=== PATIENT | female | born 1935 | race Caucasian/White ===

== ENCOUNTER 2016-12-13 02:50 | Observation (INO) | payer MEDICARE, MEDICAID ==
[~2016-12-13] VITALS: Ht 165.1 cm; Wt 78.5 kg
[~2016-12-13 02:50] MED LIST: ALBU17AE3 IH; ALPR0.5T22 PO; ASP81CT PO; AZIT-21 PO; BENZ100C8 PO; CEFP500T4 PO; CEFU500T5 PO; DIPH25TA82 PO; GLIM4TAB PO; HCT25T PO; LISI5TAB14 PO; MTF500T PO; MTP25TSR PO; NF-ESOM40C PO; NF-TRA/ACE PO; PROP1TAB77 PO
--- OUTSIDE RECORDS SUMMARY | 2016-12-13 02:58 | XMS REPORT ---
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 [employer] Address Unknown Phone Unavailable Care Team Providers Care Console Attendant Name Role Phone AMBER CHILDERS CP Unavailable Allergies No Known Allergies Problems Problem Type Condition Code Onset Dates Condition Status Problem Essential hypertension I10 Active Problem Arthritis M19.90 Active Problem Type 2 diabetes mellitus without complication, without long-term current use of insulin E11.9 Active Problem Lumbago with sciatica, left side M54.42 Active Problem Anxiety F41.9 Active Medications Medication Code System Code Instructions Start Date End Date Status Dosage Alprazolam [facility] [id number] 0.5 MG Orally Three times a day 1 tablet Results No Known Results Summary Purpose [employer] Submission
[2016-12-13] MEDS ORDERED: NS IV 1000 ML 1,000 ML IV STA (03:17)
--- NOTE | 2016-12-13 03:28 | ED General ---
General Stated Complaint: VOMITING,DIARRHEA,FEELS HOT ALL OVER Source of Information: Patient Exam Limitations: No Limitations History of Present Illness Time Seen by Provider: 03:00 Initial Comments Here with report of cough for the last couple of days associated with body aches and runny nose. Onset of diarrhea yesterday morning. Seen by her provider yesterday and prescribed Cefdinir. She has taken a dose of that. Overnight she had increasing cough and diarrhea. Feels like her skin is on fire which is been going on since onset. Denies blood in her stool. She reports being hot but denies fever. Reports weakness. Timing/Duration: 2-3 Days Severity: Moderate Associated Systoms: No Chest Pain, CoughNo Fever/Chills, Nausea/VomitingNo Shortness of Air, Weakness Allergies and Home Medications Allergies Coded Allergies: Diazepam (Unverified Allergy, Intermediate, RASH, 08/13/10) Home Medications Alprazolam 0.5 Mg Tab.sr.24h 1 TAB PO TID (Reported) Aspirin 81 Mg Chew 81 MG PO DAILY (Reported) Benzonatate 100 Mg Capsule #30 1-2 EACH PO Q4-6HR PRN PRN COUGH Prescribed by: CASSANDRA ROBERTSON on 01/04/152029 Cefuroxime Axetil 500 Mg Tablet #20 1 EACH PO BID Prescribed by: CASSANDRA ROBERTSON on 01/03/151854 Glimepiride 4 Mg Tablet 4 MG PO (Reported) Hydrochlorothiazide 25 Mg Tab 25 MG PO DAILY (Reported) Lisinopril 5 Mg Tablet 5 MG PO DAILY (Reported) Metformin Hcl 500 Mg Tablet 1 EACH PO BID WITH MEALS (Reported) Metoprolol Succinate 25 Mg Tab 25 MG PO BID (Reported) Tramadol/Acetaminophen 1 Ea Tab 1 TAB PO QID (Reported) Constitutional: see HPI EENTM: nose congestionNo throat pain Respiratory: coughNo short of breath Cardiovascular: no symptoms reported Gastrointestinal: diarrhea nausea vomiting Genitourinary: no symptoms reported Musculoskeletal: no symptoms reported All Other Systems Reviewed Negative Unless Noted: Yes Past Hrbonzl-Pzgdkg-Rgftnr Hx Patient Social History Alcohol Use: Denies Use Recreational Drug Use: No Smoking Status: Never a Smoker Recent Foreign Travel: No Contact w/Someone Who Travel: No Immunizations Up To Date Date of Pneumonia Vaccine: Jun 25, 2009 Surgeries HX Surgeries: Yes (SKIN CA REMOVAL) Surgeries: Eye Surgery, Hysterectomy Respiratory Hx Respiratory Disorders: No Cardiovascular Hx Cardiac Disorders: Yes Cardiac Disorders: Hypertension Neurological Hx Neurological Disorders: No Genitourinary Hx Genitourinary Disorders: No Gastrointestinal Hx Gastrointestinal Disorders: No Musculoskeletal Hx Musculoskeletal Disorders: No Endocrine Hx Endocrine Disorders: Yes Endocrine Disorders: Diabetes, Non-Insulin dep HEENT HX ENT Disorders: Yes HEENT Disorders: Cataract, Glaucoma Cancer Hx Cancer: Yes Cancer: Skin Psychosocial Hx Psychiatric Problems: No Integumentary HX Skin/Integumentary Disorder: No Blood Transfusions Hx Blood Disorders: No Adverse Reaction to a Blood Tr: No Reviewed Nursing Assessment Reviewed/Agree w Nursing PMH: Yes Family Medical History Significant Family History: No Pertinent Family Hx Physical Exam Vital Signs Vital Sign - Last 12Hours 12/13/16 02:58 Temp 97.6 Pulse 95 Resp 20 B/P 114/36 Pulse Ox 96 O2 Delivery Room Air Capillary Refill : General Appearance: No Apparent Distress WD/WN HEENT: PERRL/EOMI Pharynx Normal Neck: Non Tender Supple Respiratory: No Accessory Muscle Use Other (course cough with sputum) Cardiovascular: Regular Rate, Rhythm No Murmur Gastrointestinal: Soft Tenderness (mild diffuse) Back: Normal Inspection No CVA Tenderness No Vertebral Tenderness Extremity: Normal Range of Motion Non Tender No Calf Tenderness Neurologic/Psychiatric: Alert Oriented x3 No Motor/Sensory Deficits Skin: Normal Color Warm/Dry Focused Exam Lactic Acid Level Laboratory Tests Test 12/13/16 03:44 Alanine Aminotransferase (ALT/SGPT) 14U/L (0-55) Albumin 4.2G/DL (3.2-4.5) Alkaline Phosphatase 48U/L (40-136) Anion Gap 16MMOL/L (5-14) H Aspartate Amino Transf (AST/SGOT) 17U/L (5-34) BUN/Creatinine Ratio 20 Blood Urea Nitrogen 40MG/DL (7-18) H Calcium Level 9.4MG/DL (8.5-10.1) Carbon Dioxide Level 12MMOL/L (21-32) L Chloride Level 109MMOL/L (98-107) H Creatinine 1.98MG/DL (0.60-1.30) H Estimat Glomerular Filtration Rate 24 Glucose Level 162MG/DL (70-105) H Lactic Acid Level 2.48MMOL/L (0.50-2.00) *H Magnesium Level 2.2MG/DL (1.8-2.4) Potassium Level 5.2MMOL/L (3.6-5.0) H Sodium Level 137MMOL/L (135-145) Total Bilirubin 0.1MG/DL (0.1-1.0) Total Protein 8.1G/DL (6.4-8.2) Progress/Results/Core Measures Results/Orders Lab Results Laboratory Tests Test 12/13/16 03:44 12/13/16 04:26 Range/Units Alanine Aminotransferase (ALT/SGPT) 14 0-55 U/L Albumin 4.2 3.2-4.5 G/DL Alkaline Phosphatase 48 40-136 U/L Anion Gap 16 H 5-14 MMOL/L Aspartate Amino Transf (AST/SGOT) 17 5-34 U/L BUN/Creatinine Ratio 20 Basophils # (Auto) 0.0 0.0-0.1 10^3/uL Basophils (%) (Auto) 0 0-10 % Blood Urea Nitrogen 40 H 7-18 MG/DL Calcium Level 9.4 8.5-10.1 MG/DL Carbon Dioxide Level 12 L 21-32 MMOL/L Chloride Level 109 H 98-107 MMOL/L Creatinine 1.98 H 0.60-1.30 MG/DL Eosinophils # (Auto) 0.1 0.0-0.3 10^3/uL Eosinophils (%) (Auto) 1 0-10 % Estimat Glomerular Filtration Rate 24 Glucose Level 162 H 70-105 MG/DL Hematocrit 33 L 35-52 % Hemoglobin 10.3 L 11.5-16.0 G/DL Lactic Acid Level 2.48 *H 0.50-2.00 MMOL/L Lymphocytes # (Auto) 1.0 1.0-4.0 X 10^3 Lymphocytes (%) (Auto) 9 L 12-44 % Magnesium Level 2.2 1.8-2.4 MG/DL Mean Corpuscular Hemoglobin 29 25-34 PG Mean Corpuscular Hemoglobin Concent 31 L 32-36 G/DL Mean Corpuscular Volume 93 80-99 FL Mean Platelet Volume 10.2 7.4-10.4 FL Monocytes # (Auto) 0.9 0.0-1.0 X 10^3 Monocytes (%) (Auto) 8 0-12 % Neutrophils # (Auto) 9.5 H 1.8-7.8 X 10^3 Neutrophils (%) (Auto) 83 H 42-75 % Platelet Count 277 130-400 10^3/uL Potassium Level 5.2 H 3.6-5.0 MMOL/L Red Blood Count 3.58 L 4.35-5.85 10^6/uL Red Cell Distribution Width 15.6 H 10.0-14.5 % Sodium Level 137 135-145 MMOL/L Total Bilirubin 0.1 0.1-1.0 MG/DL Total Protein 8.1 6.4-8.2 G/DL White Blood Count 11.4 H 4.3-11.0 10^3/uL Urine Bacteria TRACE /HPF Urine Bilirubin NEGATIVE NEGATIVE Urine Casts PRESENT /LPF Urine Clarity CLEAR Urine Color YELLOW Urine Crystals NONE /LPF Urine Culture Indicated NO Urine Glucose (UA) NEGATIVE NEGATIVE Urine Hyaline Casts 5-10 H /LPF Urine Ketones NEGATIVE NEGATIVE Urine Leukocyte Esterase 1+ H NEGATIVE Urine Mucus MODERATE H /LPF Urine Nitrite NEGATIVE NEGATIVE Urine Protein 2+ H NEGATIVE Urine RBC 0-2 /HPF Urine RBC (Auto) 1+ H NEGATIVE Urine Specific [place] 1.020 1.016-1.022 Urine Squamous Epithelial Cells 0-2 /HPF Urine Urobilinogen NORMAL NORMAL MG/DL Urine WBC RARE /HPF Urine pH 5 5-9 My Orders Orders-ERROL COKER MD Cbc With Automated Diff (12/13/16 03:17) Comprehensive Metabolic Panel (12/13/16 03:17) Magnesium (12/13/16 03:17) Ua Culture If Indicated (12/13/16 03:17) Ondansetron Injection (Zofran Injectio (12/13/16 03:30) Ns Iv 1000 Ml (Sodium Chloride 0.9%) (12/13/16 03:17) Saline Lock/Iv-Start (12/13/16 03:17) Lactic Acid Analyzer (12/13/16 03:17) Blood Culture (12/13/16 03:17) Chest 1 View, Ap/Pa Only (12/13/16 04:02) Promethazine/ Codeine Syrup (Phenergan W (12/13/16 05:15) Medications Given in ED Current Medications Medications Dose Ordered Sig/Mary Ann Route Start Time Stop Time Status Last Admin Dose Admin Ondansetron HCl 4 mg ONCE ONCE IVP 12/13/16 03:30 12/13/16 03:31 DC 12/13/16 03:34 4 MG Vital Signs/I&O Vital Sign - Last 12Hours 12/13/16 02:58 Temp 97.6 Pulse 95 Resp 20 B/P 114/36 Pulse Ox 96 O2 Delivery Room Air Progress Note : Progress Note Seen and evaluated. IV, labs, UA, chest x-ray, normal saline 1 L bolus and Zofran 4 mg IV ordered. Monitor patient. 0500: Labs, x-ray and UA are reviewed. Patient does have elevated lactic acid but there is no obvious source of infection. Chest x-ray is negative and UA is negative. She does have diarrhea and cough. I do believe the lactic acid is related to volume depletion/dehydration from diarrhea and not sepsis from bacterial infection. Likely viral bronchitis and viral diarrhea. This was discussed with Dr. METCALF who agrees. She has had 1 L of normal saline and we will continue this inpatient with normal saline at 150 mL an hour. Findings concerns discussed with patient and family who agree with plan. Admit, observation status. Phenergan with codeine cough syrup 1 teaspoon by mouth given. Diagnostic Imaging Diagonstic Imaging: Xray Plain Films/CT/US/NM/MRI: chest Comments No acute findings Departure Communication Time/Spoke to Admitting Phy: 05:00 Impression Impression: Primary Impression: Diarrhea Qualified Code: R19.7 - Diarrhea, unspecified Additional Impressions: Bronchitis Volume depletion Disposition: ADMITTED INPATIENT Condition: Stable Decision to Admit Reason: Admit from ER (General) Decision to Admit/Date: Dec 13, 2016 Time/Decision to Admit Time: 05:00 Departure-Patient Inst. Referrals: [facility] (PCP/Family) Primary Care Physician ERROL COKER MD Dec 13, 2016 03:28
[2016-12-13] MEDS ORDERED: ONDANSETRON 4 MG/2 ML (SDV) Z0FRAN IVP ONE (03:30)
[2016-12-13 03:52] LABS: BASOPHILS % (AUTO) 0 % (0-10); EOSINOPHILS # (AUTO) 0.1 10^3/uL (0.0-0.3); EOSINOPHILS % (AUTO) 1 % (0-10); LYMPHOCYTES % (AUTO) 9 % (12-44); MEAN CORPUSCULAR HEMOGLOBIN 29 PG (25-34); MEAN CORPUSCULAR HGB CONC 31 G/DL (32-36); MEAN CORPUSCULAR VOLUME 93 FL (80-99); MEAN PLATELET VOLUME 10.2 FL (7.4-10.4); MONOCYTES # (AUTO) 0.9 X 10^3 (0.0-1.0); MONOCYTES % (AUTO) 8 % (0-12); NEUTROPHILS # (AUTO) 9.5 X 10^3 (1.8-7.8); NEUTROPHILS % (AUTO) 83 % (42-75); PLATELET COUNT 277 10^3/uL (130-400); RED BLOOD COUNT 3.58 10^6/uL (4.35-5.85); RED CELL DISTRIBUTION WIDTH 15.6 % (10.0-14.5); WHITE BLOOD COUNT 11.4 10^3/uL (4.3-11.0)
[2016-12-13 04:16] LABS: ALBUMIN 4.2 G/DL (3.2-4.5); BILIRUBIN,TOTAL 0.1 MG/DL (0.1-1.0); CALCIUM 9.4 MG/DL (8.5-10.1); CREATININE SERUM 1.98 MG/DL (0.60-1.30); MAGNESIUM 2.2 MG/DL (1.8-2.4); TOTAL PROTEIN 8.1 G/DL (6.4-8.2)
[2016-12-13 04:19] LABS: POTASSIUM 5.2 MMOL/L (3.6-5.0)
[2016-12-13 04:33] LABS: BILIRUBIN,URINE NEGATIVE (NEGATIVE); KETONES,URINE NEGATIVE (NEGATIVE); LEUKOCYTE ESTERASE ,URINE 1+ (NEGATIVE); NITRITE,URINE NEGATIVE (NEGATIVE); PH,URINE 5 (5-9); PROTEIN,URINE 2+ (NEGATIVE); UROBILINOGEN,URINE NORMAL (NORMAL)
[2016-12-13 04:43] LABS: SQUAMOUS EPITHELIAL CELL,UR 0-2 /HPF; WBC,URINE RARE /HPF
[2016-12-13] MEDS ORDERED: PROMETHAZINE/ CODEINE SYRUP 5 ML UDC PO ONE (05:15)
--- NOTE | 2016-12-13 06:31 | Diagnostic Imaging Report ---
EXAM: CHEST 1 VIEW, AP/PA ONLY INDICATION: Cough and congestion. COMPARISON: Chest radiograph 01/04/2015. FINDINGS: Normal heart size and pulmonary vascularity. No focal pulmonary opacity, pleural effusion or pneumothorax. Calcified aorta. IMPRESSION: No acute cardiopulmonary findings. Dictated by: Dictated on workstation # [id number]
[2016-12-13] MEDS ORDERED: CHOLESTYRAMINE 4 GM (QUESTRAN LITE, PREVALITE) PKT PO NR (07:27)
[2016-12-13] MEDS ORDERED: ONDANSETRON 4 MG/2 ML (SDV) Z0FRAN IV PRN (07:30)
[2016-12-13] MEDS ORDERED: CATHETER FLUSH 10 ML SYR IV PRN (07:30)
[2016-12-13 08:00] VITALS: BP 115/57
[2016-12-13] MEDS: NS IV 1000 ML 1,000 ML IV SCH ×3 (08:13→20:50)
[2016-12-13] MEDS ORDERED: CEFD300C3 PO (08:35)
[2016-12-13] MEDS ORDERED: NF-ESOM40C PO (08:35)
[2016-12-13] MEDS ORDERED: LISI-556 PO (08:35)
[2016-12-13] MEDS ORDERED: ALPR0.5T7 PO (08:35)
[2016-12-13] MEDS ORDERED: METF500T4 PO (08:35)
[2016-12-13] MEDS ORDERED: METO-333 PO (08:35)
[2016-12-13] MEDS ORDERED: TRAM1TAB7 PO (08:35)
[2016-12-13] MEDS ORDERED: HYDR25TA4 PO (08:35)
[2016-12-13] MEDS ORDERED: ASPI-983 PO (09:54)
[2016-12-13] MEDS ORDERED: GLIM4TAB PO (10:00)
[2016-12-13] MEDS ORDERED: FLU TRIvalent (5 YOA+) 2016-17 (AFLURIA) 0.5 ML IM ONE (10:45)
[2016-12-13 12:00] VITALS: BP 117/65
[2016-12-13] MEDS ORDERED: IBUPROFEN TABLET 200 MG TAB PO PRN (12:30)
[2016-12-13] MEDS: ACETAMINOPHEN 500 MG TAB (TYLENOL) PO PRN (13:48)
[2016-12-13 16:10] VITALS: BP 129/70
[2016-12-13 20:00] VITALS: BP 119/71
--- NOTE | 2016-12-13 20:13 | History & Physical-Hospitalist ---
HPI History of Present Illness: HPI/Chief Complaint Mrs. Gutierres is an 81-year who reported a three-day history of cough and congestion. This then progre to watery diarrhea without reported bright red blood or diarrhea. she saw her doctor who prescribed Cefdinir.following this she felt as though her skin was on fire with increasing weakness and shortness of breath.subsequently presented to the emergency room. She denied shaking chills or fever and denied Sputem production. Date Seen 12/13/16 Attending Physician Lj Wagner MD PCP [facility] Referring Physician Date of Admission Dec 13, 2016 at 05:00 Home Medications & Allergies Home Medications Reviewed patient Home Medication Reconciliation Form Allergies Allergies Coded Allergies diazepam (Unverified Allergy, Intermediate, RASH, 08/13/10) Past Vadjppf-Gidgvp-Jmzlsn Hx Patient Social History Alcohol Use: Denies Use Recreational Drug Use: No Smoking Status: Never a Smoker Physical Abuse Screen: No Sexual Abuse: No Recent Foreign Travel: No Contact w/other who traveled: No Recent Hopitalizations: No Recent Infectious Disease Expo: No Immunizations Up To Date Date of Pneumonia Vaccine: Jul 16, 2017 Seasonal Allergies Seasonal Allergies: No Surgeries HX Surgeries: Yes (SKIN CA REMOVAL) Surgeries: Eye Surgery, Hysterectomy Respiratory Hx Respiratory Disorders: No Cardiovascular Hx Cardiovascular Disorders: Yes Cardiac Disorders: Hypertension Neurological Hx Neurological Disorders: No Genitourinary Hx Genitourinary Disorders: No Gastrointestinal Hx Gastrointestinal Disorders: No Gastrointestinal Disorders: Gastroesophageal Reflux Musculoskeletal Hx Musculoskeletal Disorders: No Endocrine Hx Endocrine Disorders: Yes Endocrine Disorders: Diabetes, Non-Insulin dep HEENT HX ENT Disorders: Yes HEENT Disorders: Cataract, Glaucoma Cancer Hx Cancer: Yes Cancer: Skin Psychosocial Hx Psychiatric Problems: No Integumentary HX Skin/Integumentary Disorder: No Blood Transfusions Hx Blood Disorders: No Adverse Reaction to a Blood Tr: No Reviewed Nursing Assessment Reviewed/Agree w Nursing PMH: Yes Family Medical History Significant Family History: No Pertinent Family Hx Family Hx: Patient reports no known family medical history. Review of Systems Constitutional: No chills, No diaphoresis, No dizziness, No fever, weakness Respiratory: cough dyspnea on exertion short of breath wheezing Gastrointestinal: abdominal pain (And left upper quadrant from coughing) diarrhea loss of appetite Physical Exam Physical Exam Vital Signs Vital Sign - Last 12Hours 12/13/16 02:58 Temp 97.6 Pulse 95 Resp 20 B/P 114/36 Pulse Ox 96 O2 Delivery Room Air Capillary Refill : Less Than 3 Seconds General Appearance: Anxious Chronically ill Mild Distress HEENT: Pale Conjunctivae (L) Pale Conjunctivae (R) Pharyngeal Erythema Respiratory: No Accessory Muscle Use Wheezing (Mild expiratory heard posteriorly anterior chest was clear no rales or rhonchi were noted.) Cardiovascular: Regular Rate, Rhythm No Edema No Gallop No JVD No Murmur Normal Peripheral Pulses Gastrointestinal: Normal Bowel Sounds No Organomegaly No Pulsatile Mass Soft Other (Mild epigastricTenderness no rebound or guarding) Extremity: Non Tender No Calf Tenderness No Pedal Edema Skin: Pallor Results Results/Procedures Lab Laboratory Tests 12/13/16 03:44 Assessment/Plan Admission Diagnosis 1. Likely viral bronchitis with reactive airways in addition to viral gastroenteritis with mild dehydration. Bronchodilator therapy and IV hydration have been initiated. 2. Type II diabetes mellitus we will hold oral therapy for now and monitor. 3. Hypertension hold antihypertensive medication and resume when blood pressure becomes elevated.. Clinical Quality Measures DVT/VTE Risk/Contraindication: Risk Factor Score Per Nursin RFS Level Per Nursing on Admit: 4+=Very High YARIEL TSE MD Dec 13, 2016 20:13
[2016-12-13] MEDS: inSUlin ASPART (NovoLOG) 1 UNIT/0.01 ML (CHARGE PER UNIT) SC SCH (21:00)
[2016-12-13] MEDS: ALPRAZolam 0.5 MG (XANAX) TAB PO SCH (21:00)
[2016-12-13] MEDS ORDERED: RT-ALBUTEROL/IPRATROPIUM 3 ML (DUONEB) VIAL ONE (22:17)
[2016-12-13] MEDS: PROMETHAZINE/ CODEINE SYRUP 5 ML UDC PO PRN (22:34)
[2016-12-13] MEDS ORDERED: RT-ALBUTEROL/IPRATROPIUM 3 ML (DUONEB) VIAL INH PRN (22:45)
[2016-12-13] MEDS ORDERED: RT-ALBUTEROL/IPRATROPIUM 3 ML (DUONEB) VIAL INH SCH (23:00)
[2016-12-14] VITALS (7 sets, daily range): BP systolic 100–146; BP diastolic 59–70
[2016-12-14] MEDS: NS IV 1000 ML 1,000 ML IV SCH ×3 (00:15→14:28)
[2016-12-14] MEDS: inSUlin ASPART (NovoLOG) 1 UNIT/0.01 ML (CHARGE PER UNIT) SC SCH ×4 (05:23→20:32)
[2016-12-14] MEDS: RT-ALBUTEROL/IPRATROPIUM 3 ML (DUONEB) VIAL INH SCH ×4 (06:51→18:55)
[2016-12-14] MEDS: PANTOPRAZOLE 40 MG (PROTONIX) TAB PO SCH (06:52)
[2016-12-14 07:42] LABS: BASOPHILS % (AUTO) 0 % (0-10); EOSINOPHILS # (AUTO) 0.1 10^3/uL (0.0-0.3); EOSINOPHILS % (AUTO) 1 % (0-10); LYMPHOCYTES % (AUTO) 23 % (12-44); MEAN CORPUSCULAR HEMOGLOBIN 29 PG (25-34); MEAN CORPUSCULAR HGB CONC 32 G/DL (32-36); MEAN CORPUSCULAR VOLUME 93 FL (80-99); MEAN PLATELET VOLUME 9.7 FL (7.4-10.4); MONOCYTES # (AUTO) 0.6 X 10^3 (0.0-1.0); MONOCYTES % (AUTO) 7 % (0-12); NEUTROPHILS % (AUTO) 69 % (42-75); PLATELET COUNT 223 10^3/uL (130-400); RED BLOOD COUNT 2.91 10^6/uL (4.35-5.85); RED CELL DISTRIBUTION WIDTH 15.7 % (10.0-14.5); WHITE BLOOD COUNT 8.7 10^3/uL (4.3-11.0)
[2016-12-14 07:57] LABS: CALCIUM 7.7 MG/DL (8.5-10.1); CREATININE SERUM 1.34 MG/DL (0.60-1.30); POTASSIUM 4.2 MMOL/L (3.6-5.0)
[2016-12-14] MEDS: ALPRAZolam 0.5 MG (XANAX) TAB PO SCH ×3 (09:00→20:01)
[2016-12-14] MEDS: PROMETHAZINE/ CODEINE SYRUP 5 ML UDC PO PRN (15:08)
[2016-12-14] MEDS ORDERED: ONDANSETRON 4 MG (ZOFRAN) ORAL DISSOLVE TAB PO PRN (15:45)
--- NOTE | 2016-12-14 20:47 | Progress Note-Hospitalist ---
Subjective HPI/CC On Admission Mrs. Gutierres is an 81-year who reported a three-day history of cough and congestion. This then progre to watery diarrhea without reported bright red blood or diarrhea. she saw her doctor who prescribed Cefdinir.following this she felt as though her skin was on fire with increasing weakness and shortness of breath.subsequently presented to the emergency room. She denied shaking chills or fever and denied Sputem production. Date Seen 12/14/16 Subjective/Events-last exam After breathing rx last night feeling better with decreased sob. No chill fever or diarrhea reported. Objective Exam Vital Signs Vital Sign - Last 12Hours 12/12/16 12/13/16 21:20 02:58 Temp 97.6 Pulse 95 Resp 20 B/P (MAP) 114/36 Pulse Ox 95 O2 Delivery Room Air Capillary Refill : Less Than 3 Seconds General Appearance: No Apparent Distress, Chronically ill Respiratory: Chest Non Tender, No Accessory Muscle Use, No Respiratory Distress , Wheezing (mild expiratory ) Cardiovascular: Regular Rate, Rhythm, No Edema, No Gallop, No JVD, No Murmur, Normal Peripheral Pulses Extremity: No Pedal Edema Results/Procedures Lab Assessment/Plan Assessment and Plan Assess & Plan/Chief Complaint 1. Acute bronchiolitis likely due to viral infection improving patient set up for discharge later today she was codeine-based cough syrup which is working well for the past without side effects. YARIEL TSE MD Dec 14, 2016 20:46
[2016-12-15] MEDS: inSUlin ASPART (NovoLOG) 1 UNIT/0.01 ML (CHARGE PER UNIT) SC SCH ×3 (06:00→16:00)
[2016-12-15] MEDS: PROMETHAZINE/ CODEINE SYRUP 5 ML UDC PO PRN (06:07)
[2016-12-15] MEDS: PANTOPRAZOLE 40 MG (PROTONIX) TAB PO SCH (06:08)
[2016-12-15] MEDS: RT-ALBUTEROL/IPRATROPIUM 3 ML (DUONEB) VIAL INH SCH ×2 (07:38→11:23)
[2016-12-15] MEDS: ACETAMINOPHEN 500 MG TAB (TYLENOL) PO PRN (07:41)
[2016-12-15 08:00] VITALS: BP 144/77
[2016-12-15] MEDS: ALPRAZolam 0.5 MG (XANAX) TAB PO SCH ×2 (09:24→12:23)
[2016-12-15 16:00] VITALS: BP 130/60
[2016-12-15] MEDS ORDERED: CODE118S2 PO (16:41)
[2016-12-15] MEDS ORDERED: ROBITUSSIN AC PO (16:43)
[2016-12-15 17:15] VITALS: BP 122/88
--- NOTE | 2016-12-15 17:19 | Discharge Summary-Hospitalist ---
Diagnosis/Chief Complaint Date of Admission Dec 13, 2016 at 07:00 Date of Discharge Discharge Date: Dec 15, 2016 Admission Diagnosis 1. Likely viral bronchitis with reactive airways in addition to viral gastroenteritis with mild dehydration. Bronchodilator therapy and IV hydration have been initiated. 2. Type II diabetes mellitus we will hold oral therapy for now and monitor. 3. Hypertension hold antihypertensive medication and resume when blood pressure becomes elevated.. Discharge Diagnosis 1. Acute bronchiolitis likely due to viral infection improving patient set up for discharge later today she was codeine-based cough syrup which is working well for the past without side effects. Reason Hospital Visit/Course Mrs. Jaime is an 81-year who reported a three-day history of cough and congestion. This then progre to watery diarrhea without reported bright red blood or diarrhea. she saw her doctor who prescribed Cefdinir.following this she felt as though her skin was on fire with increasing weakness and shortness of breath.subsequently presented to the emergency room. She denied shaking chills or fever and denied Sputum production. IV fluids and anti-medic therapy was initiated. Patient was feeling better by the morning and creatinine level was down from the 1.8 range to 1.3. Her hemoglobin with rehydration and also decreased from little over 10-8.5. Stools remain light in color with resolution of diarrhea. Appetite returned to normal. Her cough persisted and she did request codeine-based cough syrup on discharge which she has tolerated in the past without nausea or constipation problems. Despite return of good by mouth intake on a 1500-calorie ADA diet blood sugars remained predominantly in the 120-150 range off of metformin and glimepiride. On her discharge metformin at 500 mg twice a day was resumed and she was told to hold her glimepiride. Other medications were resumed as per below in addition Robitussin-AC elixir 5- 10 mL every 4 when necessary. She was advised to follow-up with Dr. Whelan in 1 -2 weeks and to repeat a CBC at that time. Discussed the fact that she did have what appeared to be likely anemia of chronic disease. If this is not resolving she will require further workup. Discussed the importance of a balanced diet in layman's terms. Discharge Summary Discharge Physical Examination Allergies: Coded Allergies: diazepam (Unverified Allergy, Intermediate, RASH, 08/13/10) Vitals & I&Os Vital Signs Date Time Temp Pulse Resp B/P (MAP) Pulse Ox O2 Delivery O2 Flow Rate FiO2 12/15/16 16:00 96.9 94 16 130/60 97 Room Air Hospital Course Labs (last 24 hrs) Laboratory Tests 12/14/16 20:21: Glucometer 182H 12/15/16 05:12: Glucometer 141H 12/15/16 10:43: Glucometer 171H 12/15/16 15:58: Glucometer 132H Microbiology 12/13/16 Blood Culture - Preliminary, Resulted No growth Pending Labs Laboratory Tests 12/15/16 10:43: Glucometer 171 12/15/16 15:58: Glucometer 132 Discharge Home Medications: Active Scripts Active [Robitussin Ac] 5-10 Ml PO Reported Aspirin EC (Aspirin) 81 Mg Tablet.dr 81 Mg PO DAILY Tramadol-Acetaminophn 37.5-325 (Tramadol HCl/Acetaminophen) 1 Each Tablet 1 Tab PO QID Nexium (Esomeprazole Magnesium) 40 Mg Cap 40 Mg PO DAILY Alprazolam 0.5 Mg Tablet 0.5 Mg PO TID Metformin HCl 500 Mg Tablet 500 Mg PO BID WITH MEALS Metoprolol Tartrate 25 Mg Tablet 25 Mg PO BID Lisinopril 5 Mg Tablet 5 Mg PO DAILY Instructions to patient/family Please see electonic discharge instructions given to patient. Clinical Quality Measures DVT/VTE Risk/Contraindication: Risk Factor Score Per Nursin RFS Level Per Nursing on Admit: 4+=Very High Copy Copies To 1: AMBER CHILDERS MD, MARK D MD Dec 15, 2016 17:19
== END 2016-12-15 08:02 | disposition home or self-care (01) ==
LOC: DELPENDDIS → EDUNIT# 02:50 → ER 02:53 → 4TH 05:00 → UNDOADMOB 05:00 → 4TH 06:15
PROVIDERS: ADMIT Internal Medicine; ATTEND Internal Medicine
DX: J21.9 Acute bronchiolitis, unspecified (principal); E86.0 Dehydration; I10 Essential (primary) hypertension; E11.9 Type 2 diabetes mellitus without complications; K21.9 Gastro-esophageal reflux disease without esophagitis; J45.909 Unspecified asthma, uncomplicated; R19.7 Diarrhea, unspecified
CPT/HCPCS: 36415; 71010; 80048; 80053; 81000; 82962; 83605; 83735; 85025; 87040; 94640; 94760; 96374; G0378

== ENCOUNTER 2018-10-22 06:34 | Emergency (ER) | payer MEDICARE, MEDICAID ==
[~2018-10-22] VITALS: Ht 165.1 cm; Wt 72.6 kg
[~2018-10-22 06:34] MED LIST changes: +ALPR0.5T7 PO; +ASPI-983 PO; +CEFD300C3 PO; +CODE118S4 PO; +HYDR25TA4 PO; +LISI-556 PO; +METF-397 PO; +METO-333 PO; +ROBITUSSIN AC PO; +TRAM1TAB7 PO
--- NOTE | 2018-10-22 06:54 | ED Fall/Injury ---
General Stated Complaint: FELL OUT OF WHEELCHAIR Source: patient Exam Limitations: no limitations History of Present Illness Date Seen by Provider: Oct 22, 2018 Time Seen by Provider: 06:38 Initial Comments Patient presents to ER by wheelchair from 4th floor where she has been with her overnight. She fell forward out of her wheelchair after falling asleep on to her knees and struck her head against the recliner. Patient says she has falls about every week or so. 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 She's having some modest pain but no more than usual in her knees and denies any swelling or loss of range of motion or ability to stand on them. She says she struck herself in the right forehead. She is having no double vision, headache, nausea, diarrhea, dysuria, fever. She says she just wants to be checked out. He does not take blood thinners or aspirin. She has already taken her medications this morning including a pain pill for her arthritis. Allergies and Home Medications Allergies Coded Allergies: diazepam (Unverified Allergy, Intermediate, RASH, 08/13/10) Home Medications Alprazolam 0.5 Mg Tablet, 0.5 MG PO TID, (Reported) Aspirin 81 Mg Tablet.dr, 81 MG PO DAILY, (Reported) Esomeprazole Magnesium 40 Mg Cap, 40 MG PO DAILY, (Reported) Lisinopril 5 Mg Tablet, 5 MG PO DAILY, (Reported) Metformin HCl 500 Mg Tablet, 500 MG PO BID WITH MEALS, (Reported) Metoprolol Tartrate 25 Mg Tablet, 25 MG PO BID, (Reported) Tramadol HCl/Acetaminophen 1 Each Tablet, 1 TAB PO QID, (Reported) Patient Home Medication List Home Medication List Reviewed: Yes Review of Systems Review of Systems Constitutional: No chills, No fever Eyes: Denies Blindness, Denies Blurred Vision Ears, Nose, Mouth, Throat: denies ear pain, denies ear discharge Respiratory: No cough, No short of breath Cardiovascular: No chest pain, No edema Gastrointestinal: No abdominal pain, No constipation, No diarrhea, No nausea Genitourinary: No discharge, No dysuria Past Bkhbwrv-Aeokwz-Wqhweb Hx Patient Social History Alcohol Use: Denies Use Recreational Drug Use: No Smoking Status: Never a Smoker Recent Foreign Travel: No Contact w/Someone Who Travel: No Recent Hopitalizations: No Immunizations Up To Date Date of Pneumonia Vaccine: Jul 16, 2017 Seasonal Allergies Seasonal Allergies: No Past Medical History Surgeries: Yes (SKIN CA REMOVAL) Eye Surgery, Hysterectomy Respiratory: No Cardiac: Yes Hypertension Neurological: No Genitourinary: No Gastrointestinal: Yes Gastroesophageal Reflux Musculoskeletal: No Endocrine: Yes Diabetes, Non-Insulin dep Cataract, Glaucoma Cancer: Yes Skin Psychosocial: No Integumentary: No Blood Disorders: No Adverse Reaction/Blood Tranf: No Family Medical History Patient reports no known family medical history. No Pertinent Family Hx Physical Exam Vital Signs Vital Signs - First Documented 10/22/18 06:40 Temp 96.1 Pulse 93 Resp 19 B/P (MAP) 111/66 (81) Pulse Ox 98 O2 Delivery Room Air Capillary Refill : Height, Weight, BMI Height: 5'5.00" Weight: 173lbs. 0.0oz. [id number]; 28.8 BMI Method:Stated General Appearance: WD/WN, no apparent distress HEENT: PERRL/EOMI, normal ENT inspection, TMs normal, pharynx normal, other ( atraumatic head with negative for Mac sign, raccoon eyes or hematoma or hemotympanum) Neck: non-tender, full range of motion, supple, normal inspection Cardiovascular: normal peripheral pulses, regular rate, rhythm, no edema Respiratory: chest non-tender, lungs clear, normal breath sounds, no respiratory distress, no accessory muscle use Peripheral Pulses: 2+ Dorsalis Pedis (R), 2+ Left Dors-Pedis (L) Gastrointestinal: normal bowel sounds, non tender, soft Extremities: normal range of motion (bilateral knees), non-tender, normal inspection, no pedal edema, normal capillary refill, other (no abrasion, erythema, ecchymoses, joint effusion, crepitus. She generally lacks about 10 of full extension of both knees but this is felt to be chronic.) Claudette Coma Score Best Eye Response: (4) Open Spontaneously Best Verbal Response: (5) Oriented Best Motor Response: (6) Obeys Commands Claudette Total: 15 Progress/Results/Core Measures Results/Orders My Orders Orders - RODRIGUEZ BRUNO Ct Head Wo (10/22/18 06:48) Knee, 3 Views, Bilateral (10/22/18 07:05) Vital Signs/I&O 10/22/18 10/22/18 06:40 06:40 Temp 96.1 96.1 Pulse 93 93 Resp B/P (MAP) 111/66 (81) 111/66 (81) Pulse Ox 98 O2 Delivery Room Air Progress Progress Note : Time: 06:53 Progress Note Patient's knees and head are atraumatic appearing. 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 She states her pain is at baseline. She declines anything for pain right now. We have offered x-rays of the knee but she has full range of motion and can stand on them. We have also offered a CT of the head versus observation and the patient decided to go ahead and CT. Diagnostic Imaging Diagonstic Imaging: CT Plain Films/CT/US/NM/MRI: head Comments [facility], [place] NAME: PJ MORALES 3Jam [facility] REC#: [id number] PT STATUS: REG ER : 1935 PHYSICIAN: RODRIGUEZ BRUNO MD ADMIT DATE: 10/22/18/ER Draft Date of Exam:10/22/18 CT HEAD WO PROCEDURE: CT head without contrast. TECHNIQUE: Multiple contiguous axial images were obtained through the brain without the use of intravenous contrast. INDICATION: Fall. No priors. There is no hemorrhage, hydrocephalus, edema, mass, mass effect or evidence for an elevation of the intracranial pressures. Orbits and calvarium nonacute. There is chronic-appearing, partially calcified opacification of the incompletely visualized right maxillary sinus and a similarly but less involved left maxillary sinus noted. There appears to be postsurgical changes to the medial maxillary kerns. IMPRESSION: Chronic paranasal sinus disease, unremarkable appearance of the brain. Dictated on workstation # [id number] Dict: 10/22/18 0709 Trans: 10/22/18 0720 [facility] [id number] Interpreted by: MAYI MARTINO Electronically signed by: Reviewed: Reviewed by Me Diagonstic Imaging: Xray Plain Films/CT/US/NM/MRI: knee (monica) Comments NAME: PJ MORALES [facility] REC#: [id number] PT STATUS: REG ER : 1935 PHYSICIAN: RODRIGUEZ BRUON MD ADMIT DATE: 10/22/18/ER Draft Date of Exam:10/22/18 KNEE, 3 VIEWS, BILATERAL Indication: Fall with pain. Bilateral three-view knee showed no fracture, dislocation loose body or convincing evidence for joint effusion. Impression: No acute-appearing abnormality. Dictated on workstation # [id number] Dict: 10/22/18 0736 Trans: 10/22/18 0740 [facility] [phone] Interpreted by: MAYI MARTINO Electronically signed by: Reviewed: Reviewed by Me Departure Impression Primary Impression: Fall Qualified Codes: W19.XXXA - Unspecified fall, initial encounter Disposition: HOME, SELF-CARE Condition: Stable Departure-Patient Inst. Decision time for Depature: 07:40 Referrals: [facility] [place]) Primary Care Physician Patient Instructions: Concussion, Adult (DC) Add. Discharge Instructions: Tylenol and/or ibuprofen as necessary for headache pain. If you Have a headache, nausea or difficulty with balance then you should get some sleep and follow-up with primary care as necessary. RODRIGUEZ BRUNO Oct 22, 2018 06:54
--- NOTE | 2018-10-22 07:21 | Diagnostic Imaging Report ---
PROCEDURE: CT head without contrast. TECHNIQUE: Multiple contiguous axial images were obtained through the brain without the use of intravenous contrast. INDICATION: Fall. No priors. There is no hemorrhage, hydrocephalus, edema, mass, mass effect or evidence for an elevation of the intracranial pressures. Orbits and calvarium nonacute. There is chronic-appearing, partially calcified opacification of the incompletely visualized right maxillary sinus and a similarly but less involved left maxillary sinus noted. There appears to be postsurgical changes to the medial maxillary kerns. IMPRESSION: Chronic paranasal sinus disease, unremarkable appearance of the brain. Dictated by: Dictated on workstation # [id number]
--- NOTE | 2018-10-22 07:40 | Diagnostic Imaging Report ---
Indication: Fall with pain. Bilateral three-view knee showed no fracture, dislocation loose body or convincing evidence for joint effusion. Impression: No acute-appearing abnormality. Dictated by: Dictated on workstation # [id number]
[2018-10-22 07:53] VITALS: BP 110/65
== END 2018-10-22 08:00 | disposition home or self-care (01) ==
LOC: EDUNIT# 06:34 → ER 06:35
DX: M25.561 Pain in right knee (principal); M25.562 Pain in left knee; I10 Essential (primary) hypertension; K21.9 Gastro-esophageal reflux disease without esophagitis; E11.9 Type 2 diabetes mellitus without complications; R40.2142 Coma scale, eyes open, spontaneous, at arrival to emergency department; R40.2252 Coma scale, best verbal response, oriented, at arrival to emergency department; R40.2362 Coma scale, best motor response, obeys commands, at arrival to emergency department; Z88.8 Allergy status to other drugs, medicaments and biological substances; Z79.82 Long term (current) use of aspirin; Z85.828 Personal history of other malignant neoplasm of skin; Z90.710 Acquired absence of both cervix and uterus; Z79.84 Long term (current) use of oral hypoglycemic drugs; W05.0XXA Fall from non-moving wheelchair, initial encounter; W22.09XA Striking against other stationary object, initial encounter
CPT/HCPCS: 70450

== ENCOUNTER 2018-11-02 08:55 | Emergency (ER) | payer MEDICARE, MEDICAID ==
[~2018-11-02] VITALS: Ht 165.1 cm; Wt 72.6 kg
--- NOTE | 2018-11-02 10:17 | ED Lower Extremity ---
General Chief Complaint: Lower Extremity Stated Complaint: LT LEG INJURY Nursing Triage Note: Pt to ED rm 9 in wheelchair. Pt c/o L leg pain, redness, and swelling that began yesterday. Pt denies injury. Pt's inner calf is red, swollen and hot to the touch. Nursing Sepsis Screen: No Definite Risk Source: patient Exam Limitations: no limitations History of Present Illness Date Seen by Provider: Nov 02, 2018 Time Seen by Provider: 10:14 Initial Comments This 83-year-old white female presents with redness swelling and pain of the left leg between the knee and the ankle that began yesterday. Patient denies similar episode in the past, injury to the leg, associated shortness of breath, hemoptysis, fever, or chills. Allergies and Home Medications Allergies Coded Allergies: diazepam (Unverified Allergy, Intermediate, RASH, 08/13/10) Home Medications Alprazolam 0.5 Mg Tablet, 0.5 MG PO TID, (Reported) Aspirin 81 Mg Tablet.dr, 81 MG PO DAILY, (Reported) Esomeprazole Magnesium 40 Mg Cap, 40 MG PO DAILY, (Reported) Lisinopril 5 Mg Tablet, 5 MG PO DAILY, (Reported) Metformin HCl 500 Mg Tablet, 500 MG PO BID WITH MEALS, (Reported) Metoprolol Tartrate 25 Mg Tablet, 25 MG PO BID, (Reported) Tramadol HCl/Acetaminophen 1 Each Tablet, 1 TAB PO QID, (Reported) Patient Home Medication List Home Medication List Reviewed: Yes Review of Systems Constitutional: No chills, No fever EENTM: no symptoms reported Respiratory: No cough, No short of breath Cardiovascular: No chest pain Gastrointestinal: No abdominal pain, No nausea, No vomiting Genitourinary: no symptoms reported : No Musculoskeletal: see HPI Skin: change in color Psychiatric/Neurological: No Symptoms Reported Past Xuygomn-Egwwjv-Hanerb Hx Past Med/Social Hx: Reviewed Nursing Past Med/Soc Hx Patient Social History Alcohol Use: Denies Use Recreational Drug Use: No 2nd Hand Smoke Exposure: No Recent Foreign Travel: No Contact w/Someone Who Travel: No Recent Infectious Disease Expo: No Recent Hopitalizations: No Physical Abuse: No Sexual Abuse: No Immunizations Up To Date Tetanus Booster (TDap): Unknown Date of Pneumonia Vaccine: Jul 16, 2017 Seasonal Allergies Seasonal Allergies: No Past Medical History Surgeries: Yes (SKIN CA REMOVAL) Eye Surgery, Hysterectomy Respiratory: No Cardiac: Yes Hypertension 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 No Pertinent Family Hx Physical Exam Vital Signs Vital Signs - First Documented 11/02/18 09:20 Temp 98.5 Pulse 111 Resp 19 B/P (MAP) 141/63 (89) Pulse Ox 99 O2 Delivery Room Air Capillary Refill : Less Than 3 Seconds Height, Weight, BMI Height: 5'5.00" Weight: 160lbs. 0oz. [id number]; 28.8 BMI Method:Stated General Appearance: WD/WN, no apparent distress HEENT: normal ENT inspection Neck: full range of motion, supple Cardiovascular: regular rate, rhythm Respiratory: lungs clear Gastrointestinal: normal bowel sounds, non tender Legs: left leg other (there is diffuse erythema to the left leg between the knee and the ankle. The inflamed area is slightly warm to the touch. There was no ascending lymphedema.) Neurologic/Tendon: normal sensation, normal motor functions Neurologic/Psychiatric: no motor/sensory deficits, alert, normal mood/affect, oriented x 3 Skin: other (erythema to the left leg between the knee and ankle suggestive of cellulitis.) Progress/Results/Core Measures Results/Orders Lab Results Laboratory Tests Test 11/02/18 10:55 Range/Units White Blood Count 17.6 H 4.3-11.0 10^3/uL Red Blood Count 3.46 L 4.35-5.85 10^6/uL Hemoglobin 10.5 L 11.5-16.0 G/DL Hematocrit 33 L 35-52 % Mean Corpuscular Volume 96 80-99 FL Mean Corpuscular Hemoglobin 30 25-34 PG Mean Corpuscular Hemoglobin Concent 32 32-36 G/DL Red Cell Distribution Width 14.5 10.0-14.5 % Platelet Count 204 130-400 10^3/uL Mean Platelet Volume 11.0 H 7.4-10.4 FL Neutrophils (%) (Auto) 84 H 42-75 % Lymphocytes (%) (Auto) 9 L 12-44 % Monocytes (%) (Auto) 7 0-12 % Eosinophils (%) (Auto) 0 0-10 % Basophils (%) (Auto) 0 0-10 % Neutrophils # (Auto) 14.7 H 1.8-7.8 X 10^3 Lymphocytes # (Auto) 1.6 1.0-4.0 X 10^3 Monocytes # (Auto) 1.3 H 0.0-1.0 X 10^3 Eosinophils # (Auto) 0.0 0.0-0.3 10^3/uL Basophils # (Auto) 0.0 0.0-0.1 10^3/uL Neutrophils % (Manual) 89 % Lymphocytes % (Manual) 7 % Monocytes % (Manual) 4 % Eosinophils % (Manual) 0 % Basophils % (Manual) 0 % Band Neutrophils 0 % Blood Morphology Comment NORMAL Sodium Level 138 135-145 MMOL/L Potassium Level 4.4 3.6-5.0 MMOL/L Chloride Level 110 H 98-107 MMOL/L Carbon Dioxide Level 16 L 21-32 MMOL/L Anion Gap 12 5-14 MMOL/L Blood Urea Nitrogen 31 H 7-18 MG/DL Creatinine 1.56 H 0.60-1.30 MG/DL Estimat Glomerular Filtration Rate 32 BUN/Creatinine Ratio 20 Glucose Level 167 H 70-105 MG/DL Calcium Level 9.5 8.5-10.1 MG/DL Corrected Calcium 9.6 8.5-10.1 MG/DL Total Bilirubin 0.4 0.1-1.0 MG/DL Aspartate Amino Transf (AST/SGOT) 11 5-34 U/L Alanine Aminotransferase (ALT/SGPT) 9 0-55 U/L Alkaline Phosphatase 50 40-136 U/L Total Protein 7.7 6.4-8.2 GM/DL Albumin 3.9 3.2-4.5 GM/DL My Orders Orders - YARIEL CHAVEZ MD Cbc With Automated Diff (11/02/18 10:13) Comprehensive Metabolic Panel (11/02/18 10:13) Us Venous Lower Ext Lt (11/02/18 10:13) Manual Differential (11/02/18 10:55) Vital Signs/I&O 11/02/18 09:20 Temp 98.5 Pulse 111 Resp 19 B/P (MAP) 141/63 (89) Pulse Ox 99 O2 Delivery Room Air Blood Pressure Mean: 89 Progress Progress Note : Time: 11:27 Progress Note The patient's ultrasound of the leg failed to demonstrate evidence of thrombophlebitis. I discussed findings with the patient. She was placed on Bactrim DS moist heating pads to the leg, elevation, rest, and asked to follow up closely with her doctor on Monday. She was invited return to the emergency department should any further problems or questions. Departure Impression Primary Impression: Cellulitis Qualified Codes: L03.116 - Cellulitis of left lower limb Disposition: HOME, SELF-CARE Condition: Improved Departure-Patient Inst. Decision time for Depature: 11:29 Referrals: [facility] (PCP/Family) Primary Care Physician Patient Instructions: Cellulitis (Skin Infection), Adult (DC) Add. Discharge Instructions: Bactrim DS as prescribed. Moist heat and elevation to the left leg. Close follow-up with her doctor on Monday. Return if any problems or questions. All discharge instructions reviewed with patient and/or family. Voiced understanding. YARIEL CHAVEZ MD Nov 02, 2018 10:17
[2018-11-02 11:01] LABS: BASOPHILS % (AUTO) 0 % (0-10); EOSINOPHILS % (AUTO) 0 % (0-10); HEMATOCRIT 33 % (35-52); HEMOGLOBIN 10.5 G/DL (11.5-16.0); LYMPHOCYTES # (AUTO) 1.6 X 10^3 (1.0-4.0); LYMPHOCYTES % (AUTO) 9 % (12-44); MEAN CORPUSCULAR HEMOGLOBIN 30 PG (25-34); MEAN CORPUSCULAR HGB CONC 32 G/DL (32-36); MEAN CORPUSCULAR VOLUME 96 FL (80-99); MONOCYTES # (AUTO) 1.3 X 10^3 (0.0-1.0); MONOCYTES % (AUTO) 7 % (0-12); NEUTROPHILS # (AUTO) 14.7 X 10^3 (1.8-7.8); NEUTROPHILS % (AUTO) 84 % (42-75); PLATELET COUNT 204 10^3/uL (130-400); RED CELL DISTRIBUTION WIDTH 14.5 % (10.0-14.5); WHITE BLOOD COUNT 17.6 10^3/uL (4.3-11.0)
[2018-11-02 11:19] LABS: BAND NEUTROPHILS 0 %; BASOPHILS % (MANUAL) 0 %; EOSINOPHILS % (MANUAL) 0 %; LYMPHOCYTES % (MANUAL) 7 %; MONOCYTES % (MANUAL) 4 %; NEUTROPHILS % (MANUAL) 89 %; RBC MORPH NORMAL
[2018-11-02 11:23] LABS: ALBUMIN 3.9 GM/DL (3.2-4.5); BILIRUBIN,TOTAL 0.4 MG/DL (0.1-1.0); CALCIUM 9.5 MG/DL (8.5-10.1); CREATININE SERUM 1.56 MG/DL (0.60-1.30); POTASSIUM 4.4 MMOL/L (3.6-5.0); TOTAL PROTEIN 7.7 GM/DL (6.4-8.2)
[2018-11-02 11:39] VITALS: BP 142/66
--- NOTE | 2018-11-02 11:43 | Diagnostic Imaging Report ---
PROCEDURE: US left lower extremity venous. TECHNIQUE: Multiple real-time grayscale images were obtained over the left lower extremity in various projections. Additional duplex Doppler and color Doppler images were also obtained. INDICATION: Left lower extremity redness and pain. There is no evidence of a left lower extremity DVT. Left lower extremity 3-D venous system shows normal compressibility with normal response to augmentation and Valsalva. No fluid collection or mass is seen. IMPRESSION: No evidence of left lower extremity DVT. Dictated by: Dictated on workstation # [id number]
--- OUTSIDE RECORDS SUMMARY | 2018-11-02 12:31 | XMS REPORT ---
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 [facility] Address [address] [place] [address] Care Team Providers Care [employer] Worker Name Role Phone AMBER CHILDERS Unavailable PROBLEMS Type Condition ICD9-CM Code [id number] Code Onset Dates Condition Status SNOMED Code Problem Essential hypertension I10 Active 23190379 Problem Type 2 diabetes mellitus without complication, without long-term current use of insulin E11.9 Active 255262366 Problem Anxiety F41.9 Active 05640851 Problem Lumbago with sciatica, left side M54.42 Active 229160593 Problem Arthritis M19.90 Active 9541052 Problem Iron deficiency anemia, unspecified iron deficiency anemia type D50.9 Active 39149340 Problem Venous insufficiency I87.2 Active 85116540 Problem Gastroesophageal reflux disease, esophagitis presence not specified K21.9 Active 966432542 Problem Seasonal allergic rhinitis due to pollen J30.1 Active 18783955 Problem Anemia of chronic disease D63.8 Active 545411575 Problem Chronic kidney disease, stage 3 (moderate) N18.3 Active 300785030 ALLERGIES No Information ENCOUNTERS Encounter Location Date Diagnosis [facility] [id number] [place] [address] 71952- 3951 Jun, Essential hypertension I10 [facility] [id number] [place] [address] 23424- 7775 May, Essential hypertension I10 and Arthritis M19.90 [facility] [id number] [place] [address] 97871- 2020 Apr, [facility] [id number] [place] [address] 59331- 4898 Apr, [facility] [id number] [place] [address] 01408- 3115 Apr, [facility] [address] [address] 2703 Mar, Essential hypertension I10 [facility] [id number] [place] [address] 18224- 5968 Feb, Type 2 diabetes mellitus without complication, without long- term current use of insulin E11.9 ; Essential hypertension I10 and Anemia of chronic disease D63.8 [facility] [id number] [place] [address] 33993- 5878 Feb, Arthritis M19.90 and Essential hypertension I10 [facility] [id number] [place] [address] 03916- 4015 January, [facility] [id number] [place] [address] 82361- 4021 January, [facility] [id number] [place] [address] 80058- 4042 January, Medicare annual wellness visit, initial Z00.00 ; Type 2 diabetes mellitus without complication, without long-term current use of insulin E11.9 ; Chronic kidney disease, stage 3 (moderate) N18.3 ; Essential hypertension I10 ; Gastroesophageal reflux disease, esophagitis presence not specified K21.9 ; Anxiety F41.9 ; Arthritis M19.90 and Encounter for immunization Z23 [facility] [address] [address] 4207 January, Essential hypertension I10 [facility] [id number] [place] [address] 21660- 3900 Dec, Arthritis M19.90 [facility] [id number] [place] [address] 40077- 9271 Dec, [facility] [id number] [place] [address] 17967- 9154 Dec, [facility] [address] [address] 1247 Dec, Essential hypertension I10 [facility] [id number] [place] [address] 03243 -8017 Nov, Dysuria R30.0 and Vaginal kai B37.3 [facility] [address] 23236- 9030 Nov, Arthritis M19.90 [facility] [address] 87563- 5585 Oct, [facility] [address] 74827- 4757 Oct, Type 2 diabetes mellitus without complication, without long- term current use of insulin E11.9 ; Lumbago with sciatica, left side M54.42 ; Arthritis M19.90 ; Iron deficiency anemia, unspecified iron deficiency anemia type D50.9 and BMI 40.0-44.9, adult Z68.41 [facility] [address] 14151- 3427 Sep, [facility] [address] 90828- 3743 Sep, [facility] [address] 68028- 2815 Sep, Arthritis M19.90 and Anxiety F41.9 [facility] [address] 77229- 0378 Sep, [facility] [address] 84604- 5189 Aug, Anxiety F41.9 [facility] [address] 29740- 7078 Jul, [facility] [address] 93913- 6386 Jul, [facility] [address] 39184- 0302 Jul, Vaginal yeast infection B37.3 [facility] [address] 99043- 9446 Jul, Anxiety F41.9 [facility] [id number] [place] [address] 43036- 1995 Jul, Type 2 diabetes mellitus without complication, without long- term current use of insulin E11.9 [facility] [id number] [place] [address] 78255- 3916 Jul, [facility] [id number] [place] [address] 12821- 0734 Jul, [facility] [id number] [place] [address] 59554- 0458 Jun, Arthritis M19.90 [facility] [id number] [place] [address] 12556- 7670 Jun, [facility] [id number] [place] [address] 75339- 2030 Jun, [facility] [id number] [place] [address] 71732- 8946 May, [facility] [id number] [place] [address] 72715- 7599 Apr, Venous insufficiency I87.2 and Venous stasis dermatitis of right lower extremity I87.2 [facility] [address] [place] [address] 72034- 6359 Apr, Essential hypertension I10 [facility] [id number] [place] [address] 20784- 3947 Mar, [facility] [id number] [place] [address] 79800- 9363 Mar, Type 2 diabetes mellitus without complication, without long- term current use of insulin E11.9 and Essential hypertension I10 [facility] [id number] [place] [address] 10049- 6583 Mar, Essential hypertension I10 and Type 2 diabetes mellitus without complication, without long-term current use of insulin E11.9 [facility] [id number] [place] [address] 02076- 3679 18 Mar, 2017 Chronic kidney disease, stage 3 (moderate) N18.3 ; Anemia of chronic disease D63.8 and Type 2 diabetes mellitus without complication, without long-term current use of insulin E11.9 [facility] [id number] [place] [address] 25545- 7827 14 Mar, 2017 Type 2 diabetes mellitus without complication, without long- term current use of insulin E11.9 ; Iron deficiency anemia secondary to inadequate dietary iron intake D50.8 ; Arthritis M19.90 and Lumbago with sciatica, left side M54.42 [facility] [address] 10557- 2936 Feb, Arthritis M19.90 and Anxiety F41.9 [facility] [id number] [place] [address] 48853- 5949 Feb, Type 2 diabetes mellitus without complication, without long- term current use of insulin E11.9 and Essential hypertension I10 [facility] [id number] [place] [address] 06457- 1021 January, Anxiety F41.9 [facility] [address] 07698- 4313 January, Monilial rash B37.2 [facility] [id number] [place] [address] 82763- 1217 January, [facility] [id number] [place] [address] 20943- 8931 January, [facility] [id number] [place] [address] 39635- 9296 January, [facility] [address] 13177- 3187 January, Gastroesophageal reflux disease, esophagitis presence not specified K21.9 [facility] [id number] [place] [address] 29909- 7342 January, Arthritis M19.90 [facility] [id number] [place] [address] 45442- 6686 January, Anxiety F41.9 ; Arthritis M19.90 and Essential hypertension I10 [facility] [id number] [place] [address] 51951- 7896 January, Essential hypertension I10 and Anxiety F41.9 [facility] [address] 12745- 2293 Dec, [facility] [id number] [place] [address] 14616- 1733 Dec, Arthritis M19.90 and Anxiety F41.9 [facility] [id number] [place] [address] 99284- 8210 Dec, Type 2 diabetes mellitus without complication, without long- term current use of insulin E11.9 ; Cellulitis of right lower extremity L03.115 and Arthritis M19.90 [facility] [id number] [place] [address] 09177- 6955 Nov, [facility] [id number] [place] [address] 37202- 7927 Nov, Type 2 diabetes mellitus without complication, without long- term current use of insulin E11.9 ; Bronchitis J40 and Arthritis M19.90 [facility] [id number] [place] [address] 79072- 7754 Nov, [facility] [id number] [place] [address] 04890- 0555 Oct, Anxiety F41.9 [facility] [id number] [place] [address] 17860 -5607 Sep, Dysuria R30.0 ; Acute cystitis with hematuria N30.01 and Vaginal yeast infection B37.3 [facility] [id number] [place] [address] 11548- 5988 Sep, Arthritis M19.90 [facility] [id number] [place] [address] 01895 -1134 Sep, Strep pharyngitis J02.0 and Sore throat J02.9 [facility] [address] 12807- 0421 Sep, [facility] [address] 80622- 2137 Sep, Type 2 diabetes mellitus without complication, without long- term current use of insulin E11.9 [facility] [id number] [place] [address] 71530- 3792 Aug, [facility] [address] 90407- 1906 Aug, Seasonal allergic rhinitis due to pollen J30.1 [facility] [address] 14867 -8043 Aug, Impacted cerumen of right ear H61.21 and Seasonal allergic rhinitis due to pollen J30.1 [facility] [id number] [place] [address] 31753- 1968 Aug, [facility] [address] 73106- 8693 Aug, [facility] [id number] [place] [address] 44721- 7769 Jul, Type 2 diabetes mellitus without complication, without long- term current use of insulin E11.9 ; Anxiety F41.9 ; Essential hypertension I10 and Encounter for immunization Z23 [facility] [id number] [place] [address] 36711- 8694 Jul, Essential hypertension I10 [facility] [address] 47748- 7373 Jul, [facility] [address] 66816- 2957 Jul, [facility] [address] [place] [address]- 2156 Jul, Essential hypertension I10 [facility] [address] [address]- 2867 Jul, [facility] [address] [address]- 4631 May, [facility] [address] [address]- 3618 May, [facility] [address] [address]- 4276 Apr, [facility] [id number] [place] [address] 81149- 9918 Apr, [facility] [address] [address]- 3984 Apr, [facility] [address] [address]- 1912 Apr, Type 2 diabetes mellitus without complication, without long- term current use of insulin E11.9 ; Essential hypertension I10 ; Acute non- recurrent maxillary sinusitis J01.00 ; Arthritis M19.90 ; Lumbago with sciatica , left side M54.42 ; Other chronic pain G89.29 and Anxiety F41.9 IMMUNIZATIONS No Known Immunizations SOCIAL HISTORY Never Assessed REASON FOR VISIT Controlled Med Refill PLAN OF CARE VITAL SIGNS MEDICATIONS Medication Instructions Dosage Frequency Start Date End Date Duration Status Alprazolam 0.5 MG Orally Three times a day 1 tablet 8h 30 days Active RESULTS No Results PROCEDURES No Known procedures INSTRUCTIONS MEDICATIONS ADMINISTERED No Known Medications MEDICAL (GENERAL) HISTORY Type Description Date Medical History type II diabetes Medical History hypertension Medical History Arthritis Medical History skin cancer-scalp Surgical History hysterectomy Surgical History skin cancer removal-scalp Hospitalization History Surgery(s) only Hospitalization History dehydration november 2016 Hospitalization History bronchitis november 2106
--- OUTSIDE RECORDS SUMMARY | 2018-11-02 12:31 | XMS REPORT ---
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 [facility] Address [address] [place] [address] Care Team Providers Care Analytical Research Chemist Name Role Phone AMBER CHILDERS Unavailable PROBLEMS Type Condition ICD9-CM Code VLZ94-JI Code Onset Dates Condition Status SNOMED Code Problem Essential hypertension I10 Active 26073361 Problem Type 2 diabetes mellitus without complication, without long-term current use of insulin E11.9 Active 985493053 Problem Anxiety F41.9 Active 95594787 Problem Lumbago with sciatica, left side M54.42 Active 349732298 Problem Arthritis M19.90 Active 5576390 Problem Iron deficiency anemia, unspecified iron deficiency anemia type D50.9 Active 60142238 Problem Venous insufficiency I87.2 Active 61891196 Problem Gastroesophageal reflux disease, esophagitis presence not specified K21.9 Active 019104274 Problem Seasonal allergic rhinitis due to pollen J30.1 Active 13458718 Problem Anemia of chronic disease D63.8 Active 902486291 Problem Chronic kidney disease, stage 3 (moderate) N18.3 Active 241408282 ALLERGIES No Information ENCOUNTERS Encounter Location Date Diagnosis [place] [id number] [address] Jul, Essential hypertension I10 [facility] [address], [place] [address] Jun, Essential hypertension I10 [facility] [address], [place] [address] Jun, [facility] [address] [place] [id number] [place] [address] Jun, [facility] [address] [address] Jun, Essential hypertension I10 [place] [address], [place] [address] May, Essential hypertension I10 and Arthritis M19.90 [place] [address] [place] [id number] [place] [address] 74085- 9641 Apr, [place] [address] [place] [id number] [place] [address] 79899- 6578 Apr, [place] [address] [place] [id number] [place] [address] 82549- 8379 Apr, [place] [address] [place] [id number] [place] [address] 12996- 9215 Mar, Essential hypertension I10 [place] [address] [place] [id number] [place] [address] 28473- 4915 Feb, Type 2 diabetes mellitus without complication, without long- term current use of insulin E11.9 ; Essential hypertension I10 and Anemia of chronic disease D63.8 [place] [address] [place] [id number] [place] [address] 99614- 3972 Feb, Arthritis M19.90 and Essential hypertension I10 [place] [address] [place] [id number] [place] [address] 75560- 0635 January, [place] [address] [place] [id number] [place] [address] 35651- 7087 January, [place] [address] [place] [id number] [place] [address] 15194- 1737 January, Medicare annual wellness visit, initial Z00.00 ; Type 2 diabetes mellitus without complication, without long-term current use of insulin E11.9 ; Chronic kidney disease, stage 3 (moderate) N18.3 ; Essential hypertension I10 ; Gastroesophageal reflux disease, esophagitis presence not specified K21.9 ; Anxiety F41.9 ; Arthritis M19.90 and Encounter for immunization Z23 [place] [id number] [place] [address] 09617- 6651 January, Essential hypertension I10 [place] [address] [place] [address] Dec, Arthritis M19.90 [place] [address] [address]- [address] Dec, [facility] [address] [address]- [address] Dec, [place] [address] [address]- [address] Dec, Essential hypertension I10 [facility] [address] [address] Nov, Dysuria R30.0 and Vaginal kai B37.3 [place] [address] 8[address]- [address]69 Nov, Arthritis M19.90 [place] [address] 0[address]- 9063 Oct, [place] [address] 7[address]- 8[address] Oct, Type 2 diabetes mellitus without complication, without long- term current use of insulin E11.9 ; Lumbago with sciatica, left side M54.42 ; Arthritis M19.90 ; Iron deficiency anemia, unspecified iron deficiency anemia type D50.9 and BMI 40.0-44.9, adult Z68.41 [place] [address] [place] [id number] [place] [address] 45132- 2707 Sep, [place] [address] [place] [id number] [place] [address] 59343- 1024 Sep, [place] [address] 9[address]70- [address]389 Sep, Arthritis M19.90 and Anxiety F41.9 [place] [address] [place] [id number] [place] [address] 97018- 5507 Sep, [place] [address] [address]- 5645 Aug, Anxiety F41.9 [facility] [address] [place] [id number] [place] [address] 08489- 7046 Jul, [facility] [address] [place] [id number] [place] [address] 09038- 9650 Jul, [facility] [address] [place] [id number] [place] [address] 65580- 5733 Jul, Vaginal yeast infection B37.3 [facility] [address] [address]74- 4478 Jul, Anxiety F41.9 [facility] [address] 8[address]30- 9120 Jul, Type 2 diabetes mellitus without complication, without long- term current use of insulin E11.9 [facility] [address] [place] [id number] [place] [address] 19105- 5241 Jul, [facility] [address] [place] [id number] [place] [address] 06072- 8046 Jul, [facility] [address] [place] [id number] [place] [address] 46936- 2611 Jun, Arthritis M19.90 [facility] [address] [place] [id number] [place] [address] 73927- 0782 Jun, [facility] [address] [place] [id number] [place] [address] 46885- 0003 Jun, [facility] [address] [place] [id number] [place] [address] 15391- 5215 May, [facility] [address] [place] [id number] [place] [address] 38033- 7158 Apr, Venous insufficiency I87.2 and Venous stasis dermatitis of right lower extremity I87.2 [facility] [address] [place] [id number] [place] [address] 43449- 8707 Apr, Essential hypertension I10 [facility] [address] [place] [id number] [place] [address] 80147- 1857 Mar, [place] [address] [place] [id number] [place] [address] 57308- 6990 Mar, Type 2 diabetes mellitus without complication, without long- term current use of insulin E11.9 and Essential hypertension I10 [place] [address] [place] [id number] [place] [address] 45059- 8695 Mar, Essential hypertension I10 and Type 2 diabetes mellitus without complication, without long-term current use of insulin E11.9 [place] [address] [place] [id number] [place] [address] 08598- 1730 Mar, Chronic kidney disease, stage 3 (moderate) N18.3 ; Anemia of chronic disease D63.8 and Type 2 diabetes mellitus without complication, without long-term current use of insulin E11.9 [place] [address] [place] [id number] [place] [address] 99838- 1375 Mar, Type 2 diabetes mellitus without complication, without long- term current use of insulin E11.9 ; Iron deficiency anemia secondary to inadequate dietary iron intake D50.8 ; Arthritis M19.90 and Lumbago with sciatica, left side M54.42 [place] [address] [place] [id number] [place] [address] 73105- 5578 Feb, Arthritis M19.90 and Anxiety F41.9 [place] [address] [place] [id number] [place] [address] 52928- 6290 Feb, Type 2 diabetes mellitus without complication, without long- term current use of insulin E11.9 and Essential hypertension I10 [place] [id number] [place] [address] 19869- 9863 January, Anxiety F41.9 [place] [address] [place] [id number] [place] [address] 31997- 8128 January, Monilial rash B37.2 [place] [address] [place] [id number] [place] [address] 43896- 9287 January, [place] [address], [place] [address]- [address] January, [facility] [address] [place] [id number] [place] [address] 20085- 6266 January, [facility] [address] [place] [id number] [place] [address] 92210- 6920 January, Gastroesophageal reflux disease, esophagitis presence not specified K21.9 [facility] [address] [place] [id number] [place] [address] 87829- 9415 January, Arthritis M19.90 [facility] [address] [place] [id number] [place] [address] 93697- 7220 January, Anxiety F41.9 ; Arthritis M19.90 and Essential hypertension I10 [place] [address] [place] [id number] [place] [address] 29420- 5792 January, Essential hypertension I10 and Anxiety F41.9 [facility] [address] [place] [id number] [place] [address] 13209- 8379 Dec, [facility] [address] [place] [id number] [place] [address] 17886- 5258 Dec, Arthritis M19.90 and Anxiety F41.9 [facility] [id number] [place] [address] 81657- 9331 Dec, Type 2 diabetes mellitus without complication, without long- term current use of insulin E11.9 ; Cellulitis of right lower extremity L03.115 and Arthritis M19.90 [facility] [address], [place] [address]- [address] Nov, [facility] [address] [place] [id number] [place] [address] 91260- 2569 Nov, Type 2 diabetes mellitus without complication, without long- term current use of insulin E11.9 ; Bronchitis J40 and Arthritis M19.90 [facility] [id number] [place] [address] 07645- 7662 Nov, [place] [address] [place] [id number] [place] [address] 63100- 8563 Oct, Anxiety F41.9 [facility] [place] [address] [address] Sep, Dysuria R30.0 ; Acute cystitis with hematuria N30.01 and Vaginal yeast infection B37.[address] 21742- 1032 Sep, Arthritis M19.90 [facility] [place] [address] [address] Sep, Strep pharyngitis J02.0 and Sore throat J02.[address] [address]- 3181 Sep, [address] 27665- 7898 Sep, Type 2 diabetes mellitus without complication, without long- term current use of insulin E11.9 [place] [address] 43343- 9536 Aug, [place] [address] 30817- 6304 Aug, Seasonal allergic rhinitis due to pollen J30.1 [facility] [place] [id number] [place] [address] 73437 -3922 Aug, Impacted cerumen of right ear H61.21 and Seasonal allergic rhinitis due to pollen J30.1 [place] [address] [place] [id number] [place] [address] 54080- 5763 Aug, [address] [address]- 7710 Aug, [place] [address] 18382- 4227 Jul, Type 2 diabetes mellitus without complication, without long- term current use of insulin E11.9 ; Anxiety F41.9 ; Essential hypertension I10 and Encounter for immunization Z23 [facility] [address] [place] [id number] [place] [address] 92745- 1862 Jul, Essential hypertension I10 [facility] [address] [place] [id number] [place] [address] 80923- 4276 Jul, [facility] [address] [place] [id number] [place] [address] 48476- 4865 Jul, [facility] [address] [place] [id number] [place] [address] 87050- 8629 Jul, Essential hypertension I10 [facility] [address] 83764- 2479 Jul, [facility] [address] [place] [id number] [place] [address] 43647- 4717 May, [facility] [address] [place] [id number] [place] [address] 85575- 6917 May, [facility] [address] [place] [id number] [place] [address] 59749- 5628 Apr, [facility] [address] [place] [id number] [place] [address] 23984- 5510 Apr, [facility] [address] [place] [id number] [place] [address] 68110- 8517 Apr, [facility] [address] [place] [id number] [place] [address] 95509- 4876 Apr, Type 2 diabetes mellitus without complication, without long- term current use of insulin E11.9 ; Essential hypertension I10 ; Acute non- recurrent maxillary sinusitis J01.00 ; Arthritis M19.90 ; Lumbago with sciatica , left side M54.42 ; Other chronic pain G89.29 and Anxiety F41.9 IMMUNIZATIONS No Known Immunizations SOCIAL HISTORY Never Assessed REASON FOR VISIT Controlled Med Refill 08/23 PLAN OF CARE VITAL SIGNS MEDICATIONS Medication [...]
--- OUTSIDE RECORDS SUMMARY | 2018-11-02 12:31 | XMS REPORT ---
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 [facility] Address [address] [place] [address] Care Team Providers Care Zipper Repairer Name Role Phone AMBER CHILDERS Unavailable PROBLEMS Type Condition ICD9-CM Code XAW26-YM Code Onset Dates Condition Status SNOMED Code Problem Essential hypertension I10 Active 58568362 Problem Type 2 diabetes mellitus without complication, without long-term current use of insulin E11.9 Active 150799269 Problem Anxiety F41.9 Active 19628498 Problem Lumbago with sciatica, left side M54.42 Active 024582187 Problem Arthritis M19.90 Active 2936039 Problem Iron deficiency anemia, unspecified iron deficiency anemia type D50.9 Active 81382029 Problem Venous insufficiency I87.2 Active 01545006 Problem Gastroesophageal reflux disease, esophagitis presence not specified K21.9 Active 075983948 Problem Seasonal allergic rhinitis due to pollen J30.1 Active 85707999 Problem Anemia of chronic disease D63.8 Active 823769817 Problem Chronic kidney disease, stage 3 (moderate) N18.3 Active 100124416 ALLERGIES No Information ENCOUNTERS Encounter Location Date Diagnosis [facility] [place] [id number] [place] [address] 48961- 7839 Jun, Essential hypertension I10 [facility] [place] [id number] [place] [address] 98707- 0871 Jun, [facility] [place] [id number] [place] [address] 96662- 5347 Jun, [place] [id number] [place] [address] 99896- 9305 Jun, Essential hypertension I10 [facility] [place] [address] [address] May, Essential hypertension I10 and Arthritis M19.90 [place] [id number] [place] [address] 75020- 8664 Apr, [facility] [place] [id number] [place] [address] 69270- 1912 Apr, [facility] [place] [id number] [place] [address] 79500- 1785 Apr, [facility] [place] [id number] [place] [address] 07345- 4009 Mar, Essential hypertension I10 [place] [id number] [place] [address] 28810- 6902 Feb, Type 2 diabetes mellitus without complication, without long- term current use of insulin E11.9 ; Essential hypertension I10 and Anemia of chronic disease D63.8 [place] [id number] [place] [address] 72472- 7374 Feb, Arthritis M19.90 and Essential hypertension I10 [place] [id number] [place] [address] 83816- 5753 January, [place] [id number] [place] [address] 84101- 5313 January, [place] [id number] [place] [address] 76625- 1999 January, Medicare annual wellness visit, initial Z00.00 ; Type 2 diabetes mellitus without complication, without long-term current use of insulin E11.9 ; Chronic kidney disease, stage 3 (moderate) N18.3 ; Essential hypertension I10 ; Gastroesophageal reflux disease, esophagitis presence not specified K21.9 ; Anxiety F41.9 ; Arthritis M19.90 and Encounter for immunization Z23 [place] [id number] [place] [address] 87624- 4742 January, Essential hypertension I10 [place] [id number] [place] [address] 81384- 0776 Dec, Arthritis M19.90 [place] [address] [place] [address] Dec, [facility] [place] [id number] [place] [address] 41366- 2481 Dec, [facility] [place] [id number] [place] [address] 65870- 9214 Dec, Essential hypertension I10 [facility] [address] 87617 -6589 Nov, Dysuria R30.0 and Vaginal kai B37.3 [place] [address] 55085- 9954 Nov, Arthritis M19.90 [place] [address] 36229- 7733 Oct, [place] [address] 15221- 8987 Oct, Type 2 diabetes mellitus without complication, without long- term current use of insulin E11.9 ; Lumbago with sciatica, left side M54.42 ; Arthritis M19.90 ; Iron deficiency anemia, unspecified iron deficiency anemia type D50.9 and BMI 40.0-44.9, adult Z68.41 [place] [id number] [place] [address] 59252- 6751 Sep, [place] [id number] [place] [address] 89757- 0135 Sep, [place] [id number] [place] [address] 38132- 9119 Sep, Arthritis M19.90 and Anxiety F41.9 [place] [address] 47074- 5397 Sep, [place] [id number] [place] [address] 31858- 1524 Aug, Anxiety F41.9 [place] [address] 44876- 9456 Jul, [facility] [place] [id number] [place] [address] 97766- 6273 Jul, [facility] [place] [id number] [place] [address] 63360- 3640 Jul, Vaginal yeast infection B37.3 [facility] [place] [id number] [place] [address] 06779- 4264 Jul, Anxiety F41.9 [facility] [place] [address] 57566- 6556 Jul, Type 2 diabetes mellitus without complication, without long- term current use of insulin E11.9 [facility] [place] [id number] [place] [address] 27370- 9401 Jul, [facility] [place] [id number] [place] [address] 56282- 6005 Jul, [facility] [place] [id number] [place] [address] 81724- 0630 Jun, Arthritis M19.90 [facility] [place] [id number] [place] [address] 30018- 4192 Jun, [facility] [place] [id number] [place] [address] 24369- 5874 Jun, [facility] [place] [id number] [place] [address] 06047- 2559 May, [facility] [place] [id number] [place] [address] 87390- 8837 Apr, Venous insufficiency I87.2 and Venous stasis dermatitis of right lower extremity I87.2 [facility] [place] [id number] [place] [address] 04985- 0482 Apr, Essential hypertension I10 [facility] [place] [id number] [place] [address] 48328- 5618 Mar, [facility] [place] [address] [place] [address]- 6312 Mar, Type 2 diabetes mellitus without complication, without long- term current use of insulin E11.9 and Essential hypertension I10 [place] [id number] [place] [address] 41206- 4398 Mar, Essential hypertension I10 and Type 2 diabetes mellitus without complication, without long-term current use of insulin E11.9 [place] [address] 74957- 3457 Mar, Chronic kidney disease, stage 3 (moderate) N18.3 ; Anemia of chronic disease D63.8 and Type 2 diabetes mellitus without complication, without long-term current use of insulin E11.9 [place] [id number] [place] [address] 25869- 2641 Mar, Type 2 diabetes mellitus without complication, without long- term current use of insulin E11.9 ; Iron deficiency anemia secondary to inadequate dietary iron intake D50.8 ; Arthritis M19.90 and Lumbago with sciatica, left side M54.42 [place] [id number] [place] [address] 60994- 0281 Feb, Arthritis M19.90 and Anxiety F41.9 [place] [id number] [place] [address] 69260- 8703 Feb, Type 2 diabetes mellitus without complication, without long- term current use of insulin E11.9 and Essential hypertension I10 [place] [id number] [place] [address] 21033- 3733 January, Anxiety F41.9 [place] [id number] [place] [address] 16541- 0778 January, Monilial rash B37.2 [place] [id number] [place] [address] 80432- 6344 January, [place] [id number] [place] [address] 86791- 9069 January, [place] [address] 68131- 1268 January, [place] [address] 73297- 7531 January, Gastroesophageal reflux disease, esophagitis presence not specified K21.9 [place] [address] 40099- 0992 January, Arthritis M19.90 [place] [address] 99410- 9285 January, Anxiety F41.9 ; Arthritis M19.90 and Essential hypertension I10 [place] [address] 807025- 9987 January, Essential hypertension I10 and Anxiety F41.9 [place] [address] 17350- 2547 Dec, [place] [address] 36160- 0225 Dec, Arthritis M19.90 and Anxiety F41.9 [place] [address] 68011- 3171 Dec, Type 2 diabetes mellitus without complication, without long- term current use of insulin E11.9 ; Cellulitis of right lower extremity L03.115 and Arthritis M19.90 [place] [address] 08845- 8091 Nov, [place] [address] 02874- 6710 Nov, Type 2 diabetes mellitus without complication, without long- term current use of insulin E11.9 ; Bronchitis J40 and Arthritis M19.90 [place] [address] 99845- 0904 Nov, [place] [address] 72893- 9483 Oct, Anxiety F41.9 [facility] [place] [address] 61059 -2534 Sep, Dysuria R30.0 ; Acute cystitis with hematuria N30.01 and Vaginal yeast infection B37.3 [place] [address] 20395- 2260 Sep, Arthritis M19.90 [facility] [address] 24500 -3176 Sep, Strep pharyngitis J02.0 and Sore throat J02.[address] 52665- 6357 Sep, [place] [address] 85254- 6258 Sep, Type 2 diabetes mellitus without complication, without long- term current use of insulin E11.[address] 46300- 9059 Aug, [address] 88831- 4797 Aug, Seasonal allergic rhinitis due to pollen J30.1 [facility] [place] [address] 69259 -7453 Aug, Impacted cerumen of right ear H61.21 and Seasonal allergic rhinitis due to pollen J30.1 [place] [address] 19145- 6113 Aug, [place] [address] 05229- 2729 Aug, [address] 00151- 8166 Jul, Type 2 diabetes mellitus without complication, without long- term current use of insulin E11.9 ; Anxiety F41.9 ; Essential hypertension I10 and Encounter for immunization Z23 [address] [place] [address]- 1692 Jul, Essential hypertension I10 [facility] [place] [address] [address]- 9494 Jul, [facility] [place] [address] [place] [address]- 0688 Jul, [facility] [place] [id number] [place] [address] 51381- 2484 Jul, Essential hypertension I10 [facility] [place] [id number] [place] [address] 86471- 2548 Jul, [facility] [place] [id number] [place] [address] 68570- 9650 May, [facility] [place] [id number] [place] [address] 51587- 6574 May, [facility] [place] [id number] [place] [address] 81331- 7340 Apr, [facility] [place] [id number] [place] [address] 05745- 2250 Apr, [facility] [place] [id number] [place] [address] 68890- 5264 Apr, [facility] [place] [address] [place] [address]- 1329 Apr, Type 2 diabetes mellitus without complication, without long- term current use of insulin E11.9 ; Essential hypertension I10 ; Acute non- recurrent maxillary sinusitis J01.00 ; Arthritis M19.90 ; Lumbago with sciatica , left side M54.42 ; Other chronic pain G89.29 and Anxiety F41.9 IMMUNIZATIONS No Known Immunizations SOCIAL HISTORY Never Assessed REASON FOR VISIT Controlled Med Refill 07/26 PLAN OF CARE VITAL SIGNS MEDICATIONS Medication [...]
--- OUTSIDE RECORDS SUMMARY | 2018-11-02 12:32 | XMS REPORT ---
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 [facility] Address [address] [place] [address] Care Team Providers Care Reproduction Production Manager Name Role Phone AMBER CHILDERS Unavailable PROBLEMS Type Condition ICD9-CM Code IPZ55-GT Code Onset Dates Condition Status SNOMED Code Problem Essential hypertension I10 Active 51629621 Problem Type 2 diabetes mellitus without complication, without long-term current use of insulin E11.9 Active 218843809 Problem Anxiety F41.9 Active 12226732 Problem Lumbago with sciatica, left side M54.42 Active 689468042 Problem Arthritis M19.90 Active 4826380 Problem Iron deficiency anemia, unspecified iron deficiency anemia type D50.9 Active 31362693 Problem Venous insufficiency I87.2 Active 35201292 Problem Gastroesophageal reflux disease, esophagitis presence not specified K21.9 Active 633990598 Problem Seasonal allergic rhinitis due to pollen J30.1 Active 18233537 Problem Anemia of chronic disease D63.8 Active 301748224 Problem Chronic kidney disease, stage 3 (moderate) N18.3 Active 794116096 ALLERGIES No Information ENCOUNTERS Encounter Location Date Diagnosis [place] [id number] [place] [address] 46184- 2034 May, Essential hypertension I10 and Arthritis M19.90 [place] [id number] [address] Apr, [place] [address] [place] [id number] [place] [address] 50368- 6683 Apr, [place] [address] [place] [id number] [place] [address] 43479- 2387 Apr, [place] [id number] [place] [address] 79356- 4194 Mar, Essential hypertension I10 [place] [address] [place] [id number] [place] [address] 87247- 5850 Feb, Type 2 diabetes mellitus without complication, without long- term current use of insulin E11.9 ; Essential hypertension I10 and Anemia of chronic disease D63.8 [place] [address] [place] [id number] [place] [address] 20758- 1792 Feb, Arthritis M19.90 and Essential hypertension I10 [place] [address] 29473- 3700 January, [place] [address] 35598- 2431 January, [place] [address] 73917- 7654 January, Medicare annual wellness visit, initial Z00.00 ; Type 2 diabetes mellitus without complication, without long-term current use of insulin E11.9 ; Chronic kidney disease, stage 3 (moderate) N18.3 ; Essential hypertension I10 ; Gastroesophageal reflux disease, esophagitis presence not specified K21.9 ; Anxiety F41.9 ; Arthritis M19.90 and Encounter for immunization Z23 [place] [address] 62191- 6071 January, Essential hypertension I10 [place] [address] 52121- 5029 Dec, Arthritis M19.90 [place] [address] [place] [id number] [place] [address] 02846- 7427 Dec, [place] [address] 98435- 6788 Dec, [place] [address] 66423- 3273 Dec, Essential hypertension I10 [facility] [address] [place] [id number] [place] [address] 20073 -2251 Nov, Dysuria R30.0 and Vaginal kai B37.3 [place] [address] [place] [id number] [place] [address] 10667- 3316 Nov, Arthritis M19.90 [place] [address] 54549- 2761 Oct, [place] [address] [place] [id number] [place] [address] 57933- 4715 Oct, Type 2 diabetes mellitus without complication, without long- term current use of insulin E11.9 ; Lumbago with sciatica, left side M54.42 ; Arthritis M19.90 ; Iron deficiency anemia, unspecified iron deficiency anemia type D50.9 and BMI 40.0-44.9, adult Z68.41 [place] [address] 20546- 8445 Sep, [place] [address] 56658- 9808 Sep, [place] [address] 49746- 0401 Sep, Arthritis M19.90 and Anxiety F41.9 [place] [address] 63836- 2671 Sep, [place] [address] [place] [id number] [place] [address] 34091- 4979 Aug, Anxiety F41.9 [place] [address] 45185- 9506 Jul, [place] [address] [place] [id number] [place] [address] 04591- 6295 Jul, [place] [address] 26718- 1937 17 Jul, 2017 Vaginal yeast infection B37.3 [place] [address] [place] [id number] [place] [address] 83668- 9311 14 Jul, 2017 Anxiety F41.9 [place] [address] 51786- 0037 Jul, Type 2 diabetes mellitus without complication, without long- term current use of insulin E11.9 [place] [address] [place] [id number] [place] [address] 21754- 0433 Jul, [facility] [address] [id number] [place] [address] 00226- 1674 Jul, [facility] [address] [place] [id number] [place] [address] 88040- 4574 Jun, Arthritis M19.90 [place] [address] [place] [id number] [place] [address] 16079- 6216 Jun, [place] [address] [place] [id number] [place] [address] 79948- 9126 Jun, [place] [address] [place] [id number] [place] [address] 27675- 1118 May, [place] [address] [place] [id number] [place] [address] 21806- 8957 Apr, Venous insufficiency I87.2 and Venous stasis dermatitis of right lower extremity I87.2 [place] [address] [place] [id number] [place] [address] 96247- 8710 Apr, Essential hypertension I10 [place] [address] [place] [id number] [place] [address] 58058- 1562 Mar, [place] [address] [place] [id number] [place] [address] 48772- 6022 Mar, Type 2 diabetes mellitus without complication, without long- term current use of insulin E11.9 and Essential hypertension I10 [place] [address] [place] [id number] [place] [address] 25449- 5077 Mar, Essential hypertension I10 and Type 2 diabetes mellitus without complication, without long-term current use of insulin E11.9 [place] [address] [address] 5[address] Mar, Chronic kidney disease, stage 3 (moderate) N18.3 ; Anemia of chronic disease D63.8 and Type 2 diabetes mellitus without complication, without long-term current use of insulin E11.9 [place] [address] 66954- 8883 14 Mar, 2017 Type 2 diabetes mellitus without complication, without long- term current use of insulin E11.9 ; Iron deficiency anemia secondary to inadequate dietary iron intake D50.8 ; Arthritis M19.90 and Lumbago with sciatica, left side M54.42 [place] [address] 85454- 7122 Feb, Arthritis M19.90 and Anxiety F41.9 [place] [address] 32538- 4315 Feb, Type 2 diabetes mellitus without complication, without long- term current use of insulin E11.9 and Essential hypertension I10 [address] 0[address]10- 6828 January, Anxiety F41.9 [place] [address] 86368- 7088 January, Monilial rash B37.2 [place] [address] 88375- 7897 January, [place] [address] [place] [id number] [place] [address] 79220- 0690 January, [place] [address] 43584- 1892 January, [place] [address] 10721- 0713 January, Gastroesophageal reflux disease, esophagitis presence not specified K21.9 [place] [address] 23116- 1544 January, Arthritis M19.90 [place] [address] 29429- 0297 January, Anxiety F41.9 ; Arthritis M19.90 and Essential hypertension I10 [place] [address] [place] [id number] [place] [address] 23353- 9969 January, Essential hypertension I10 and Anxiety F41.9 [place] [address] [place] [id number] [place] [address] 39069- 5707 Dec, [place] [address] 92789- 7968 Dec, Arthritis M19.90 and Anxiety F41.9 [place] [address] 36055- 7275 Dec, Type 2 diabetes mellitus without complication, without long- term current use of insulin E11.9 ; Cellulitis of right lower extremity L03.115 and Arthritis M19.90 [place] [address] [place] [id number] [place] [address] 85733- 1337 Nov, [place] [address] 38945- 0307 Nov, Type 2 diabetes mellitus without complication, without long- term current use of insulin E11.9 ; Bronchitis J40 and Arthritis M19.90 [place] [address] [place] [id number] [place] [address] 07649- 2725 Nov, [place] [address] [place] [id number] [place] [address] 98817- 3206 Oct, Anxiety F41.9 [facility] [address] [place] [address] 07209 -0234 Sep, Dysuria R30.0 ; Acute cystitis with hematuria N30.01 and Vaginal yeast infection B37.3 [place] [address] [place] [id number] [place] [address] 34332- 2329 Sep, Arthritis M19.90 [facility] [address] [place] [id number] [place] [address] 98418 -1859 Sep, Strep pharyngitis J02.0 and Sore throat J02.9 [facility] [address] [place] [id number] [place] [address] 82723- 0118 Sep, [place] [address] 15185- 9446 Sep, Type 2 diabetes mellitus without complication, without long- term current use of insulin E11.9 [place] [address] 99082- 3391 Aug, [place] [address] 99036- 4196 Aug, Seasonal allergic rhinitis due to pollen J30.1 [facility] [address] 31760 -3652 Aug, Impacted cerumen of right ear H61.21 and Seasonal allergic rhinitis due to pollen J30.1 [place] [address] 06502- 5281 Aug, [place] [address] 74276- 0882 Aug, [place] [address] 84938- 0377 Jul, Type 2 diabetes mellitus without complication, without long- term current use of insulin E11.9 ; Anxiety F41.9 ; Essential hypertension I10 and Encounter for immunization Z23 [place] [address] [place] [id number] [place] [address] 41852- 7701 Jul, Essential hypertension I10 [place] [address] [place] [id number] [place] [address] 46645- 6191 Jul, [place] [address] 42106- 9862 Jul, [place] [address] 70787- 4405 Jul, Essential hypertension I10 [place] [address] [place] [address]- 9226 Jul, [facility] [address] [place] [id number] [address]- 7579 May, [facility] [address] [place] [address] [id number] [address]- 2848 May, [facility] [address] [address] [id number] [address]- 3337 Apr, [facility] [address] [place] [address]- 0659 Apr, [facility] [address] [address]83 Apr, [facility] [address] [place] [address]- 4600 Apr, Type 2 diabetes mellitus without complication, without long- term current use of insulin E11.9 ; Essential hypertension I10 ; Acute non- recurrent maxillary sinusitis J01.00 ; Arthritis M19.90 ; Lumbago with sciatica , left side M54.42 ; Other chronic pain G89.29 and Anxiety F41.9 IMMUNIZATIONS No Known Immunizations SOCIAL HISTORY Never Assessed REASON FOR VISIT Requests return call PLAN OF CARE VITAL SIGNS MEDICATIONS Unknown Medications RESULTS No Results PROCEDURES No Known procedures INSTRUCTIONS MEDICATIONS ADMINISTERED No Known Medications MEDICAL (GENERAL) HISTORY Type Description Date Medical History type II diabetes Medical History hypertension Medical History Arthritis Medical History skin cancer-scalp Surgical History hysterectomy Surgical History skin cancer removal-scalp Hospitalization History Surgery(s) only Hospitalization History dehydration november 2016 Hospitalization History bronchitis november 2106
--- OUTSIDE RECORDS SUMMARY | 2018-11-02 12:32 | XMS REPORT ---
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 [facility] Address [address] [place] [address] Care Team Providers Care Business Banking Officer Name Role Phone AMBER CHILDERS Unavailable PROBLEMS Type Condition ICD9-CM Code WIY83-AF Code Onset Dates Condition Status SNOMED Code Problem Essential hypertension I10 Active 04536729 Problem Type 2 diabetes mellitus without complication, without long-term current use of insulin E11.9 Active 755765713 Problem Anxiety F41.9 Active 34263664 Problem Lumbago with sciatica, left side M54.42 Active 081817349 Problem Arthritis M19.90 Active 8902756 Problem Iron deficiency anemia, unspecified iron deficiency anemia type D50.9 Active 46286294 Problem Venous insufficiency I87.2 Active 83362104 Problem Gastroesophageal reflux disease, esophagitis presence not specified K21.9 Active 652539045 Problem Seasonal allergic rhinitis due to pollen J30.1 Active 35918730 Problem Anemia of chronic disease D63.8 Active 073288825 Problem Chronic kidney disease, stage 3 (moderate) N18.3 Active 002433423 ALLERGIES No Information ENCOUNTERS Encounter Location Date Diagnosis [place] [id number] [place] [address] 12277- 2028 May, [place] [address] [place] [id number] [place] [address] 41577- 6174 May, Essential hypertension I10 and Arthritis M19.90 [facility] [address] [place] [id number] [place] [address] 18534- 8706 Apr, [place] [address] [place] [id number] [place] [address] 82966- 5698 Apr, [place] [address] [place] [id number] [place] [address] 87954- 3971 Apr, [place] [address] [place] [id number] [place] [address] 50755- 6834 Mar, Essential hypertension I10 [facility] [address] 94767- 4223 Feb, Type 2 diabetes mellitus without complication, without long- term current use of insulin E11.9 ; Essential hypertension I10 and Anemia of chronic disease D63.8 [facility] [address] 84541- 0213 Feb, Arthritis M19.90 and Essential hypertension I10 [facility] [address] 91685- 8732 January, [place] [address] 90792- 5994 January, [facility] [address] 38951- 9590 January, Medicare annual wellness visit, initial Z00.00 ; Type 2 diabetes mellitus without complication, without long-term current use of insulin E11.9 ; Chronic kidney disease, stage 3 (moderate) N18.3 ; Essential hypertension I10 ; Gastroesophageal reflux disease, esophagitis presence not specified K21.9 ; Anxiety F41.9 ; Arthritis M19.90 and Encounter for immunization Z23 [facility] [address] [place] [address] [id number] [place] [address] 04488- 5230 January, Essential hypertension I10 [facility] [address] [place] [address] [id number] [place] [address] 19107- 3505 Dec, Arthritis M19.90 [facility] [address] [place] [address] [id number] [place] [address] 26853- 2836 Dec, [facility] [address] 43651- 1505 Dec, [facility] [address] [place] [address] [id number] [place] [address] 23243- 3271 Dec, Essential hypertension I10 [facility] [address] 00[address] -1986 Nov, Dysuria R30.0 and Vaginal kai B37.3 [place] [address] [place] [id number] [place] [address] 98564- 7777 Nov, Arthritis M19.90 [facility] [address] [place] [id number] [place] [address] 26669- 2552 Oct, [facility] [address] [place] [id number] [place] [address] 38405- 2708 Oct, Type 2 diabetes mellitus without complication, without long- term current use of insulin E11.9 ; Lumbago with sciatica, left side M54.42 ; Arthritis M19.90 ; Iron deficiency anemia, unspecified iron deficiency anemia type D50.9 and BMI 40.0-44.9, adult Z68.41 [place] [address] [place] [id number] [place] [address] 27802- 0905 Sep, [place] [address] [place] [id number] [place] [address] 39179- 9803 Sep, [place] [address] [place] [id number] [place] [address] 84088- 8989 Sep, Arthritis M19.90 and Anxiety F41.9 [place] [address] [place] [id number] [place] [address] 03358- 8776 Sep, [place] [address] [place] [id number] [place] [address] 28936- 7788 Aug, Anxiety F41.9 [place] [address] [place] [id number] [place] [address] 57249- 1287 Jul, [place] [address] 25005- 2302 Jul, [place] [address] [place] [id number] [place] [address] 63317- 6722 Jul, Vaginal yeast infection B37.3 [place] [address] [place] [id number] [place] [address] 52242- 7280 Jul, Anxiety F41.9 [facility] [address] [place] [address] [id number] [place] [address] 36981- 1572 Jul, Type 2 diabetes mellitus without complication, without long- term current use of insulin E11.9 [facility] [address] [place] [address] 45066- 6209 Jul, [facility] [address] [place] [id number] [place] [address] 13267- 3517 Jul, [facility] [address] [place] [id number] [place] [address] 03748- 1719 Jun, Arthritis M19.90 [facility] [address] [place] [id number] [place] [address] 06687- 1282 Jun, [facility] [address] [place] [id number] [place] [address] 33726- 6455 Jun, [facility] [address] [place] [id number] [place] [address] 91060- 8586 May, [facility] [address] [place] [id number] [place] [address] 65624- 7032 Apr, Venous insufficiency I87.2 and Venous stasis dermatitis of right lower extremity I87.2 [facility] [address] [address]- 4742 Apr, Essential hypertension I10 [facility] [address] [place] [address] 68413- 8596 Mar, [facility] [address] [place] [address] 62276- 5207 Mar, Type 2 diabetes mellitus without complication, without long- term current use of insulin E11.9 and Essential hypertension I10 [facility] [address] [place] [address] 45554- 6064 Mar, Essential hypertension I10 and Type 2 diabetes mellitus without complication, without long-term current use of insulin E11.9 [facility] [address] [place] [id number] [place] [address] 05722- 9221 18 Mar, 2017 Chronic kidney disease, stage 3 (moderate) N18.3 ; Anemia of chronic disease D63.8 and Type 2 diabetes mellitus without complication, without long-term current use of insulin E11.9 [place] [address] [place] [id number] [place] [address] 44258- 7396 14 Mar, 2017 Type 2 diabetes mellitus without complication, without long- term current use of insulin E11.9 ; Iron deficiency anemia secondary to inadequate dietary iron intake D50.8 ; Arthritis M19.90 and Lumbago with sciatica, left side M54.42 [place] [address] 66526- 2732 Feb, Arthritis M19.90 and Anxiety F41.9 [place] [address] [place] [id number] [place] [address] 60253- 2744 Feb, Type 2 diabetes mellitus without complication, without long- term current use of insulin E11.9 and Essential hypertension I10 [place] [address] [place] [id number] [place] [address] 71305- 0094 January, Anxiety F41.9 [place] [address] [place] [id number] [place] [address] 57465- 9717 January, Monilial rash B37.2 [place] [address] [place] [id number] [place] [address] 91247- 4687 January, [place] [address] [place] [id number] [place] [address] 32707- 5128 January, [place] [address] [place] [id number] [place] [address] 08569- 3366 January, [place] [address] [place] [id number] [place] [address] 96251- 9784 January, Gastroesophageal reflux disease, esophagitis presence not specified K21.9 [place] [address] [place] [id number] [place] [address] 03297- 8706 January, Arthritis M19.90 [place] [address] [place] [address] 86733- 7074 January, Anxiety F41.9 ; Arthritis M19.90 and Essential hypertension I10 [place] [address] [place] [id number] [place] [address] 91766- 5262 January, Essential hypertension I10 and Anxiety F41.9 [place] [address] [place] [id number] [place] [address] 29514- 7076 Dec, [place] [address] [place] [id number] [place] [address] 22025- 4249 Dec, Arthritis M19.90 and Anxiety F41.9 [place] [address] [place] [address] [place] [address] 04772- 2548 Dec, Type 2 diabetes mellitus without complication, without long- term current use of insulin E11.9 ; Cellulitis of right lower extremity L03.115 and Arthritis M19.90 [place] [address] [place] [id number] [place] [address] 03316- 8767 Nov, [place] [address] [place] [address] [place] [address] 31888- 1171 Nov, Type 2 diabetes mellitus without complication, without long- term current use of insulin E11.9 ; Bronchitis J40 and Arthritis M19.90 [place] [address] [place] [address] 16839- 1077 Nov, [place] [address] [place] [id number] [place] [address] 69851- 7552 Oct, Anxiety F41.[address] [facility] [address] [place] [id number] [place] [address] 86407 -6081 Sep, Dysuria R30.0 ; Acute cystitis with hematuria N30.01 and Vaginal yeast infection B37.3 [place] [address] [place] [address] 23733- 8453 Sep, Arthritis M19.[address] [facility] [address] [place] [id number] [place] [address] 75443 -3740 Sep, Strep pharyngitis J02.0 and Sore throat J02.9 [place] [address] 86461- 8798 Sep, [place] [address] 06443- 1039 Sep, Type 2 diabetes mellitus without complication, without long- term current use of insulin E11.9 [place] [address] 48814- 4739 Aug, [place] [address] 51314- 4209 Aug, Seasonal allergic rhinitis due to pollen J30.1 [facility] [address] 27818 -6318 Aug, Impacted cerumen of right ear H61.21 and Seasonal allergic rhinitis due to pollen J30.1 [place] [address] 25545- 4838 Aug, [place] [address] 17482- 4281 Aug, [place] [address] [place] [id number] [place] [address] 66409- 6960 Jul, Type 2 diabetes mellitus without complication, without long- term current use of insulin E11.9 ; Anxiety F41.9 ; Essential hypertension I10 and Encounter for immunization Z23 [place] [address] 03608- 8986 Jul, Essential hypertension I10 [place] [address] 93251- 3729 Jul, [place] [address] 74769- 1573 Jul, [place] [address] 75358- 1930 Jul, Essential hypertension I10 [facility] [address] [place] [id number] [address]- 7272 Jul, [facility] [address] [place] [address] [id number] 6747 May, [facility] [address] [address]- 0166 May, [facility] [address] 5889 Apr, [facility] [address] 8459 Apr, [facility] [address] [address]- 7239 Apr, [facility] [address] [address]- 4880 Apr, Type 2 diabetes mellitus without complication, without long- term current use of insulin E11.9 ; Essential hypertension I10 ; Acute non- recurrent maxillary sinusitis J01.00 ; Arthritis M19.90 ; Lumbago with sciatica , left side M54.42 ; Other chronic pain G89.29 and Anxiety F41.9 IMMUNIZATIONS No Known Immunizations SOCIAL HISTORY Never Assessed REASON FOR VISIT medication question PLAN OF CARE VITAL SIGNS MEDICATIONS Medication Instructions Dosage Frequency Start Date End Date Duration Status Omeprazole 40 MG Orally Once a day 1 capsule 24h 30 Active RESULTS No Results PROCEDURES No Known [...]
--- OUTSIDE RECORDS SUMMARY | 2018-11-02 12:32 | XMS REPORT ---
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 [facility] Address [address] [place] [address] Care Team Providers Care Varnish Supervisor Name Role Phone AMBER CHILDERS Unavailable PROBLEMS Type Condition ICD9-CM Code YEF91-QD Code Onset Dates Condition Status SNOMED Code Problem Essential hypertension I10 Active 34982521 Problem Type 2 diabetes mellitus without complication, without long-term current use of insulin E11.9 Active 866882296 Problem Anxiety F41.9 Active 95055892 Problem Lumbago with sciatica, left side M54.42 Active 504698281 Problem Arthritis M19.90 Active 9594947 Problem Iron deficiency anemia, unspecified iron deficiency anemia type D50.9 Active 39475772 Problem Venous insufficiency I87.2 Active 20074303 Problem Gastroesophageal reflux disease, esophagitis presence not specified K21.9 Active 167543867 Problem Seasonal allergic rhinitis due to pollen J30.1 Active 80503532 Problem Anemia of chronic disease D63.8 Active 981745285 Problem Chronic kidney disease, stage 3 (moderate) N18.3 Active 590402585 ALLERGIES No Information ENCOUNTERS Encounter Location Date Diagnosis [place] [address] [place] [address] 95101- 7026 May, Essential hypertension I10 and Arthritis M19.90 [place] [address] [address]- 7803 Apr, [place] [address] [place] [id number] [place] [address] 55901- 4549 Apr, [place] [address] [place] [id number] [place] [address] 69986- 6624 Apr, [place] [address] [address]- 8950 Mar, Essential hypertension I10 [place] [address] [place] [id number] [place] [address] 73145- 1471 Feb, Type 2 diabetes mellitus without complication, without long- term current use of insulin E11.9 ; Essential hypertension I10 and Anemia of chronic disease D63.8 [place] [address] [place] [id number] [place] [address] 14165- 6477 Feb, Arthritis M19.90 and Essential hypertension I10 [place] [address] 44830- 9409 January, [place] [address] 50950- 9910 January, [place] [address] 88098- 0952 January, Medicare annual wellness visit, initial Z00.00 ; Type 2 diabetes mellitus without complication, without long-term current use of insulin E11.9 ; Chronic kidney disease, stage 3 (moderate) N18.3 ; Essential hypertension I10 ; Gastroesophageal reflux disease, esophagitis presence not specified K21.9 ; Anxiety F41.9 ; Arthritis M19.90 and Encounter for immunization Z23 [place] [address] 02876- 7658 January, Essential hypertension I10 [place] [address] 20138- 0723 Dec, Arthritis M19.90 [place] [address] [place] [id number] [place] [address] 07636- 9118 Dec, [place] [address] 62533- 6419 Dec, [place] [address] 38172- 0491 Dec, Essential hypertension I10 [facility] [address] [place] [id number] [place] [address] 17457 -0542 Nov, Dysuria R30.0 and Vaginal kai B37.3 [place] [address] [place] [id number] [place] [address] 49422- 4765 Nov, Arthritis M19.90 [place] [address] 29175- 5903 Oct, [place] [address] [place] [id number] [place] [address] 78551- 7718 Oct, Type 2 diabetes mellitus without complication, without long- term current use of insulin E11.9 ; Lumbago with sciatica, left side M54.42 ; Arthritis M19.90 ; Iron deficiency anemia, unspecified iron deficiency anemia type D50.9 and BMI 40.0-44.9, adult Z68.41 [place] [address] 24328- 2131 Sep, [place] [address] 45999- 2968 Sep, [place] [address] 87994- 8737 Sep, Arthritis M19.90 and Anxiety F41.9 [place] [address] 08512- 0109 Sep, [place] [address] [place] [id number] [place] [address] 19457- 3390 Aug, Anxiety F41.9 [place] [address] 50440- 9080 Jul, [place] [address] [place] [id number] [place] [address] 00491- 5127 Jul, [place] [address] 95455- 9414 17 Jul, 2017 Vaginal yeast infection B37.3 [place] [address] [place] [id number] [place] [address] 77467- 3229 14 Jul, 2017 Anxiety F41.9 [place] [address] 94667- 4493 Jul, Type 2 diabetes mellitus without complication, without long- term current use of insulin E11.9 [place] [address] [place] [id number] [place] [address] 69924- 4439 Jul, [facility] [address] [place] [id number] [place] [address] 45273- 2185 Jul, [facility] [address] [place] [id number] [place] [address] 85912- 1651 Jun, Arthritis M19.90 [place] [address] [place] [id number] [place] [address] 32718- 1828 Jun, [place] [address] [place] [id number] [place] [address] 55589- 8608 Jun, [place] [address] [place] [id number] [place] [address] 74149- 3657 May, [place] [address] [place] [id number] [place] [address] 85347- 5522 Apr, Venous insufficiency I87.2 and Venous stasis dermatitis of right lower extremity I87.2 [place] [address] [place] [id number] [place] [address] 16208- 3516 Apr, Essential hypertension I10 [place] [address] [place] [id number] [place] [address] 44128- 0760 Mar, [place] [address] [place] [id number] [place] [address] 11927- 0927 Mar, Type 2 diabetes mellitus without complication, without long- term current use of insulin E11.9 and Essential hypertension I10 [place] [address] [place] [id number] [place] [address] 27125- 5208 Mar, Essential hypertension I10 and Type 2 diabetes mellitus without complication, without long-term current use of insulin E11.9 [place] [address] [address]- 2385 Mar, Chronic kidney disease, stage 3 (moderate) N18.3 ; Anemia of chronic disease D63.8 and Type 2 diabetes mellitus without complication, without long-term current use of insulin E11.9 [place] [address] 94514- 0535 14 Mar, 2017 Type 2 diabetes mellitus without complication, without long- term current use of insulin E11.9 ; Iron deficiency anemia secondary to inadequate dietary iron intake D50.8 ; Arthritis M19.90 and Lumbago with sciatica, left side M54.42 [place] [address] 27315- 5833 Feb, Arthritis M19.90 and Anxiety F41.9 [place] [address] 60479- 9246 Feb, Type 2 diabetes mellitus without complication, without long- term current use of insulin E11.9 and Essential hypertension I10 [address] 46953- 7336 January, Anxiety F41.9 [place] [address] 45760- 9882 January, Monilial rash B37.2 [place] [address] 46299- 4917 January, [place] [address] [place] [id number] [place] [address] 86985- 1917 January, [place] [address] 20346- 0946 January, [place] [address] 69803- 7631 January, Gastroesophageal reflux disease, esophagitis presence not specified K21.9 [place] [address] 94992- 7945 January, Arthritis M19.90 [place] [address] 34589- 2946 January, Anxiety F41.9 ; Arthritis M19.90 and Essential hypertension I10 [place] [address] [place] [id number] [place] [address] 80898- 7938 January, Essential hypertension I10 and Anxiety F41.9 [place] [address] [place] [id number] [place] [address] 82583- 3342 Dec, [place] [address] 93238- 8727 Dec, Arthritis M19.90 and Anxiety F41.9 [place] [address] 54600- 2805 Dec, Type 2 diabetes mellitus without complication, without long- term current use of insulin E11.9 ; Cellulitis of right lower extremity L03.115 and Arthritis M19.90 [place] [address] [place] [id number] [place] [address] 58394- 6270 Nov, [place] [address] 69372- 9262 Nov, Type 2 diabetes mellitus without complication, without long- term current use of insulin E11.9 ; Bronchitis J40 and Arthritis M19.90 [place] [address] [place] [id number] [place] [address] 95462- 1300 Nov, [place] [address] [place] [id number] [place] [address] 33682- 1895 Oct, Anxiety F41.9 [facility] [address] [place] [address] 72077 -4384 Sep, Dysuria R30.0 ; Acute cystitis with hematuria N30.01 and Vaginal yeast infection B37.3 [place] [address] [place] [id number] [place] [address] 72746- 2745 Sep, Arthritis M19.90 [facility] [address] [place] [id number] [place] [address] 64959 -8078 Sep, Strep pharyngitis J02.0 and Sore throat J02.9 [facility] [address] [place] [id number] [place] [address] 51841- 3686 Sep, [place] [address] 52415- 1870 Sep, Type 2 diabetes mellitus without complication, without long- term current use of insulin E11.9 [place] [address] 97414- 1097 Aug, [place] [address] 41157- 6657 Aug, Seasonal allergic rhinitis due to pollen J30.1 [facility] [address] 97919 -4820 Aug, Impacted cerumen of right ear H61.21 and Seasonal allergic rhinitis due to pollen J30.1 [place] [address] 95457- 6997 Aug, [place] [address] 94089- 0510 Aug, [place] [address] 36958- 5101 Jul, Type 2 diabetes mellitus without complication, without long- term current use of insulin E11.9 ; Anxiety F41.9 ; Essential hypertension I10 and Encounter for immunization Z23 [place] [address] [place] [id number] [place] [address] Jul, Essential hypertension I10 [place] [address] [place] [id number] [place] [address] Jul, [place] [address] [address] Jul, [place] [address] [address] Jul, Essential hypertension I10 [place] [address] [place] [address] Jul, [facility] [address] [facility] [id number] [address] May, [facility] [address] [place] [id number] [address] May, [facility] [address] [place] [id number] [address] Apr, [facility] [id number] [address] Apr, [facility] [address] [place] [id number] [address] Apr, [facility] [address] [place] [id number] [address] Apr, Type 2 diabetes mellitus without complication, [...] Frequency Start Date End Date Duration Status Tramadol-Acetaminophen 37.5-325 MG Orally every 4 hrs 2 tablets as needed 4h 28 days Active Alprazolam 0.5 MG Orally Three times a [...]
--- OUTSIDE RECORDS SUMMARY | 2018-11-02 12:32 | XMS REPORT ---
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 [facility] Address [address] [place] [address] Care Team Providers Care Cataract Lens Generator Name Role Phone AMBER CHILDERS Unavailable PROBLEMS Type Condition ICD9-CM Code QNZ63-GU Code Onset Dates Condition Status SNOMED Code Problem Essential hypertension I10 Active 66209203 Problem Type 2 diabetes mellitus without complication, without long-term current use of insulin E11.9 Active 567850061 Problem Anxiety F41.9 Active 95906280 Problem Lumbago with sciatica, left side M54.42 Active 065632390 Problem Arthritis M19.90 Active 9711756 Problem Iron deficiency anemia, unspecified iron deficiency anemia type D50.9 Active 16125349 Problem Venous insufficiency I87.2 Active 05455961 Problem Gastroesophageal reflux disease, esophagitis presence not specified K21.9 Active 855065706 Problem Seasonal allergic rhinitis due to pollen J30.1 Active 53519581 Problem Anemia of chronic disease D63.8 Active 038796312 Problem Chronic kidney disease, stage 3 (moderate) N18.3 Active [id number] ALLERGIES No Information ENCOUNTERS Encounter Location Date Diagnosis [place] [id number] [place] [address] 69917- 9861 May, Essential hypertension I10 and Arthritis M19.90 [place] [address] [address] Apr, [place] [address] [place] [id number] [place] [address] 36090- 1534 Apr, [place] [address] [place] [id number] [place] [address] 92415- 9993 Apr, [place] [address] [address] 4123 Mar, Essential hypertension I10 [place] [address] [place] [id number] [place] [address] 64806- 6502 Feb, Type 2 diabetes mellitus without complication, without long- term current use of insulin E11.9 ; Essential hypertension I10 and Anemia of chronic disease D63.8 [place] [address] [place] [id number] [place] [address] 61358- 5350 Feb, Arthritis M19.90 and Essential hypertension I10 [place] [address] 15751- 2648 January, [place] [address] 95859- 4279 January, [place] [address] 86055- 9465 January, Medicare annual wellness visit, initial Z00.00 ; Type 2 diabetes mellitus without complication, without long-term current use of insulin E11.9 ; Chronic kidney disease, stage 3 (moderate) N18.3 ; Essential hypertension I10 ; Gastroesophageal reflux disease, esophagitis presence not specified K21.9 ; Anxiety F41.9 ; Arthritis M19.90 and Encounter for immunization Z23 [place] [address] 86285- 5779 January, Essential hypertension I10 [place] [address] 50315- 5134 Dec, Arthritis M19.90 [place] [address] [place] [id number] [place] [address] 52402- 0899 Dec, [place] [address] 66431- 3914 Dec, [place] [address] 78666- 6916 Dec, Essential hypertension I10 [facility] [address] [id number] [place] [address] 49740 -1172 Nov, Dysuria R30.0 and Vaginal kai B37.3 [place] [address] [place] [id number] [place] [address] 48063- 5592 Nov, Arthritis M19.90 [place] [address] 24586- 3940 Oct, [place] [address] [place] [id number] [place] [address] 62761- 0765 Oct, Type 2 diabetes mellitus without complication, without long- term current use of insulin E11.9 ; Lumbago with sciatica, left side M54.42 ; Arthritis M19.90 ; Iron deficiency anemia, unspecified iron deficiency anemia type D50.9 and BMI 40.0-44.9, adult Z68.41 [place] [address] 64715- 7952 Sep, [place] [address] 59338- 2528 Sep, [place] [address] 87928- 7940 Sep, Arthritis M19.90 and Anxiety F41.9 [place] [address] 00507- 3844 Sep, [place] [address] [place] [id number] [place] [address] 27865- 1221 Aug, Anxiety F41.9 [place] [address] 44650- 3809 Jul, [place] [address] [place] [id number] [place] [address] 04325- 7513 Jul, [place] [address] 42742- 6820 17 Jul, 2017 Vaginal yeast infection B37.3 [place] [address] [place] [id number] [place] [address] 65918- 5678 14 Jul, 2017 Anxiety F41.9 [place] [address] 97710- 5870 Jul, Type 2 diabetes mellitus without complication, without long- term current use of insulin E11.9 [place] [address] [place] [id number] [place] [address] 59636- 4260 Jul, [facility] [address] [place] [id number] [place] [address] 03167- 0603 Jul, [facility] [address] [place] [id number] [place] [address] 85392- 7827 Jun, Arthritis M19.90 [place] [address] [place] [id number] [place] [address] 81398- 8753 Jun, [place] [address] [place] [id number] [place] [address] 99598- 5366 Jun, [place] [address] [place] [id number] [place] [address] 71552- 7788 May, [place] [address] [place] [id number] [place] [address] 80755- 3299 Apr, Venous insufficiency I87.2 and Venous stasis dermatitis of right lower extremity I87.2 [place] [address] [place] [id number] [place] [address] 72150- 8804 Apr, Essential hypertension I10 [place] [address] [place] [id number] [place] [address] 72934- 7742 Mar, [place] [address] [place] [id number] [place] [address] 49806- 4401 Mar, Type 2 diabetes mellitus without complication, without long- term current use of insulin E11.9 and Essential hypertension I10 [place] [address] [place] [id number] [place] [address] 59335- 3537 Mar, Essential hypertension I10 and Type 2 diabetes mellitus without complication, without long-term current use of insulin E11.9 [place] [address] [address]- 7755 Mar, Chronic kidney disease, stage 3 (moderate) N18.3 ; Anemia of chronic disease D63.8 and Type 2 diabetes mellitus without complication, without long-term current use of insulin E11.9 [place] [address] 62348- 2217 14 Mar, 2017 Type 2 diabetes mellitus without complication, without long- term current use of insulin E11.9 ; Iron deficiency anemia secondary to inadequate dietary iron intake D50.8 ; Arthritis M19.90 and Lumbago with sciatica, left side M54.42 [place] [address] 94648- 0173 Feb, Arthritis M19.90 and Anxiety F41.9 [place] [address] 71021- 3152 Feb, Type 2 diabetes mellitus without complication, without long- term current use of insulin E11.9 and Essential hypertension I10 [address] 98070- 3996 January, Anxiety F41.9 [place] [address] 62130- 1966 January, Monilial rash B37.2 [place] [address] 28661- 0850 January, [place] [address] [place] [id number] [place] [address] 62615- 1928 January, [place] [address] 16667- 8438 January, [place] [address] 58130- 6264 January, Gastroesophageal reflux disease, esophagitis presence not specified K21.9 [place] [address] 86107- 4188 January, Arthritis M19.90 [place] [address] 40283- 5768 January, Anxiety F41.9 ; Arthritis M19.90 and Essential hypertension I10 [place] [address] [place] [id number] [place] [address] 56117- 7857 January, Essential hypertension I10 and Anxiety F41.9 [place] [address] [place] [id number] [place] [address] 98318- 7262 Dec, [place] [address] 27594- 0015 Dec, Arthritis M19.90 and Anxiety F41.9 [place] [address] 92534- 6038 Dec, Type 2 diabetes mellitus without complication, without long- term current use of insulin E11.9 ; Cellulitis of right lower extremity L03.115 and Arthritis M19.90 [place] [address] [place] [id number] [place] [address] 53987- 7588 Nov, [place] [address] 79905- 8715 Nov, Type 2 diabetes mellitus without complication, without long- term current use of insulin E11.9 ; Bronchitis J40 and Arthritis M19.90 [place] [address] [place] [id number] [place] [address] 63085- 8199 Nov, [place] [address] [place] [id number] [place] [address] 73325- 6501 Oct, Anxiety F41.9 [facility] [address] [place] [address] 91256 -8710 Sep, Dysuria R30.0 ; Acute cystitis with hematuria N30.01 and Vaginal yeast infection B37.3 [place] [address] [place] [id number] [place] [address] 46295- 7112 Sep, Arthritis M19.90 [facility] [address] [place] [id number] [place] [address] 33994 -3462 Sep, Strep pharyngitis J02.0 and Sore throat J02.9 [facility] [address] [place] [id number] [place] [address] 36337- 1069 Sep, [place] [address] 52765- 9191 Sep, Type 2 diabetes mellitus without complication, without long- term current use of insulin E11.9 [place] [address] 48971- 7833 Aug, [place] [address] 47814- 7689 Aug, Seasonal allergic rhinitis due to pollen J30.1 [facility] [address] 38306 -1633 Aug, Impacted cerumen of right ear H61.21 and Seasonal allergic rhinitis due to pollen J30.1 [place] [address] 83877- 0811 Aug, [place] [address] 08167- 0928 Aug, [place] [address] 29293- 4109 Jul, Type 2 diabetes mellitus without complication, without long- term current use of insulin E11.9 ; Anxiety F41.9 ; Essential hypertension I10 and Encounter for immunization Z23 [place] [address] [place] [id number] [place] [address] 63821- 0954 Jul, Essential hypertension I10 [place] [address] [place] [id number] [place] [address] 41937- 4035 Jul, [place] [address] 49943- 3832 Jul, [place] [address] 05781- 3123 Jul, Essential hypertension I10 [place] [address] [place] [address]- 5226 Jul, [facility] [address] [place] [id number] [address]- 9375 May, [facility] [address] [place] [id number] [address]- 3826 May, [facility] [address] [place] [id number] [address]- 7507 Apr, [facility] [address], [place] [address]- 1937 Apr, [facility] [address] 7221 Apr, [facility] [address], [place] [address]- 2759 Apr, Type 2 diabetes mellitus without complication, [...]
--- OUTSIDE RECORDS SUMMARY | 2018-11-02 12:33 | XMS REPORT ---
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 [facility] Address [address] [place] [address] Care Team Providers Care Vascular Nurse Name Role Phone AMBER CHILDERS Unavailable PROBLEMS Type Condition ICD9-CM Code [id number]-RG Code Onset Dates Condition Status SNOMED Code Problem Essential hypertension I10 Active 33986323 Problem Type 2 diabetes mellitus without complication, without long-term current use of insulin E11.9 Active 604198736 Problem Anxiety F41.9 Active 38325445 Problem Lumbago with sciatica, left side M54.42 Active 379643517 Problem Arthritis M19.90 Active 9568293 Problem Iron deficiency anemia, unspecified iron deficiency anemia type D50.9 Active 24402440 Problem Venous insufficiency I87.2 Active 43527039 Problem Gastroesophageal reflux disease, esophagitis presence not specified K21.9 Active 700984364 Problem Seasonal allergic rhinitis due to pollen J30.1 Active 19851782 Problem Anemia of chronic disease D63.8 Active 248988132 Problem Chronic kidney disease, stage 3 (moderate) N18.3 Active 539061442 ALLERGIES No Information ENCOUNTERS Encounter Location Date Diagnosis [place] [address] [place] [id number] [place] [address] 56422- 5606 Apr, [place] [address] [place] [id number] [place] [address] 93786- 0623 Mar, Essential hypertension I10 [place] [address] [place] [id number] [place] [address] 69807- 8121 Feb, Type 2 diabetes mellitus without complication, without long- term current use of insulin E11.9 ; Essential hypertension I10 and Anemia of chronic disease D63.8 [place] [address] [place] [id number] [place] [address] 17233- 2321 Feb, Arthritis M19.90 and Essential hypertension I10 [place] [address] [place] [id number] [place] [address] 86908- 6117 January, [facility] [address] [place] [id number] [place] [address] 17262- 2919 January, [facility] [address] [place] [id number] [place] [address] 36829- 9662 January, Medicare annual wellness visit, initial Z00.00 ; Type 2 diabetes mellitus without complication, without long-term current use of insulin E11.9 ; Chronic kidney disease, stage 3 (moderate) N18.3 ; Essential hypertension I10 ; Gastroesophageal reflux disease, esophagitis presence not specified K21.9 ; Anxiety F41.9 ; Arthritis M19.90 and Encounter for immunization Z23 [place] [address] [place] [id number] [place] [address] 16772- 8621 January, Essential hypertension I10 [place] [address] [place] [id number] [place] [address] 52001- 9417 Dec, Arthritis M19.90 [facility] [address] [place] [id number] [place] [address] 34008- 5815 Dec, [facility] [address] [place] [id number] [place] [address] 52160- 3777 Dec, [facility] [address] [place] [id number] [place] [address] 71993- 4097 Dec, Essential hypertension I10 [facility] [address] [place] [id number] [place] [address] 31443 -2436 Nov, Dysuria R30.0 and Vaginal kai B37.3 [facility] [address] [place] [id number] [place] [address] 93423- 0193 Nov, Arthritis M19.90 [facility] [address] [place] [id number] [place] [address] 83821- 4404 Oct, [facility] [address] [place] [id number] [place] [address] 24988- 2707 Oct, Type 2 diabetes mellitus without complication, without long- term current use of insulin E11.9 ; Lumbago with sciatica, left side M54.42 ; Arthritis M19.90 ; Iron deficiency anemia, unspecified iron deficiency anemia type D50.9 and BMI 40.0-44.9, adult Z68.41 [place] [address] [place] [id number] [place] [address] 46936- 7555 Sep, [place] [address] 25174- 4225 Sep, [place] [address] 30547- 1069 Sep, Arthritis M19.90 and Anxiety F41.9 [place] [address] 47615- 3486 Sep, [place] [address] [place] [id number] [place] [address] 13179- 4546 Aug, Anxiety F41.9 [place] [address] [place] [id number] [place] [address] 94146- 8037 Jul, [place] [address] [place] [id number] [place] [address] 70372- 6778 Jul, [place] [address] [place] [id number] [place] [address] 79082- 8140 Jul, Vaginal yeast infection B37.3 [place] [address] [place] [id number] [place] [address] 62501- 5838 Jul, Anxiety F41.9 [place] [address] [place] [id number] [place] [address] 30651- 7015 Jul, Type 2 diabetes mellitus without complication, without long- term current use of insulin E11.9 [place] [address] [place] [id number] [place] [address] 09035- 3638 Jul, [place] [address] [place] [id number] [place] [address] 44780- 2901 Jul, [place] [address] [place] [id number] [place] [address] 79604- 9300 Jun, Arthritis M19.90 [place] [address] [place] [id number] [place] [address] 21891- 9301 Jun, [place] [address] [place] [id number] [place] [address] 95870- 6493 Jun, [place] [address] [place] [id number] [place] [address] 35408- 1251 May, [place] [address] [place] [id number] [place] [address] 71944- 3054 Apr, Venous insufficiency I87.2 and Venous stasis dermatitis of right lower extremity I87.2 [place] [address] [place] [id number] [place] [address] 16313- 7481 Apr, Essential hypertension I10 [place] [id number] [place] [address] 18245- 5742 Mar, [place] [address] [place] [id number] [place] [address] 43675- 7133 Mar, Type 2 diabetes mellitus without complication, without long- term current use of insulin E11.9 and Essential hypertension I10 [place] [address] [place] [address] 37967- 2593 Mar, Essential hypertension I10 and Type 2 diabetes mellitus without complication, without long-term current use of insulin E11.9 [place] [address] [place] [id number] [place] [address] 16898- 5711 Mar, Chronic kidney disease, stage 3 (moderate) N18.3 ; Anemia of chronic disease D63.8 and Type 2 diabetes mellitus without complication, without long-term current use of insulin E11.9 [place] [address] [place] [address] 61583- 3412 Mar, Type 2 diabetes mellitus without complication, without long- term current use of insulin E11.9 ; Iron deficiency anemia secondary to inadequate dietary iron intake D50.8 ; Arthritis M19.90 and Lumbago with sciatica, left side M54.42 [facility] [address] [id number] [place] [address] 35985- 1378 Feb, Arthritis M19.90 and Anxiety F41.9 [facility] [address] [place] [id number] [place] [address] 32816- 6927 Feb, Type 2 diabetes mellitus without complication, without long- term current use of insulin E11.9 and Essential hypertension I10 [facility] [address] 00896- 3158 January, Anxiety F41.9 [facility] [address] 09918- 1132 January, Monfatou rash B37.2 [facility] [address] 23540- 9638 January, [facility] [address] 92942- 9885 January, [facility] [address] 98673- 4923 January, [facility] [address] 00476- 7356 January, Gastroesophageal reflux disease, esophagitis presence not specified K21.9 [facility] [address] [place] [id number] [place] [address] 46711- 3567 January, Arthritis M19.90 [facility] [address] 78529- 6697 January, Anxiety F41.9 ; Arthritis M19.90 and Essential hypertension I10 [facility] [address] 54096- 1663 January, Essential hypertension I10 and Anxiety F41.9 [facility] [address] [place] [id number] [place] [address] 41920- 3297 Dec, [facility] [address] [place] [address]- 4736 Dec, Arthritis M19.90 and Anxiety F41.9 [place] [address] 03290- 8437 Dec, Type 2 diabetes mellitus without complication, without long- term current use of insulin E11.9 ; Cellulitis of right lower extremity L03.115 and Arthritis M19.90 [place] [address] 93769- 3370 Nov, [place] [address] 38702- 0471 Nov, Type 2 diabetes mellitus without complication, without long- term current use of insulin E11.9 ; Bronchitis J40 and Arthritis M19.90 [place] [address] 42374- 2214 16 Nov, 2016 [place] [address] 50311- 0444 Oct, Anxiety F41.9 [facility] [address] 49716 -2122 Sep, Dysuria R30.0 ; Acute cystitis with hematuria N30.01 and Vaginal yeast infection B37.3 [place] [address] [place] [id number] [place] [address] 57607- 0422 Sep, Arthritis M19.90 [facility] [address] [id number] [place] [address] 43791 -1057 Sep, Strep pharyngitis J02.0 and Sore throat J02.9 [place] [address] 70623- 7292 Sep, [place] [address] 06875- 7550 Sep, Type 2 diabetes mellitus without complication, without long- term current use of insulin E11.9 [place] [address] 78580- 3712 14 Aug, 2016 [facility] [address] 75731- 5762 Aug, Seasonal allergic rhinitis due to pollen J30.1 [facility] [address] 28710 -4665 Aug, Impacted cerumen of right ear H61.21 and Seasonal allergic rhinitis due to pollen J30.1 [facility] [address] 19241- 2356 Aug, [facility] [address] 05541- 7308 Aug, [facility] [address] 59043- 5526 Jul, Type 2 diabetes mellitus without complication, without long- term current use of insulin E11.9 ; Anxiety F41.9 ; Essential hypertension I10 and Encounter for immunization Z23 [facility] [address] 84150- 3533 Jul, Essential hypertension I10 [place] [address] 70175- 5390 Jul, [place] [address] 06693- 7545 Jul, [facility] [address] 91274- 9115 Jul, Essential hypertension I10 [facility] [id number] [place] [address] 74235- 4837 Jul, [facility] [address] 56838- 6601 May, [facility] [address] 56105- 7449 May, [facility] [address] 75808- 2317 Apr, [facility] [address] [facility] [id number] [address]- 7774 Apr, [facility] [address] [facility] [id number] [address]- 8275 Apr, [facility] [address] [facility] [id number] [address]- 3554 Apr, Type 2 diabetes mellitus without complication, without long- term current use of insulin E11.9 ; Essential hypertension I10 ; Acute non- recurrent maxillary sinusitis J01.00 ; Arthritis M19.90 ; Lumbago with sciatica , left side M54.42 ; Other chronic pain G89.29 and Anxiety F41.9 IMMUNIZATIONS No Known Immunizations SOCIAL HISTORY Never Assessed REASON FOR VISIT PLAN OF CARE VITAL SIGNS MEDICATIONS Medication Instructions Dosage Frequency Start Date End Date Duration Status Diflucan 150 MG 1 tablet January, Active RESULTS No Results PROCEDURES No Known [...]
--- OUTSIDE RECORDS SUMMARY | 2018-11-02 12:33 | XMS REPORT ---
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 [facility] Address [address] [place] [address] Care Team Providers Care Group Contract Analyst Name Role Phone AMBER CHILDERS Unavailable PROBLEMS Type Condition ICD9-CM Code RPG63-ZW Code Onset Dates Condition Status SNOMED Code Problem Essential hypertension I10 Active 92136043 Problem Type 2 diabetes mellitus without complication, without long-term current use of insulin E11.9 Active 490065436 Problem Anxiety F41.9 Active 09728214 Problem Lumbago with sciatica, left side M54.42 Active 647841583 Problem Arthritis M19.90 Active 0769868 Problem Iron deficiency anemia, unspecified iron deficiency anemia type D50.9 Active 75478010 Problem Venous insufficiency I87.2 Active 60293560 Problem Gastroesophageal reflux disease, esophagitis presence not specified K21.9 Active 639576898 Problem Seasonal allergic rhinitis due to pollen J30.1 Active 81694861 Problem Anemia of chronic disease D63.8 Active 121161971 Problem Chronic kidney disease, stage 3 (moderate) N18.3 Active 215341228 ALLERGIES No Known Allergies ENCOUNTERS Encounter Location Date Diagnosis [place] [id number] [address] Apr, [place] [address] [id number] [place] [address] 58442- 9033 Apr, [facility] [id number] [place] [address] 86203- 0562 Apr, [place] [id number] [place] [address] 44836- 0473 Mar, Essential hypertension I10 [place] [id number] [place] [address] 78552- 3967 Feb, Type 2 diabetes mellitus without complication, without long- term current use of insulin E11.9 ; Essential hypertension I10 and Anemia of chronic disease D63.8 [facility] [id number] [place] [address] 52464- 5400 Feb, Arthritis M19.90 and Essential hypertension I10 [facility] [id number] [place] [address] 82564- 4986 January, [facility] [address] [address]- 8691 January, [facility] [id number] [place] [address] 32194- 7575 January, Medicare annual wellness visit, initial Z00.00 ; Type 2 diabetes mellitus without complication, without long-term current use of insulin E11.9 ; Chronic kidney disease, stage 3 (moderate) N18.3 ; Essential hypertension I10 ; Gastroesophageal reflux disease, esophagitis presence not specified K21.9 ; Anxiety F41.9 ; Arthritis M19.90 and Encounter for immunization Z23 [facility] [id number] [place] [address] 48049- 1190 January, Essential hypertension I10 [place] [id number] [place] [address] 62937- 7423 Dec, Arthritis M19.90 [facility] [id number] [place] [address] 87910- 8561 Dec, [facility] [id number] [place] [address] 48210- 6832 Dec, [facility] [id number] [place] [address] 59196- 1317 Dec, Essential hypertension I10 [facility] [id number] [place] [address] 59675 -6854 Nov, Dysuria R30.0 and Vaginal kai B37.3 [facility] [id number] [place] [address] 99738- 4954 Nov, Arthritis M19.90 [facility] [id number] [place] [address] 49052- 3181 Oct, [place] [address] 8[address]32- [address]30 Oct, Type 2 diabetes mellitus without complication, without long- term current use of insulin E11.9 ; Lumbago with sciatica, left side M54.42 ; Arthritis M19.90 ; Iron deficiency anemia, unspecified iron deficiency anemia type D50.9 and BMI 40.0-44.9, adult Z68.41 [place] [address] [id number] [place] [address] 30242- 3572 Sep, [place] [address] 13875- 4667 Sep, [place] [address] 44207- 4439 Sep, Arthritis M19.90 and Anxiety F41.9 [place] [id number] [place] [address] 34973- 8890 Sep, [place] [id number] [place] [address] 65707- 6874 Aug, Anxiety F41.9 [place] [id number] [place] [address] 45486- 4965 Jul, [place] [id number] [place] [address] 62025- 9665 Jul, [place] [id number] [place] [address] 00668- 5687 Jul, Vaginal yeast infection B37.3 [place] [address] 80561- 8491 14 Jul, 2017 Anxiety F41.9 [place] [address] [id number] [place] [address] 14158- 4115 09 Jul, 2017 Type 2 diabetes mellitus without complication, without long- term current use of insulin E11.9 [place] [address], [place] [address] 0896 Jul, [facility] [id number] [place] [address] 75994- 9044 Jul, [facility] [id number] [place] [address] 04102- 6546 Jun, Arthritis M19.90 [place] [address] [id number] [place] [address] 08836- 2880 Jun, [facility] [place] [id number] [place] [address] 46380- 7009 Jun, [facility] [place] [address] [id number] [place] [address] 46212- 1821 May, [place] [address] [id number] [place] [address] 77692- 8046 Apr, Venous insufficiency I87.2 and Venous stasis dermatitis of right lower extremity I87.2 [place] [address], [place] [address] Apr, Essential hypertension I10 [place] [address] [id number] [place] [address] 28339- 9732 Mar, [place] [address] [id number] [place] [address] 12267- 3529 Mar, Type 2 diabetes mellitus without complication, without long- term current use of insulin E11.9 and Essential hypertension I10 [place] [address], [place] [address] 5789 Mar, Essential hypertension I10 and Type 2 diabetes mellitus without complication, without long-term current use of insulin E11.9 [place] [address] [id number] [address] Mar, Chronic kidney disease, stage 3 (moderate) N18.3 ; Anemia of chronic disease D63.8 and Type 2 diabetes mellitus without complication, without long-term current use of insulin E11.9 [place] [address] [id number] [place] [address] 63330- 1537 14 Mar, 2017 Type 2 diabetes mellitus without complication, without long- term current use of insulin E11.9 ; Iron deficiency anemia secondary to inadequate dietary iron intake D50.8 ; Arthritis M19.90 and Lumbago with sciatica, left side M54.42 [place] [address] 96526- 8114 Feb, Arthritis M19.90 and Anxiety F41.9 [place] [address] 76596- 9393 Feb, Type 2 diabetes mellitus without complication, without long- term current use of insulin E11.9 and Essential hypertension I10 [place] [address] 10268- 8585 January, Anxiety F41.9 [place] [address] 85655- 9814 January, Monilialo rash B37.2 [place] [id number] [place] [address] 50229- 4471 January, [place] [address] 14024- 7242 January, [place] [address] [id number] [place] [address] 43196- 2130 January, [place] [address] 14490- 5318 January, Gastroesophageal reflux disease, esophagitis presence not specified K21.9 [place] [id number] [place] [address] 09827- 5321 January, Arthritis M19.90 [place] [address] [address] [id number] [place] [address] 08696- 4687 January, Anxiety F41.9 ; Arthritis M19.90 and Essential hypertension I10 [place] [address] 30503- 4819 January, Essential hypertension I10 and Anxiety F41.9 [facility] [id number] [place] [address] 11768- 3548 Dec, [facility] [address] 52045- 1157 Dec, Arthritis M19.90 and Anxiety F41.9 [place] [address] 0[address]- 1993 Dec, Type 2 diabetes mellitus without complication, without long- term current use of insulin E11.9 ; Cellulitis of right lower extremity L03.115 and Arthritis M19.90 [place] [address] 45274- 1045 Nov, [place] [address] 78071- 7763 Nov, Type 2 diabetes mellitus without complication, without long- term current use of insulin E11.9 ; Bronchitis J40 and Arthritis M19.90 [place] [address] [address] [id number] [place] [address] 95934- 9557 Nov, [place] [address] 82232- 4312 Oct, Anxiety F41.9 [facility] [address] [id number] [place] [address] 06376 -8136 Sep, Dysuria R30.0 ; Acute cystitis with hematuria N30.01 and Vaginal yeast infection B37.3 [place] [address] [address] [id number] [place] [address] 34621- 9766 Sep, Arthritis M19.90 [facility] [address] [id number] [place] [address] 98434 -6016 Sep, Strep pharyngitis J02.0 and Sore throat J02.9 [place] [address] [id number] [place] [address] 23811- 1625 Sep, [place] [address] [id number] [place] [address] 82159- 2992 Sep, Type 2 diabetes mellitus without complication, without long- term current use of insulin E11.9 [place] [address] [id number] [place] [address] 92589- 6334 Aug, [place] [address] 24878- 2076 Aug, Seasonal allergic rhinitis due to pollen J30.1 [facility] [id number] [place] [address] 39316 -5866 Aug, Impacted cerumen of right ear H61.21 and Seasonal allergic rhinitis due to pollen J30.1 [place] [address] [id number] [place] [address] 65550- 8808 Aug, [place] [address] 15376- 1289 Aug, [place] [address] [address] [id number] [place] [address] 63750- 7354 Jul, Type 2 diabetes mellitus without complication, without long- term current use of insulin E11.9 ; Anxiety F41.9 ; Essential hypertension I10 and Encounter for immunization Z23 [place] [address] [id number] [place] [address] 56232- 8346 Jul, Essential hypertension I10 [place] [address] [address] [id number] [place] [address] 27400- 9816 Jul, [place] [address] [id number] [place] [address] 89748- 5659 Jul, [place] [address] 86377- 5124 Jul, Essential hypertension I10 [place] [address] [id number] [place] [address] 42522- 2463 Jul, [place] [address] 75467- 6003 May, [facility] [address] [facility] [id number] [address] 5186 May, [facility] [address] [place] [id number], [place] [address]- 1366 Apr, [facility] [address] [place] [address] [id number] [address]- 5610 Apr, [facility] [address], [place] [address]- 3312 Apr, [facility] [address] [facility] [id number] [address]- 1401 Apr, Type 2 diabetes mellitus without complication, without long- term current use of insulin E11.9 ; Essential hypertension I10 ; Acute non- recurrent maxillary sinusitis J01.00 ; Arthritis M19.90 ; Lumbago with sciatica , left side M54.42 ; Other chronic pain G89.29 and Anxiety F41.9 IMMUNIZATIONS No Known Immunizations SOCIAL HISTORY Never Assessed REASON FOR VISIT Diabetes-LISA langley, A1C, pt. wasn't able to void for micro PLAN OF CARE Activity Details Follow Up 4 Months Reason: VITAL SIGNS Height 56 in 2018-03-20 Weight 169.4 lbs 2018-03-20 Temperature 98.1 degrees Fahrenheit 2018-03-20 Heart Rate 72 bpm 2018-03-20 Respiratory Rate 18 2018-03-20 BMI 37.97 kg/m2 2018-03-20 Blood pressure systolic 138 mmHg 2018-03-20 Blood pressure diastolic 62 mmHg 2018-03-20 MEDICATIONS Medication Instructions Dosage Frequency Start Date End Date Duration Status Omeprazole 20 MG Orally Once a day 1 capsule 24h Sep, 30 day(s ) Not-Taking Lisinopril 5 mg Orally Once a day 1 tablet 24h Active Alprazolam 0.5 MG Orally Three times a day 1 tablet 8h 30 days Active Wheelchair - use for ambulation 24h January, Not-Taking ProAir HFA 108 (90 Base) MCG/ACT Inhalation every 4-6 hours as needed 2 puffs as needed 30 days Active Wheelchair - use for mobility Oct, Active Omeprazole 20 Orally Once a day 1 capsule 24h 30 Active Timolol Hemihydrate 0.5 % Ophthalmic Twice a day 1 drop into affected eye 12h Active Monistat 1 Combo Pack 1200 & 2 MG & % Vaginal Once a day use _insert and cream 24h 20 Jul, 2017 Not-Taking Blood Glucose Test Strip Test Strips subcutaneously Once a day 1 test strip 24h Jul, Active Diflucan 150 MG 1 tablet January, Not-Taking Metoprolol Tartrate 25 TAKE ONE TABLET BY MOUTH TWICE A DAY 90 Active Wheelchair - use for transportation 24h Mar, Not-Taking Tylenol 1 tab Active Glimepiride 4 MG Orally Once a day 1 tablet with breakfast or the first main meal of the day 24h 18 Mar, 2017 90 days Active Tramadol-Acetaminophen 37.5-325 MG Orally every 4 hrs 2 tablets as needed 4h 28 days Active Diflucan 150 MG 1 tablet January, 1 dose Active RESULTS No Results PROCEDURES Procedure Date Ordered Result Body Site GLYCATED HEMOGLOBIN TEST March 20, 2018 [facility] March 20, 2018 [facility]ISIT ESTABLISHED PATIENT March 20, 2018 MICROALBUMIN, SEMIQUANT March 20, 2018 INSTRUCTIONS MEDICATIONS ADMINISTERED No Known Medications MEDICAL (GENERAL) HISTORY Type Description Date Medical History type II diabetes Medical History hypertension Medical History Arthritis Medical History skin cancer-scalp Surgical History hysterectomy Surgical History skin cancer removal-scalp Hospitalization History Surgery(s) only Hospitalization History dehydration november 2016 Hospitalization History bronchitis november 2106
--- OUTSIDE RECORDS SUMMARY | 2018-11-02 12:33 | XMS REPORT ---
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 [facility] Address [address] [place] [address] Care Team Providers Care Music Instructor Name Role Phone AMBER CHILDERS Unavailable PROBLEMS Type Condition ICD9-CM Code [id number] Code Onset Dates Condition Status SNOMED Code Problem Essential hypertension I10 Active 06267541 Problem Type 2 diabetes mellitus without complication, without long-term current use of insulin E11.9 Active 399221888 Problem Anxiety F41.9 Active 02691619 Problem Lumbago with sciatica, left side M54.42 Active 871010420 Problem Arthritis M19.90 Active 0510488 Problem Iron deficiency anemia, unspecified iron deficiency anemia type D50.9 Active 66859091 Problem Venous insufficiency I87.2 Active 65654091 Problem Gastroesophageal reflux disease, esophagitis presence not specified K21.9 Active 930485502 Problem Seasonal allergic rhinitis due to pollen J30.1 Active 73871309 Problem Anemia of chronic disease D63.8 Active 426728193 Problem Chronic kidney disease, stage 3 (moderate) N18.3 Active 262973652 ALLERGIES No Information ENCOUNTERS Encounter Location Date Diagnosis [place] [id number] [place] [address] 13470- 8216 May, Essential hypertension I10 and Arthritis M19.90 [place] [address] [address] 47[address] Apr, [place] [address] [place] [id number] [place] [address] 55647- 0382 Apr, [place] [address] [place] [id number] [place] [address] 11337- 7852 Apr, [place] [address] [place] [address] 77524- 7346 Mar, Essential hypertension I10 [place] [address] [place] [id number] [place] [address] 96841- 1811 Feb, Type 2 diabetes mellitus without complication, without long- term current use of insulin E11.9 ; Essential hypertension I10 and Anemia of chronic disease D63.8 [place] [address] [place] [id number] [place] [address] 90761- 4331 Feb, Arthritis M19.90 and Essential hypertension I10 [place] [address] 30168- 3171 January, [place] [address] 10241- 4145 January, [place] [address] 67575- 8655 January, Medicare annual wellness visit, initial Z00.00 ; Type 2 diabetes mellitus without complication, without long-term current use of insulin E11.9 ; Chronic kidney disease, stage 3 (moderate) N18.3 ; Essential hypertension I10 ; Gastroesophageal reflux disease, esophagitis presence not specified K21.9 ; Anxiety F41.9 ; Arthritis M19.90 and Encounter for immunization Z23 [place] [address] 12995- 1769 January, Essential hypertension I10 [place] [address] 54784- 3589 Dec, Arthritis M19.90 [place] [address] [place] [id number] [place] [address] 63939- 6537 Dec, [place] [address] 60601- 7022 Dec, [place] [address] 15295- 5612 Dec, Essential hypertension I10 [facility] [address] [place] [id number] [place] [address] 53758 -4752 Nov, Dysuria R30.0 and Vaginal kai B37.3 [place] [address] [place] [id number] [place] [address] 72678- 7199 Nov, Arthritis M19.90 [place] [address] 94145- 8589 Oct, [place] [address] [place] [id number] [place] [address] 74775- 8581 Oct, Type 2 diabetes mellitus without complication, without long- term current use of insulin E11.9 ; Lumbago with sciatica, left side M54.42 ; Arthritis M19.90 ; Iron deficiency anemia, unspecified iron deficiency anemia type D50.9 and BMI 40.0-44.9, adult Z68.41 [place] [address] 59878- 4195 Sep, [place] [address] 30408- 5153 Sep, [place] [address] 75229- 9029 Sep, Arthritis M19.90 and Anxiety F41.9 [place] [address] 60426- 8031 Sep, [place] [address] [place] [id number] [place] [address] 27440- 3692 Aug, Anxiety F41.9 [place] [address] 21192- 0357 Jul, [place] [address] [place] [id number] [place] [address] 07176- 5461 Jul, [place] [address] 93542- 8231 17 Jul, 2017 Vaginal yeast infection B37.3 [place] [address] [place] [id number] [place] [address] 25758- 5896 14 Jul, 2017 Anxiety F41.9 [place] [address] 31647- 3140 Jul, Type 2 diabetes mellitus without complication, without long- term current use of insulin E11.9 [place] [address] [place] [id number] [place] [address] 57046- 5032 Jul, [facility] [address] [place] [id number] [place] [address] 59740- 5425 Jul, [facility] [address] [place] [id number] [place] [address] 11706- 6604 Jun, Arthritis M19.90 [place] [address] [place] [id number] [place] [address] 34862- 5050 Jun, [place] [address] [place] [id number] [place] [address] 96732- 4545 Jun, [place] [address] [place] [id number] [place] [address] 64258- 0938 May, [place] [address] [place] [id number] [place] [address] 12635- 8734 Apr, Venous insufficiency I87.2 and Venous stasis dermatitis of right lower extremity I87.2 [place] [address] [place] [id number] [place] [address] 51774- 1658 Apr, Essential hypertension I10 [place] [address] [place] [id number] [place] [address] 05566- 7212 Mar, [place] [address] [place] [id number] [place] [address] 04895- 2751 Mar, Type 2 diabetes mellitus without complication, without long- term current use of insulin E11.9 and Essential hypertension I10 [place] [address] [place] [id number] [place] [address] 93203- 1358 Mar, Essential hypertension I10 and Type 2 diabetes mellitus without complication, without long-term current use of insulin E11.9 [place] [address] [address]- 4035 Mar, Chronic kidney disease, stage 3 (moderate) N18.3 ; Anemia of chronic disease D63.8 and Type 2 diabetes mellitus without complication, without long-term current use of insulin E11.9 [place] [address] 00609- 2506 14 Mar, 2017 Type 2 diabetes mellitus without complication, without long- term current use of insulin E11.9 ; Iron deficiency anemia secondary to inadequate dietary iron intake D50.8 ; Arthritis M19.90 and Lumbago with sciatica, left side M54.42 [place] [address] 94973- 2940 Feb, Arthritis M19.90 and Anxiety F41.9 [place] [address] 09887- 5160 Feb, Type 2 diabetes mellitus without complication, without long- term current use of insulin E11.9 and Essential hypertension I10 [address] 62463- 3133 January, Anxiety F41.9 [place] [address] 90481- 8196 January, Monilial rash B37.2 [place] [address] 05829- 9887 January, [place] [address] [place] [id number] [place] [address] 79530- 5016 January, [place] [address] 04042- 9812 January, [place] [address] 82859- 9773 January, Gastroesophageal reflux disease, esophagitis presence not specified K21.9 [place] [address] 39351- 5438 January, Arthritis M19.90 [place] [address] 21456- 5268 January, Anxiety F41.9 ; Arthritis M19.90 and Essential hypertension I10 [place] [address] [place] [id number] [place] [address] 23789- 0079 January, Essential hypertension I10 and Anxiety F41.9 [place] [address] [place] [id number] [place] [address] 25259- 7465 Dec, [place] [address] 51328- 3302 Dec, Arthritis M19.90 and Anxiety F41.9 [place] [address] 81740- 8723 Dec, Type 2 diabetes mellitus without complication, without long- term current use of insulin E11.9 ; Cellulitis of right lower extremity L03.115 and Arthritis M19.90 [place] [address] [place] [id number] [place] [address] 34222- 3727 Nov, [place] [address] 85964- 3836 Nov, Type 2 diabetes mellitus without complication, without long- term current use of insulin E11.9 ; Bronchitis J40 and Arthritis M19.90 [place] [address] [place] [id number] [place] [address] 84668- 4004 Nov, [place] [address] [place] [id number] [place] [address] 72163- 4219 Oct, Anxiety F41.9 [facility] [address] [place] [address] 80378 -8002 Sep, Dysuria R30.0 ; Acute cystitis with hematuria N30.01 and Vaginal yeast infection B37.3 [place] [address] [place] [id number] [place] [address] 50075- 7713 Sep, Arthritis M19.90 [facility] [address] [place] [id number] [place] [address] 99381 -2160 Sep, Strep pharyngitis J02.0 [address].9 [facility] [address] [place] [id number] [place] [address] 84763- 3307 Sep, [place] [address] 24782- 1310 Sep, Type 2 diabetes mellitus without complication, without long- term current use of insulin E11.9 [place] [address] 80843- 1217 Aug, [place] [address] 73177- 7752 Aug, Seasonal allergic rhinitis due to pollen J30.1 [facility] [address] 68336 -3989 Aug, Impacted cerumen of right ear H61.21 and Seasonal allergic rhinitis due to pollen J30.1 [place] [address] 76382- 3204 Aug, [place] [address] 09866- 8634 Aug, [place] [address] 50379- 1404 Jul, Type 2 diabetes mellitus without complication, without long- term current use of insulin E11.9 ; Anxiety F41.9 ; Essential hypertension I10 and Encounter for immunization Z23 [place] [address] [place] [id number] [place] [address] 62462- 9462 Jul, Essential hypertension I10 [place] [address] [place] [id number] [place] [address] 87719- 9815 Jul, [place] [address] 08175- 7688 Jul, [place] [address] 54057- 7113 Jul, Essential hypertension I10 [place] [address] [place] [address]- 3876 Jul, [facility] [address] [place] [id number] [address]- 1003 May, [facility] [address] [place] [id number] [address] 8496 May, [facility] [address] [place] [id number] [address]- 5465 Apr, [facility] [address] [address]- 4625 Apr, [facility] [address] [place] [id number] [address]- 8579 Apr, [facility] [address] [place] [id number] [address]- 7788 Apr, Type 2 diabetes mellitus without complication, without long- term current use of insulin E11.9 ; Essential hypertension I10 ; Acute non- recurrent maxillary sinusitis J01.00 ; Arthritis M19.90 ; Lumbago with sciatica , left side M54.42 ; Other chronic pain G89.29 and Anxiety F41.9 IMMUNIZATIONS No Known Immunizations SOCIAL HISTORY Never Assessed REASON FOR VISIT Alprazolam PLAN OF CARE VITAL SIGNS MEDICATIONS Medication [...]
--- OUTSIDE RECORDS SUMMARY | 2018-11-02 12:33 | XMS REPORT ---
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 [facility] Address [address] [place] [address] Care Team Providers Care Base Brander Name Role Phone AMBER CHILDERS Unavailable PROBLEMS Type Condition ICD9-CM Code RPP94-DK Code Onset Dates Condition Status SNOMED Code Problem Essential hypertension I10 Active 02912958 Problem Type 2 diabetes mellitus without complication, without long-term current use of insulin E11.9 Active 384667237 Problem Anxiety F41.9 Active 40651309 Problem Lumbago with sciatica, left side M54.42 Active 528455587 Problem Arthritis M19.90 Active 6370917 Problem Iron deficiency anemia, unspecified iron deficiency anemia type D50.9 Active 06748155 Problem Venous insufficiency I87.2 Active 32006258 Problem Gastroesophageal reflux disease, esophagitis presence not specified K21.9 Active 514173688 Problem Seasonal allergic rhinitis due to pollen J30.1 Active 94935177 Problem Anemia of chronic disease D63.8 Active 424542042 Problem Chronic kidney disease, stage 3 (moderate) N18.3 Active 221979183 ALLERGIES No Information ENCOUNTERS Encounter Location Date Diagnosis [place] [id number] [place] [address] 82182- 7900 Apr, [place] [address] [place] [id number] [place] [address] 69883- 8806 Apr, [place] [address] [place] [address] 38538- 8447 Mar, Essential hypertension I10 [place] [address] [place] [id number] [place] [address] 05817- 5775 Feb, Type 2 diabetes mellitus without complication, without long- term current use of insulin E11.9 ; Essential hypertension I10 and Anemia of chronic disease D63.8 [place] [address] [place] [address]- 4889 Feb, Arthritis M19.90 and Essential hypertension I10 [facility] [address] 13550- 2079 January, [facility] [address] [place] [id number] [place] [address] 34916- 3619 January, [facility] [address] 96156- 2220 January, Medicare annual wellness visit, initial Z00.00 ; Type 2 diabetes mellitus without complication, without long-term current use of insulin E11.9 ; Chronic kidney disease, stage 3 (moderate) N18.3 ; Essential hypertension I10 ; Gastroesophageal reflux disease, esophagitis presence not specified K21.9 ; Anxiety F41.9 ; Arthritis M19.90 and Encounter for immunization Z23 [place] [address] 92261- 9072 January, Essential hypertension I10 [facility] [address] [place] [id number] [place] [address] 02718- 2589 Dec, Arthritis M19.90 [facility] [address] 63175- 6427 Dec, [facility] [address] [place] [id number] [place] [address] 88531- 2767 Dec, [facility] [address] [place] [id number] [place] [address] 65804- 8079 Dec, Essential hypertension I10 [facility] [address] [place] [id number] [place] [address] 72265 -2062 Nov, Dysuria R30.0 and Vaginal kai B37.3 [facility] [address] 16725- 6941 Nov, Arthritis M19.90 [facility] [address] [place] [id number] [place] [address] 68887- 9580 Oct, [facility] [address] [place] [id number] [place] [address] 23889- 7682 Oct, Type 2 diabetes mellitus without complication, without long- term current use of insulin E11.9 ; Lumbago with sciatica, left side M54.42 ; Arthritis M19.90 ; Iron deficiency anemia, unspecified iron deficiency anemia type D50.9 and BMI 40.0-44.9, adult Z68.41 [place] [address] 85948- 8193 Sep, [place] [address] 97484- 6764 Sep, [place] [address] 08267- 7152 Sep, Arthritis M19.90 and Anxiety F41.9 [place] [address] 97861- 4331 Sep, [place] [address] [place] [id number] [place] [address] 22219- 1126 Aug, Anxiety F41.9 [place] [address] 02618- 7165 Jul, [place] [address] [place] [id number] [place] [address] 09010- 8730 Jul, [place] [address] [place] [id number] [place] [address] 94536- 7751 Jul, Vaginal yeast infection B37.3 [place] [address] [place] [id number] [place] [address] 27284- 3232 14 Jul, 2017 Anxiety F41.9 [place] [address] 90728- 9499 Jul, Type 2 diabetes mellitus without complication, without long- term current use of insulin E11.9 [place] [address] [place] [id number] [place] [address] 33407- 3919 08 Jul, 2017 [place] [address] [address]- 3335 Jul, [place] [address] [place] [id number] [place] [address] 88165- 6742 Jun, Arthritis M19.90 [facility] [address], [place] [address]- 0353 Jun, [place] [address] [place] [id number] [place] [address] 16246- 8380 Jun, [place] [address] [place] [address] 51563- 8746 May, [place] [address] [place] [id number] [place] [address] 56212- 0019 Apr, Venous insufficiency I87.2 and Venous stasis dermatitis of right lower extremity I87.2 [place] [address] [place] [id number] [place] [address] 06554- 3799 Apr, Essential hypertension I10 [place] [address] [place] [id number] [place] [address] 34954- 1795 Mar, [place] [address] [place] [id number] [place] [address] 15567- 0847 Mar, Type 2 diabetes mellitus without complication, without long- term current use of insulin E11.9 and Essential hypertension I10 [place] [address] [address]- 4633 Mar, Essential hypertension I10 and Type 2 diabetes mellitus without complication, without long-term current use of insulin E11.9 [place] [address], [place] [address]- 4212 Mar, Chronic kidney disease, stage 3 (moderate) N18.3 ; Anemia of chronic disease D63.8 and Type 2 diabetes mellitus without complication, without long-term current use of insulin E11.9 [place] [address] [address]- 1017 Mar, Type 2 diabetes mellitus without complication, without long- term current use of insulin E11.9 ; Iron deficiency anemia secondary to inadequate dietary iron intake D50.8 ; Arthritis M19.90 and Lumbago with sciatica, left side M54.42 [place] [address] 35533- 8601 Feb, Arthritis M19.90 and Anxiety F41.9 [place] [address] 91453- 9116 Feb, Type 2 diabetes mellitus without complication, without long- term current use of insulin E11.9 and Essential hypertension I10 [place] [address] 15809- 2266 January, Anxiety F41.9 [place] [address] 79684- 9986 January, Monilial rash B37.2 [place] [address] 87082- 4938 January, [place] [address] 13495- 5631 January, [place] [address] 37893- 8344 January, [place] [address] 99578- 0787 January, Gastroesophageal reflux disease, esophagitis presence not specified K21.9 [place] [address] [place] [id number] [place] [address] 88884- 1607 January, Arthritis M19.90 [place] [address] 99737- 2316 January, Anxiety F41.9 ; Arthritis M19.90 and Essential hypertension I10 [place] [address] 47142- 8360 January, Essential hypertension I10 and Anxiety F41.9 [place] [address] [place] [address]- 5215 Dec, [facility] [address] [place] [id number] [place] [address] 78385- 6069 Dec, Arthritis M19.90 and Anxiety F41.9 [facility] [address] [place] [id number] [place] [address] 01525- 0298 Dec, Type 2 diabetes mellitus without complication, without long- term current use of insulin E11.9 ; Cellulitis of right lower extremity L03.115 and Arthritis M19.90 [place] [address] [place] [id number] [place] [address] 99372- 9031 Nov, [place] [address] 57777- 0974 Nov, Type 2 diabetes mellitus without complication, without long- term current use of insulin E11.9 ; Bronchitis J40 and Arthritis M19.90 [place] [address] [place] [id number] [place] [address] 40451- 2749 Nov, [place] [address] [place] [id number] [place] [address] 39086- 6472 Oct, Anxiety F41.9 [facility] [address] [place] [id number] [place] [address] 42962 -1245 Sep, Dysuria R30.0 ; Acute cystitis with hematuria N30.01 and Vaginal yeast infection B37.3 [place] [address] [place] [id number] [place] [address] 40451- 1498 Sep, Arthritis M19.90 [facility] [address] [place] [id number] [place] [address] 95973 -7004 Sep, Strep pharyngitis J02.0 and Sore throat J02.9 [place] [address] [place] [id number] [place] [address] 19746- 6672 Sep, [place] [address] [place] [id number] [place] [address] 06241- 6236 Sep, Type 2 diabetes mellitus without complication, without long- term current use of insulin E11.9 [facility] [address] [place] [id number] [place] [address] 38972- 6570 Aug, [facility] [address] 39173- 4587 Aug, Seasonal allergic rhinitis due to pollen J30.1 [facility] [address] 06613 -5131 Aug, Impacted cerumen of right ear H61.21 and Seasonal allergic rhinitis due to pollen J30.1 [facility] [address] 39363- 3475 Aug, [facility] [address] 38868- 9555 Aug, [place] [address] 50745- 9494 Jul, Type 2 diabetes mellitus without complication, without long- term current use of insulin E11.9 ; Anxiety F41.9 ; Essential hypertension I10 and Encounter for immunization Z23 [place] [address] 81536- 7105 Jul, Essential hypertension I10 [place] [address] 85528- 0729 Jul, [place] [address] 49861- 9360 Jul, [facility] [address] [place] [id number] [place] [address] 87261- 4526 Jul, Essential hypertension I10 [place] [address] 24815- 8272 Jul, [place] [address] [place] [id number] [place] [address] 19648- 4872 May, [place] [address] 59184- 4647 May, [facility] [address] [facility] [id number] [address]- 3122 Apr, [facility] [address] [facility] [id number] [address]- 6056 Apr, [facility] [address] [facility] [id number] [address]- 5971 Apr, [facility] [address] [facility] [id number] [address]- 1066 Apr, Type 2 diabetes mellitus without complication, without long- term current use of insulin E11.9 ; Essential hypertension I10 ; Acute non- recurrent maxillary sinusitis J01.00 ; Arthritis M19.90 ; Lumbago with sciatica , left side M54.42 ; Other chronic pain G89.29 and Anxiety F41.9 IMMUNIZATIONS No Known Immunizations SOCIAL HISTORY Never Assessed REASON FOR VISIT Ultracet and alprazolam- PLAN OF CARE VITAL SIGNS MEDICATIONS Medication [...]
--- OUTSIDE RECORDS SUMMARY | 2018-11-02 12:34 | XMS REPORT ---
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 [facility] Address [address] [place] [address] Care Team Providers Care Roll Weigher Name Role Phone AMBER CHILDERS Unavailable PROBLEMS Type Condition ICD9-CM Code IZZ84-CS Code Onset Dates Condition Status SNOMED Code Problem Essential hypertension I10 Active 90526445 Problem Type 2 diabetes mellitus without complication, without long-term current use of insulin E11.9 Active 052142387 Problem Anxiety F41.9 Active 17436828 Problem Lumbago with sciatica, left side M54.42 Active 558289996 Problem Arthritis M19.90 Active 7778033 Problem Iron deficiency anemia, unspecified iron deficiency anemia type D50.9 Active 22649600 Problem Venous insufficiency I87.2 Active 77611250 Problem Gastroesophageal reflux disease, esophagitis presence not specified K21.9 Active 000235508 Problem Seasonal allergic rhinitis due to pollen J30.1 Active 11352163 Problem Anemia of chronic disease D63.8 Active 727524124 Problem Chronic kidney disease, stage 3 (moderate) N18.3 Active 411587166 ALLERGIES No Known Allergies ENCOUNTERS Encounter Location Date Diagnosis [place] [address] [address] Apr, [place] [address] [place] [id number] [place] [address] 40662- 7893 Mar, Essential hypertension I10 [place] [address] [place] [id number] [place] [address] 23685- 8809 Feb, Type 2 diabetes mellitus without complication, without long- term current use of insulin E11.9 ; Essential hypertension I10 and Anemia of chronic disease D63.8 [place] [address] [address] Feb, Arthritis M19.90 and Essential hypertension I10 [place] [address] [place] [id number] [place] [address] 92151- 1277 January, [facility] [address] [address] January, [facility] [address] [id number] [place] [address]4- 1214 January, Medicare annual wellness visit, initial Z00.00 ; Type 2 diabetes mellitus without complication, without long-term current use of insulin E11.9 ; Chronic kidney disease, stage 3 (moderate) N18.3 ; Essential hypertension I10 ; Gastroesophageal reflux disease, esophagitis presence not specified K21.9 ; Anxiety F41.9 ; Arthritis M19.90 and Encounter for immunization Z23 [facility] [address] [id number] [place] [address] 62084- 6038 January, Essential hypertension I10 [place] [address] [address]- [address] Dec, Arthritis M19.90 [facility] [address] [id number] [place] [address] 69196- 5532 Dec, [facility] [address] [address]- 8631 Dec, [facility] [address] [address] [id number] [place] [address] 39923- 6328 Dec, Essential hypertension I10 [facility] [id number] [place] [address] 67267 -2994 Nov, Dysuria R30.0 and Vaginal kai B37.3 [facility] [address] [id number] [place] [address] 35857- 8961 Nov, Arthritis M19.90 [facility] [id number] [place] [address] 24971- 7550 Oct, [facility] [address] [id number] [place] [address] 51217- 0421 Oct, Type 2 diabetes mellitus without complication, without long- term current use of insulin E11.9 ; Lumbago with sciatica, left side M54.42 ; Arthritis M19.90 ; Iron deficiency anemia, unspecified iron deficiency anemia type D50.9 and BMI 40.0-44.9, adult Z68.41 [place] [address] [id number] [place] [address] 15725- 8466 Sep, [place] [address] [address]- [address] Sep, [place] [address] [address]- 4400 Sep, Arthritis M19.90 and Anxiety F41.9 [place] [address] 59371- 9902 Sep, [place] [address] [id number] [place] [address] 50252- 0374 Aug, Anxiety F41.9 [place] [address] 26763- 37[address] Jul, [place] [address] [address]- [address]38 Jul, [place] [address] [id number] [place] [address] 11005- 4252 Jul, Vaginal yeast infection B37.3 [place] [address] [id number] [place] [address] 83897- 7015 Jul, Anxiety F41.9 [place] [address] [address] [id number] [place] [address] 66666- 7098 Jul, Type 2 diabetes mellitus without complication, without long- term current use of insulin E11.9 [place] [address] [id number] [place] [address] 30965- 3518 Jul, [place] [address] [id number] [place] [address] 96451- 5207 Jul, [place] [address] [place] [address] 39852- 6875 Jun, Arthritis M19.90 [place] [address] [id number] [place] [address] 63778- 0076 Jun, [place] [address] [id number] [place] [address] 43130- 0662 Jun, [place] [address] [id number] [place] [address] 37739- 0159 May, [place] [address] [id number] [place] [address] 64688- 4906 Apr, Venous insufficiency I87.2 and Venous stasis dermatitis of right lower extremity I87.2 [place] [address] [id number] [place] [address] 24972- 1983 Apr, Essential hypertension I10 [place] [id number] [place] [address] 86653- 7878 Mar, [place] [address] [place] [id number] [place] [address] 22932- 4375 Mar, Type 2 diabetes mellitus without complication, without long- term current use of insulin E11.9 and Essential hypertension I10 [place] [address] [place] [address] 71378- 5011 Mar, Essential hypertension I10 and Type 2 diabetes mellitus without complication, without long-term current use of insulin E11.9 [place] [address] [id number] [place] [address] 40101- 2018 Mar, Chronic kidney disease, stage 3 (moderate) N18.3 ; Anemia of chronic disease D63.8 and Type 2 diabetes mellitus without complication, without long-term current use of insulin E11.9 [place] [address] [place] [address] 09752- 8102 Mar, Type 2 diabetes mellitus without complication, without long- term current use of insulin E11.9 ; Iron deficiency anemia secondary to inadequate dietary iron intake D50.8 ; Arthritis M19.90 and Lumbago with sciatica, left side M54.42 [facility] [address] [address] [id number] [place] [address] 10323- 6675 Feb, Arthritis M19.90 and Anxiety F41.9 [facility] [address] [id number] [place] [address] 37216- 0906 Feb, Type 2 diabetes mellitus without complication, without long- term current use of insulin E11.9 and Essential hypertension I10 [facility] [address] [address]- 2015 January, Anxiety F41.9 [facility] [address] 20705- 9778 January, Jaja v[place] B37.2 [facility] [address] 38537- 8219 January, [facility] [address] 17667- 8653 January, [facility] [address] 46880- 5667 January, [facility] [address] 0[address]- 7857 January, Gastroesophageal reflux disease, esophagitis presence not specified K21.9 [facility] [address] [id number] [place] [address] 78317- 2876 January, Arthritis M19.90 [facility] [address] 01937- 8052 January, Anxiety F41.9 ; Arthritis M19.90 and Essential hypertension I10 [facility] [address] 83064- 8565 January, Essential hypertension I10 and Anxiety F41.9 [facility] [address] 32594- 5916 Dec, [facility] [address] [place] [address]- 0828 Dec, Arthritis M19.90 and Anxiety F41.9 [place] [address] 39815- 1206 Dec, Type 2 diabetes mellitus without complication, without long- term current use of insulin E11.9 ; Cellulitis of right lower extremity L03.115 and Arthritis M19.90 [place] [address] 49351- 6224 Nov, [place] [address] 12449- 2419 Nov, Type 2 diabetes mellitus without complication, without long- term current use of insulin E11.9 ; Bronchitis J40 and Arthritis M19.90 [place] [address] 97[address]- 2314 16 Nov, 2016 [place] [address] [address]- 4976 Oct, Anxiety F41.9 [facility] [address] [place] [id number] [place] [address] 27465 -7659 Sep, Dysuria R30.0 ; Acute cystitis with hematuria N30.01 and Vaginal yeast infection B37.3 [place] [address] [place] [id number] [place] [address] 71759- 3596 Sep, Arthritis M19.90 [facility] [address] [address] [id number] [place] [address] 46798 -4558 Sep, Strep pharyngitis J02.0 and Sore throat J02.9 [place] [address] 05617- 7696 Sep, [place] [address] [place] [id number] [place] [address] 28831- 7633 Sep, Type 2 diabetes mellitus without complication, without long- term current use of insulin E11.9 [place] [address] [place] [address]- 3182 14 Aug, 2016 [facility] [address] 25577- 8707 Aug, Seasonal allergic rhinitis due to pollen J30.1 [facility] [address] 218[address] Aug, Impacted cerumen of right ear H61.21 and Seasonal allergic rhinitis due to pollen J30.1 [facility] [address] 55658- 1151 Aug, [facility] [address] 37606- 5037 Aug, [facility] [address] 73958- 0509 Jul, Type 2 diabetes mellitus without complication, without long- term current use of insulin E11.9 ; Anxiety F41.9 ; Essential hypertension I10 and Encounter for immunization Z23 [facility] [address] 32442- 1293 Jul, Essential hypertension I10 [place] [address] 49287- 1122 Jul, [place] [address] 19311- 5294 Jul, [facility] [address] 29169- 8427 Jul, Essential hypertension I10 [facility] [address] 43674- 7818 Jul, [facility] [address] 49241- 7600 May, [place] [address] 47725- 6883 May, [facility] [address] 32499- 5155 Apr, [facility] [address] [facility] [id number] [address]- 7854 Apr, [facility] [address] [facility] [id number] [address]- 7[address] Apr, [facility] [address] [facility] [id number] [address]- 4031 Apr, Type 2 diabetes mellitus without complication, without long- term current use of insulin E11.9 ; Essential hypertension I10 ; Acute non- recurrent maxillary sinusitis J01.00 ; Arthritis M19.90 ; Lumbago with sciatica , left side M54.42 ; Other chronic pain G89.29 and Anxiety F41.9 IMMUNIZATIONS Vaccine Route Administration Date Status TDAP (BOOSTRIX) IM Intramuscular February 06, 2018 Administered SOCIAL HISTORY Never Assessed REASON FOR VISIT Medicare AWV - Initial Visit [facility], Yeast infection, Patient is concerned about runnign out of test strips for testing her blood sugar PLAN OF CARE Activity Details Follow Up 1 Year Reason: VITAL SIGNS Height 56 in 2018-02-06 Weight 169 lbs 2018-02-06 Temperature 97.4 degrees Fahrenheit 2018-02-06 Heart Rate 78 bpm 2018-02-06 Respiratory Rate 20 2018-02-06 Oximetry on room air:99 % 2018-02-06 BMI 37.88 kg/m2 2018-02-06 Blood pressure systolic 122 mmHg 2018-02-06 Blood pressure diastolic 72 mmHg 2018-02-06 MEDICATIONS Medication Instructions Dosage Frequency Start Date End Date Duration Status Glimepiride 4 MG Orally Once a day 1 tablet with breakfast or the first main meal of the day 24h Mar, 90 days Active Tramadol-Acetaminophen 37.5-325 MG Orally every 4 hrs 2 tablets as needed 4h 28 days Active Blood Glucose Test Strip Test Strips subcutaneously Once a day 1 test strip 24h Jul, Active Omeprazole 20 MG Orally Once a day 1 capsule 24h Sep, 30 day(s ) Not-Taking Alprazolam 0.5 MG Orally Three times a day 1 tablet 8h 30 days Active Timolol Hemihydrate 0.5 % Ophthalmic Twice a day 1 drop into affected eye 12h Active Monistat 1 Combo Pack 1200 & 2 MG & % Vaginal Once a day use _insert and cream 24h Jul, Not-Taking Wheelchair - use for mobility Oct, Active Omeprazole 20 Orally Once a day 1 capsule 24h 30 Active Metoprolol Tartrate 25 TAKE ONE TABLET BY MOUTH TWICE A DAY 90 Active Wheelchair - use for ambulation 24h 09 Jan, 2017 Not-Taking Lisinopril 5 mg Orally Once a day 1 tablet 24h Active Wheelchair - use for transportation 24h Mar, Not-Taking ProAir HFA 108 (90 Base) MCG/ACT Inhalation every 4-6 hours as needed 2 puffs as needed 30 days Active RESULTS No Results PROCEDURES Procedure Date Ordered Result Body Site [facility] VISIT IPPE/AWV February 06, 2018 ANNUAL ANA MARIANES VST; PERSNL PPS INIT February 06, 2018 SINGLE IMMUNIZATION ADMIN February 06, 2018 PT TOBACCO SCREEN RCVD TLK February 06, 2018 FALL RISK ASSESSMENT DOCD February 06, 2018 TDAP (BOOSTRIX) February 06, 2018 NEG SCR D PT NOT ELIG F/U/PLN DOC February 06, 2018 INSTRUCTIONS MEDICATIONS ADMINISTERED No Known Medications MEDICAL (GENERAL) HISTORY Type Description Date Medical History type II diabetes Medical History hypertension Medical History Arthritis Medical History skin cancer-scalp Surgical History hysterectomy Surgical History skin cancer removal-scalp Hospitalization History Surgery(s) only Hospitalization History dehydration november 2016 Hospitalization History bronchitis november 2106
--- OUTSIDE RECORDS SUMMARY | 2018-11-02 12:34 | XMS REPORT ---
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 [facility] Address [address] [place] [address] Care Team Providers Care Sales Service Assistant Name Role Phone AMBER CHILDERS Unavailable PROBLEMS Type Condition ICD9-CM Code PYS91-NJ Code Onset Dates Condition Status SNOMED Code Problem Essential hypertension I10 Active 63164828 Problem Type 2 diabetes mellitus without complication, without long-term current use of insulin E11.9 Active 766421313 Problem Anxiety F41.9 Active 16887693 Problem Lumbago with sciatica, left side M54.42 Active 505394397 Problem Arthritis M19.90 Active 9436289 Problem Iron deficiency anemia, unspecified iron deficiency anemia type D50.9 Active 17356523 Problem Venous insufficiency I87.2 Active 64315596 Problem Gastroesophageal reflux disease, esophagitis presence not specified K21.9 Active 146345413 Problem Seasonal allergic rhinitis due to pollen J30.1 Active 38591222 Problem Anemia of chronic disease D63.8 Active 590056342 Problem Chronic kidney disease, stage 3 (moderate) N18.3 Active 809995132 ALLERGIES No Information ENCOUNTERS Encounter Location Date Diagnosis [place] [id number] [place] [address] 87152- 5365 Mar, Essential hypertension I10 [place] [id number] [place] [address] 89440- 2678 Feb, Type 2 diabetes mellitus without complication, without long- term current use of insulin E11.9 ; Essential hypertension I10 and Anemia of chronic disease D63.8 [place] [id number] [place] [address] 67895- 1670 Feb, Arthritis M19.90 and Essential hypertension I10 [place] [id number] [place] [address] 66885- 0320 January, [place] [id number] [place] [address] 67880- 6444 January, [facility] [address] 35877- 4175 January, Medicare annual wellness visit, initial Z00.00 ; Type 2 diabetes mellitus without complication, without long-term current use of insulin E11.9 ; Chronic kidney disease, stage 3 (moderate) N18.3 ; Essential hypertension I10 ; Gastroesophageal reflux disease, esophagitis presence not specified K21.9 ; Anxiety F41.9 ; Arthritis M19.90 and Encounter for immunization Z23 [place] [id number] [place] [address] 42417- 5770 January, Essential hypertension I10 [place] [address] 83665- 9104 Dec, Arthritis M19.90 [place] [address] 26118- 1043 Dec, [facility] [id number] [place] [address] 55678- 9998 Dec, [place] [id number] [place] [address] 72084- 2699 Dec, Essential hypertension I10 [facility] [id number] [place] [address] 60429 -8325 Nov, Dysuria R30.0 and Vaginal kai B37.3 [place] [id number] [place] [address] 55096- 3200 Nov, Arthritis M19.90 [place] [id number] [place] [address] 23352- 3899 Oct, [place] [id number] [place] [address] 85855- 4065 Oct, Type 2 diabetes mellitus without complication, without long- term current use of insulin E11.9 ; Lumbago with sciatica, left side M54.42 ; Arthritis M19.90 ; Iron deficiency anemia, unspecified iron deficiency anemia type D50.9 and BMI 40.0-44.9, adult Z68.41 [facility] [address] 39534- 0676 Sep, [facility] [address] 51952- 5946 Sep, [facility] [address] 99845- 4885 Sep, Arthritis M19.90 and Anxiety F41.9 [facility] [address] 25623- 0505 Sep, [place] [address] 17613- 6164 Aug, Anxiety F41.9 [place] [address] 84545- 0267 Jul, [facility] [address] 21713- 0109 Jul, [place] [address] 30876- 2317 Jul, Vaginal yeast infection B37.3 [place] [id number] [place] [address] 29361- 3749 Jul, Anxiety F41.9 [facility] [address] 30557- 7417 Jul, Type 2 diabetes mellitus without complication, without long- term current use of insulin E11.9 [facility] [id number] [place] [address] 61249- 3785 08 Jul, 2017 [place] [address] 59911- 9660 Jul, [facility] [id number] [place] [address] 65074- 8829 Jun, Arthritis M19.90 [place] [address] [address]- 9713 16 Jun, 2017 [place] [id number] [place] [address] 66627- 9690 Jun, [place] [id number] [place] [address] 87530- 4172 May, [place] [id number] [place] [address] 89724- 3761 Apr, Venous insufficiency I87.2 and Venous stasis dermatitis of right lower extremity I87.2 [place] [id number] [place] [address] 65097- 0860 Apr, Essential hypertension I10 [place] [id number] [place] [address] 14276- 5504 Mar, [place] [id number] [place] [address] 62849- 6627 Mar, Type 2 diabetes mellitus without complication, without long- term current use of insulin E11.9 and Essential hypertension I10 [place] [id number] [place] [address] 35092- 0269 Mar, Essential hypertension I10 and Type 2 diabetes mellitus without complication, without long-term current use of insulin E11.9 [place] [id number] [place] [address] 11619- 2210 Mar, Chronic kidney disease, stage 3 (moderate) N18.3 ; Anemia of chronic disease D63.8 and Type 2 diabetes mellitus without complication, without long-term current use of insulin E11.9 [place] [address] [place] [address] 87919- 7857 14 Mar, 2017 Type 2 diabetes mellitus without complication, without long- term current use of insulin E11.9 ; Iron deficiency anemia secondary to inadequate dietary iron intake D50.8 ; Arthritis M19.90 and Lumbago with sciatica, left side M54.42 [place] [id number] [place] [address] 77706- 3199 Feb, Arthritis M19.90 and Anxiety F41.9 [facility] [id number] [place] [address] 42302- 2605 Feb, Type 2 diabetes mellitus without complication, without long- term current use of insulin E11.9 and Essential hypertension I10 [facility] [id number] [place] [address] 72248- 4977 January, Anxiety F41.9 [facility] [address] 09340- 3012 January, Monilial rash B37.2 [facility] [address] 94815- 8452 January, [facility] [id number] [place] [address] 11276- 1306 January, [facility] [address] 20540- 8781 January, [facility] [id number] [place] [address] 42133- 3005 January, Gastroesophageal reflux disease, esophagitis presence not specified K21.9 [facility] [id number] [place] [address] 04288- 9026 January, Arthritis M19.90 [facility] [id number] [place] [address] 73694- 8854 January, Anxiety F41.9 ; Arthritis M19.90 and Essential hypertension I10 [facility] [id number] [place] [address] 62194- 4324 January, Essential hypertension I10 and Anxiety F41.9 [facility] [address] 80724- 4840 Dec, [facility] [id number] [place] [address] 85402- 9216 Dec, Arthritis M19.90 and Anxiety F41.9 [place] [address] [place] [address] 26622- 7224 11 Dec, 2016 Type 2 diabetes mellitus without complication, without long- term current use of insulin E11.9 ; Cellulitis of right lower extremity L03.115 and Arthritis M19.90 [place] [id number] [place] [address] 73613- 8544 28 Nov, 2016 [place] [address] 80029- 1024 20 Nov, 2016 Type 2 diabetes mellitus without complication, without long- term current use of insulin E11.9 ; Bronchitis J40 and Arthritis M19.90 [place] [address] 89486- 7680 16 Nov, 2016 [place] [id number] [place] [address] 56483- 8710 24 Oct, 2016 Anxiety F41.9 [facility] [place] [id number] [place] [address] 60179 -2835 Sep, Dysuria R30.0 ; Acute cystitis with hematuria N30.01 and Vaginal yeast infection B37.3 [place] [id number] [place] [address] 14819- 6168 Sep, Arthritis M19.90 [facility] [place] [id number] [place] [address] 00504 -2183 Sep, Strep pharyngitis J02.0 and Sore throat J02.9 [place] [id number] [place] [address] 95710- 2835 Sep, [place] [id number] [place] [address] 27962- 4257 Sep, Type 2 diabetes mellitus without complication, without long- term current use of insulin E11.9 [place] [id number] [place] [address] 47499- 7623 Aug, [place] [id number] [place] [address] 81912- 5815 Aug, Seasonal allergic rhinitis due to pollen J30.1 [facility] [address] 44534 -3397 Aug, Impacted cerumen of right ear H61.21 and Seasonal allergic rhinitis due to pollen J30.1 [facility] [address] 47234- 1293 Aug, [facility] [address] 56945- 9468 Aug, [facility] [address] 23106- 7854 Jul, Type 2 diabetes mellitus without complication, without long- term current use of insulin E11.9 ; Anxiety F41.9 ; Essential hypertension I10 and Encounter for immunization Z23 [facility] [address] 31869- 7773 Jul, Essential hypertension I10 [facility] [address] 33388- 8261 Jul, [facility] [address] 24911- 9955 Jul, [facility] [id number] [place] [address] 96253- 4885 Jul, Essential hypertension I10 [facility] [id number] [place] [address] 11842- 4101 Jul, [facility] [id number] [place] [address] 41492- 8711 May, [facility] [address] 48655- 3740 May, [facility] [id number] [place] [address] 42742- 8540 Apr, [facility] [address] 58933- 2352 Apr, [facility] [address] [facility] [id number] [place] [address]- 8076 Apr, [facility] [address] [facility] [id number] [address]- 2502 Apr, Type 2 diabetes mellitus without complication, without long- term current use of insulin E11.9 ; Essential hypertension I10 ; Acute non- recurrent maxillary sinusitis J01.00 ; Arthritis M19.90 ; Lumbago with sciatica , left side M54.42 ; Other chronic pain G89.29 and Anxiety F41.9 IMMUNIZATIONS No Known Immunizations SOCIAL HISTORY Never Assessed REASON FOR VISIT Tramadol-tylenol PLAN OF CARE VITAL SIGNS MEDICATIONS Medication Instructions Dosage Frequency Start Date End Date Duration Status Tramadol-Acetaminophen 37.5-325 MG Orally every 4 hrs 2 tablets as needed 4h 28 days Active RESULTS No Results PROCEDURES No [...]
--- OUTSIDE RECORDS SUMMARY | 2018-11-02 12:34 | XMS REPORT ---
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 [facility] Address [address] [place] [address] Care Team Providers Care Line Puller Name Role Phone AMBER CHILDERS Unavailable PROBLEMS Type Condition ICD9-CM Code EUM61-DO Code Onset Dates Condition Status SNOMED Code Problem Essential hypertension I10 Active 83249370 Problem Type 2 diabetes mellitus without complication, without long-term current use of insulin E11.9 Active 901891605 Problem Anxiety F41.9 Active 58911433 Problem Lumbago with sciatica, left side M54.42 Active 001279586 Problem Arthritis M19.90 Active 1521476 Problem Iron deficiency anemia, unspecified iron deficiency anemia type D50.9 Active 84869601 Problem Venous insufficiency I87.2 Active 37101687 Problem Gastroesophageal reflux disease, esophagitis presence not specified K21.9 Active 915440025 Problem Seasonal allergic rhinitis due to pollen J30.1 Active 70663162 Problem Anemia of chronic disease D63.8 Active 188789154 Problem Chronic kidney disease, stage 3 (moderate) N18.3 Active 156736764 ALLERGIES No Information ENCOUNTERS Encounter Location Date Diagnosis [place] [id number] [place] [address] 41649- 5219 Mar, Essential hypertension I10 [place] [id number] [place] [address] 91954- 9367 Feb, Type 2 diabetes mellitus without complication, without long- term current use of insulin E11.9 ; Essential hypertension I10 and Anemia of chronic disease D63.8 [place] [id number] [place] [address] 56721- 8299 Feb, Arthritis M19.90 and Essential hypertension I10 [place] [id number] [place] [address] 94431- 4106 January, [place] [id number] [place] [address] 68208- 8184 January, [facility] [address] 21388- 7012 January, Medicare annual wellness visit, initial Z00.00 ; Type 2 diabetes mellitus without complication, without long-term current use of insulin E11.9 ; Chronic kidney disease, stage 3 (moderate) N18.3 ; Essential hypertension I10 ; Gastroesophageal reflux disease, esophagitis presence not specified K21.9 ; Anxiety F41.9 ; Arthritis M19.90 and Encounter for immunization Z23 [place] [id number] [place] [address] 64678- 3581 January, Essential hypertension I10 [place] [address] 88294- 1405 Dec, Arthritis M19.90 [place] [address] 04976- 8143 Dec, [facility] [id number] [place] [address] 94785- 0593 Dec, [place] [id number] [place] [address] 68151- 5766 Dec, Essential hypertension I10 [facility] [id number] [place] [address] 02838 -5821 Nov, Dysuria R30.0 and Vaginal kai B37.3 [place] [id number] [place] [address] 83170- 1179 Nov, Arthritis M19.90 [place] [id number] [place] [address] 35436- 9292 Oct, [place] [id number] [place] [address] 49081- 2008 Oct, Type 2 diabetes mellitus without complication, without long- term current use of insulin E11.9 ; Lumbago with sciatica, left side M54.42 ; Arthritis M19.90 ; Iron deficiency anemia, unspecified iron deficiency anemia type D50.9 and BMI 40.0-44.9, adult Z68.41 [facility] [address] 71403- 8054 Sep, [facility] [address] 66299- 3157 Sep, [facility] [address] 82539- 3226 Sep, Arthritis M19.90 and Anxiety F41.9 [facility] [address] 78475- 4932 Sep, [place] [address] 77729- 2678 Aug, Anxiety F41.9 [place] [address] 74506- 3787 Jul, [facility] [address] 94492- 9268 Jul, [place] [address] 32874- 3479 Jul, Vaginal yeast infection B37.3 [place] [id number] [place] [address] 35079- 1471 Jul, Anxiety F41.9 [facility] [address] 75873- 0508 Jul, Type 2 diabetes mellitus without complication, without long- term current use of insulin E11.9 [facility] [id number] [place] [address] 85938- 6891 08 Jul, 2017 [place] [address] 07105- 1680 Jul, [facility] [id number] [place] [address] 28334- 7621 Jun, Arthritis M19.90 [place] [address] [address]- 6566 16 Jun, 2017 [place] [id number] [place] [address] 79748- 9892 Jun, [place] [address] [id number] [place] [address] 06043- 9063 May, [place] [address] [id number] [place] [address] 09502- 1728 Apr, Venous insufficiency I87.2 and Venous stasis dermatitis of right lower extremity I87.2 [place] [id number] [place] [address] 58531- 5879 Apr, Essential hypertension I10 [place] [address] [id number] [place] [address] 12201- 8620 Mar, [place] [address] [address] [id number] [place] [address] 68939- 6358 Mar, Type 2 diabetes mellitus without complication, without long- term current use of insulin E11.9 and Essential hypertension I10 [place] [id number] [place] [address] 24862- 9064 Mar, Essential hypertension I10 and Type 2 diabetes mellitus without complication, without long-term current use of insulin E11.9 [place] [id number] [place] [address] 52662- 9085 Mar, Chronic kidney disease, stage 3 (moderate) N18.3 ; Anemia of chronic disease D63.8 and Type 2 diabetes mellitus without complication, without long-term current use of insulin E11.9 [place] [address] [place] [address] 60535- 0904 14 Mar, 2017 Type 2 diabetes mellitus without complication, without long- term current use of insulin E11.9 ; Iron deficiency anemia secondary to inadequate dietary iron intake D50.8 ; Arthritis M19.90 and Lumbago with sciatica, left side M54.42 [place] [id number] [place] [address] 27029- 3381 Feb, Arthritis M19.90 and Anxiety F41.9 [facility] [id number] [place] [address] 18590- 4068 Feb, Type 2 diabetes mellitus without complication, without long- term current use of insulin E11.9 and Essential hypertension I10 [facility] [address] [id number] [place] [address] 55399- 9100 January, Anxiety F41.9 [facility] [address] 00023- 8381 January, Monilial rash B37.2 [facility] [address] 08532- 6251 January, [facility] [address] [place] [id number] [place] [address] 84899- 3354 January, [facility] [address] 47918- 3561 January, [facility] [address] [id number] [place] [address] 05876- 8967 January, Gastroesophageal reflux disease, esophagitis presence not specified K21.9 [facility] [address] [id number] [place] [address] 02561- 1339 January, Arthritis M19.90 [facility] [address] [id number] [place] [address] 01781- 7821 January, Anxiety F41.9 ; Arthritis M19.90 and Essential hypertension I10 [facility] [address] [id number] [place] [address] 41751- 3943 January, Essential hypertension I10 and Anxiety F41.9 [facility] [address] 09683- 4133 Dec, [facility] [address] [id number] [place] [address] 30443- 5959 Dec, Arthritis M19.90 and Anxiety F41.9 [place] [address] [place] [address] 65244- 2090 11 Dec, 2016 Type 2 diabetes mellitus without complication, without long- term current use of insulin E11.9 ; Cellulitis of right lower extremity L03.115 and Arthritis M19.90 [place] [address] [place] [id number] [place] [address] 28158- 5837 28 Nov, 2016 [place] [address] 09229- 5825 20 Nov, 2016 Type 2 diabetes mellitus without complication, without long- term current use of insulin E11.9 ; Bronchitis J40 and Arthritis M19.90 [place] [address] 97235- 7270 16 Nov, 2016 [place] [address] [place] [address] [id number] [place] [address] 63537- 7265 24 Oct, 2016 Anxiety F41.9 [facility] [place] [address] [id number] [place] [address] 88363 -5932 Sep, Dysuria R30.0 ; Acute cystitis with hematuria N30.01 and Vaginal yeast infection B37.3 [place] [address] [place] [address] [id number] [place] [address] 46599- 0256 Sep, Arthritis M19.90 [facility] [place] [address] [place] [address] [id number] [place] [address] 34982 -4590 Sep, Strep pharyngitis J02.0 and Sore throat J02.9 [place] [address] [place] [address] [id number] [place] [address] 81740- 6888 Sep, [place] [address] [place] [address] [id number] [place] [address] 84062- 6283 Sep, Type 2 diabetes mellitus without complication, without long- term current use of insulin E11.9 [place] [address] [place] [id number] [place] [address] 61551- 4959 Aug, [place] [address] [place] [id number] [place] [address] 45256- 4424 Aug, Seasonal allergic rhinitis due to pollen J30.1 [facility] [address] 37491 -4118 Aug, Impacted cerumen of right ear H61.21 and Seasonal allergic rhinitis due to pollen J30.1 [facility] [address] 33159- 5703 Aug, [facility] [address] 68689- 8901 Aug, [facility] [address] 53067- 2619 Jul, Type 2 diabetes mellitus without complication, without long- term current use of insulin E11.9 ; Anxiety F41.9 ; Essential hypertension I10 and Encounter for immunization Z23 [facility] [address] 57805- 5538 Jul, Essential hypertension I10 [facility] [address] 73736- 2413 Jul, [facility] [address] 09359- 3013 Jul, [facility] [address] [place] [id number] [place] [address] 84062- 1259 Jul, Essential hypertension I10 [facility] [address] [place] [id number] [place] [address] 05463- 4525 Jul, [facility] [address] [place] [id number] [place] [address] 52791- 5753 May, [facility] [address] [phone] May, [facility] [id number] [place] [address] [phone] Apr, [facility] [address] [phone] Apr, [facility] [address] [facility] [id number] [place] [phone] Apr, [facility] [address] [facility] [id number] [place] [address] Apr, Type 2 diabetes mellitus without complication, [...]
--- OUTSIDE RECORDS SUMMARY | 2018-11-02 12:34 | XMS REPORT ---
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 Name Role Phone AMBER CHILDERS Unavailable PROBLEMS Type Condition ICD9-CM Code OBD07-OH Code Onset Dates Condition Status SNOMED Code Problem Essential hypertension I10 Active 53183548 Problem Type 2 diabetes mellitus without complication, without long-term current use of insulin E11.9 Active 291373891 Problem Anxiety F41.9 Active 69670789 Problem Lumbago with sciatica, left side M54.42 Active 543625817 Problem Arthritis M19.90 Active 9399927 Problem Iron deficiency anemia, unspecified iron deficiency anemia type D50.9 Active 71684153 Problem Venous insufficiency I87.2 Active 99709372 Problem Gastroesophageal reflux disease, esophagitis presence not specified K21.9 Active 541497300 Problem Seasonal allergic rhinitis due to pollen J30.1 Active 82776271 Problem Anemia of chronic disease D63.8 Active 089164773 Problem Chronic kidney disease, stage 3 (moderate) N18.3 Active 899594534 ALLERGIES No Information ENCOUNTERS Encounter Location Date Diagnosis [place] [id number] [place] [address] 15217- 6150 Apr, [place] [id number] [place] [address] 97980- 6711 Mar, Essential hypertension I10 [place] [id number] [place] [address] 92348- 5043 Feb, Type 2 diabetes mellitus without complication, without long- term current use of insulin E11.9 ; Essential hypertension I10 and Anemia of chronic disease D63.8 [place] [id number] [place] [address] 93255- 3807 Feb, Arthritis M19.90 and Essential hypertension I10 [place] [id number] [place] [address] 91475- 6340 January, [facility] [id number] [place] [address] 74879- 4631 January, [facility] [id number] [place] [address] 67685- 4790 January, Medicare annual wellness visit, initial Z00.00 ; Type 2 diabetes mellitus without complication, without long-term current use of insulin E11.9 ; Chronic kidney disease, stage 3 (moderate) N18.3 ; Essential hypertension I10 ; Gastroesophageal reflux disease, esophagitis presence not specified K21.9 ; Anxiety F41.9 ; Arthritis M19.90 and Encounter for immunization Z23 [place] [id number] [place] [address] 27315- 4598 January, Essential hypertension I10 [place] [id number] [place] [address] 12100- 2395 Dec, Arthritis M19.90 [facility] [id number] [place] [address] 92206- 4278 Dec, [facility] [id number] [place] [address] 14549- 0966 Dec, [facility] [id number] [place] [address] 97215- 1308 Dec, Essential hypertension I10 [facility] [id number] [place] [address] 51623 -2856 Nov, Dysuria R30.0 and Vaginal kai B37.3 [facility] [id number] [place] [address] 11838- 5588 Nov, Arthritis M19.90 [facility] [id number] [place] [address] 82740- 2254 Oct, [facility] [id number] [place] [address] 65692- 3391 Oct, Type 2 diabetes mellitus without complication, without long- term current use of insulin E11.9 ; Lumbago with sciatica, left side M54.42 ; Arthritis M19.90 ; Iron deficiency anemia, unspecified iron deficiency anemia type D50.9 and BMI 40.0-44.9, adult Z68.41 [place] [id number] [place] [address] 41717- 3504 Sep, [place] [address] 75983- 8666 Sep, [place] [address] 47210- 2184 Sep, Arthritis M19.90 and Anxiety F41.9 [place] [address] 40749- 1451 Sep, [place] [id number] [place] [address] 42632- 3707 Aug, Anxiety F41.9 [place] [id number] [place] [address] 67769- 5080 Jul, [place] [id number] [place] [address] 14649- 5276 Jul, [place] [id number] [place] [address] 84334- 8202 Jul, Vaginal yeast infection B37.3 [place] [id number] [place] [address] 12282- 2818 Jul, Anxiety F41.9 [place] [id number] [place] [address] 58009- 8704 Jul, Type 2 diabetes mellitus without complication, without long- term current use of insulin E11.9 [place] [id number] [place] [address] 30313- 8286 Jul, [place] [id number] [place] [address] 92450- 9377 Jul, [place] [id number] [place] [address] 13879- 8767 Jun, Arthritis M19.90 [place] [id number] [place] [address] 17458- 8859 Jun, [place] [id number] [place] [address] 05576- 1346 Jun, [place] [id number] [place] [address] 37376- 1557 May, [place] [id number] [place] [address] 90953- 3384 Apr, Venous insufficiency I87.2 and Venous stasis dermatitis of right lower extremity I87.2 [place] [id number] [place] [address] 24857- 0317 Apr, Essential hypertension I10 [place] [id number] [place] [address] 81585- 9103 Mar, [place] [id number] [place] [address] 44659- 2526 Mar, Type 2 diabetes mellitus without complication, without long- term current use of insulin E11.9 and Essential hypertension I10 [place] [address] [place] [address] 10119- 4739 Mar, Essential hypertension I10 and Type 2 diabetes mellitus without complication, without long-term current use of insulin E11.9 [place] [id number] [place] [address] 53904- 9430 Mar, Chronic kidney disease, stage 3 (moderate) N18.3 ; Anemia of chronic disease D63.8 and Type 2 diabetes mellitus without complication, without long-term current use of insulin E11.9 [place] [address] [place] [address] 62670- 8667 Mar, Type 2 diabetes mellitus without complication, without long- term current use of insulin E11.9 ; Iron deficiency anemia secondary to inadequate dietary iron intake D50.8 ; Arthritis M19.90 and Lumbago with sciatica, left side M54.42 [facility] [id number] [place] [address] 33301- 5732 Feb, Arthritis M19.90 and Anxiety F41.9 [facility] [id number] [place] [address] 40391- 3835 Feb, Type 2 diabetes mellitus without complication, without long- term current use of insulin E11.9 and Essential hypertension I10 [facility] [address] 70963- 0903 January, Anxiety F41.9 [facility] [address] 45845- 6975 January, Monfatou rash B37.2 [facility] [address] 30299- 1158 January, [facility] [address] 63856- 3751 January, [facility] [address] 59666- 4008 January, [facility] [address] 51171- 7892 January, Gastroesophageal reflux disease, esophagitis presence not specified K21.9 [facility] [id number] [place] [address] 02260- 5886 January, Arthritis M19.90 [facility] [address] 65270- 5457 January, Anxiety F41.9 ; Arthritis M19.90 and Essential hypertension I10 [facility] [address] 07630- 7411 January, Essential hypertension I10 and Anxiety F41.9 [facility] [id number] [place] [address] 96759- 7537 Dec, [facility] [address] [place] [address]- 1811 Dec, Arthritis M19.90 and Anxiety F41.9 [place] [address] 19053- 3889 Dec, Type 2 diabetes mellitus without complication, without long- term current use of insulin E11.9 ; Cellulitis of right lower extremity L03.115 and Arthritis M19.90 [place] [address] 64178- 4974 Nov, [place] [address] 41400- 7948 Nov, Type 2 diabetes mellitus without complication, without long- term current use of insulin E11.9 ; Bronchitis J40 and Arthritis M19.90 [place] [address] 28899- 6955 16 Nov, 2016 [place] [address] 71648- 9995 Oct, Anxiety F41.9 [facility] [address] 36852 -4562 Sep, Dysuria R30.0 ; Acute cystitis with hematuria N30.01 and Vaginal yeast infection B37.3 [place] [id number] [place] [address] 26945- 8319 Sep, Arthritis M19.90 [facility] [id number] [place] [address] 90085 -9101 Sep, Strep pharyngitis J02.0 and Sore throat J02.9 [place] [address] 33656- 3799 Sep, [place] [address] 40348- 2599 Sep, Type 2 diabetes mellitus without complication, without long- term current use of insulin E11.9 [place] [address] 85352- 8415 14 Aug, 2016 [facility] [address] 57725- 4865 Aug, Seasonal allergic rhinitis due to pollen J30.1 [facility] [address] 98043 -6454 Aug, Impacted cerumen of right ear H61.21 and Seasonal allergic rhinitis due to pollen J30.1 [facility] [address] 70052- 8072 Aug, [facility] [address] 41709- 9654 Aug, [facility] [address] 19112- 1646 Jul, Type 2 diabetes mellitus without complication, without long- term current use of insulin E11.9 ; Anxiety F41.9 ; Essential hypertension I10 and Encounter for immunization Z23 [facility] [address] 65880- 8693 Jul, Essential hypertension I10 [place] [address] 56316- 9299 Jul, [place] [address] 70709- 1839 Jul, [facility] [address] 25593- 4378 Jul, Essential hypertension I10 [facility] [id number] [place] [address] 81773- 4932 Jul, [facility] [address] 33255- 0468 May, [facility] [address] 58898- 4465 May, [facility] [address] 88477- 1775 Apr, [facility] [address] [facility] [id number] [address]- 4944 Apr, [facility] [address] [facility] [id number]- 4497 Apr, [facility] [address] [facility] [id number] [address]- 7157 Apr, Type 2 diabetes mellitus without complication, without long- term current use of insulin E11.9 ; Essential hypertension I10 ; Acute non- recurrent maxillary sinusitis J01.00 ; Arthritis M19.90 ; Lumbago with sciatica , left side M54.42 ; Other chronic pain G89.29 and Anxiety F41.9 IMMUNIZATIONS No Known Immunizations SOCIAL HISTORY Never Assessed REASON FOR VISIT Xanax PLAN OF CARE VITAL SIGNS MEDICATIONS Medication [...]
--- OUTSIDE RECORDS SUMMARY | 2018-11-02 12:34 | XMS REPORT ---
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 Name Role Phone AMBER CHILDERS Unavailable PROBLEMS Type Condition ICD9-CM Code NZA55-TQ Code Onset Dates Condition Status SNOMED Code Problem Essential hypertension I10 Active 41777694 Problem Type 2 diabetes mellitus without complication, without long-term current use of insulin E11.9 Active 380427591 Problem Anxiety F41.9 Active 95139017 Problem Lumbago with sciatica, left side M54.42 Active 827435781 Problem Arthritis M19.90 Active 4713822 Problem Iron deficiency anemia, unspecified iron deficiency anemia type D50.9 Active 26043701 Problem Venous insufficiency I87.2 Active 22870802 Problem Gastroesophageal reflux disease, esophagitis presence not specified K21.9 Active 374292612 Problem Seasonal allergic rhinitis due to pollen J30.1 Active 98231604 Problem Anemia of chronic disease D63.8 Active 363231143 Problem Chronic kidney disease, stage 3 (moderate) N18.3 Active 402685729 ALLERGIES No Information ENCOUNTERS Encounter Location Date Diagnosis [place] [id number] [place] [address] 22736- 1820 Mar, Essential hypertension I10 [place] [id number] [place] [address] 60558- 6288 Feb, Type 2 diabetes mellitus without complication, without long- term current use of insulin E11.9 ; Essential hypertension I10 and Anemia of chronic disease D63.8 [place] [id number] [place] [address] 48944- 5556 Feb, Arthritis M19.90 and Essential hypertension I10 [place] [id number] [place] [address] 37241- 9927 January, [place] [id number] [place] [address] 81957- 3650 January, [facility] [address] 14217- 1274 January, Medicare annual wellness visit, initial Z00.00 ; Type 2 diabetes mellitus without complication, without long-term current use of insulin E11.9 ; Chronic kidney disease, stage 3 (moderate) N18.3 ; Essential hypertension I10 ; Gastroesophageal reflux disease, esophagitis presence not specified K21.9 ; Anxiety F41.9 ; Arthritis M19.90 and Encounter for immunization Z23 [place] [id number] [place] [address] 69174- 6504 January, Essential hypertension I10 [place] [address] 55556- 7377 Dec, Arthritis M19.90 [place] [address] 46964- 9757 Dec, [facility] [id number] [place] [address] 83183- 0619 Dec, [place] [id number] [place] [address] 80467- 2241 Dec, Essential hypertension I10 [facility] [id number] [place] [address] 41403 -3899 Nov, Dysuria R30.0 and Vaginal kai B37.3 [place] [id number] [place] [address] 66224- 8203 Nov, Arthritis M19.90 [place] [id number] [place] [address] 59023- 5007 Oct, [place] [id number] [place] [address] 64743- 8860 Oct, Type 2 diabetes mellitus without complication, without long- term current use of insulin E11.9 ; Lumbago with sciatica, left side M54.42 ; Arthritis M19.90 ; Iron deficiency anemia, unspecified iron deficiency anemia type D50.9 and BMI 40.0-44.9, adult Z68.41 [facility] [address] 72706- 0392 Sep, [facility] [address] 55987- 7212 Sep, [facility] [address] 26153- 7469 Sep, Arthritis M19.90 and Anxiety F41.9 [facility] [address] 84451- 0524 Sep, [place] [address] 80696- 9294 Aug, Anxiety F41.9 [place] [address] 42293- 4396 Jul, [facility] [address] 58366- 2618 Jul, [place] [address] 14946- 3998 Jul, Vaginal yeast infection B37.3 [place] [id number] [place] [address] 98041- 5241 Jul, Anxiety F41.9 [facility] [address] 83040- 8033 Jul, Type 2 diabetes mellitus without complication, without long- term current use of insulin E11.9 [facility] [id number] [place] [address] 40074- 7100 08 Jul, 2017 [place] [address] 34093- 0228 Jul, [facility] [id number] [place] [address] 49576- 2468 Jun, Arthritis M19.90 [place] [address] [address]- 6586 16 Jun, 2017 [place] [id number] [place] [address] 41342- 7889 Jun, [place] [id number] [place] [address] 61337- 5414 May, [place] [id number] [place] [address] 04734- 8908 Apr, Venous insufficiency I87.2 and Venous stasis dermatitis of right lower extremity I87.2 [place] [id number] [place] [address] 00245- 3202 Apr, Essential hypertension I10 [place] [id number] [place] [address] 14914- 9075 Mar, [place] [id number] [place] [address] 73463- 8539 Mar, Type 2 diabetes mellitus without complication, without long- term current use of insulin E11.9 and Essential hypertension I10 [place] [id number] [place] [address] 94391- 4465 Mar, Essential hypertension I10 and Type 2 diabetes mellitus without complication, without long-term current use of insulin E11.9 [place] [id number] [place] [address] 76165- 4962 Mar, Chronic kidney disease, stage 3 (moderate) N18.3 ; Anemia of chronic disease D63.8 and Type 2 diabetes mellitus without complication, without long-term current use of insulin E11.9 [place] [address] [place] [address] 02372- 6308 14 Mar, 2017 Type 2 diabetes mellitus without complication, without long- term current use of insulin E11.9 ; Iron deficiency anemia secondary to inadequate dietary iron intake D50.8 ; Arthritis M19.90 and Lumbago with sciatica, left side M54.42 [place] [id number] [place] [address] 42589- 5747 Feb, Arthritis M19.90 and Anxiety F41.9 [facility] [id number] [place] [address] 00947- 1490 Feb, Type 2 diabetes mellitus without complication, without long- term current use of insulin E11.9 and Essential hypertension I10 [facility] [id number] [place] [address] 18589- 0639 January, Anxiety F41.9 [facility] [address] 69048- 6300 January, Monilial rash B37.2 [facility] [address] 72581- 5073 January, [facility] [id number] [place] [address] 72130- 6157 January, [facility] [address] 77990- 0289 January, [facility] [id number] [place] [address] 52934- 4019 January, Gastroesophageal reflux disease, esophagitis presence not specified K21.9 [facility] [id number] [place] [address] 36473- 5056 January, Arthritis M19.90 [facility] [id number] [place] [address] 68646- 7139 January, Anxiety F41.9 ; Arthritis M19.90 and Essential hypertension I10 [facility] [id number] [place] [address] 97042- 3760 January, Essential hypertension I10 and Anxiety F41.9 [facility] [address] 16090- 7612 Dec, [facility] [id number] [place] [address] 03770- 8429 Dec, Arthritis M19.90 and Anxiety F41.9 [place] [address] [place] [address] 39340- 9672 11 Dec, 2016 Type 2 diabetes mellitus without complication, without long- term current use of insulin E11.9 ; Cellulitis of right lower extremity L03.115 and Arthritis M19.90 [place] [id number] [place] [address] 91824- 5171 28 Nov, 2016 [place] [address] 65767- 0770 20 Nov, 2016 Type 2 diabetes mellitus without complication, without long- term current use of insulin E11.9 ; Bronchitis J40 and Arthritis M19.90 [place] [address] 82955- 0623 16 Nov, 2016 [place] [id number] [place] [address] 19489- 9788 24 Oct, 2016 Anxiety F41.9 [facility] [place] [id number] [place] [address] 55432 -6223 Sep, Dysuria R30.0 ; Acute cystitis with hematuria N30.01 and Vaginal yeast infection B37.3 [place] [id number] [place] [address] 41696- 8044 Sep, Arthritis M19.90 [facility] [place] [id number] [place] [address] 02896 -2227 Sep, Strep pharyngitis J02.0 and Sore throat J02.9 [place] [id number] [place] [address] 66180- 7951 Sep, [place] [id number] [place] [address] 27996- 6419 Sep, Type 2 diabetes mellitus without complication, without long- term current use of insulin E11.9 [place] [id number] [place] [address] 54975- 1948 Aug, [place] [id number] [place] [address] 50043- 4678 Aug, Seasonal allergic rhinitis due to pollen J30.1 [facility] [address] 45708 -5170 Aug, Impacted cerumen of right ear H61.21 and Seasonal allergic rhinitis due to pollen J30.1 [facility] [address] 47270- 4638 Aug, [facility] [address] 84276- 0312 Aug, [facility] [address] 46426- 0216 Jul, Type 2 diabetes mellitus without complication, without long- term current use of insulin E11.9 ; Anxiety F41.9 ; Essential hypertension I10 and Encounter for immunization Z23 [facility] [address] 66103- 7842 Jul, Essential hypertension I10 [facility] [address] 30692- 7529 Jul, [facility] [address] 33701- 9850 Jul, [facility] [id number] [place] [address] 57435- 8171 Jul, Essential hypertension I10 [facility] [id number] [place] [address] 81622- 9785 Jul, [facility] [id number] [place] [address] 37329- 9630 May, [facility] [address] 44684- 5503 May, [facility] [id number] [place] [address] 12023- 0903 Apr, [facility] [address] 57007- 6915 Apr, [facility] [address] [facility] [id number] [place] [address]- 1271 Apr, [facility] [address] [facility] [id number] [place] [address]- 6062 Apr, Type 2 diabetes mellitus without complication, [...]
--- OUTSIDE RECORDS SUMMARY | 2018-11-02 12:35 | XMS REPORT ---
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 [facility] Address [address] [place] [address] Care Team Providers Care Doughnut Icer Machine Name Role Phone AMBER CHILDERS Unavailable PROBLEMS Type Condition ICD9-CM Code SCV60-RW Code Onset Dates Condition Status SNOMED Code Problem Essential hypertension I10 Active 44373212 Problem Type 2 diabetes mellitus without complication, without long-term current use of insulin E11.9 Active 535871327 Problem Anxiety F41.9 Active 40464015 Problem Lumbago with sciatica, left side M54.42 Active 175581331 Problem Arthritis M19.90 Active 7051555 Problem Iron deficiency anemia, unspecified iron deficiency anemia type D50.9 Active 91312684 Problem Venous insufficiency I87.2 Active 11975300 Problem Gastroesophageal reflux disease, esophagitis presence not specified K21.9 Active 204127772 Problem Seasonal allergic rhinitis due to pollen J30.1 Active 08629145 Problem Anemia of chronic disease D63.8 Active 167474578 Problem Chronic kidney disease, stage 3 (moderate) N18.3 Active 082649007 ALLERGIES No Information ENCOUNTERS Encounter Location Date Diagnosis [place] [id number] [place] [address] 67795- 4132 Feb, Type 2 diabetes mellitus without complication, without long- term current use of insulin E11.9 ; Essential hypertension I10 and Anemia of chronic disease D63.8 [facility] [id number], [place] [address] Feb, Arthritis M19.90 and Essential hypertension I10 [facility] [id number] [place] [address] 96339- 2287 January, [facility] [id number] [place] [address] 62087- 2312 January, [place] [address] [place] [id number] [place] [address] 72622- 4969 January, Medicare annual wellness visit, initial Z00.00 ; Type 2 diabetes mellitus without complication, without long-term current use of insulin E11.9 ; Chronic kidney disease, stage 3 (moderate) N18.3 ; Essential hypertension I10 ; Gastroesophageal reflux disease, esophagitis presence not specified K21.9 ; Anxiety F41.9 ; Arthritis M19.90 and Encounter for immunization Z23 [place] [address] [place] [id number] [place] [address] 90428- 5775 January, Essential hypertension I10 [place] [address] [place] [id number] [place] [address] 27892- 8858 Dec, Arthritis M19.90 [place] [address] [place] [id number] [place] [address] 20140- 2259 Dec, [place] [address] [place] [id number] [place] [address] 61931- 4771 Dec, [place] [address] [place] [id number] [place] [address] 66224- 6292 Dec, Essential hypertension I10 [facility] [address] [place] [id number] [place] [address] 88553 -0268 Nov, Dysuria R30.0 and Vaginal kai B37.3 [place] [id number] [place] [address] 18883- 4598 Nov, Arthritis M19.90 [place] [address] [place] [id number] [place] [address] 81204- 0910 Oct, [place] [address] [place] [id number] [place] [address] 93416- 6072 Oct, Type 2 diabetes mellitus without complication, without long- term current use of insulin E11.9 ; Lumbago with sciatica, left side M54.42 ; Arthritis M19.90 ; Iron deficiency anemia, unspecified iron deficiency anemia type D50.9 and BMI 40.0-44.9, adult Z68.[id number] [place] [address] 03106- 4098 Sep, [facility] [address] [place] [id number] [place] [address] 70829- 3204 Sep, [facility] [address] [place] [id number] [place] [address] 51127- 8743 Sep, Arthritis M19.90 and Anxiety F41.9 [facility] [address] 82619- 2518 Sep, [facility] [address] [place] [id number] [place] [address] 30609- 3697 Aug, Anxiety F41.9 [facility] [address] [place] [id number] [place] [address] 83053- 6397 Jul, [facility] [address] [place] [id number] [place] [address] 76334- 7118 Jul, [facility] [address] [place] [id number] [place] [address] 77877- 6301 Jul, Vaginal yeast infection B37.3 [facility] [address] [place] [id number] [place] [address] 97808- 6417 Jul, Anxiety F41.9 [facility] [address] [place] [id number] [place] [address] 78238- 0850 Jul, Type 2 diabetes mellitus without complication, without long- term current use of insulin E11.9 [facility] [address] [place] [id number] [place] [address] 31947- 8934 08 Jul, 2017 [facility] [address] [place] [id number] [place] [address] 09815- 5488 Jul, [facility] [address] [place] [id number] [place] [address] 19266- 1208 Jun, Arthritis M19.90 [facility] [address] [place] [id number] [place] [address] 21422- 4296 Jun, [facility] [address] [place] [id number] [place] [address] 05070- 5200 Jun, [place] [address] [place] [id number] [place] [address] 52121- 3655 May, [place] [address] [place] [id number] [place] [address] 76522- 0174 Apr, Venous insufficiency I87.2 and Venous stasis dermatitis of right lower extremity I87.2 [place] [address] [place] [id number] [place] [address] 28958- 8817 Apr, Essential hypertension I10 [address] 10056- 7437 Mar, [place] [address] 47714- 7564 Mar, Type 2 diabetes mellitus without complication, without long- term current use of insulin E11.9 and Essential hypertension I10 [place] [address] [place] [id number] [place] [address] 84324- 2160 Mar, Essential hypertension I10 and Type 2 diabetes mellitus without complication, without long-term current use of insulin E11.9 [place] [id number] [place] [address] 66643- 8375 Mar, Chronic kidney disease, stage 3 (moderate) N18.3 ; Anemia of chronic disease D63.8 and Type 2 diabetes mellitus without complication, without long-term current use of insulin E11.9 [place] [address] [place] [id number] [place] [address] 71843- 8212 Mar, Type 2 diabetes mellitus without complication, without long- term current use of insulin E11.9 ; Iron deficiency anemia secondary to inadequate dietary iron intake D50.8 ; Arthritis M19.90 and Lumbago with sciatica, left side M54.42 [place] [id number] [place] [address] 47766- 4972 Feb, Arthritis M19.90 and Anxiety F41.[address] [place] [address]- 2572 Feb, Type 2 diabetes mellitus without complication, without long- term current use of insulin E11.9 and Essential hypertension I10 [place] [address] [place] [id number] [place] [address] 64725- 0206 January, Anxiety F41.9 [facility] [address] [place] [id number] [place] [address] 19935- 9362 January, Monilial rash B37.2 [facility] [address] 70858- 5618 January, [place] [address] 62937- 5328 January, [place] [address] 26455- 0498 January, [place] [address] 80361- 1118 January, Gastroesophageal reflux disease, esophagitis presence not specified K21.9 [place] [address] [place] [id number] [place] [address] 13099- 9278 January, Arthritis M19.90 [place] [address] [place] [id number] [place] [address] 28529- 1916 January, Anxiety F41.9 ; Arthritis M19.90 and Essential hypertension I10 [place] [address] [place] [id number] [place] [address] 82526- 5643 January, Essential hypertension I10 and Anxiety F41.9 [place] [address] [place] [id number] [place] [address] 37514- 2388 Dec, [place] [address] [place] [id number] [place] [address] 04404- 0518 Dec, Arthritis M19.90 and Anxiety F41.9 [place] [address] [place] [id number] [place] [address] 28595- 2977 Dec, Type 2 diabetes mellitus without complication, without long- term current use of insulin E11.9 ; Cellulitis of right lower extremity L03.115 and Arthritis M19.90 [place] [address] [place] [id number] [place] [address] 95277- 9327 28 Nov, 2016 [place] [address] [place] [id number] [place] [address] 37907- 0128 20 Nov, 2016 Type 2 diabetes mellitus without complication, without long- term current use of insulin E11.9 ; Bronchitis J40 and Arthritis M19.90 [place] [address] [place] [id number] [place] [address] 15888- 9158 16 Nov, 2016 [place] [address] 53099- 9963 24 Oct, 2016 Anxiety F41.9 [facility] [place] [address] [place] [id number] [place] [address] 76953 -0576 Sep, Dysuria R30.0 ; Acute cystitis with hematuria N30.01 and Vaginal yeast infection B37.3 [place] [address] [place] [id number] [place] [address] 60448- 6410 Sep, Arthritis M19.90 [facility] [place] [address] [place] [id number] [place] [address] 49551 -0801 Sep, Strep pharyngitis J02.0 and Sore throat J02.9 [place] [id number] [place] [address] 85100- 8768 Sep, [place] [address] [place] [id number] [place] [address] 84344- 0735 Sep, Type 2 diabetes mellitus without complication, without long- term current use of insulin E11.9 [place] [address] [place] [id number] [place] [address] 07450- 5840 14 Aug, 2016 [place] [address] [place] [id number] [place] [address] 76058- 9415 13 Aug, 2016 Seasonal allergic rhinitis due to pollen J30.1 [facility] [address] [place] [id number] [place] [address] 52174 -0092 Aug, Impacted cerumen of right ear H61.21 and Seasonal allergic rhinitis due to pollen J30.1 [facility] [address] [place] [id number] [place] [address] 60349- 1304 Aug, [facility] [address] [place] [id number] [place] [address] 69372- 2962 Aug, [facility] [address] [place] [id number] [place] [address] 92040- 7718 Jul, Type 2 diabetes mellitus without complication, without long- term current use of insulin E11.9 ; Anxiety F41.9 ; Essential hypertension I10 and Encounter for immunization Z23 [facility] [address] [place] [id number] [place] [address] 13770- 7267 Jul, Essential hypertension I10 [place] [address] 70916- 4268 Jul, [facility] [address] [place] [id number] [place] [address] 85658- 0025 Jul, [facility] [address] [place] [id number] [place] [address] 99274- 2014 Jul, Essential hypertension I10 [facility] [address] [place] [id number] [place] [address] 84685- 7274 Jul, [facility] [address] [place] [id number] [place] [address] 87653- 9540 May, [facility] [address] [place] [id number] [place] [address] 03054- 6982 May, [facility] [address] 56564- 0934 Apr, [facility] [address] [place] [id number] [place] [address] 84717- 8943 Apr, [facility] [address] [place] [id number] [place] [address] 10384- 6204 Apr, [facility] [address] [facility] [id number] [place] [address]- 1321 Apr, Type 2 diabetes mellitus without complication, without long- term current use of insulin E11.9 ; Essential hypertension I10 ; Acute non- recurrent maxillary sinusitis J01.00 ; Arthritis M19.90 ; Lumbago with sciatica , left side M54.42 ; Other chronic pain G89.29 and Anxiety F41.9 IMMUNIZATIONS No Known Immunizations SOCIAL HISTORY Never Assessed REASON FOR VISIT Wheel chair refax PLAN OF CARE VITAL SIGNS MEDICATIONS Medication Instructions Dosage Frequency Start Date End Date Duration Status Wheelchair - use for mobility Oct, Active RESULTS No Results PROCEDURES No Known [...]
--- OUTSIDE RECORDS SUMMARY | 2018-11-02 12:35 | XMS REPORT ---
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 [facility] Address [address] [place] [address] Care Team Providers Care Cloth Packer Name Role Phone AMBER CHILDERS Unavailable PROBLEMS Type Condition ICD9-CM Code YRE91-CJ Code Onset Dates Condition Status SNOMED Code Problem Essential hypertension I10 Active 56383424 Problem Type 2 diabetes mellitus without complication, without long-term current use of insulin E11.9 Active 444635075 Problem Anxiety F41.9 Active 26275976 Problem Lumbago with sciatica, left side M54.42 Active 849172500 Problem Arthritis M19.90 Active 4333296 Problem Iron deficiency anemia, unspecified iron deficiency anemia type D50.9 Active 90291080 Problem Venous insufficiency I87.2 Active 50973720 Problem Gastroesophageal reflux disease, esophagitis presence not specified K21.9 Active 353656688 Problem Seasonal allergic rhinitis due to pollen J30.1 Active 96944038 Problem Anemia of chronic disease D63.8 Active 468315664 Problem Chronic kidney disease, stage 3 (moderate) N18.3 Active 874187458 ALLERGIES No Information ENCOUNTERS Encounter Location Date Diagnosis [place] [id number] [place] [address] 09620- 5430 Mar, Essential hypertension I10 [place] [id number] [place] [address] 49915- 8072 Feb, Type 2 diabetes mellitus without complication, without long- term current use of insulin E11.9 ; Essential hypertension I10 and Anemia of chronic disease D63.8 [place] [id number] [place] [address] 00285- 8462 Feb, Arthritis M19.90 and Essential hypertension I10 [place] [id number] [place] [address] 41330- 1641 January, [place] [id number] [place] [address] 85900- 8091 January, [facility] [address] 359[address]- [address]64 January, Medicare annual wellness visit, initial Z00.00 ; Type 2 diabetes mellitus without complication, without long-term current use of insulin E11.9 ; Chronic kidney disease, stage 3 (moderate) N18.3 ; Essential hypertension I10 ; Gastroesophageal reflux disease, esophagitis presence not specified K21.9 ; Anxiety F41.9 ; Arthritis M19.90 and Encounter for immunization Z23 [place] [id number] [place] [address] 35720- 9694 January, Essential hypertension I10 [place] [address] 27481- 5635 Dec, Arthritis M19.90 [place] [address] 36001- 1693 Dec, [facility] [id number] [place] [address] 45986- 6678 Dec, [place] [id number] [place] [address] 35436- 9217 Dec, Essential hypertension I10 [facility] [id number] [place] [address] 54077 -8437 Nov, Dysuria R30.0 and Vaginal kai B37.3 [place] [id number] [place] [address] 47987- 8436 Nov, Arthritis M19.90 [place] [id number] [place] [address] 38943- 9324 Oct, [place] [id number] [place] [address] 49969- 9019 Oct, Type 2 diabetes mellitus without complication, without long- term current use of insulin E11.9 ; Lumbago with sciatica, left side M54.42 ; Arthritis M19.90 ; Iron deficiency anemia, unspecified iron deficiency anemia type D50.9 and BMI 40.0-44.9, adult Z68.41 [facility] [address] 98930- 6143 Sep, [facility] [address] 29056- 5221 Sep, [facility] [address] 20609- 8042 Sep, Arthritis M19.90 and Anxiety F41.9 [facility] [address] 22015- 8869 Sep, [place] [address] 43472- 8541 Aug, Anxiety F41.9 [place] [address] 32967- 3124 Jul, [facility] [address] 91605- 7185 Jul, [place] [address] 89378- 3176 Jul, Vaginal yeast infection B37.3 [place] [id number] [place] [address] 57490- 2711 Jul, Anxiety F41.9 [facility] [address] 10480- 0950 Jul, Type 2 diabetes mellitus without complication, without long- term current use of insulin E11.9 [facility] [id number] [place] [address] 57016- 4786 08 Jul, 2017 [place] [address] 36232- 2855 Jul, [facility] [id number] [place] [address] 07669- 2929 Jun, Arthritis M19.90 [place] [address] [address] 16 Jun, 2017 [place] [id number] [place] [address] 34019- 7242 Jun, [place] [id number] [place] [address] 19304- 6657 May, [place] [id number] [place] [address] 88839- 5163 Apr, Venous insufficiency I87.2 and Venous stasis dermatitis of right lower extremity I87.2 [place] [id number] [place] [address] 65295- 4150 Apr, Essential hypertension I10 [place] [id number] [place] [address] 79149- 1115 Mar, [place] [id number] [place] [address] 12461- 0059 Mar, Type 2 diabetes mellitus without complication, without long- term current use of insulin E11.9 and Essential hypertension I10 [place] [id number] [place] [address] 73900- 8760 Mar, Essential hypertension I10 and Type 2 diabetes mellitus without complication, without long-term current use of insulin E11.9 [place] [id number] [place] [address] 81382- 9585 Mar, Chronic kidney disease, stage 3 (moderate) N18.3 ; Anemia of chronic disease D63.8 and Type 2 diabetes mellitus without complication, without long-term current use of insulin E11.9 [place] [id number] [place] [address] 07111- 9426 14 Mar, 2017 Type 2 diabetes mellitus without complication, without long- term current use of insulin E11.9 ; Iron deficiency anemia secondary to inadequate dietary iron intake D50.8 ; Arthritis M19.90 and Lumbago with sciatica, left side M54.42 [place] [id number] [place] [address] 38248- 4198 Feb, Arthritis M19.90 and Anxiety F41.9 [facility] [id number] [place] [address] 98205- 5786 Feb, Type 2 diabetes mellitus without complication, without long- term current use of insulin E11.9 and Essential hypertension I10 [facility] [id number] [place] [address] 90145- 8640 January, Anxiety F41.9 [facility] [address] 96983- 9370 January, Monilial rash B37.2 [facility] [address] 25129- 4568 January, [facility] [id number] [place] [address] 31728- 8239 January, [facility] [address] 78813- 7594 January, [facility] [id number] [place] [address] 01331- 7572 January, Gastroesophageal reflux disease, esophagitis presence not specified K21.9 [facility] [id number] [place] [address] 76367- 1497 January, Arthritis M19.90 [facility] [id number] [place] [address] 00031- 1441 January, Anxiety F41.9 ; Arthritis M19.90 and Essential hypertension I10 [facility] [id number] [place] [address] 25299- 9373 January, Essential hypertension I10 and Anxiety F41.9 [facility] [address] 26808- 6278 Dec, [facility] [id number] [place] [address] 17117- 6683 Dec, Arthritis M19.90 and Anxiety F41.9 [place] [id number] [place] [address] 41282- 4391 11 Dec, 2016 Type 2 diabetes mellitus without complication, without long- term current use of insulin E11.9 ; Cellulitis of right lower extremity L03.115 and Arthritis M19.90 [place] [id number] [place] [address] 99826- 9808 28 Nov, 2016 [place] [address] 29189- 9794 20 Nov, 2016 Type 2 diabetes mellitus without complication, without long- term current use of insulin E11.9 ; Bronchitis J40 and Arthritis M19.90 [place] [address] 44849- 0643 16 Nov, 2016 [place] [id number] [place] [address] 73458- 3850 24 Oct, 2016 Anxiety F41.9 [facility] [place] [id number] [place] [address] 88404 -4095 Sep, Dysuria R30.0 ; Acute cystitis with hematuria N30.01 and Vaginal yeast infection B37.3 [place] [id number] [place] [address] 91680- 6785 Sep, Arthritis M19.90 [facility] [place] [id number] [place] [address] 24540 -2105 Sep, Strep pharyngitis J02.0 and Sore throat J02.9 [place] [id number] [place] [address] 43779- 9187 Sep, [place] [id number] [place] [address] 58528- 5857 Sep, Type 2 diabetes mellitus without complication, without long- term current use of insulin E11.9 [place] [id number] [place] [address] 54830- 3049 Aug, [place] [id number] [place] [address] 01577- 2162 Aug, Seasonal allergic rhinitis due to pollen J30.1 [facility] [address] 01829 -2885 Aug, Impacted cerumen of right ear H61.21 and Seasonal allergic rhinitis due to pollen J30.1 [facility] [address] 32231- 4915 Aug, [facility] [address] 49482- 0156 Aug, [facility] [address] 41477- 8908 Jul, Type 2 diabetes mellitus without complication, without long- term current use of insulin E11.9 ; Anxiety F41.9 ; Essential hypertension I10 and Encounter for immunization Z23 [facility] [address] 59823- 1025 Jul, Essential hypertension I10 [facility] [address] 38709- 6248 Jul, [facility] [address] 04209- 9663 Jul, [facility] [id number] [place] [address] 36653- 2139 Jul, Essential hypertension I10 [facility] [id number] [place] [address] 40912- 7395 Jul, [facility] [id number] [place] [address] 75308- 1662 May, [facility] [address] 31183- 1035 May, [facility] [id number] [place] [address] 81883- 8991 Apr, [facility] [address] 06301- 9129 Apr, [facility] [address] [facility] [id number] [place] [address]- 5045 Apr, [facility] [address] [facility] [id number] [address]- 5026 Apr, Type 2 diabetes mellitus without complication, [...]
--- OUTSIDE RECORDS SUMMARY | 2018-11-02 12:35 | XMS REPORT ---
Author Author LAKESHIA MONIQUE [facility] Address [address] [place] [address] Care Team Providers Care Soils Technician Name Role Phone LAKESHIA MONIQUE Unavailable PROBLEMS Type Condition ICD9-CM Code [id number] Code Onset Dates Condition Status SNOMED Code Problem Essential hypertension I10 Active 44889960 Problem Type 2 diabetes mellitus without complication, without long-term current use of insulin E11.9 Active 214593870 Problem Anxiety F41.9 Active 62217038 Problem Lumbago with sciatica, left side M54.42 Active 173694709 Problem Arthritis M19.90 Active 0435644 Problem Iron deficiency anemia, unspecified iron deficiency anemia type D50.9 Active 67073127 Problem Venous insufficiency I87.2 Active 78016656 Problem Gastroesophageal reflux disease, esophagitis presence not specified K21.9 Active 000976982 Problem Seasonal allergic rhinitis due to pollen J30.1 Active 84228475 Problem Anemia of chronic disease D63.8 Active 673310690 Problem Chronic kidney disease, stage 3 (moderate) N18.3 Active 023720222 ALLERGIES No Known Allergies ENCOUNTERS Encounter Location Date Diagnosis [place] [id number] [place] [address] 27152- 4727 Mar, Essential hypertension I10 [place] [address] [place] [id number] [place] [address] 13595- 7987 Feb, Type 2 diabetes mellitus without complication, without long- term current use of insulin E11.9 ; Essential hypertension I10 and Anemia of chronic disease D63.8 [place] [address] [place] [id number] [place] [address] 80201- 0831 Feb, Arthritis M19.90 and Essential hypertension I10 [place] [address] [place] [id number] [place] [address] 02574- 6661 January, [facility] [id number] [place] [address] 80869- 6175 January, [place] [address] 47396- 6338 January, Medicare annual wellness visit, initial Z00.00 ; Type 2 diabetes mellitus without complication, without long-term current use of insulin E11.9 ; Chronic kidney disease, stage 3 (moderate) N18.3 ; Essential hypertension I10 ; Gastroesophageal reflux disease, esophagitis presence not specified K21.9 ; Anxiety F41.9 ; Arthritis M19.90 and Encounter for immunization Z23 [place] [address] [place] [id number] [place] [address] 73302- 3647 January, Essential hypertension I10 [place] [address] [place] [id number] [place] [address] 48130- 9004 Dec, Arthritis M19.90 [place] [address] [place] [id number] [place] [address] 34440- 4604 Dec, [facility] [address] [id number] [place] [address] 85731- 1513 Dec, [place] [address] [place] [id number] [place] [address] 41755- 8625 Dec, Essential hypertension I10 [facility] IN [facility] [id number] [place] [address] 59282 -0120 Nov, Dysuria R30.0 and Vaginal kai B37.3 [facility] [address] [place] [id number] [place] [address] 91279- 6547 Nov, Arthritis M19.90 [facility] [id number] [place] [address] 73974- 0839 Oct, [place] [address] [place] [id number] [place] [address] 63251- 9383 Oct, Type 2 diabetes mellitus without complication, without long- term current use of insulin E11.9 ; Lumbago with sciatica, left side M54.42 ; Arthritis M19.90 ; Iron deficiency anemia, unspecified iron deficiency anemia type D50.9 and BMI 40.0-44.9, adult Z68.41 [facility] [address] 32664- 0639 Sep, [facility] [address] 49043- 0964 Sep, [facility] [address] 42527- 9407 Sep, Arthritis M19.90 and Anxiety F41.9 [place] [address] 04049- 1366 Sep, [place] [address] 97074- 7720 Aug, Anxiety F41.9 [place] [address] 50704- 6463 Jul, [facility] [address] 56741- 5739 Jul, [place] [address] 86135- 8457 Jul, Vaginal yeast infection B37.3 [place] [address] 69773- 6115 Jul, Anxiety F41.9 [place] [address] [place] [id number] [place] [address] 09241- 6784 Jul, Type 2 diabetes mellitus without complication, without long- term current use of insulin E11.9 [place] [address] 31846- 3303 08 Jul, 2017 [place] [address] 61239- 1186 Jul, [facility] [address] [place] [id number] [place] [address] 79631- 8019 Jun, Arthritis M19.90 [place] [address] [place] [address] 44739- 1602 16 Jun, 2017 [place] [address] [id number] [place] [address] 94524- 4969 Jun, [place] [address] [place] [id number] [place] [address] 70734- 5712 May, [place] [address] 87771- 9700 Apr, Venous insufficiency I87.2 and Venous stasis dermatitis of right lower extremity I87.2 [place] [address] [place] [id number] [place] [address] 50487- 6682 Apr, Essential hypertension I10 [place] [address] [place] [id number] [place] [address] 23407- 7742 Mar, [place] [address] [place] [id number] [place] [address] 62287- 8702 Mar, Type 2 diabetes mellitus without complication, without long- term current use of insulin E11.9 and Essential hypertension I10 [place] [address] [place] [id number] [place] [address] 88059- 5505 Mar, Essential hypertension I10 and Type 2 diabetes mellitus without complication, without long-term current use of insulin E11.9 [place] [address] [place] [id number] [place] [address] 26441- 7835 Mar, Chronic kidney disease, stage 3 (moderate) N18.3 ; Anemia of chronic disease D63.8 and Type 2 diabetes mellitus without complication, without long-term current use of insulin E11.9 [place] [address] [place] [id number] [place] [address] 26767- 7853 14 Mar, 2017 Type 2 diabetes mellitus without complication, without long- term current use of insulin E11.9 ; Iron deficiency anemia secondary to inadequate dietary iron intake D50.8 ; Arthritis M19.90 and Lumbago with sciatica, left side M54.42 [place] [address] [place] [id number] [place] [address] 35944- 2964 Feb, Arthritis M19.90 and Anxiety F41.9 [facility] [address] [place] [id number] [place] [address] 07146- 3808 Feb, Type 2 diabetes mellitus without complication, without long- term current use of insulin E11.9 and Essential hypertension I10 [facility] [address] [place] [id number] [place] [address] 69046- 9967 January, Anxiety F41.9 [facility] [address] 08419- 7711 January, Monilial rash B37.2 [facility] [address] 81253- 5041 January, [facility] [address] [place] [id number] [place] [address] 14105- 7168 January, [facility] [address] 66637- 0681 January, [facility] [address] [place] [id number] [place] [address] 98418- 2828 January, Gastroesophageal reflux disease, esophagitis presence not specified K21.9 [facility] [address] [place] [id number] [place] [address] 24367- 2395 January, Arthritis M19.90 [facility] [address] [place] [id number] [place] [address] 79984- 1762 January, Anxiety F41.9 ; Arthritis M19.90 and Essential hypertension I10 [facility] [address] [place] [id number] [place] [address] 94319- 6750 January, Essential hypertension I10 and Anxiety F41.9 [facility] [address] [place] [id number] [place] [address] 04189- 5513 Dec, [facility] [address] [id number] [place] [address] 76520- 4724 Dec, Arthritis M19.90 and Anxiety F41.9 [facility] [address] [place] [address] 64626- 1418 11 Dec, 2016 Type 2 diabetes mellitus without complication, without long- term current use of insulin E11.9 ; Cellulitis of right lower extremity L03.115 and Arthritis M19.90 [place] [address] [place] [id number] [place] [address] 57951- 2633 28 Nov, 2016 [place] [address] 27744- 7338 20 Nov, 2016 Type 2 diabetes mellitus without complication, without long- term current use of insulin E11.9 ; Bronchitis J40 and Arthritis M19.90 [place] [address] 08150- 5371 16 Nov, 2016 [place] [address] [place] [id number] [place] [address] 16169- 4239 24 Oct, 2016 Anxiety F41.9 [facility] [address] [place] [id number] [place] [address] 36042 -7745 Sep, Dysuria R30.0 ; Acute cystitis with hematuria N30.01 and Vaginal yeast infection B37.3 [place] [address] [place] [id number] [place] [address] 12833- 0369 Sep, Arthritis M19.90 [facility] [address] [place] [id number] [place] [address] 98759 -8780 Sep, Strep pharyngitis J02.0 and Sore throat J02.9 [place] [address] [place] [id number] [place] [address] 62117- 4752 Sep, [place] [address] [place] [id number] [place] [address] 82939- 4093 Sep, Type 2 diabetes mellitus without complication, without long- term current use of insulin E11.9 [place] [address] [place] [id number] [place] [address] 70137- 7051 Aug, [place] [address] 81378- 9682 Aug, Seasonal allergic rhinitis due to pollen J30.1 [facility] [address] 31945 -4688 Aug, Impacted cerumen of right ear H61.21 and Seasonal allergic rhinitis due to pollen J30.1 [facility] [address] 18715- 6622 Aug, [facility] [address] 97272- 2844 Aug, [facility] [address] 55154- 5785 Jul, Type 2 diabetes mellitus without complication, without long- term current use of insulin E11.9 ; Anxiety F41.9 ; Essential hypertension I10 and Encounter for immunization Z23 [facility] [address] 33635- 2924 Jul, Essential hypertension I10 [facility] [address] 59799- 0138 Jul, [facility] [address] 33700- 3167 Jul, [facility] [address] 78020- 5074 Jul, Essential hypertension I10 [facility] [address] 24613- 9550 Jul, [facility] [address] 18890- 6209 May, [facility] [address] 95099- 7091 May, [facility] [address] 15185- 0844 Apr, [facility] [address] 77902- 8339 Apr, [facility] [address] [facility] [id number] [place] [address]- 7638 Apr, [facility] [address] [facility] [id number] [place] [address]- 8665 Apr, Type 2 diabetes mellitus without complication, without long- term current use of insulin E11.9 ; Essential hypertension I10 ; Acute non- recurrent maxillary sinusitis J01.00 ; Arthritis M19.90 ; Lumbago with sciatica , left side M54.42 ; Other chronic pain G89.29 and Anxiety F41.9 IMMUNIZATIONS No Known Immunizations SOCIAL HISTORY Never Assessed REASON FOR VISIT uti symptoms Pt feels she has a yeast infection, has burning on the outside with urination, also c/o L side pain LISA Sexton PLAN OF CARE Activity Details Follow Up prn Reason: VITAL SIGNS Height 56 in 2017-12-19 Temperature 96.6 degrees Fahrenheit 2017-12-19 Heart Rate 88 bpm 2017-12-19 Respiratory Rate 22 2017-12-19 Blood pressure systolic 124 mmHg 2017-12-19 Blood pressure diastolic 60 mmHg 2017-12-19 MEDICATIONS Medication Instructions Dosage Frequency Start Date End Date Duration Status Glimepiride 4 MG Orally Once a day 1 tablet with breakfast or the first main meal of the day 24h Mar, 90 days Active ProAir HFA 108 (90 Base) MCG/ACT Inhalation every 4-6 hours as needed 2 puffs as needed 30 days Active Wheelchair - use for ambulation 24h January, Not-Taking Omeprazole 20 MG Orally Once a day 1 capsule 24h Sep, 30 day(s ) Active Wheelchair - use for transportation 24h Mar, Not-Taking Metoprolol Tartrate 25 TAKE ONE TABLET BY MOUTH TWICE A DAY 30 Active Blood Glucose Test Strip Test Strips subcutaneously Once a day 1 test strip 24h Jul, Active Monistat 1 Combo Pack 1200 & 2 MG & % Vaginal Once a day use insert and cream 24h Jul, Not-Taking Diflucan 150 MG Orally Take one tablet today and repeat in 72 hours as directed Nov, Nov, 4 days Active Timolol Hemihydrate 0.5 % Ophthalmic Twice a day 1 drop into affected eye 12h Active Lisinopril 5 mg Orally Once a day 1 tablet 24h Active Omeprazole 20 Orally Once a day 1 capsule 24h 30 Active Wheelchair - use for mobility Oct, Active Tramadol-Acetaminophen 37.5-325 MG Orally every 4 hrs 2 tablets as needed 4h 28 days Active Alprazolam 0.5 MG Orally Three times a day 1 tablet 8h 30 days Active RESULTS Name Result Date Reference Range UA LONG DIP (IN HOUSE) 2017-12-19 Lot # [id number] Exp date [id number] Clarity clear Color yellow Odor none GLU negative EFRAIN negative KET negative SG 1.015 BLO tr-intact pH 5.5 Protein trace URO 0.2 NIT negative JOHN[place] negative Lot # [id number] Exp date [id number] PROCEDURES Procedure Date Ordered Result Body Site URINALYSIS, AUTO, W/O SCOPE December 19, 2017 [facility] VISIT ESTABLISHED PATIENT December 19, 2017 INSTRUCTIONS MEDICATIONS ADMINISTERED No Known Medications MEDICAL (GENERAL) HISTORY Type Description Date Medical History type II diabetes Medical History hypertension Medical History Arthritis Medical History skin cancer-scalp Surgical History hysterectomy Surgical History skin cancer removal-scalp Hospitalization History Surgery(s) only Hospitalization History dehydration november 2016 Hospitalization History bronchitis november 2106
--- OUTSIDE RECORDS SUMMARY | 2018-11-02 12:35 | XMS REPORT ---
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 [facility] Address [address] [place] [address] Care Team Providers Care Blind Stitch Machine Operator Name Role Phone AMBER CHILDRES Unavailable PROBLEMS Type Condition ICD9-CM Code [id number] Code Onset Dates Condition Status SNOMED Code Problem Arthritis M19.90 Active 0793253 Problem Anxiety F41.9 Active 88475396 Problem Essential hypertension I10 Active 19212934 Problem Lumbago with sciatica, left side M54.42 Active 493075133 Problem Venous insufficiency I87.2 Active 83701024 Problem Anemia of chronic disease D63.8 Active 988184215 Problem Seasonal allergic rhinitis due to pollen J30.1 Active 55519444 Problem Type 2 diabetes mellitus without complication, without long-term current use of insulin E11.9 Active 729184754 Problem Chronic kidney disease, stage 3 (moderate) N18.3 Active 707681081 Problem Gastroesophageal reflux disease, esophagitis presence not specified K21.9 Active 245651660 ALLERGIES No Information SOCIAL HISTORY Never Assessed PLAN OF CARE VITAL SIGNS MEDICATIONS Medication Instructions Dosage Frequency Start Date End Date Duration Status Wheelchair - use for ambulation 24h January, Active RESULTS No Results PROCEDURES No Known procedures IMMUNIZATIONS No Known Immunizations MEDICAL (GENERAL) HISTORY Type Description Date Medical History type II diabetes Medical History hypertension Medical History Arthritis Medical History skin cancer-scalp Surgical History hysterectomy Surgical History skin cancer removal-scalp Hospitalization History Surgery(s) only Hospitalization History dehydration november 2016 Hospitalization History bronchitis november 2106
--- OUTSIDE RECORDS SUMMARY | 2018-11-02 12:35 | XMS REPORT ---
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 [facility] Address [address] [place] [address] Care Team Providers Care Gas Plumber Name Role Phone AMBER CHILDERS Unavailable PROBLEMS Type Condition ICD9-CM Code [id number] Code Onset Dates Condition Status SNOMED Code Problem Type 2 diabetes mellitus without complication, without long-term current use of insulin E11.9 Active 565253326 Problem Essential hypertension I10 Active 64975200 Problem Anxiety F41.9 Active 64212002 Problem Arthritis M19.90 Active 8722811 Problem Lumbago with sciatica, left side M54.42 Active 683393335 ALLERGIES Unknown Allergies SOCIAL HISTORY No smoking Hx information available PLAN OF CARE VITAL SIGNS MEDICATIONS Unknown Medications RESULTS No Results PROCEDURES No Known procedures IMMUNIZATIONS No Known Immunizations
--- OUTSIDE RECORDS SUMMARY | 2018-11-02 12:36 | XMS REPORT ---
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 [facility] Address [address] [place] [address] Care Team Providers Care Employment Advisor Name Role Phone AMBER CHILDERS Unavailable PROBLEMS Type Condition ICD9-CM Code NFL06-DD Code Onset Dates Condition Status SNOMED Code Problem Essential hypertension I10 Active 24470807 Problem Type 2 diabetes mellitus without complication, without long-term current use of insulin E11.9 Active 763449937 Problem Anxiety F41.9 Active 78095539 Problem Lumbago with sciatica, left side M54.42 Active 963492499 Problem Arthritis M19.90 Active 1377080 Problem Iron deficiency anemia, unspecified iron deficiency anemia type D50.9 Active 46553636 Problem Venous insufficiency I87.2 Active 24231251 Problem Gastroesophageal reflux disease, esophagitis presence not specified K21.9 Active 170061265 Problem Seasonal allergic rhinitis due to pollen J30.1 Active 20990922 Problem Anemia of chronic disease D63.8 Active 018297266 Problem Chronic kidney disease, stage 3 (moderate) N18.3 Active 052559638 ALLERGIES No Known Allergies ENCOUNTERS Encounter Location Date Diagnosis [place] [id number] [place] [address] 37867- 2509 January, Medicare annual wellness visit, initial Z00.00 [facility] [id number] [place] [address] 97285- 3737 Dec, Arthritis M19.90 [facility] [address] [place] [address] 46051- 3284 Dec, [place] [address] [place] [id number] [place] [address] 89865- 6933 Dec, [place] [id number] [place] [address] 38515- 3667 Dec, Essential hypertension I10 [facility] [address] [place] [id number] [place] [address] 48621 -2407 Nov, Dysuria R30.0 and Vaginal kai B37.3 [facility] [address] [place] [id number] [place] [address] 56902- 3554 Nov, Arthritis M19.90 [place] [address] 38859- 3286 Oct, [place] [address] 92120- 9372 Oct, Type 2 diabetes mellitus without complication, without long- term current use of insulin E11.9 ; Lumbago with sciatica, left side M54.42 ; Arthritis M19.90 ; Iron deficiency anemia, unspecified iron deficiency anemia type D50.9 and BMI 40.0-44.9, adult Z68.41 [place] [address] 90223- 6784 Sep, [place] [address] [place] [id number] [place] [address] 42380- 2936 Sep, [facility] [address] 75518- 4132 Sep, Arthritis M19.90 and Anxiety F41.9 [place] [address] [place] [id number] [place] [address] 23266- 2597 Sep, [place] [address] [place] [id number] [place] [address] 80989- 3249 Aug, Anxiety F41.9 [facility] [address] [place] [id number] [place] [address] 66811- 7070 Jul, [place] [address] 58789- 2528 Jul, [facility] [address] [place] [id number] [place] [address] 77616- 7965 Jul, Vaginal yeast infection B37.3 [place] [address] [address]93 14 Jul, 2017 Anxiety F41.9 [facility] [address] [place] [id number] [place] [address] 03524- 2793 Jul, Type 2 diabetes mellitus without complication, without long- term current use of insulin E11.9 [facility] [address] [place] [address] 54803- 8472 Jul, [facility] [address] [place] [id number] [place] [address] 15249- 9693 Jul, [facility] [address] [place] [id number] [place] [address] 20105- 0195 Jun, Arthritis M19.90 [facility] [address] [place] [id number] [place] [address] 54179- 6828 Jun, [facility] [address] [place] [id number] [place] [address] 94299- 9267 Jun, [facility] [address] [place] [address] 03909- 4740 May, [facility] [address] [place] [id number] [place] [address] 12102- 9397 Apr, Venous insufficiency I87.2 and Venous stasis dermatitis of right lower extremity I87.2 [place] [address] [place] [address] 97501- 0802 Apr, Essential hypertension I10 [facility] [address] [address] 4297 Mar, [facility] [address] [place] [id number] [place] [address] 29287- 0934 Mar, Type 2 diabetes mellitus without complication, without long- term current use of insulin E11.9 and Essential hypertension I10 [facility] [address] [address] 8402 Mar, Essential hypertension I10 and Type 2 diabetes mellitus without complication, without long-term current use of insulin E11.9 [place] [address] [place] [id number] [place] [address] 42048- 5964 18 Mar, 2017 Chronic kidney disease, stage 3 (moderate) N18.3 ; Anemia of chronic disease D63.8 and Type 2 diabetes mellitus without complication, without long-term current use of insulin E11.9 [place] [address] 70799- 8868 14 Mar, 2017 Type 2 diabetes mellitus without complication, without long- term current use of insulin E11.9 ; Iron deficiency anemia secondary to inadequate dietary iron intake D50.8 ; Arthritis M19.90 and Lumbago with sciatica, left side M54.42 [place] [address] 73400- 0756 Feb, Arthritis M19.90 and Anxiety F41.9 [place] [address] 05648- 3204 Feb, Type 2 diabetes mellitus without complication, without long- term current use of insulin E11.9 and Essential hypertension I10 [address] 02[address]- 6941 January, Anxiety F41.9 [place] [address] 62444- 3202 January, Monilial rash B37.2 [place] [address] 48780- 6239 January, [place] [address] [place] [id number] [place] [address] 12997- 7635 January, [place] [address] 56320- 7380 January, [place] [address] 19109- 3404 January, Gastroesophageal reflux disease, esophagitis presence not specified K21.9 [place] [address] 71204- 3461 January, Arthritis M19.90 [facility] [address] [place] [id number] [place] [address] 75674- 8507 January, Anxiety F41.9 ; Arthritis M19.90 and Essential hypertension I10 [facility] [address] [place] [id number] [place] [address] 40151- 6230 January, Essential hypertension I10 and Anxiety F41.9 [facility] [address] [place] [id number] [place] [address] 94360- 0427 Dec, [place] [address] 92317- 5051 Dec, Arthritis M19.90 and Anxiety F41.9 [facility] [address] [place] [id number] [place] [address] 76254- 6372 Dec, Type 2 diabetes mellitus without complication, without long- term current use of insulin E11.9 ; Cellulitis of right lower extremity L03.115 and Arthritis M19.90 [facility] [address] [place] [id number] [place] [address] 80964- 7300 Nov, [place] [address] [place] [id number] [place] [address] 24646- 9444 Nov, Type 2 diabetes mellitus without complication, without long- term current use of insulin E11.9 ; Bronchitis J40 and Arthritis M19.90 [facility] [address] [place] [id number] [place] [address] 09089- 8704 Nov, [facility] [address] [place] [id number] [place] [address] 23967- 2383 Oct, Anxiety F41.9 [facility] [address] [place] [id number] [place] [address] 76821 -0400 Sep, Dysuria R30.0 ; Acute cystitis with hematuria N30.01 and Vaginal yeast infection B37.3 [facility] [address] [place] [id number] [place] [address] 12014- 9280 Sep, Arthritis M19.90 [facility] [address] [place] [id number] [place] [address] 59489 -4647 Sep, Strep pharyngitis J02.0 and Sore throat J02.9 [facility] [address] [place] [id number] [place] [address] 58977- 2929 Sep, [place] [address] 71434- 5413 Sep, Type 2 diabetes mellitus without complication, without long- term current use of insulin E11.9 [place] [address] [place] [id number] [place] [address] 48195- 3099 Aug, [place] [address] 34675- 0687 Aug, Seasonal allergic rhinitis due to pollen J30.1 [facility] [address] 83262 -4966 Aug, Impacted cerumen of right ear H61.21 and Seasonal allergic rhinitis due to pollen J30.1 [place] [address] 30842- 6901 Aug, [place] [address] 08821- 9996 Aug, [place] [address] [place] [id number] [place] [address] 98969- 1013 Jul, Type 2 diabetes mellitus without complication, without long- term current use of insulin E11.9 ; Anxiety F41.9 ; Essential hypertension I10 and Encounter for immunization Z23 [place] [address] 56270- 5439 Jul, Essential hypertension I10 [place] [address] [place] [id number] [place] [address] 43467- 7439 Jul, [place] [address] 23813- 1277 Jul, [facility] [address] [place] [id number] [address]- 1428 Jul, Essential hypertension I10 [facility] [address] [place] [address]- 6343 Jul, [facility] [address] [place] [address]- 0547 May, [facility] [address] [place] [id number] [place] [address] 23108- 3308 May, [facility] [address] [place] [address] 53904- 4445 Apr, [facility] [address] [place] [address] 56116- 0874 Apr, [facility] [address] [place] [id number] [place] [address] 54829- 6741 Apr, [facility] [address] [place] [address] 29112- 5183 Apr, Type 2 diabetes mellitus without complication, without long- term current use of insulin E11.9 ; Essential hypertension I10 ; Acute non- recurrent maxillary sinusitis J01.00 ; Arthritis M19.90 ; Lumbago with sciatica , left side M54.42 ; Other chronic pain G89.29 and Anxiety F41.9 IMMUNIZATIONS No Known Immunizations SOCIAL HISTORY Never Assessed REASON FOR VISIT Diabetes right legs swelling and broken out. CBrumbackRN PLAN OF CARE Activity Details Follow Up 2 Months Reason: VITAL SIGNS Height 56 in 2017-05-19 Weight 170.6 lbs 2017-05-19 Temperature 97.5 degrees Fahrenheit 2017-05-19 Heart Rate 92 bpm 2017-05-19 Respiratory Rate 20 2017-05-19 BMI 38.24 kg/m2 2017-05-19 Blood pressure systolic 124 mmHg 2017-05-19 Blood pressure diastolic 54 mmHg 2017-05-19 MEDICATIONS Medication Instructions Dosage Frequency Start Date End Date Duration Status ProAir HFA 108 (90 Base) MCG/ACT Inhalation every 4-6 hours as needed 2 puffs as needed 30 days Active Glimepiride 2 MG Orally Once a day 1 tablet with breakfast or the first main meal of the day 24h 18 Mar, 2017 90 days Active Timolol Hemihydrate 0.5 % Ophthalmic Twice a day 1 drop into affected eye 12h Active Tramadol-Acetaminophen 37.5-325 MG Orally every 4 hrs 2 tablets as needed 4h 28 days Active Aspir-81 81 MG Orally Once a day 1 tablet 24h Active Wheelchair - use for transportation 24h Mar, Active Wheelchair - use for ambulation 24h January, Active Lisinopril 5 mg Orally Once a day 1 tablet 24h Active Alprazolam 0.5 MG Orally Three times a day 1 tablet 8h 30 days Active RESULTS No Results PROCEDURES Procedure Date Ordered Result Body Site [facility] VISIT ESTABLISHED PATIENT May 19, 2017 INSTRUCTIONS MEDICATIONS ADMINISTERED No Known Medications MEDICAL (GENERAL) HISTORY Type Description Date Medical History type II diabetes Medical History hypertension Medical History Arthritis Medical History skin cancer-scalp Surgical History hysterectomy Surgical History skin cancer removal-scalp Hospitalization History Surgery(s) only Hospitalization History dehydration november 2016 Hospitalization History bronchitis november 2106
--- OUTSIDE RECORDS SUMMARY | 2018-11-02 12:36 | XMS REPORT ---
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 [facility] Address [address] [place] [address] Care Team Providers Care Director Patient Name Role Phone AMBER CHILDERS Unavailable PROBLEMS Type Condition ICD9-CM Code BDP90-XO Code Onset Dates Condition Status SNOMED Code Problem Arthritis M19.90 Active 9599529 Problem Anxiety F41.9 Active 66350808 Problem Essential hypertension I10 Active 33481882 Problem Lumbago with sciatica, left side M54.42 Active 928078259 Problem Venous insufficiency I87.2 Active 26011613 Problem Anemia of chronic disease D63.8 Active 220084402 Problem Seasonal allergic rhinitis due to pollen J30.1 Active 35383949 Problem Type 2 diabetes mellitus without complication, without long-term current use of insulin E11.9 Active 546591570 Problem Chronic kidney disease, stage 3 (moderate) N18.3 Active 710565775 Problem Gastroesophageal reflux disease, esophagitis presence not specified K21.9 Active 922868706 ALLERGIES No Information SOCIAL HISTORY Never Assessed PLAN OF CARE VITAL SIGNS MEDICATIONS Medication Instructions Dosage Frequency Start Date End Date Duration Status Nexium 40 mg Orally Once a day 1 capsule 24h January, 30 day(s) Active RESULTS No Results PROCEDURES No Known procedures IMMUNIZATIONS No Known Immunizations MEDICAL (GENERAL) HISTORY Type Description Date Medical History type II diabetes Medical History hypertension Medical History Arthritis Medical History skin cancer-scalp Surgical History hysterectomy Surgical History skin cancer removal-scalp Hospitalization History Surgery(s) only Hospitalization History dehydration november 2016 Hospitalization History bronchitis november 2106
--- OUTSIDE RECORDS SUMMARY | 2018-11-02 12:36 | XMS REPORT ---
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 [facility] Address [address] [place] [address] Care Team Providers Care Client Liaison Name Role Phone AMBER CHILDERS Unavailable PROBLEMS Type Condition ICD9-CM Code [id number] Code Onset Dates Condition Status SNOMED Code Problem Essential hypertension I10 Active 58480959 Problem Type 2 diabetes mellitus without complication, without long-term current use of insulin E11.9 Active 565005359 Problem Anxiety F41.9 Active 66613680 Problem Lumbago with sciatica, left side M54.42 Active 122036011 Problem Arthritis M19.90 Active 8171677 Problem Iron deficiency anemia, unspecified iron deficiency anemia type D50.9 Active 28570467 Problem Venous insufficiency I87.2 Active 84233552 Problem Gastroesophageal reflux disease, esophagitis presence not specified K21.9 Active 057816073 Problem Seasonal allergic rhinitis due to pollen J30.1 Active 98186019 Problem Anemia of chronic disease D63.8 Active 438079742 Problem Chronic kidney disease, stage 3 (moderate) N18.3 Active 719652308 ALLERGIES No Information ENCOUNTERS Encounter Location Date Diagnosis [facility] [id number] [place] [address] 04828- 1696 Dec, Essential hypertension I10 [facility] [id number] [place] [address] 24083 -5122 Nov, Dysuria R30.0 and Vaginal kai B37.3 [facility] [id number] [place] [address] 09826- 3993 Nov, Arthritis M19.90 [facility] [id number] [place] [address] 81210- 7548 Oct, [facility] [id number] [place] [address] 56379- 6926 Oct, Type 2 diabetes mellitus without complication, without long- term current use of insulin E11.9 ; Lumbago with sciatica, left side M54.42 ; Arthritis M19.90 ; Iron deficiency anemia, unspecified iron deficiency anemia type D50.9 and BMI 40.0-44.9, adult Z68.41 [facility] [id number] [place] [address] 20055- 4791 Sep, [place] [address] 41227- 0671 Sep, [place] [address] 82712- 0570 Sep, Arthritis M19.90 and Anxiety F41.9 [place] [address] 29220- 9884 Sep, [place] [address] 14758- 4824 Aug, Anxiety F41.9 [place] [address] 99126- 9135 Jul, [place] [address] 96362- 9397 Jul, [place] [address] [place] [id number] [place] [address] 62816- 5821 Jul, Vaginal yeast infection B37.3 [place] [address] 79446- 0131 Jul, Anxiety F41.9 [place] [id number] [place] [address] 67290- 9099 Jul, Type 2 diabetes mellitus without complication, without long- term current use of insulin E11.9 [place] [address] [place] [address] [place] [address] 23604- 6580 Jul, [place] [address] 82041- 8745 Jul, [place] [address] [address] 1699 Jun, Arthritis M19.90 [place] [address] [id number] [place] [address] 15500- 3435 Jun, [place] [address] [address]- 4939 Jun, [place] [address] [place] [id number] [place] [address] 48133- 4341 May, [place] [address] [place] [id number] [place] [address] 15590- 0874 Apr, Venous insufficiency I87.2 and Venous stasis dermatitis of right lower extremity I87.2 [place] [address] [place] [id number] [place] [address] 92386- 9284 Apr, Essential hypertension I10 [place] [id number] [place] [address] 47911- 5521 Mar, [place] [id number] [place] [address] 58780- 9539 Mar, Type 2 diabetes mellitus without complication, without long- term current use of insulin E11.9 and Essential hypertension I10 [place] [address] [address]- 4518 Mar, Essential hypertension I10 and Type 2 diabetes mellitus without complication, without long-term current use of insulin E11.9 [place] [address] [address]- 7836 Mar, Chronic kidney disease, stage 3 (moderate) N18.3 ; Anemia of chronic disease D63.8 and Type 2 diabetes mellitus without complication, without long-term current use of insulin E11.9 [place] [address] [address]- 9144 Mar, Type 2 diabetes mellitus without complication, without long- term current use of insulin E11.9 ; Iron deficiency anemia secondary to inadequate dietary iron intake D50.8 ; Arthritis M19.90 and Lumbago with sciatica, left side M54.42 [facility] [id number] [place] [address] 51358- 5456 Feb, Arthritis M19.90 and Anxiety F41.9 [facility] [id number] [place] [address] 72415- 0642 Feb, Type 2 diabetes mellitus without complication, without long- term current use of insulin E11.9 and Essential hypertension I10 [facility] [id number] [place] [address] 33728- 4349 January, Anxiety F41.9 [place] [address] 53241- 6744 January, Monilial rash B37.2 [place] [address] 48016- 2977 January, [facility] [address] 69260- 8210 January, [facility] [address] 38351- 8172 January, [facility] [address] 04634- 9489 January, Gastroesophageal reflux disease, esophagitis presence not specified K21.9 [facility] [id number] [place] [address] 69626- 8993 January, Arthritis M19.90 [facility] [id number] [place] [address] 97758- 2843 January, Anxiety F41.9 ; Arthritis M19.90 and Essential hypertension I10 [facility] [address] 78914- 2067 January, Essential hypertension I10 and Anxiety F41.9 [facility] [id number] [place] [address] 75741- 2386 Dec, [place] [address] [place] [address] 67968- 8671 Dec, Arthritis M19.90 and Anxiety F41.9 [place] [address] 10185- 5311 Dec, Type 2 diabetes mellitus without complication, without long- term current use of insulin E11.9 ; Cellulitis of right lower extremity L03.115 and Arthritis M19.90 [place] [address] 32598- 7489 Nov, [place] [address] 57893- 9523 Nov, Type 2 diabetes mellitus without complication, without long- term current use of insulin E11.9 ; Bronchitis J40 and Arthritis M19.90 [place] [address] [place] [address] 29063- 4901 Nov, [place] [address] 03499- 2042 Oct, Anxiety F41.9 [facility] [address] 66039 -5473 Sep, Dysuria R30.0 ; Acute cystitis with hematuria N30.01 and Vaginal yeast infection B37.3 [place] [id number] [place] [address] 58093- 8163 Sep, Arthritis M19.90 [facility] [id number] [place] [address] 44318 -4989 Sep, Strep pharyngitis J02.0 and Sore throat J02.9 [place] [address] 23036- 1529 Sep, [place] [address] 40883- 6109 Sep, Type 2 diabetes mellitus without complication, without long- term current use of insulin E11.9 [place] [id number] [place] [address] 71392- 8298 Aug, [facility] [id number] [place] [address] 73443- 4966 Aug, Seasonal allergic rhinitis due to pollen J30.1 [facility] [id number] [place] [address] 65666 -3947 Aug, Impacted cerumen of right ear H61.21 and Seasonal allergic rhinitis due to pollen J30.1 [facility] [id number] [place] [address] 16543- 8463 Aug, [facility] [address] 02137- 0939 Aug, [facility] [address] [place] [address] 66156- 8642 Jul, Type 2 diabetes mellitus without complication, without long- term current use of insulin E11.9 ; Anxiety F41.9 ; Essential hypertension I10 and Encounter for immunization Z23 [facility] [address] [place] [address] 94210- 3315 Jul, Essential hypertension I10 [place] [id number] [place] [address] 91843- 6772 Jul, [facility] [id number] [place] [address] 53299- 0150 Jul, [facility] [id number] [place] [address] 29363- 4128 Jul, Essential hypertension I10 [facility] [id number] [place] [address] 50808- 6260 Jul, [place] [address] 69164- 0191 May, [facility] [id number] [place] [address] 71833- 1786 May, [facility] [address] [place] [address] [place] [address]- 8476 Apr, [facility] [address] [facility] [id number] [address]- 0427 Apr, [facility] [address] [facility] [id number], [place] [address]- 8704 Apr, [facility] [address] [facility] [id number], [place] [address]- 7295 Apr, Type 2 diabetes mellitus without complication, without long- term current use of insulin E11.9 ; Essential hypertension I10 ; Acute non- recurrent maxillary sinusitis J01.00 ; Arthritis M19.90 ; Lumbago with sciatica , left side M54.42 ; Other chronic pain G89.29 and Anxiety F41.9 IMMUNIZATIONS No Known Immunizations SOCIAL HISTORY Never Assessed REASON FOR VISIT Waiting for call back PLAN OF CARE VITAL SIGNS MEDICATIONS Unknown [...]
--- OUTSIDE RECORDS SUMMARY | 2018-11-02 12:36 | XMS REPORT ---
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 [facility] Address [address] [place] [address] Care Team Providers Care Boat Person Name Role Phone AMBER CHILDERS Unavailable PROBLEMS Type Condition ICD9-CM Code TSE05-EX Code Onset Dates Condition Status SNOMED Code Problem Essential hypertension I10 Active 54651426 Problem Type 2 diabetes mellitus without complication, without long-term current use of insulin E11.9 Active 253983678 Problem Anxiety F41.9 Active 01300317 Problem Lumbago with sciatica, left side M54.42 Active 149661146 Problem Arthritis M19.90 Active 4128916 Problem Iron deficiency anemia, unspecified iron deficiency anemia type D50.9 Active 79154799 Problem Venous insufficiency I87.2 Active 00009819 Problem Gastroesophageal reflux disease, esophagitis presence not specified K21.9 Active 835954517 Problem Seasonal allergic rhinitis due to pollen J30.1 Active 82020048 Problem Anemia of chronic disease D63.8 Active 417810779 Problem Chronic kidney disease, stage 3 (moderate) N18.3 Active 303690684 ALLERGIES No Information ENCOUNTERS Encounter Location Date Diagnosis [place] [id number] [place] [address] 22015- 7794 January, [facility] [id number] [place] [address] 12105- 4241 January, [facility] [address] [place] [address] 57518- 4642 January, Medicare annual wellness visit, initial Z00.00 ; Type 2 diabetes mellitus without complication, without long-term current use of insulin E11.9 ; Chronic kidney disease, stage 3 (moderate) N18.3 ; Essential hypertension I10 ; Gastroesophageal reflux disease, esophagitis presence not specified K21.9 ; Anxiety F41.9 ; Arthritis M19.90 and Encounter for immunization Z23 [place] [address] [place] [address] 19671- 7980 January, Essential hypertension I10 [facility] [address] 97914- 9368 Dec, Arthritis M19.90 [facility] [id number] [place] [address] 48524- 5929 Dec, [facility] [address] 41918- 3914 Dec, [facility] [id number] [place] [address] 33876- 4212 Dec, Essential hypertension I10 [facility] [id number] [place] [address] 40025 -7619 Nov, Dysuria R30.0 and Vaginal kai B37.3 [place] [address] 10631- 3054 Nov, Arthritis M19.90 [facility] [id number] [place] [address] 15057- 8948 Oct, [place] [address] [id number] [place] [address] 26781- 3789 Oct, Type 2 diabetes mellitus without complication, without long- term current use of insulin E11.9 ; Lumbago with sciatica, left side M54.42 ; Arthritis M19.90 ; Iron deficiency anemia, unspecified iron deficiency anemia type D50.9 and BMI 40.0-44.9, adult Z68.41 [facility] [id number] [place] [address] 12763- 9073 Sep, [place] [address] [id number] [place] [address] 42455- 9824 Sep, [place] [address] [id number] [place] [address] 69670- 1181 Sep, Arthritis M19.90 and Anxiety F41.9 [place] [address] [place] [id number] [place] [address] 53510- 1488 Sep, [facility] [id number] [place] [address] 17856- 6017 Aug, Anxiety F41.9 [facility] [id number] [place] [address] 92785- 8437 Jul, [facility] [address] 37299- 2933 Jul, [facility] [id number] [place] [address] 13399- 3200 Jul, Vaginal yeast infection B37.3 [facility] [address] [id number] [place] [address] 74728- 9201 Jul, Anxiety F41.9 [facility] [id number] [place] [address] 46752- 6197 Jul, Type 2 diabetes mellitus without complication, without long- term current use of insulin E11.9 [facility] [id number] [place] [address] 98328- 2343 Jul, [facility] [id number] [place] [address] 77842- 8065 Jul, [facility] [id number] [place] [address] 99603- 8651 Jun, Arthritis M19.90 [facility] [id number] [place] [address] 82286- 7770 Jun, [facility] [id number] [place] [address] 60213- 6747 Jun, [facility] [id number] [place] [address] 56341- 2722 May, [facility] [address] [place] [address] 43704- 3212 Apr, Venous insufficiency I87.2 and Venous stasis dermatitis of right lower extremity I87.2 [place] [address] [place] [address] 88225- 8476 Apr, Essential hypertension I10 [place] [address] [place] [address] [id number] [place] [address] 88467- 3902 Mar, [place] [address] [place] [id number] [place] [address] 35995- 5574 Mar, Type 2 diabetes mellitus without complication, without long- term current use of insulin E11.9 and Essential hypertension I10 [place] [address] [place] [address] [id number] [place] [address] 77673- 4692 Mar, Essential hypertension I10 and Type 2 diabetes mellitus without complication, without long-term current use of insulin E11.9 [place] [address] [id number] [place] [address] 39682- 2670 Mar, Chronic kidney disease, stage 3 (moderate) N18.3 ; Anemia of chronic disease D63.8 and Type 2 diabetes mellitus without complication, without long-term current use of insulin E11.9 [place] [address] [place] [address] 46414- 8603 Mar, Type 2 diabetes mellitus without complication, without long- term current use of insulin E11.9 ; Iron deficiency anemia secondary to inadequate dietary iron intake D50.8 ; Arthritis M19.90 and Lumbago with sciatica, left side M54.42 [place] [id number] [place] [address] 83278- 2742 Feb, Arthritis M19.90 and Anxiety F41.9 [place] [address] [place] [address] 31092- 4196 Feb, Type 2 diabetes mellitus without complication, without long- term current use of insulin E11.9 and Essential hypertension I10 [place] [address] [place] [address] 89329- 8345 January, Anxiety F41.9 [place] [address] [place] [id number] [place] [address] 22906- 6557 January, Jaja villeda B37.2 [facility] [id number] [place] [address] 85019- 4740 January, [facility] [id number] [place] [address] 12841- 3949 January, [facility] [id number] [place] [address] 93559- 0772 January, [facility] [id number] [place] [address] 25890- 9553 January, Gastroesophageal reflux disease, esophagitis presence not specified K21.9 [place] [address] [id number] [place] [address] 44789- 2453 January, Arthritis M19.90 [place] [address] [place] [id number] [place] [address] 41755- 7280 January, Anxiety F41.9 ; Arthritis M19.90 and Essential hypertension I10 [place] [address] [id number] [place] [address] 34467- 6788 January, Essential hypertension I10 and Anxiety F41.9 [place] [address] [place] [id number] [place] [address] 96944- 9488 Dec, [place] [address] [place] [id number] [place] [address] 88661- 6595 Dec, Arthritis M19.90 and Anxiety F41.9 [place] [id number] [place] [address] 81718- 6336 Dec, Type 2 diabetes mellitus without complication, without long- term current use of insulin E11.9 ; Cellulitis of right lower extremity L03.115 and Arthritis M19.90 [place] [id number] [place] [address] 80614- 7676 Nov, [place] [address] [place] [id number] [place] [address] 33177- 3286 Nov, Type 2 diabetes mellitus without complication, without long- term current use of insulin E11.9 ; Bronchitis J40 and Arthritis M19.90 [place] [address] [id number] [place] [address] 17677- 2997 Nov, [place] [address] [place] [id number] [place] [address] 66112- 6040 Oct, Anxiety F41.9 [facility] [place] [address] 21257 -8995 Sep, Dysuria R30.0 ; Acute cystitis with hematuria N30.01 and Vaginal yeast infection B37.3 [place] [address] [place] [id number] [place] [address] 35502- 1027 Sep, Arthritis M19.90 [facility] [place] [address] [place] [id number] [place] [address] 67497 -7088 Sep, Strep pharyngitis J02.0 and Sore throat J02.9 [place] [address] 32529- 6073 Sep, [place] [address] [place] [id number] [place] [address] 68934- 3332 Sep, Type 2 diabetes mellitus without complication, without long- term current use of insulin E11.9 [place] [address] [place] [id number] [place] [address] 69135- 0119 Aug, [place] [address] [place] [id number] [place] [address] 20630- 6186 Aug, Seasonal allergic rhinitis due to pollen J30.1 [facility] [place] [address] [place] [id number] [place] [address] 75549 -3480 Aug, Impacted cerumen of right ear H61.21 and Seasonal allergic rhinitis due to pollen J30.1 [place] [address] [place] [id number] [place] [address] 44588- 9570 Aug, [place] [address] 20706- 1510 Aug, [facility] [address] [address]- 8129 Jul, Type 2 diabetes mellitus without complication, without long- term current use of insulin E11.9 ; Anxiety F41.9 ; Essential hypertension I10 and Encounter for immunization Z23 [facility] [address] [place] [id number] [place] [address] 57931- 8081 Jul, Essential hypertension I10 [facility] [address] [place] [id number] [place] [address] 77751- 0634 Jul, [facility] [address] [id number] [place] [address] 31149- 9496 Jul, [facility] [address] [place] [id number] [place] [address] 73855- 0662 Jul, Essential hypertension I10 [facility] [address] [place] [id number] [place] [address] 87349- 3797 Jul, [facility] [id number] [place] [address] 34203- 2931 May, [facility] [address] [id number] [place] [address] 23490- 6894 May, [facility] [address] [place] [id number] [place] [address] 61634- 7855 Apr, [facility] [address] [place] [address] 00111- 8071 Apr, [facility] [address] [id number] [place] [address] 60129- 8443 Apr, [facility] [address] [place] [id number] [place] [address] 46280- 1003 Apr, Type 2 diabetes mellitus without complication, without long- term current use of insulin E11.9 ; Essential hypertension I10 ; Acute non- recurrent maxillary sinusitis J01.00 ; Arthritis M19.90 ; Lumbago with sciatica , left side M54.42 ; Other chronic pain G89.29 and Anxiety F41.9 IMMUNIZATIONS No Known Immunizations SOCIAL HISTORY Never Assessed REASON FOR VISIT Ultracet- 07/18 PLAN OF CARE VITAL SIGNS MEDICATIONS Medication [...]
--- OUTSIDE RECORDS SUMMARY | 2018-11-02 12:36 | XMS REPORT ---
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 [facility] Address [address] [place] [address] Care Team Providers Care Recreation Counselor Name Role Phone AMBER CHILDERS Unavailable PROBLEMS Type Condition ICD9-CM Code YDM51-KH Code Onset Dates Condition Status SNOMED Code Problem Essential hypertension I10 Active 59344893 Problem Type 2 diabetes mellitus without complication, without long-term current use of insulin E11.9 Active 538646420 Problem Anxiety F41.9 Active 47308589 Problem Lumbago with sciatica, left side M54.42 Active 161845283 Problem Arthritis M19.90 Active 0420721 Problem Iron deficiency anemia, unspecified iron deficiency anemia type D50.9 Active 41491965 Problem Venous insufficiency I87.2 Active 00584766 Problem Gastroesophageal reflux disease, esophagitis presence not specified K21.9 Active 867110632 Problem Seasonal allergic rhinitis due to pollen J30.1 Active 64414284 Problem Anemia of chronic disease D63.8 Active 117879834 Problem Chronic kidney disease, stage 3 (moderate) N18.3 Active 379772346 ALLERGIES No Known Allergies ENCOUNTERS Encounter Location Date Diagnosis [place] [id number] [place] [address] 08267- 1570 Feb, Type 2 diabetes mellitus without complication, without long- term current use of insulin E11.9 ; Essential hypertension I10 and Anemia of chronic disease D63.8 [facility] [address] [place] [id number] [place] [address] 69806- 0197 Feb, Arthritis M19.90 and Essential hypertension I10 [facility] [id number] [place] [address] 42660- 2836 January, [facility] [id number] [place] [address] 75080- 5648 January, [place] [address] [place] [address] [id number] [place] [address] 07990- 9730 January, Medicare annual wellness visit, initial Z00.00 ; Type 2 diabetes mellitus without complication, without long-term current use of insulin E11.9 ; Chronic kidney disease, stage 3 (moderate) N18.3 ; Essential hypertension I10 ; Gastroesophageal reflux disease, esophagitis presence not specified K21.9 ; Anxiety F41.9 ; Arthritis M19.90 and Encounter for immunization Z23 [place] [address] [place] [id number] [place] [address] 34880- 0611 January, Essential hypertension I10 [place] [address] [place] [id number] [place] [address] 46083- 2657 Dec, Arthritis M19.90 [place] [address] [place] [id number] [place] [address] 89156- 4948 Dec, [place] [address] [place] [address] [id number] [place] [address] 45262- 9762 Dec, [place] [address] [place] [address] [id number] [place] [address] 24826- 8575 Dec, Essential hypertension I10 [facility] [id number] [place] [address] 33704 -5692 Nov, Dysuria R30.0 and Vaginal kai B37.3 [place] [address] [place] [address] [id number] [place] [address] 44844- 3451 Nov, Arthritis M19.90 [place] [address] [place] [id number] [place] [address] 89388- 4108 Oct, [place] [address] [place] [id number] [place] [address] 81177- 8667 Oct, Type 2 diabetes mellitus without complication, without long- term current use of insulin E11.9 ; Lumbago with sciatica, left side M54.42 ; Arthritis M19.90 ; Iron deficiency anemia, unspecified iron deficiency anemia type D50.9 and BMI 40.0-44.9, adult Z68.41 [place] [address] [place] [id number] [place] [address] 00450- 2145 Sep, [facility] [address] 02687- 2457 Sep, [facility] [address] [id number] [place] [address] 43145- 0583 Sep, Arthritis M19.90 and Anxiety F41.9 [facility] [address] 91273- 0820 Sep, [facility] [address] [place] [id number] [place] [address] 13563- 4908 Aug, Anxiety F41.9 [facility] [address] 31846- 1802 Jul, [facility] [address] 63282- 1190 Jul, [facility] [id number] [place] [address] 25000- 7360 Jul, Vaginal yeast infection B37.3 [facility] [address] [place] [id number] [place] [address] 65829- 6493 Jul, Anxiety F41.9 [facility] [address] [place] [address] [id number] [place] [address] 02318- 0981 09 Jul, 2017 Type 2 diabetes mellitus without complication, without long- term current use of insulin E11.9 [facility] [id number] [place] [address] 89794- 0141 08 Jul, 2017 [facility] [id number] [place] [address] 81888- 5354 Jul, [facility] [address] [id number] [place] [address] 92983- 7378 Jun, Arthritis M19.90 [facility] [id number] [place] [address] 64062- 7751 Jun, [place] [address] [place] [address] [id number] [place] [address] 93205- 7695 Jun, [place] [address] [place] [address] [id number] [place] [address] 20735- 3318 May, [place] [address] [place] [id number] [place] [address] 17066- 0641 Apr, Venous insufficiency I87.2 and Venous stasis dermatitis of right lower extremity I87.2 [place] [address] [place] [address] [id number] [place] [address] 10757- 3623 Apr, Essential hypertension I10 [address] 05082- 2407 Mar, [place] [address] [place] [id number] [place] [address] 09838- 2950 Mar, Type 2 diabetes mellitus without complication, without long- term current use of insulin E11.9 and Essential hypertension I10 [place] [address] [place] [id number] [place] [address] 28676- 1468 Mar, Essential hypertension I10 and Type 2 diabetes mellitus without complication, without long-term current use of insulin E11.9 [place] [id number] [place] [address] 49727- 6387 Mar, Chronic kidney disease, stage 3 (moderate) N18.3 ; Anemia of chronic disease D63.8 and Type 2 diabetes mellitus without complication, without long-term current use of insulin E11.9 [place] [address] [place] [address] [id number] [place] [address] 50331- 7241 Mar, Type 2 diabetes mellitus without complication, without long- term current use of insulin E11.9 ; Iron deficiency anemia secondary to inadequate dietary iron intake D50.8 ; Arthritis M19.90 and Lumbago with sciatica, left side M54.42 [place] [id number] [place] [address] 77685- 6309 Feb, Arthritis M19.90 and Anxiety F41.[address] [place] [address]- 5487 Feb, Type 2 diabetes mellitus without complication, without long- term current use of insulin E11.9 and Essential hypertension I10 [place] [address] [place] [address] [id number] [place] [address] 54193- 6486 January, Anxiety F41.9 [facility] [address] 41631- 4265 January, Monilial rash B37.2 [facility] [address] 11428- 0947 January, [place] [address] 69123- 6790 January, [facility] [address] 94181- 0384 January, [facility] [address] 93562- 7609 January, Gastroesophageal reflux disease, esophagitis presence not specified K21.9 [place] [address] [place] [id number] [place] [address] 94412- 8341 January, Arthritis M19.90 [place] [address] [place] [id number] [place] [address] 79572- 7699 January, Anxiety F41.9 ; Arthritis M19.90 and Essential hypertension I10 [place] [address] [place] [id number] [place] [address] 75488- 7802 January, Essential hypertension I10 and Anxiety F41.9 [place] [address] [place] [id number] [place] [address] 79798- 9059 Dec, [place] [address] [place] [id number] [place] [address] 53930- 5619 Dec, Arthritis M19.90 and Anxiety F41.9 [place] [address] [place] [id number] [place] [address] 38836- 8316 Dec, Type 2 diabetes mellitus without complication, without long- term current use of insulin E11.9 ; Cellulitis of right lower extremity L03.115 and Arthritis M19.90 [facility] [address] [place] [id number] [place] [address] 34676- 5321 28 Nov, 2016 [place] [address] [place] [id number] [place] [address] 96078- 4407 20 Nov, 2016 Type 2 diabetes mellitus without complication, without long- term current use of insulin E11.9 ; Bronchitis J40 and Arthritis M19.90 [facility] [address] [place] [id number] [place] [address] 50315- 8015 16 Nov, 2016 [place] [address] 54881- 5292 24 Oct, 2016 Anxiety F41.9 [facility] [place] [address] [place] [id number] [place] [address] 92195 -1262 Sep, Dysuria R30.0 ; Acute cystitis with hematuria N30.01 and Vaginal yeast infection B37.3 [place] [address] [place] [id number] [place] [address] 45701- 3937 Sep, Arthritis M19.90 [facility] [place] [address] [place] [id number] [place] [address] 12229 -6028 Sep, Strep pharyngitis J02.0 and Sore throat J02.9 [place] [address] [place] [id number] [place] [address] 96149- 1900 Sep, [place] [address] [place] [id number] [place] [address] 40454- 8794 Sep, Type 2 diabetes mellitus without complication, without long- term current use of insulin E11.9 [place] [address] [place] [address] [id number] [place] [address] 98432- 9223 14 Aug, 2016 [place] [address] [place] [id number] [place] [address] 31823- 8231 13 Aug, 2016 Seasonal allergic rhinitis due to pollen J30.1 [facility] [address] [place] [id number] [place] [address] 12255 -1276 Aug, Impacted cerumen of right ear H61.21 and Seasonal allergic rhinitis due to pollen J30.1 [facility] [address] [place] [id number] [place] [address] 38340- 7137 Aug, [facility] [address] [place] [id number] [place] [address] 89588- 3045 Aug, [facility] [address] 16601- 5296 Jul, Type 2 diabetes mellitus without complication, without long- term current use of insulin E11.9 ; Anxiety F41.9 ; Essential hypertension I10 and Encounter for immunization Z23 [facility] [address] [place] [id number] [place] [address] 56959- 4505 Jul, Essential hypertension I10 [facility] [address] 45108- 6482 Jul, [facility] [address] [place] [id number] [place] [address] 01020- 1545 Jul, [facility] [address] [place] [id number] [place] [address] 94281- 1204 Jul, Essential hypertension I10 [facility] [address] [place] [id number] [place] [address] 79565- 3950 Jul, [facility] [address] [place] [id number] [place] [address] 82511- 6744 May, [facility] [address] [place] [id number] [place] [address] 08932- 5288 May, [facility] [address] 43861- 7562 Apr, [facility] [address] [place] [id number] [place] [address] 43067- 5414 Apr, [facility] [address] [place] [id number] [place] [address] 39599- 4083 Apr, [facility] [address] [facility] [id number] [place] [address]- 2868 Apr, Type 2 diabetes mellitus without complication, without long- term current use of insulin E11.9 ; Essential hypertension I10 ; Acute non- recurrent maxillary sinusitis J01.00 ; Arthritis M19.90 ; Lumbago with sciatica , left side M54.42 ; Other chronic pain G89.29 and Anxiety F41.9 IMMUNIZATIONS No Known Immunizations SOCIAL HISTORY Never Assessed REASON FOR VISIT PT wants a wheelchair-Karla GONZALEZ PLAN OF CARE Activity Details Follow Up 3 Months Reason: VITAL SIGNS Height 56 in 2017-11-14 Weight 186.5 lbs 2017-11-14 Temperature 97.7 degrees Fahrenheit 2017-11-14 Heart Rate 82 bpm 2017-11-14 Respiratory Rate 20 2017-11-14 Oximetry on room air:98 % 2017-11-14 BMI 41.81 kg/m2 2017-11-14 Blood pressure systolic 126 mmHg 2017-11-14 Blood pressure diastolic 64 mmHg 2017-11-14 MEDICATIONS Medication Instructions Dosage Frequency Start Date End Date Duration Status Alprazolam 0.5 MG Orally Three times a day 1 tablet 8h 30 days Active ProAir HFA 108 (90 Base) MCG/ACT Inhalation every 4-6 hours as needed 2 puffs as needed 30 days Active Timolol Hemihydrate 0.5 % Ophthalmic Twice a day 1 drop into affected eye 12h Active Wheelchair - use for transportation 24h Mar, Not-Taking Omeprazole 20 MG Orally Once a day 1 capsule 24h Sep, 30 day(s ) Active Glimepiride 4 MG Orally Once a day 1 tablet with breakfast or the first main meal of the day 24h Mar, 90 days Active Wheelchair - as directed Oct, Active Monistat 1 Combo Pack 1200 & 2 MG & % Vaginal Once a day use insert and cream 24h Jul, Not-Taking Lisinopril 5 mg Orally Once a day 1 tablet 24h Active Metoprolol Tartrate 25 TAKE ONE TABLET BY MOUTH TWICE A DAY 30 Active Wheelchair - use for ambulation 24h January, Not-Taking Blood Glucose Test Strip Test Strips subcutaneously Once a day 1 test strip 24h Jul, Active Tramadol-Acetaminophen 37.5-325 MG Orally every 4 hrs 2 tablets as needed 4h 28 days Active RESULTS No Results PROCEDURES Procedure Date Ordered Result Body Site MEASURE BLOOD OXYGEN LEVEL Nov 14, 2017 GLYCATED HEMOGLOBIN TEST Nov 14, 2017 [facility] VISIT ESTABLISHED PATIENT Nov 14, 2017 VENIPUNCT, ROUTINE* Nov 14, 2017 INSTRUCTIONS MEDICATIONS ADMINISTERED No Known Medications MEDICAL (GENERAL) HISTORY Type Description Date Medical History type II diabetes Medical History hypertension Medical History Arthritis Medical History skin cancer-scalp Surgical History hysterectomy Surgical History skin cancer removal-scalp Hospitalization History Surgery(s) only Hospitalization History dehydration november 2016 Hospitalization History bronchitis november 2106
--- OUTSIDE RECORDS SUMMARY | 2018-11-02 12:37 | XMS REPORT ---
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 [facility] Address [address] [place] [address] Care Team Providers Care Emery Wheel Worker Name Role Phone AMBER CHILDERS Unavailable PROBLEMS Type Condition ICD9-CM Code CWQ30-DI Code Onset Dates Condition Status SNOMED Code Problem Essential hypertension I10 Active 61347673 Problem Type 2 diabetes mellitus without complication, without long-term current use of insulin E11.9 Active 959205124 Problem Anxiety F41.9 Active 21879640 Problem Lumbago with sciatica, left side M54.42 Active 710893303 Problem Arthritis M19.90 Active 2192071 Problem Iron deficiency anemia, unspecified iron deficiency anemia type D50.9 Active 21432893 Problem Venous insufficiency I87.2 Active 19938814 Problem Gastroesophageal reflux disease, esophagitis presence not specified K21.9 Active 139246518 Problem Seasonal allergic rhinitis due to pollen J30.1 Active 82428013 Problem Anemia of chronic disease D63.8 Active 967451760 Problem Chronic kidney disease, stage 3 (moderate) N18.3 Active 280647204 ALLERGIES No Information ENCOUNTERS Encounter Location Date Diagnosis [place] [id number] [place] [address] 44876- 8104 January, [facility] [address] [place] [id number] [place] [address] 03076- 4207 January, [facility] [id number] [place] [address] 87831- 9261 January, Medicare annual wellness visit, initial Z00.00 ; Type 2 diabetes mellitus without complication, without long-term current use of insulin E11.9 ; Chronic kidney disease, stage 3 (moderate) N18.3 ; Essential hypertension I10 ; Gastroesophageal reflux disease, esophagitis presence not specified K21.9 ; Anxiety F41.9 ; Arthritis M19.90 and Encounter for immunization Z23 [place] [address] [place] [address] 54216- 3458 January, Essential hypertension I10 [facility] [address] 17185- 2140 Dec, Arthritis M19.90 [facility] [address] [place] [id number] [place] [address] 45319- 3443 Dec, [facility] [address] 63800- 8803 Dec, [facility] [address] [place] [id number] [place] [address] 93635- 1873 Dec, Essential hypertension I10 [facility] [address] [place] [address] [id number] [place] [address] 94293 -6888 Nov, Dysuria R30.0 and Vaginal kai B37.3 [place] [address] 71984- 2415 Nov, Arthritis M19.90 [facility] [address] [place] [id number] [place] [address] 45699- 1321 Oct, [place] [address] [place] [id number] [place] [address] 89947- 9972 Oct, Type 2 diabetes mellitus without complication, without long- term current use of insulin E11.9 ; Lumbago with sciatica, left side M54.42 ; Arthritis M19.90 ; Iron deficiency anemia, unspecified iron deficiency anemia type D50.9 and BMI 40.0-44.9, adult Z68.41 [facility] [address] [place] [id number] [place] [address] 96634- 4044 Sep, [place] [address] [place] [id number] [place] [address] 22840- 1206 Sep, [place] [address] [place] [id number] [place] [address] 88883- 7669 Sep, Arthritis M19.90 and Anxiety F41.9 [place] [address] [place] [id number] [place] [address] 39133- 3746 Sep, [facility] [address] [place] [id number] [place] [address] 64853- 1413 Aug, Anxiety F41.9 [facility] [address] [place] [address] [id number] [place] [address] 52612- 7150 Jul, [facility] [address] 87781- 1301 Jul, [facility] [address] [place] [address] [id number] [place] [address] 77055- 2742 Jul, Vaginal yeast infection B37.3 [facility] [address] [place] [id number] [place] [address] 33858- 2835 Jul, Anxiety F41.9 [facility] [address] [place] [address] [id number] [place] [address] 10388- 6739 Jul, Type 2 diabetes mellitus without complication, without long- term current use of insulin E11.9 [facility] [address] [place] [address] [id number] [place] [address] 28769- 3797 Jul, [facility] [address] [place] [address] [id number] [place] [address] 61637- 0309 Jul, [facility] [address] [place] [address] [id number] [place] [address] 71163- 5445 Jun, Arthritis M19.90 [facility] [address] [place] [address] [id number] [place] [address] 09931- 0446 Jun, [facility] [address] [place] [address] [id number] [place] [address] 68420- 8684 Jun, [facility] [address] [place] [address] [id number] [place] [address] 43045- 7921 May, [facility] [address] [place] [address] 55382- 4453 Apr, Venous insufficiency I87.2 and Venous stasis dermatitis of right lower extremity I87.2 [place] [address] [place] [address] 83213- 3136 Apr, Essential hypertension I10 [place] [address] [place] [id number] [place] [address] 15869- 6802 Mar, [place] [address] [place] [id number] [place] [address] 95251- 5335 Mar, Type 2 diabetes mellitus without complication, without long- term current use of insulin E11.9 and Essential hypertension I10 [place] [address] [place] [id number] [place] [address] 49289- 7570 Mar, Essential hypertension I10 and Type 2 diabetes mellitus without complication, without long-term current use of insulin E11.9 [place] [address] [place] [id number] [place] [address] 98444- 0840 Mar, Chronic kidney disease, stage 3 (moderate) N18.3 ; Anemia of chronic disease D63.8 and Type 2 diabetes mellitus without complication, without long-term current use of insulin E11.9 [place] [address] [place] [id number] [place] [address] 19838- 6726 Mar, Type 2 diabetes mellitus without complication, without long- term current use of insulin E11.9 ; Iron deficiency anemia secondary to inadequate dietary iron intake D50.8 ; Arthritis M19.90 and Lumbago with sciatica, left side M54.42 [place] [id number] [place] [address] 70776- 0725 Feb, Arthritis M19.90 and Anxiety F41.9 [place] [address] [place] [address] 32064- 7355 Feb, Type 2 diabetes mellitus without complication, without long- term current use of insulin E11.9 and Essential hypertension I10 [place] [address] [place] [address] 56058- 8960 January, Anxiety F41.9 [place] [address] [place] [id number] [place] [address] 52240- 7928 January, Jaja villeda B37.2 [facility] [address] [place] [address] [id number] [place] [address] 94136- 7860 January, [facility] [address] [place] [id number] [place] [address] 98898- 5963 January, [facility] [address] [place] [id number] [place] [address] 68876- 4441 January, [facility] [address] [place] [id number] [place] [address] 15743- 3534 January, Gastroesophageal reflux disease, esophagitis presence not specified K21.9 [place] [address] [place] [id number] [place] [address] 74107- 5579 January, Arthritis M19.90 [place] [address] [place] [id number] [place] [address] 18201- 5326 January, Anxiety F41.9 ; Arthritis M19.90 and Essential hypertension I10 [place] [address] [place] [id number] [place] [address] 20348- 5514 January, Essential hypertension I10 and Anxiety F41.9 [place] [address] [place] [id number] [place] [address] 39447- 5999 Dec, [place] [address] [place] [id number] [place] [address] 39004- 2489 Dec, Arthritis M19.90 and Anxiety F41.9 [place] [address] [place] [id number] [place] [address] 53091- 0981 Dec, Type 2 diabetes mellitus without complication, without long- term current use of insulin E11.9 ; Cellulitis of right lower extremity L03.115 and Arthritis M19.90 [place] [address] [place] [id number] [place] [address] 33603- 2032 Nov, [place] [address] [place] [id number] [place] [address] 10797- 2018 Nov, Type 2 diabetes mellitus without complication, without long- term current use of insulin E11.9 ; Bronchitis J40 and Arthritis M19.90 [place] [address] [place] [id number] [place] [address] 28459- 2563 Nov, [place] [address] [place] [id number] [place] [address] 21280- 2052 Oct, Anxiety F41.9 [facility]ALK [facility] [place] [address] 10515 -0593 Sep, Dysuria R30.0 ; Acute cystitis with hematuria N30.01 and Vaginal yeast infection B37.3 [place] [address] [place] [id number] [place] [address] 38606- 0468 Sep, Arthritis M19.90 [facility] [place] [address] [place] [id number] [place] [address] 29963 -7126 Sep, Strep pharyngitis J02.0 and Sore throat J02.9 [place] [address] 11616- 5686 Sep, [place] [address] [place] [id number] [place] [address] 97766- 9231 Sep, Type 2 diabetes mellitus without complication, without long- term current use of insulin E11.9 [place] [address] [place] [id number] [place] [address] 65017- 0130 Aug, [place] [address] [place] [id number] [place] [address] 70693- 0059 Aug, Seasonal allergic rhinitis due to pollen J30.1 [facility] [place] [address] [place] [id number] [place] [address] 28459 -8818 Aug, Impacted cerumen of right ear H61.21 and Seasonal allergic rhinitis due to pollen J30.1 [place] [address] [place] [id number] [place] [address] 22886- 7873 Aug, [place] [address] 43558- 9845 Aug, [facility] [address] [address]- 8887 Jul, Type 2 diabetes mellitus without complication, without long- term current use of insulin E11.9 ; Anxiety F41.9 ; Essential hypertension I10 and Encounter for immunization Z23 [facility] [address] [place] [id number] [place] [address] 95095- 8903 Jul, Essential hypertension I10 [facility] [address] [place] [id number] [place] [address] 14678- 8272 Jul, [facility] [address] [place] [id number] [place] [address] 42818- 5238 Jul, [facility] [address] [place] [id number] [place] [address] 07024- 3967 Jul, Essential hypertension I10 [facility] [address] [place] [id number] [place] [address] 40579- 1657 Jul, [facility] [address] [place] [id number] [place] [address] 54868- 1786 May, [facility] [address] [place] [id number] [place] [address] 63534- 5762 May, [facility] [address] [place] [id number] [place] [address] 04886- 9864 Apr, [facility] [address] [place] [address] 69006- 6761 Apr, [facility] [address] [place] [id number] [place] [address] 64387- 8898 Apr, [facility] [address] [place] [id number] [place] [address] 36048- 4571 Apr, Type 2 diabetes mellitus without complication, without long- term current use of insulin E11.9 ; Essential hypertension I10 ; Acute non- recurrent maxillary sinusitis J01.00 ; Arthritis M19.90 ; Lumbago with sciatica , left side M54.42 ; Other chronic pain G89.29 and Anxiety F41.9 IMMUNIZATIONS No Known Immunizations SOCIAL HISTORY Never Assessed REASON FOR VISIT Refill request PLAN OF CARE VITAL SIGNS MEDICATIONS Medication Instructions Dosage Frequency Start Date End Date Duration Status Blood Glucose Test Strip Test Strips subcutaneously Once a day 1 test strip 24h Jul, Active RESULTS No Results PROCEDURES No Known [...]
--- OUTSIDE RECORDS SUMMARY | 2018-11-02 12:37 | XMS REPORT ---
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 [facility] Address [address] [place] [address] Care Team Providers Care Quality Associate Name Role Phone AMBER CHILDERS Unavailable PROBLEMS Type Condition ICD9-CM Code HII09-BO Code Onset Dates Condition Status SNOMED Code Problem Essential hypertension I10 Active 69911893 Problem Type 2 diabetes mellitus without complication, without long-term current use of insulin E11.9 Active 219501714 Problem Anxiety F41.9 Active 74280945 Problem Lumbago with sciatica, left side M54.42 Active 282243305 Problem Arthritis M19.90 Active 8618905 Problem Iron deficiency anemia, unspecified iron deficiency anemia type D50.9 Active 62136097 Problem Venous insufficiency I87.2 Active 65129581 Problem Gastroesophageal reflux disease, esophagitis presence not specified K21.9 Active 309972425 Problem Seasonal allergic rhinitis due to pollen J30.1 Active 49675714 Problem Anemia of chronic disease D63.8 Active 208614425 Problem Chronic kidney disease, stage 3 (moderate) N18.3 Active 545226898 ALLERGIES No Information ENCOUNTERS Encounter Location Date Diagnosis [place] [address] [place] [address] 43939- 0735 January, [facility] [address] [place] [id number] [place] [address] 12968- 4264 January, [facility] [address] [place] [address] 34226- 2232 January, Medicare annual wellness visit, initial Z00.00 ; Type 2 diabetes mellitus without complication, without long-term current use of insulin E11.9 ; Chronic kidney disease, stage 3 (moderate) N18.3 ; Essential hypertension I10 ; Gastroesophageal reflux disease, esophagitis presence not specified K21.9 ; Anxiety F41.9 ; Arthritis M19.90 and Encounter for immunization Z23 [place] [address] [place] [address] 17239- 9919 January, Essential hypertension I10 [facility] [address] 49290- 8772 Dec, Arthritis M19.90 [facility] [address] [place] [id number] [place] [address] 33983- 4993 Dec, [facility] [address] 22327- 8320 Dec, [facility] [address] [place] [id number] [place] [address] 10064- 3252 Dec, Essential hypertension I10 [facility] [address] [place] [id number] [place] [address] 23081 -4262 Nov, Dysuria R30.0 and Vaginal kai B37.3 [place] [address] 08343- 6534 Nov, Arthritis M19.90 [facility] [address] [place] [id number] [place] [address] 68211- 5928 Oct, [place] [address] [place] [id number] [place] [address] 75022- 7163 Oct, Type 2 diabetes mellitus without complication, without long- term current use of insulin E11.9 ; Lumbago with sciatica, left side M54.42 ; Arthritis M19.90 ; Iron deficiency anemia, unspecified iron deficiency anemia type D50.9 and BMI 40.0-44.9, adult Z68.41 [facility] [address] [place] [id number] [place] [address] 73570- 5320 Sep, [place] [address] [place] [id number] [place] [address] 30221- 7974 Sep, [place] [address] [place] [id number] [place] [address] 79095- 6560 Sep, Arthritis M19.90 and Anxiety F41.9 [place] [address] [place] [id number] [place] [address] 42694- 8011 Sep, [facility] [address] [place] [id number] [place] [address] 33334- 5325 Aug, Anxiety F41.9 [facility] [address] [place] [id number] [place] [address] 05010- 8746 Jul, [facility] [address] 08536- 8386 Jul, [facility] [address] [place] [id number] [place] [address] 69264- 9840 Jul, Vaginal yeast infection B37.3 [facility] [address] [place] [id number] [place] [address] 50640- 4298 Jul, Anxiety F41.9 [facility] [address] [place] [id number] [place] [address] 37216- 7271 Jul, Type 2 diabetes mellitus without complication, without long- term current use of insulin E11.9 [facility] [address] [place] [id number] [place] [address] 78926- 6734 Jul, [facility] [address] [place] [id number] [place] [address] 28445- 9573 Jul, [facility] [address] [place] [id number] [place] [address] 32754- 7595 Jun, Arthritis M19.90 [facility] [address] [place] [id number] [place] [address] 85958- 3100 Jun, [facility] [address] [place] [id number] [place] [address] 45565- 7084 Jun, [facility] [address] [place] [id number] [place] [address] 59804- 9930 May, [facility] [address] [place] [address] 20986- 5447 Apr, Venous insufficiency I87.2 and Venous stasis dermatitis of right lower extremity I87.2 [place] [address] [place] [address] 69956- 5430 Apr, Essential hypertension I10 [place] [address] [place] [id number] [place] [address] 12762- 0657 Mar, [place] [address] [place] [id number] [place] [address] 84902- 1471 Mar, Type 2 diabetes mellitus without complication, without long- term current use of insulin E11.9 and Essential hypertension I10 [place] [address] [place] [id number] [place] [address] 42583- 2037 Mar, Essential hypertension I10 and Type 2 diabetes mellitus without complication, without long-term current use of insulin E11.9 [place] [address] [place] [id number] [place] [address] 27516- 2774 Mar, Chronic kidney disease, stage 3 (moderate) N18.3 ; Anemia of chronic disease D63.8 and Type 2 diabetes mellitus without complication, without long-term current use of insulin E11.9 [place] [address] [place] [id number] [place] [address] 20792- 2587 Mar, Type 2 diabetes mellitus without complication, without long- term current use of insulin E11.9 ; Iron deficiency anemia secondary to inadequate dietary iron intake D50.8 ; Arthritis M19.90 and Lumbago with sciatica, left side M54.42 [place] [id number] [place] [address] 51248- 8232 Feb, Arthritis M19.90 and Anxiety F41.9 [place] [address] [place] [address] 65289- 7713 Feb, Type 2 diabetes mellitus without complication, without long- term current use of insulin E11.9 and Essential hypertension I10 [place] [address] [place] [address] 51234- 3975 January, Anxiety F41.9 [place] [address] [place] [id number] [place] [address] 82493- 6971 January, Jaja v[place] B37.2 [facility] [address] [place] [id number] [place] [address] 10557- 0409 January, [facility] [address] [place] [id number] [place] [address] 99940- 4059 January, [facility] [address] [place] [id number] [place] [address] 55498- 6432 January, [facility] [address] [place] [id number] [place] [address] 92986- 7325 January, Gastroesophageal reflux disease, esophagitis presence not specified K21.9 [place] [address] [place] [id number] [place] [address] 59820- 1670 January, Arthritis M19.90 [place] [address] [place] [id number] [place] [address] 16298- 4127 January, Anxiety F41.9 ; Arthritis M19.90 and Essential hypertension I10 [place] [address] [place] [id number] [place] [address] 82109- 7101 January, Essential hypertension I10 and Anxiety F41.9 [place] [address] [place] [id number] [place] [address] 93544- 7604 Dec, [place] [address] [place] [id number] [place] [address] 47800- 5262 Dec, Arthritis M19.90 and Anxiety F41.9 [place] [address] [place] [id number] [place] [address] 92160- 5928 Dec, Type 2 diabetes mellitus without complication, without long- term current use of insulin E11.9 ; Cellulitis of right lower extremity L03.115 and Arthritis M19.90 [place] [address] [place] [id number] [place] [address] 49385- 4325 Nov, [place] [address] [place] [id number] [place] [address] 76642- 6440 Nov, Type 2 diabetes mellitus without complication, without long- term current use of insulin E11.9 ; Bronchitis J40 and Arthritis M19.90 [place] [address] [place] [id number] [place] [address] 29387- 1927 Nov, [place] [address] [place] [id number] [place] [address] 23294- 1703 Oct, Anxiety F41.9 [facility] WALK IN [place] [address] 16526 -9036 Sep, Dysuria R30.0 ; Acute cystitis with hematuria N30.01 and Vaginal yeast infection B37.3 [place] [address] [place] [id number] [place] [address] 52363- 2381 Sep, Arthritis M19.90 [facility] [place] [address] [address] [place] [id number] [place] [address] 66676 -6521 Sep, Strep pharyngitis J02.0 and Sore throat J02.9 [place] [address] 09583- 1056 Sep, [place] [address] [place] [id number] [place] [address] 87798- 9154 Sep, Type 2 diabetes mellitus without complication, without long- term current use of insulin E11.9 [place] [address] [place] [id number] [place] [address] 52844- 7792 Aug, [place] [address] [place] [id number] [place] [address] 55813- 0063 Aug, Seasonal allergic rhinitis due to pollen J30.1 [facility] [place] [address] [address] [place] [id number] [place] [address] 66156 -5533 Aug, Impacted cerumen of right ear H61.21 and Seasonal allergic rhinitis due to pollen J30.1 [place] [address] [place] [id number] [place] [address] 97509- 3890 Aug, [place] [address] 33022- 1572 Aug, [facility] [address] [address]- 7771 Jul, Type 2 diabetes mellitus without complication, without long- term current use of insulin E11.9 ; Anxiety F41.9 ; Essential hypertension I10 and Encounter for immunization Z23 [facility] [address] [place] [id number] [place] [address] 18376- 0119 Jul, Essential hypertension I10 [facility] [address] [place] [id number] [place] [address] 35156- 6284 Jul, [facility] [address] [place] [id number] [place] [address] 47210- 8085 Jul, [facility] [address] [place] [id number] [place] [address] 42880- 4625 Jul, Essential hypertension I10 [facility] [id number] [place] [address] [phone] Jul, [facility] [id number] [place] [address] [id number] [id number] May, [facility] [id number] [place] [address] [id number] [id number] May, [facility] [id number] [place] [address] [id number] Apr, [facility] [id number] [place] [address] [id number] Apr, [facility] [id number] [place] [address] [id number]- [phone] Apr, [facility] [id number] [place] [address] [id number]- [phone] Apr, Type 2 diabetes mellitus without complication, [...] request PLAN OF CARE VITAL SIGNS MEDICATIONS Unknown [...]
--- OUTSIDE RECORDS SUMMARY | 2018-11-02 12:37 | XMS REPORT ---
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 [facility] Address [address] [place] [address] Care Team Providers Care Buckle Sewer Machine Name Role Phone AMBER CHILDERS Unavailable PROBLEMS Type Condition ICD9-CM Code [id number] Code Onset Dates Condition Status SNOMED Code Problem Essential hypertension I10 Active 99178175 Problem Type 2 diabetes mellitus without complication, without long-term current use of insulin E11.9 Active 259416752 Problem Anxiety F41.9 Active 75698224 Problem Lumbago with sciatica, left side M54.42 Active 705072121 Problem Arthritis M19.90 Active 7978618 Problem Iron deficiency anemia, unspecified iron deficiency anemia type D50.9 Active 93884689 Problem Venous insufficiency I87.2 Active 02594421 Problem Gastroesophageal reflux disease, esophagitis presence not specified K21.9 Active 964782720 Problem Seasonal allergic rhinitis due to pollen J30.1 Active 31943719 Problem Anemia of chronic disease D63.8 Active 260702871 Problem Chronic kidney disease, stage 3 (moderate) N18.3 Active 863244078 ALLERGIES No Information ENCOUNTERS Encounter Location Date Diagnosis [place] [id number] [place] [address] 96016- 5572 Feb, Type 2 diabetes mellitus without complication, without long- term current use of insulin E11.9 ; Essential hypertension I10 and Anemia of chronic disease D63.8 [facility] [address], [place] [address] Feb, Arthritis M19.90 and Essential hypertension I10 [facility] [id number] [place] [address] 70989- 7877 January, [facility] [id number] [place] [address] 77672- 4018 January, [place] [address] [place] [id number] [place] [address] 08209- 1219 January, Medicare annual wellness visit, initial Z00.00 ; Type 2 diabetes mellitus without complication, without long-term current use of insulin E11.9 ; Chronic kidney disease, stage 3 (moderate) N18.3 ; Essential hypertension I10 ; Gastroesophageal reflux disease, esophagitis presence not specified K21.9 ; Anxiety F41.9 ; Arthritis M19.90 and Encounter for immunization Z23 [place] [address] [place] [id number] [place] [address] 51741- 3890 January, Essential hypertension I10 [place] [address] [place] [id number] [place] [address] 46810- 1501 Dec, Arthritis M19.90 [place] [address] [place] [id number] [place] [address] 64031- 8482 Dec, [place] [address] [place] [id number] [place] [address] 11784- 4173 Dec, [place] [address] [place] [id number] [place] [address] 36516- 0018 Dec, Essential hypertension I10 [facility]ALK IN [facility] [address] [place] [id number] [place] [address] 52057 -5525 Nov, Dysuria R30.0 and Vaginal kai B37.3 [place] [id number] [place] [address] 55161- 7576 Nov, Arthritis M19.90 [place] [address] [place] [id number] [place] [address] 62003- 4825 Oct, [place] [address] [place] [id number] [place] [address] 91217- 8277 Oct, Type 2 diabetes mellitus without complication, without long- term current use of insulin E11.9 ; Lumbago with sciatica, left side M54.42 ; Arthritis M19.90 ; Iron deficiency anemia, unspecified iron deficiency anemia type D50.9 and BMI 40.0-44.9, adult Z68.[id number] [place] [address] 06567- 6584 Sep, [facility] [address] [place] [id number] [place] [address] 17669- 8794 Sep, [facility] [address] [place] [id number] [place] [address] 93977- 1431 Sep, Arthritis M19.90 and Anxiety F41.9 [facility] [address] 96200- 6604 Sep, [facility] [address] [place] [id number] [place] [address] 22339- 4089 Aug, Anxiety F41.9 [facility] [address] [place] [id number] [place] [address] 39733- 3640 Jul, [facility] [address] [place] [id number] [place] [address] 41805- 5551 Jul, [facility] [address] [place] [id number] [place] [address] 70605- 8790 Jul, Vaginal yeast infection B37.3 [facility] [address] [place] [id number] [place] [address] 61749- 0588 Jul, Anxiety F41.9 [facility] [address] [place] [id number] [place] [address] 97211- 4001 Jul, Type 2 diabetes mellitus without complication, without long- term current use of insulin E11.9 [facility] [address] [place] [id number] [place] [address] 54104- 4331 08 Jul, 2017 [facility] [address] [place] [id number] [place] [address] 44518- 1464 Jul, [facility] [address] [place] [id number] [place] [address] 69364- 9137 Jun, Arthritis M19.90 [facility] [address] [place] [id number] [place] [address] 64837- 5335 Jun, [facility] [address] [place] [id number] [place] [address] 97695- 9119 Jun, [place] [address] [place] [id number] [place] [address] 05047- 0779 May, [place] [address] [place] [id number] [place] [address] 38296- 9976 Apr, Venous insufficiency I87.2 and Venous stasis dermatitis of right lower extremity I87.2 [place] [address] [place] [id number] [place] [address] 39130- 3187 Apr, Essential hypertension I10 [address] 13020- 6767 Mar, [place] [address] 78505- 5470 Mar, Type 2 diabetes mellitus without complication, without long- term current use of insulin E11.9 and Essential hypertension I10 [place] [address] [place] [id number] [place] [address] 22545- 8606 Mar, Essential hypertension I10 and Type 2 diabetes mellitus without complication, without long-term current use of insulin E11.9 [place] [id number] [place] [address] 21764- 0562 Mar, Chronic kidney disease, stage 3 (moderate) N18.3 ; Anemia of chronic disease D63.8 and Type 2 diabetes mellitus without complication, without long-term current use of insulin E11.9 [place] [address] [place] [id number] [place] [address] 07767- 6869 Mar, Type 2 diabetes mellitus without complication, without long- term current use of insulin E11.9 ; Iron deficiency anemia secondary to inadequate dietary iron intake D50.8 ; Arthritis M19.90 and Lumbago with sciatica, left side M54.42 [place] [id number] [place] [address] 13974- 9873 Feb, Arthritis M19.90 and Anxiety F41.[address] [place] [address]- 2957 Feb, Type 2 diabetes mellitus without complication, without long- term current use of insulin E11.9 and Essential hypertension I10 [place] [address] [place] [id number] [place] [address] 65276- 0005 January, Anxiety F41.9 [facility] [address] [place] [id number] [place] [address] 83131- 6129 January, Monilial rash B37.2 [facility] [address] 97888- 7416 January, [place] [address] 87899- 9249 January, [place] [address] 08217- 8899 January, [place] [address] 83496- 1774 January, Gastroesophageal reflux disease, esophagitis presence not specified K21.9 [place] [address] [place] [id number] [place] [address] 18808- 1955 January, Arthritis M19.90 [place] [address] [place] [id number] [place] [address] 53620- 1383 January, Anxiety F41.9 ; Arthritis M19.90 and Essential hypertension I10 [place] [address] [place] [id number] [place] [address] 44698- 2085 January, Essential hypertension I10 and Anxiety F41.9 [place] [address] [place] [id number] [place] [address] 22764- 7100 Dec, [place] [address] [place] [id number] [place] [address] 48364- 8540 Dec, Arthritis M19.90 and Anxiety F41.9 [place] [address] [place] [id number] [place] [address] 62282- 1931 Dec, Type 2 diabetes mellitus without complication, without long- term current use of insulin E11.9 ; Cellulitis of right lower extremity L03.115 and Arthritis M19.90 [place] [address] [place] [id number] [place] [address] 90349- 2063 28 Nov, 2016 [place] [address] [place] [id number] [place] [address] 43231- 0507 20 Nov, 2016 Type 2 diabetes mellitus without complication, without long- term current use of insulin E11.9 ; Bronchitis J40 and Arthritis M19.90 [place] [address] [place] [id number] [place] [address] 21796- 7770 16 Nov, 2016 [place] [address] 09226- 6928 24 Oct, 2016 Anxiety F41.9 [facility]ALK [facility] [place] [address] [place] [id number] [place] [address] 36966 -4167 Sep, Dysuria R30.0 ; Acute cystitis with hematuria N30.01 and Vaginal yeast infection B37.3 [place] [address] [place] [id number] [place] [address] 04917- 2280 Sep, Arthritis M19.90 [facility] [place] [address] [place] [id number] [place] [address] 91118 -1929 Sep, Strep pharyngitis J02.0 and Sore throat J02.9 [place] [address] [place] [address] 17594- 2394 Sep, [place] [address] [place] [id number] [place] [address] 12505- 2682 Sep, Type 2 diabetes mellitus without complication, without long- term current use of insulin E11.9 [place] [address] [place] [id number] [place] [address] 61683- 7362 14 Aug, 2016 [place] [address] [place] [id number] [place] [address] 57539- 1570 13 Aug, 2016 Seasonal allergic rhinitis due to pollen J30.1 [facility] [address] [place] [id number] [place] [address] 78409 -2083 Aug, Impacted cerumen of right ear H61.21 and Seasonal allergic rhinitis due to pollen J30.1 [facility] [address] [place] [id number] [place] [address] 53972- 4501 Aug, [facility] [address] [place] [id number] [place] [address] 71155- 3520 Aug, [facility] [address] [place] [id number] [place] [address] 86958- 0964 Jul, Type 2 diabetes mellitus without complication, without long- term current use of insulin E11.9 ; Anxiety F41.9 ; Essential hypertension I10 and Encounter for immunization Z23 [facility] [address] [place] [id number] [place] [address] 97943- 1089 Jul, Essential hypertension I10 [place] [address] 36419- 2270 Jul, [facility] [address] [place] [id number] [place] [address] 44309- 2710 Jul, [facility] [address] [place] [id number] [place] [address] 18902- 1914 Jul, Essential hypertension I10 [facility] [address] [place] [id number] [place] [address] 78593- 2524 Jul, [facility] [address] [place] [id number] [place] [address] 40111- 7404 May, [facility] [address] [place] [id number] [place] [address] 43488- 0751 May, [facility] [address] 00462- 8658 Apr, [facility] [address] [place] [id number] [place] [address] 01023- 6535 Apr, [facility] [address] [place] [id number] [place] [address] 59793- 4804 Apr, [facility] [address] [facility] [id number] [place] [address]- 4362 Apr, Type 2 diabetes mellitus without complication, without long- term current use of insulin E11.9 ; Essential hypertension I10 ; Acute non- recurrent maxillary sinusitis J01.00 ; Arthritis M19.90 ; Lumbago with sciatica , left side M54.42 ; Other chronic pain G89.29 and Anxiety F41.9 IMMUNIZATIONS No Known Immunizations SOCIAL HISTORY Never Assessed REASON FOR VISIT Medication question PLAN OF CARE VITAL SIGNS MEDICATIONS Unknown [...]
--- OUTSIDE RECORDS SUMMARY | 2018-11-02 12:37 | XMS REPORT ---
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 [facility] Address [address] [place] [address] Care Team Providers Care Environmental Technician Name Role Phone AMBER CHILDERS Unavailable PROBLEMS Type Condition ICD9-CM Code UHB71-QS Code Onset Dates Condition Status SNOMED Code Assessment Encounter for immunization Z23 Jul, Active 295750239 Problem Type 2 diabetes mellitus without complication, without long-term current use of insulin E11.9 Active 462300125 Problem Essential hypertension I10 Active 36744070 Problem Anxiety F41.9 Active 40143649 Assessment Type 2 diabetes mellitus without complication, without long-term current use of insulin E11.9 Jul, Active 229049598 Problem Arthritis M19.90 Active 1259292 Problem Lumbago with sciatica, left side M54.42 Active 664033413 ALLERGIES Substance Reaction Event Type Date Status N.K.D.A. Unknown Non Drug Allergy Jul, Unknown SOCIAL HISTORY No smoking Hx information available PLAN OF CARE VITAL SIGNS Height 56 in 2016-08-22 Weight 177.3 lbs 2016-08-22 Heart Rate 58 bpm 2016-08-22 Respiratory Rate 18 2016-08-22 BMI 39.75 kg/m2 2016-08-22 Blood pressure systolic 114 mmHg 2016-08-22 Blood pressure diastolic 58 mmHg 2016-08-22 MEDICATIONS Medication Instructions Dosage Frequency Start Date End Date Duration Status Timolol 0.5 % Ophthalmic Twice a day 1 drop into affected eye 12h Active Aspir-81 81 MG Orally Once a day 1 tablet 24h Active Alprazolam 0.5 MG Orally Three times a day 1 tablet 8h Active ProAir HFA 108 (90 Base) MCG/ACT Inhalation every 4 hrs 2 puffs as needed 4h Active Tramadol-Acetaminophen 37.5-325 MG Orally every 4 hrs 2 tablets as needed 4h Active Hydrochlorothiazide 25 MG Orally Once a day 1 tablet 24h Active Acetaminophen 500 MG Orally every 6 hrs 2 capsules as needed 6h Active Lisinopril 5 mg Orally Once a day 1 tablet 24h Active Xanax 0.5 TAKE ONE TABLET BY MOUTH THREE TIMES A DAY NEEDED FOR ANXIETY 30 Active Glimepiride 4 MG Orally Once a day 1 tablet with breakfast or the first main meal of the day 24h Active Metoprolol Tartrate 25 MG Orally Twice a day 1 tablet with food 12h Active Metformin HCl 500 MG Orally Twice a day 1 tablet with meals 12h Active RESULTS Name Result Date Reference Range A1C (IN HOUSE) 2016-08-22 A1C IN HOUSE 6.7 4.3 - 5.6 % Previous A1c Lot [id number] Exp date 05/2018 PROCEDURES Procedure Date Ordered Related Diagnosis Body Site GLYCATED HEMOGLOBIN TEST Aug 22, 2016 [facility] VISIT ESTABLISHED PATIENT Aug 22, 2016 PCV 13 Aug 22, 2016 Office Visit, Est Pt., Level 3 Aug 22, 2016 SINGLE IMMUNIZATION ADMIN Aug 22, 2016 IMMUNIZATIONS Vaccine Route Administration Date Status PCV 13 IM Intramuscular Aug 22, 2016 Administered
--- OUTSIDE RECORDS SUMMARY | 2018-11-02 12:37 | XMS REPORT ---
Author Author ABMER CHILDERS Organization [facility] Address [address] [place] [address] Care Team Providers Care Tunnel Man Name Role Phone AMBER CHILDERS Unavailable PROBLEMS Type Condition ICD9-CM Code QMG03-OQ Code Onset Dates Condition Status SNOMED Code Problem Essential hypertension I10 Active 97388478 Problem Type 2 diabetes mellitus without complication, without long-term current use of insulin E11.9 Active 739362136 Problem Anxiety F41.9 Active 74809207 Problem Lumbago with sciatica, left side M54.42 Active 191020404 Problem Arthritis M19.90 Active 3018614 Problem Iron deficiency anemia, unspecified iron deficiency anemia type D50.9 Active 02996335 Problem Venous insufficiency I87.2 Active 76297732 Problem Gastroesophageal reflux disease, esophagitis presence not specified K21.9 Active 585031990 Problem Seasonal allergic rhinitis due to pollen J30.1 Active 19114621 Problem Anemia of chronic disease D63.8 Active 250661804 Problem Chronic kidney disease, stage 3 (moderate) N18.3 Active 958403983 ALLERGIES No Information ENCOUNTERS Encounter Location Date Diagnosis [place] [address] [id number] [place] [address] 93696- 0892 January, [facility] [address] [place] [id number] [place] [address] 06331- 6478 January, [facility] [id number] [place] [address] 46816- 3387 January, Medicare annual wellness visit, initial Z00.00 ; Type 2 diabetes mellitus without complication, without long-term current use of insulin E11.9 ; Chronic kidney disease, stage 3 (moderate) N18.3 ; Essential hypertension I10 ; Gastroesophageal reflux disease, esophagitis presence not specified K21.9 ; Anxiety F41.9 ; Arthritis M19.90 and Encounter for immunization Z23 [place] [id number] [place] [address] 70537- 7687 January, Essential hypertension I10 [facility] [address] 54490- 5188 Dec, Arthritis M19.90 [facility] [address] [place] [id number] [place] [address] 66570- 5558 Dec, [facility] [address] 00972- 2422 Dec, [facility] [address] [place] [id number] [place] [address] 91463- 5775 Dec, Essential hypertension I10 [facility] [address] [place] [id number] [place] [address] 23169 -4678 Nov, Dysuria R30.0 and Vaginal kai B37.3 [place] [address] 22048- 0927 Nov, Arthritis M19.90 [facility] [address] [place] [id number] [place] [address] 36682- 0303 Oct, [place] [address] [place] [id number] [place] [address] 77204- 1850 Oct, Type 2 diabetes mellitus without complication, without long- term current use of insulin E11.9 ; Lumbago with sciatica, left side M54.42 ; Arthritis M19.90 ; Iron deficiency anemia, unspecified iron deficiency anemia type D50.9 and BMI 40.0-44.9, adult Z68.41 [facility] [address] [place] [id number] [place] [address] 18395- 7429 Sep, [place] [address] [place] [id number] [place] [address] 50699- 4391 Sep, [place] [address] [place] [id number] [place] [address] 97437- 7776 Sep, Arthritis M19.90 and Anxiety F41.9 [place] [address] [place] [id number] [place] [address] 49229- 1900 Sep, [facility] [address] [place] [id number] [place] [address] 26842- 1011 Aug, Anxiety F41.9 [facility] [address] [place] [id number] [place] [address] 02430- 0184 Jul, [facility] [address] 19623- 7393 Jul, [facility] [address] [place] [id number] [place] [address] 12771- 3841 Jul, Vaginal yeast infection B37.3 [facility] [address] [place] [id number] [place] [address] 17972- 8447 Jul, Anxiety F41.9 [facility] [address] [place] [id number] [place] [address] 00760- 6182 Jul, Type 2 diabetes mellitus without complication, without long- term current use of insulin E11.9 [facility] [address] [place] [id number] [place] [address] 84111- 8960 Jul, [facility] [address] [place] [id number] [place] [address] 11710- 6581 Jul, [facility] [address] [place] [id number] [place] [address] 85145- 0202 Jun, Arthritis M19.90 [facility] [address] [place] [id number] [place] [address] 97842- 0535 Jun, [facility] [address] [place] [id number] [place] [address] 63139- 7024 Jun, [facility] [address] [place] [id number] [place] [address] 22721- 4732 May, [facility] [id number] [place] [address] 18425- 0900 Apr, Venous insufficiency I87.2 and Venous stasis dermatitis of right lower extremity I87.2 [place] [id number] [place] [address] 17931- 5912 Apr, Essential hypertension I10 [place] [address] [place] [id number] [place] [address] 78908- 8045 Mar, [place] [address] [place] [id number] [place] [address] 23395- 0251 Mar, Type 2 diabetes mellitus without complication, without long- term current use of insulin E11.9 and Essential hypertension I10 [place] [address] [place] [id number] [place] [address] 66223- 4796 Mar, Essential hypertension I10 and Type 2 diabetes mellitus without complication, without long-term current use of insulin E11.9 [place] [address] [place] [id number] [place] [address] 59550- 9684 Mar, Chronic kidney disease, stage 3 (moderate) N18.3 ; Anemia of chronic disease D63.8 and Type 2 diabetes mellitus without complication, without long-term current use of insulin E11.9 [place] [address] [place] [id number] [place] [address] 05284- 3006 Mar, Type 2 diabetes mellitus without complication, without long- term current use of insulin E11.9 ; Iron deficiency anemia secondary to inadequate dietary iron intake D50.8 ; Arthritis M19.90 and Lumbago with sciatica, left side M54.42 [place] [id number] [place] [address] 14559- 9614 Feb, Arthritis M19.90 and Anxiety F41.9 [place] [id number] [place] [address] 91876- 4071 Feb, Type 2 diabetes mellitus without complication, without long- term current use of insulin E11.9 and Essential hypertension I10 [place] [id number] [place] [address] 28462- 6358 January, Anxiety F41.9 [place] [address] [place] [id number] [place] [address] 50300- 9551 January, Jaja villeda B37.2 [facility] [address] [place] [id number] [place] [address] 51542- 1333 January, [facility] [address] [place] [id number] [place] [address] 83441- 0550 January, [facility] [address] [place] [id number] [place] [address] 92099- 3838 January, [facility] [address] [place] [id number] [place] [address] 99740- 3918 January, Gastroesophageal reflux disease, esophagitis presence not specified K21.9 [place] [address] [place] [id number] [place] [address] 99066- 4237 January, Arthritis M19.90 [place] [address] [place] [id number] [place] [address] 47146- 1166 January, Anxiety F41.9 ; Arthritis M19.90 and Essential hypertension I10 [place] [address] [place] [id number] [place] [address] 21663- 4013 January, Essential hypertension I10 and Anxiety F41.9 [place] [address] [place] [id number] [place] [address] 22030- 2917 Dec, [place] [address] [place] [id number] [place] [address] 47605- 1364 Dec, Arthritis M19.90 and Anxiety F41.9 [place] [address] [place] [id number] [place] [address] 94957- 5462 Dec, Type 2 diabetes mellitus without complication, without long- term current use of insulin E11.9 ; Cellulitis of right lower extremity L03.115 and Arthritis M19.90 [place] [address] [place] [id number] [place] [address] 93784- 4616 Nov, [place] [address] [place] [id number] [place] [address] 49884- 4704 Nov, Type 2 diabetes mellitus without complication, without long- term current use of insulin E11.9 ; Bronchitis J40 and Arthritis M19.90 [place] [address] [place] [id number] [place] [address] 32390- 1585 Nov, [place] [address] [place] [id number] [place] [address] 98882- 3000 Oct, Anxiety F41.9 [facility] [place] [address] 27135 -3072 Sep, Dysuria R30.0 ; Acute cystitis with hematuria N30.01 and Vaginal yeast infection B37.3 [place] [address] [place] [id number] [place] [address] 12833- 9673 Sep, Arthritis M19.90 [facility] [place] [address] [place] [id number] [place] [address] 25908 -3203 Sep, Strep pharyngitis J02.0 and Sore throat J02.9 [place] [address] 03976- 1475 Sep, [place] [address] [place] [id number] [place] [address] 09807- 9814 Sep, Type 2 diabetes mellitus without complication, without long- term current use of insulin E11.9 [place] [address] [place] [id number] [place] [address] 28212- 7055 Aug, [place] [address] [place] [id number] [place] [address] 19202- 4142 Aug, Seasonal allergic rhinitis due to pollen J30.1 [facility] [place] [address] [place] [id number] [place] [address] 42879 -0817 Aug, Impacted cerumen of right ear H61.21 and Seasonal allergic rhinitis due to pollen J30.1 [place] [address] [place] [id number] [place] [address] 55414- 6076 Aug, [place] [address] 26810- 6239 Aug, [facility] [address] [address]- 1585 Jul, Type 2 diabetes mellitus without complication, without long- term current use of insulin E11.9 ; Anxiety F41.9 ; Essential hypertension I10 and Encounter for immunization Z23 [facility] [address] [place] [id number] [place] [address] 96740- 8860 Jul, Essential hypertension I10 [facility] [address] [place] [id number] [place] [address] 20926- 6108 Jul, [facility] [address] [place] [id number] [place] [address] 36278- 2921 Jul, [facility] [address] [place] [id number] [place] [address] 56324- 0405 Jul, Essential hypertension I10 [facility] [address] [place] [id number] [place] [address] 74861- 4542 Jul, [facility] [address] [place] [id number] [place] [address] 53363- 2828 May, [facility] [address] [place] [id number] [place] [address] 88887- 2580 May, [facility] [address] [place] [id number] [place] [address] 99786- 8816 Apr, [facility] [id number] [place] [address] 78737- 8668 Apr, [facility] [address] [place] [id number] [place] [address] 85371- 7361 Apr, [facility] [address] [place] [id number] [place] [address] 48465- 3470 Apr, Type 2 diabetes mellitus without complication, without long- term current use of insulin E11.9 ; Essential hypertension I10 ; Acute non- recurrent maxillary sinusitis J01.00 ; Arthritis M19.90 ; Lumbago with sciatica , left side M54.42 ; Other chronic pain G89.29 and Anxiety F41.9 IMMUNIZATIONS No Known Immunizations SOCIAL HISTORY Never Assessed REASON FOR VISIT Medication request PLAN OF CARE VITAL SIGNS MEDICATIONS Medication Instructions Dosage Frequency Start Date End Date Duration Status Monistat 1 Combo Pack 1200 & 2 MG & % Vaginal Once a day use insert and cream 24h Jul, Active RESULTS No Results PROCEDURES [...]
--- OUTSIDE RECORDS SUMMARY | 2018-11-02 12:37 | XMS REPORT ---
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 [facility] Address [address] [place] [address] Care Team Providers Care Hoop Riveter Name Role Phone AMBER CHILDERS Unavailable PROBLEMS Type Condition ICD9-CM Code AIX00-YC Code Onset Dates Condition Status SNOMED Code Problem Type 2 diabetes mellitus without complication, without long-term current use of insulin E11.9 Active 400748791 Problem Essential hypertension I10 Active 65978652 Problem Anxiety F41.9 Active 25049674 Problem Arthritis M19.90 Active 6199527 Problem Lumbago with sciatica, left side M54.42 Active 545478366 ALLERGIES Unknown Allergies SOCIAL HISTORY No smoking Hx information available PLAN OF CARE VITAL SIGNS MEDICATIONS Medication Instructions Dosage Frequency Start Date End Date Duration Status Clotrimazole 1 % Externally Twice a day 1 application to affected area 12h 23 May, 2016 Jun, 28 day(s) Active RESULTS No Results PROCEDURES No Known procedures IMMUNIZATIONS No Known Immunizations
--- OUTSIDE RECORDS SUMMARY | 2018-11-02 12:37 | XMS REPORT ---
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 [employer] Address Unknown Phone Unavailable Care Team Providers Care Branch Operations Coordinator Name Role Phone AMBER CHILDERS CP Unavailable [...] Instructions Start Date End Date Status Dosage Tramadol-Acetaminophen [facility] [address]-46 37.5-325 MG Orally every 4 hrs 2 tablets as needed Results No Known Results Summary Purpose [employer] Submission
--- OUTSIDE RECORDS SUMMARY | 2018-11-02 12:37 | XMS REPORT ---
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 [facility] Address [address] [place] [address] Care Team Providers Care Hand Bulldozer Name Role Phone AMBER CHILDERS Unavailable PROBLEMS Type Condition ICD9-CM Code UOT95-EG Code Onset Dates Condition Status SNOMED Code Problem Anxiety F41.9 Active 60675905 Problem Arthritis M19.90 Active 6508930 Problem Lumbago with sciatica, left side M54.42 Active 958248199 Problem Chronic kidney disease, stage 3 (moderate) N18.3 Active 174530197 Problem Anemia of chronic disease D63.8 Active 431807684 Problem Type 2 diabetes mellitus without complication, without long-term current use of insulin E11.9 Active 131870507 Problem Essential hypertension I10 Active 67910664 Problem Gastroesophageal reflux disease, esophagitis presence not specified K21.9 Active 832477567 Problem Seasonal allergic rhinitis due to pollen J30.1 Active 05662842 ALLERGIES Unknown Allergies SOCIAL HISTORY No smoking Hx information available PLAN OF CARE VITAL SIGNS MEDICATIONS Unknown Medications RESULTS No Results PROCEDURES No Known procedures IMMUNIZATIONS No Known Immunizations
--- OUTSIDE RECORDS SUMMARY | 2018-11-02 12:38 | XMS REPORT ---
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 [facility] Address [address] [place] [address] Care Team Providers Care Locum Tenens Psychiatrist Name Role Phone AMBER CHILDERS Unavailable PROBLEMS Type Condition ICD9-CM Code YTY05-FE Code Onset Dates Condition Status SNOMED Code Problem Arthritis M19.90 Active 0469676 Problem Anxiety F41.9 Active 71941276 Problem Essential hypertension I10 Active 72446906 Problem Lumbago with sciatica, left side M54.42 Active 099641521 Problem Venous insufficiency I87.2 Active 39308978 Problem Anemia of chronic disease D63.8 Active 485994656 Problem Seasonal allergic rhinitis due to pollen J30.1 Active 93039056 Problem Type 2 diabetes mellitus without complication, without long-term current use of insulin E11.9 Active 556806187 Problem Chronic kidney disease, stage 3 (moderate) N18.3 Active 616954371 Problem Gastroesophageal reflux disease, esophagitis presence not specified K21.9 Active 066158129 ALLERGIES No Information SOCIAL HISTORY Never Assessed PLAN OF CARE VITAL SIGNS MEDICATIONS Unknown [...]
--- OUTSIDE RECORDS SUMMARY | 2018-11-02 12:38 | XMS REPORT ---
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 [facility] Address [address] [place] [address] Care Team Providers Care Crank Hand Name Role Phone AMBER CHILDERS Unavailable PROBLEMS Type Condition ICD9-CM Code LXG30-XE Code Onset Dates Condition Status SNOMED Code Problem Essential hypertension I10 Active 31416230 Problem Type 2 diabetes mellitus without complication, without long-term current use of insulin E11.9 Active 244608264 Problem Anxiety F41.9 Active 73563344 Problem Lumbago with sciatica, left side M54.42 Active 367260212 Problem Arthritis M19.90 Active 3871108 Problem Iron deficiency anemia, unspecified iron deficiency anemia type D50.9 Active 83430628 Problem Venous insufficiency I87.2 Active 19935446 Problem Gastroesophageal reflux disease, esophagitis presence not specified K21.9 Active 815354437 Problem Seasonal allergic rhinitis due to pollen J30.1 Active 61555989 Problem Anemia of chronic disease D63.8 Active 476665189 Problem Chronic kidney disease, stage 3 (moderate) N18.3 Active 548382289 ALLERGIES No Information ENCOUNTERS Encounter Location Date Diagnosis [facility] [id number] [place] [address] 40893- 7272 Dec, Essential hypertension I10 [facility] [id number] [place] [address] 65857 -8624 Nov, Dysuria R30.0 and Vaginal kai B37.3 [facility] [address] [id number] [place] [address] 62651- 8186 Nov, Arthritis M19.90 [facility] [id number] [place] [address] 60165- 7077 Oct, [facility] [id number] [place] [address] 36551- 0280 Oct, Type 2 diabetes mellitus without complication, without long- term current use of insulin E11.9 ; Lumbago with sciatica, left side M54.42 ; Arthritis M19.90 ; Iron deficiency anemia, unspecified iron deficiency anemia type D50.9 and BMI 40.0-44.9, adult Z68.41 [facility] [id number] [place] [address] 72012- 2791 Sep, [place] [address] 53042- 9060 Sep, [place] [address] 84599- 7277 Sep, Arthritis M19.90 and Anxiety F41.9 [place] [address] 93047- 6531 Sep, [place] [address] 26932- 1375 Aug, Anxiety F41.9 [place] [address] 45693- 9903 Jul, [place] [address] 09729- 5765 Jul, [place] [address] [place] [id number] [place] [address] 65177- 4936 Jul, Vaginal yeast infection B37.3 [place] [address] 93040- 8315 Jul, Anxiety F41.9 [place] [id number] [place] [address] 76384- 9670 Jul, Type 2 diabetes mellitus without complication, without long- term current use of insulin E11.9 [place] [address] [id number] [place] [address] 58449- 9866 Jul, [place] [address] 98226- 2403 Jul, [place] [address] [address] 9140 Jun, Arthritis M19.90 [place] [address] [id number] [place] [address] 88592- 8267 Jun, [place] [address] [address]- 7476 Jun, [place] [address] [id number] [place] [address] 40508- 1455 May, [place] [address] [id number] [place] [address] 75946- 7982 Apr, Venous insufficiency I87.2 and Venous stasis dermatitis of right lower extremity I87.2 [place] [id number] [place] [address] 36655- 0602 Apr, Essential hypertension I10 [place] [address] [id number] [place] [address] 63816- 8353 Mar, [place] [address] [id number] [place] [address] 49740- 9920 Mar, Type 2 diabetes mellitus without complication, without long- term current use of insulin E11.9 and Essential hypertension I10 [place] [address] [address]- 5125 Mar, Essential hypertension I10 and Type 2 diabetes mellitus without complication, without long-term current use of insulin E11.9 [place] [address] [address]- 3091 Mar, Chronic kidney disease, stage 3 (moderate) N18.3 ; Anemia of chronic disease D63.8 and Type 2 diabetes mellitus without complication, without long-term current use of insulin E11.9 [place] [address] [address]- 7695 Mar, Type 2 diabetes mellitus without complication, without long- term current use of insulin E11.9 ; Iron deficiency anemia secondary to inadequate dietary iron intake D50.8 ; Arthritis M19.90 and Lumbago with sciatica, left side M54.42 [facility] [id number] [place] [address] 22666- 8598 Feb, Arthritis M19.90 and Anxiety F41.9 [facility] [id number] [place] [address] 50353- 5063 Feb, Type 2 diabetes mellitus without complication, without long- term current use of insulin E11.9 and Essential hypertension I10 [facility] [address] [id number] [place] [address] 72506- 7436 January, Anxiety F41.9 [place] [address] 41705- 6281 January, Monilial rash B37.2 [place] [address] 40207- 9826 January, [facility] [address] 47661- 4876 January, [facility] [address] 66604- 0933 January, [facility] [address] 51878- 5755 January, Gastroesophageal reflux disease, esophagitis presence not specified K21.9 [facility] [id number] [place] [address] 02637- 4623 January, Arthritis M19.90 [facility] [id number] [place] [address] 72030- 9559 January, Anxiety F41.9 ; Arthritis M19.90 and Essential hypertension I10 [facility] [address] 84682- 6720 January, Essential hypertension I10 and Anxiety F41.9 [facility] [id number] [place] [address] 73513- 8839 Dec, [place] [id number] [place] [address] 61456- 0806 Dec, Arthritis M19.90 and Anxiety F41.9 [place] [address] 38238- 4883 Dec, Type 2 diabetes mellitus without complication, without long- term current use of insulin E11.9 ; Cellulitis of right lower extremity L03.115 and Arthritis M19.90 [place] [address] 84417- 4143 Nov, [place] [address] 21665- 0305 Nov, Type 2 diabetes mellitus without complication, without long- term current use of insulin E11.9 ; Bronchitis J40 and Arthritis M19.90 [place] [id number] [place] [address] 02291- 3822 Nov, [place] [address] 61742- 1946 Oct, Anxiety F41.9 [facility] [address] 60170 -6229 Sep, Dysuria R30.0 ; Acute cystitis with hematuria N30.01 and Vaginal yeast infection B37.3 [place] [id number] [place] [address] 12617- 7811 Sep, Arthritis M19.90 [facility] [id number] [place] [address] 12795 -5901 Sep, Strep pharyngitis J02.0 and Sore throat J02.9 [place] [address] 25006- 8721 Sep, [place] [address] 02662- 1031 Sep, Type 2 diabetes mellitus without complication, without long- term current use of insulin E11.9 [place] [id number] [place] [address] 66859- 6692 Aug, [facility] [id number] [place] [address] 40612- 3810 Aug, Seasonal allergic rhinitis due to pollen J30.1 [facility] [id number] [place] [address] 16941 -5154 Aug, Impacted cerumen of right ear H61.21 and Seasonal allergic rhinitis due to pollen J30.1 [facility] [id number] [place] [address] 22327- 7190 Aug, [facility] [address] 21457- 6014 Aug, [facility] [id number] [place] [address] 93246- 4005 Jul, Type 2 diabetes mellitus without complication, without long- term current use of insulin E11.9 ; Anxiety F41.9 ; Essential hypertension I10 and Encounter for immunization Z23 [facility] [id number] [place] [address] 99114- 3477 Jul, Essential hypertension I10 [place] [id number] [place] [address] 17821- 0547 Jul, [facility] [id number] [place] [address] 65502- 8750 Jul, [facility] [id number] [place] [address] 44101- 4621 Jul, Essential hypertension I10 [facility] [address] [id number] [place] [address] 63019- 3181 Jul, [place] [address] 24141- 9085 May, [facility] [id number] [place] [address] 98997- 6586 May, [facility] [address] [place] [place] [address]- 6303 Apr, [facility] [address] [facility] [id number] [address]- 3274 Apr, [facility] [address] [facility] [id number] [address]- 4179 Apr, [facility] [address] [facility] [id number] [address]- 3307 Apr, Type 2 diabetes mellitus without complication, without long- term current use of insulin E11.9 ; Essential hypertension I10 ; Acute non- recurrent maxillary sinusitis J01.00 ; Arthritis M19.90 ; Lumbago with sciatica , left side M54.42 ; Other chronic pain G89.29 and Anxiety F41.9 IMMUNIZATIONS No Known Immunizations SOCIAL HISTORY Never Assessed REASON FOR VISIT 90 Day supply PLAN OF CARE VITAL SIGNS MEDICATIONS Medication Instructions Dosage Frequency Start Date End Date Duration Status Lisinopril 5 mg Orally Once a day 1 tablet 24h Active Glimepiride 2 MG Orally Once a day 1 tablet with breakfast or the first main meal of the day 24h Mar, 90 days Active RESULTS No Results PROCEDURES No [...]
--- OUTSIDE RECORDS SUMMARY | 2018-11-02 12:38 | XMS REPORT ---
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 [facility] Address [address] [place] [address] Care Team Providers Care Cantilever Crane Operator Name Role Phone AMBER CHILDERS Unavailable PROBLEMS Type Condition ICD9-CM Code WPU04-RY Code Onset Dates Condition Status SNOMED Code Problem Essential hypertension I10 Active 49461261 Problem Type 2 diabetes mellitus without complication, without long-term current use of insulin E11.9 Active 214138650 Problem Anxiety F41.9 Active 68017301 Problem Lumbago with sciatica, left side M54.42 Active 883022048 Problem Arthritis M19.90 Active 5772468 Problem Iron deficiency anemia, unspecified iron deficiency anemia type D50.9 Active 11908110 Problem Venous insufficiency I87.2 Active 48518454 Problem Gastroesophageal reflux disease, esophagitis presence not specified K21.9 Active 255597904 Problem Seasonal allergic rhinitis due to pollen J30.1 Active 82740803 Problem Anemia of chronic disease D63.8 Active 991560580 Problem Chronic kidney disease, stage 3 (moderate) N18.3 Active 560725014 ALLERGIES No Information ENCOUNTERS Encounter Location Date Diagnosis [place] [id number] [address]- 3384 Feb, [place] [address] [place] [id number] [place] [address] 28022- 2922 January, [place] [id number] [place] [address] 21893- 2710 January, [place] [address] [place] [address] [id number] [place] [address] 55562- 7712 January, Medicare annual wellness visit, initial Z00.00 ; Type 2 diabetes mellitus without complication, without long-term current use of insulin E11.9 ; Chronic kidney disease, stage 3 (moderate) N18.3 ; Essential hypertension I10 ; Gastroesophageal reflux disease, esophagitis presence not specified K21.9 ; Anxiety F41.9 ; Arthritis M19.90 and Encounter for immunization Z23 [place] [address] 93143- 0812 January, Essential hypertension I10 [place] [address] 56503- 2342 Dec, Arthritis M19.90 [place] [address] 70252- 6989 Dec, [place] [address] 94059- 6677 Dec, [place] [address] 64116- 9185 Dec, Essential hypertension I10 [facility] [address] 50211 -1066 Nov, Dysuria R30.0 and Vaginal kai B37.3 [place] [address] 70279- 4668 Nov, Arthritis M19.90 [place] [address] 31551- 7549 Oct, [place] [address] 46699- 1531 Oct, Type 2 diabetes mellitus without complication, without long- term current use of insulin E11.9 ; Lumbago with sciatica, left side M54.42 ; Arthritis M19.90 ; Iron deficiency anemia, unspecified iron deficiency anemia type D50.9 and BMI 40.0-44.9, adult Z68.41 [place] [address] 30569- 7148 Sep, [place] [address] 11150- 6917 Sep, [place] [address] 83411- 6684 Sep, Arthritis M19.90 and Anxiety F41.9 [facility] [place] [address] 95349- 9524 Sep, [facility] [address] [place] [id number] [place] [address] 07972- 3771 Aug, Anxiety F41.9 [facility] [address] 55458- 7314 Jul, [facility] [address] 92174- 4003 Jul, [facility] [address] 47599- 5398 Jul, Vaginal yeast infection B37.3 [facility] [address] 96371- 2886 Jul, Anxiety F41.9 [facility] [place] [address] 50587- 7108 Jul, Type 2 diabetes mellitus without complication, without long- term current use of insulin E11.9 [facility] [place] [address] [place] [id number] [place] [address] 74471- 3429 Jul, [facility] [place] [address] [place] [id number] [place] [address] 85980- 5440 Jul, [facility] [place] [address] [place] [id number] [place] [address] 60250- 1928 Jun, Arthritis M19.90 [facility] [place] [address] [place] [id number] [place] [address] 26992- 8037 Jun, [facility] [place] [address] [place] [address] [id number] [place] [address] 40546- 4672 Jun, [facility] [place] [address] [place] [id number] [place] [address] 90341- 0858 May, [facility] [place] [address] 07368- 4540 Apr, Venous insufficiency I87.2 and Venous stasis dermatitis of right lower extremity I87.2 [place] [address] [place] [id number] [place] [address] 86245- 3086 Apr, Essential hypertension I10 [place] [address] [place] [address] [id number] [place] [address] 46386- 0777 Mar, [place] [address] [place] [address] [id number] [place] [address] 67795- 4640 Mar, Type 2 diabetes mellitus without complication, without long- term current use of insulin E11.9 and Essential hypertension I10 [place] [id number] [place] [address] 08304- 1086 Mar, Essential hypertension I10 and Type 2 diabetes mellitus without complication, without long-term current use of insulin E11.9 [place] [id number] [place] [address] 92737- 7686 Mar, Chronic kidney disease, stage 3 (moderate) N18.3 ; Anemia of chronic disease D63.8 and Type 2 diabetes mellitus without complication, without long-term current use of insulin E11.9 [place] [address] [place] [address] [id number] [place] [address] 97409- 8989 Mar, Type 2 diabetes mellitus without complication, without long- term current use of insulin E11.9 ; Iron deficiency anemia secondary to inadequate dietary iron intake D50.8 ; Arthritis M19.90 and Lumbago with sciatica, left side M54.42 [place] [id number] [place] [address] 35180- 1214 Feb, Arthritis M19.90 and Anxiety F41.9 [place] [id number] [place] [address] 75992- 8488 Feb, Type 2 diabetes mellitus without complication, without long- term current use of insulin E11.9 and Essential hypertension I10 [place] [id number] [place] [address] 27470- 0313 January, Anxiety F41.9 [facility] [place] [address], [place] [address]- 0070 January, Monfatou rash B37.2 [facility] [place] [address] [place] [address] [id number] [place] [address] 93608- 8959 January, [facility] [place] [address] [place] [id number] [place] [address] 51914- 8407 January, [facility] [place] [address] [place] [id number] [place] [address] 57610- 1263 January, [facility] [place] [address] [place] [id number] [place] [address] 21147- 4827 January, Gastroesophageal reflux disease, esophagitis presence not specified K21.9 [facility] [place] [address] [place] [id number] [place] [address] 44476- 7346 January, Arthritis M19.90 [place] [address] 97009- 2567 January, Anxiety F41.9 ; Arthritis M19.90 and Essential hypertension I10 [place] [address] [place] [address] [id number] [place] [address] 64996- 6889 January, Essential hypertension I10 and Anxiety F41.9 [facility] [place] [address] [place] [id number] [place] [address] 55347- 0346 Dec, [facility] [place] [address] [place] [address] [id number] [place] [address] 67896- 2739 Dec, Arthritis M19.90 and Anxiety F41.9 [facility] [place] [address] [place] [address] [id number] [place] [address] 41052- 4226 Dec, Type 2 diabetes mellitus without complication, without long- term current use of insulin E11.9 ; Cellulitis of right lower extremity L03.115 and Arthritis M19.90 [facility] [place] [address] [place] [id number] [place] [address] 40054- 7320 Nov, [facility] [place] [address] 40967- 8283 Nov, Type 2 diabetes mellitus without complication, without long- term current use of insulin E11.9 ; Bronchitis J40 and Arthritis M19.90 [place] [address] 50859- 7643 16 Nov, 2016 [place] [address] 75564- 6968 Oct, Anxiety F41.9 [facility] [place] [address] 58222 -9933 Sep, Dysuria R30.0 ; Acute cystitis with hematuria N30.01 and Vaginal yeast infection B37.3 [place] [address] 62638- 7760 Sep, Arthritis M19.90 [facility] [place] [address] 85472 -3574 Sep, Strep pharyngitis J02.0 and Sore throat J02.9 [place] [address] 59490- 0677 Sep, [place] [address] 49366- 4807 Sep, Type 2 diabetes mellitus without complication, without long- term current use of insulin E11.9 [place] [address] 73242- 5109 Aug, [place] [address] 37843- 7591 Aug, Seasonal allergic rhinitis due to pollen J30.1 [facility] [address] 21832 -4566 Aug, Impacted cerumen of right ear H61.21 and Seasonal allergic rhinitis due to pollen J30.[address] 87280- 0984 Aug, [facility] [place] [address] [place] [id number] [place] [address] 21683- 4051 Aug, [facility] [place] [address] [place] [id number] [place] [address] 78245- 9124 Jul, Type 2 diabetes mellitus without complication, without long- term current use of insulin E11.9 ; Anxiety F41.9 ; Essential hypertension I10 and Encounter for immunization Z23 [facility] [place] [address] 63166- 4842 Jul, Essential hypertension I10 [facility] [place] [address] [place] [id number] [place] [address] 70768- 8833 Jul, [facility] [place] [address] [place] [id number] [place] [address] 57366- 4203 Jul, [facility] [place] [address] [place] [id number] [place] [address] 31335- 3400 Jul, Essential hypertension I10 [facility] [place] [address] [place] [id number] [place] [address] 97512- 4853 Jul, [facility] [place] [address] [place] [id number] [place] [address] 62805- 7418 May, [facility] [place] [address] [place] [id number] [place] [address] 70246- 9745 May, [facility] [place] [address] [place] [id number] [place] [address] 51711- 7590 Apr, [facility] [place] [address] [place] [id number] [place] [address] 12012- 5618 Apr, [facility] [place] [address] [place] [id number] [place] [address] 98043- 9482 Apr, [facility] [place] [address] [place] [id number] [place] [address] 94414- 7714 Apr, Type 2 diabetes mellitus without complication, without long- term current use of insulin E11.9 ; Essential hypertension I10 ; Acute non- recurrent maxillary sinusitis J01.00 ; Arthritis M19.90 ; Lumbago with sciatica , left side M54.42 ; Other chronic pain G89.29 and Anxiety F41.9 IMMUNIZATIONS No Known Immunizations SOCIAL HISTORY Never Assessed REASON FOR VISIT Xanax 09/11 PLAN OF CARE VITAL SIGNS MEDICATIONS Medication Instructions Dosage Frequency Start Date End Date Duration Status Alprazolam 0.5 Orally Three times a day 1 tablet 8h 30 Active RESULTS No Results PROCEDURES No [...]
--- OUTSIDE RECORDS SUMMARY | 2018-11-02 12:38 | XMS REPORT ---
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 [facility] Address [address] [place] [address] Care Team Providers Care Logistics Administrator Name Role Phone AMBER CHILDERS Unavailable PROBLEMS Type Condition ICD9-CM Code HRL91-QU Code Onset Dates Condition Status SNOMED Code Problem Arthritis M19.90 Active 9466773 Problem Anxiety F41.9 Active 23518191 Problem Essential hypertension I10 Active 08230065 Problem Lumbago with sciatica, left side M54.42 Active 648627693 Problem Venous insufficiency I87.2 Active 10486058 Problem Anemia of chronic disease D63.8 Active 999167171 Problem Seasonal allergic rhinitis due to pollen J30.1 Active 55877041 Problem Type 2 diabetes mellitus without complication, without long-term current use of insulin E11.9 Active 668061227 Problem Chronic kidney disease, stage 3 (moderate) N18.3 Active 606121385 Problem Gastroesophageal reflux disease, esophagitis presence not specified K21.9 Active 500602770 ALLERGIES No Known Allergies SOCIAL HISTORY Never Assessed PLAN OF CARE Activity Details Follow Up 4 Months Reason: VITAL SIGNS Height 56 in 2016-12-12 Weight 176.2 lbs 2016-12-12 Temperature 97.8 degrees Fahrenheit 2016-12-12 Heart Rate 91 bpm 2016-12-12 Respiratory Rate 22 2016-12-12 Oximetry 95 % 2016-12-12 BMI 39.50 kg/m2 2016-12-12 Blood pressure systolic 128 mmHg 2016-12-12 Blood pressure diastolic 72 mmHg 2016-12-12 MEDICATIONS Medication Instructions Dosage Frequency Start Date End Date Duration Status Metformin HCl 500 MG Orally Twice a day 1 tablet with meals 12h Active Metformin HCl 500 Orally Twice a day 1 tablet with meals 12h 30 Active Aspir-81 81 MG Orally Once a day 1 tablet 24h Active Timolol 0.5 % Ophthalmic Twice a day 1 drop into affected eye 12h Active Flonase Allergy Relief 50 MCG/ACT Nasally Once a day 1 spray in each nostril 24h Aug, 30 day(s) Active Metoprolol Tartrate 25 Orally Twice a day 1 tablet with food 12h 30 Active Lisinopril 5 Orally Once a day 1 tablet 24h 30 Active Glimepiride 4 MG Orally Once a day 1 tablet with breakfast or the first main meal of the day 24h Active Metoprolol Tartrate 25 MG Orally Twice a day 1 tablet with food 12h Active Lisinopril 5 mg Orally Once a day 1 tablet 24h Active Hydrochlorothiazide 25 MG Orally Once a day 1 tablet 24h Active Xanax 0.5 TAKE ONE TABLET BY MOUTH THREE TIMES A DAY NEEDED FOR ANXIETY 30 Active Cefdinir 300 MG Orally 2 times a day 1 capsule 12h 20 Nov, 2016 Nov, 07 days Active Acetaminophen 500 MG Orally every 6 hrs 2 capsules as needed 6h Active Alprazolam 0.5 MG Orally Three times a day 1 tablet 8h 30 days Active ProAir HFA 108 (90 Base) MCG/ACT Inhalation every 4 hrs 2 puffs as needed 4h Active Tramadol-Acetaminophen 37.5-325 MG Orally every 4 hrs 2 tablets as needed 4h 28 days Active RESULTS Name Result Date Reference Range A1C (IN HOUSE) 2016-12-12 A1C IN HOUSE 6.4 4.3 - 5.6 % Previous A1c 6.7 Lot [id number] Exp date 09/2018 PROCEDURES Procedure Date Ordered Result Body Site MEASURE BLOOD OXYGEN LEVEL December 12, 2016 GLYCATED HEMOGLOBIN TEST December 12, 2016 [facility] ESTABLISHED PATIENT December 12, 2016 IMMUNIZATIONS No Known Immunizations MEDICAL (GENERAL) HISTORY Type Description Date Medical History type II diabetes Medical History hypertension Medical History Arthritis Medical History skin cancer-scalp Surgical History hysterectomy Surgical History skin cancer removal-scalp Hospitalization History Surgery(s) only Hospitalization History dehydration november 2016 Hospitalization History bronchitis november 2106
--- OUTSIDE RECORDS SUMMARY | 2018-11-02 12:39 | XMS REPORT ---
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 [employer] Address Unknown Phone Unavailable Care Team Providers Care Senior Solutions Engineer Name Role Phone MABER CHILDERS Unavailable Allergies No Known Allergies Problems Problem Type Condition Code Onset Dates Condition Status Problem Essential hypertension I10 Active Problem Arthritis M19.90 Active Problem Type 2 diabetes mellitus without complication, without long-term current use of insulin E11.9 Active Problem Lumbago with sciatica, left side M54.42 Active Problem Anxiety F41.9 Active Medications Medication Code System Code Instructions Start Date End Date Status Dosage Lisinopril [facility] [address]-62 5 mg Orally Once a day 1 tablet Results No Known Results Summary Purpose [employer] Submission
--- OUTSIDE RECORDS SUMMARY | 2018-11-02 12:39 | XMS REPORT ---
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 [facility] Address [address] [place] [address] Care Team Providers Care Cork Wirer Name Role Phone AMBER CHILDERS Unavailable PROBLEMS Type Condition ICD9-CM Code [id number] Code Onset Dates Condition Status SNOMED Code Problem Essential hypertension I10 Active 15784679 Problem Type 2 diabetes mellitus without complication, without long-term current use of insulin E11.9 Active 734696384 Problem Anxiety F41.9 Active 71655181 Problem Lumbago with sciatica, left side M54.42 Active 300463031 Problem Arthritis M19.90 Active 5691786 Problem Iron deficiency anemia, unspecified iron deficiency anemia type D50.9 Active 54535569 Problem Venous insufficiency I87.2 Active 34370079 Problem Gastroesophageal reflux disease, esophagitis presence not specified K21.9 Active 056196563 Problem Seasonal allergic rhinitis due to pollen J30.1 Active 06019934 Problem Anemia of chronic disease D63.8 Active 022149777 Problem Chronic kidney disease, stage 3 (moderate) N18.3 Active 654211796 ALLERGIES No Information ENCOUNTERS Encounter Location Date Diagnosis [facility] [id number], [place] [address] Nov, Dysuria R30.0 and Vaginal kai B37.3 [facility] [id number] [place] [address] Nov, Arthritis M19.90 [facility] [address] [place] [id number] [place] [address] Oct, [facility] [id number] [place] [address] Oct, Type 2 diabetes mellitus without complication, without long- term current use of insulin E11.9 ; Lumbago with sciatica, left side M54.42 ; Arthritis M19.90 ; Iron deficiency anemia, unspecified iron deficiency anemia type D50.9 and BMI 40.0-44.9, adult Z68.41 [place] [address] [address] Sep, [place] [address] [place] [address] [id number] [place] [address] Sep, [place] [address] [address] Sep, Arthritis M19.90 and Anxiety F41.9 [place] [address] [address] Sep, [place] [address] [address] Aug, Anxiety F41.9 [place] [address] [address] Jul, [place] [address] [address] Jul, [place] [address] [address] Jul, Vaginal yeast infection B37.3 [place] [address] [place] [id number] [place] [address] 1216 Jul, Anxiety F41.9 [place] [address] [place] [address] [id number] [place] [address] 75219- 4[address] Jul, Type 2 diabetes mellitus without complication, without long- term current use of insulin E11.9 [place] [address] [address] Jul, [place] [address] [place] [id number] [place] [address]- [address] Jul, [place] [address] [place] [address] [id number] [place] [address]- 1007 Jun, Arthritis M19.90 [place] [address], [place] [address] Jun, [place] [address] [place] [id number] [place] [address]- [address] Jun, [place] [address] [place] [address] [id number] [place] [address] 39[address]- 9593 May, [place] [address] [place] [id number] [place] [address] 37096- 1747 Apr, Venous insufficiency I87.2 and Venous stasis dermatitis of right lower extremity I87.2 [place] [address] [id number] [place] [address]64- [address] Apr, Essential hypertension I10 [place] [address] [place] [id number] [place] [address] 91219- 1898 Mar, [place] [address] [place] [id number] [place] [address] 27667- 3056 Mar, Type 2 diabetes mellitus without complication, without long- term current use of insulin E11.9 and Essential hypertension I10 [place] [address] [place] [id number] [place] [address] 11934- 9617 Mar, Essential hypertension I10 and Type 2 diabetes mellitus without complication, without long-term current use of insulin E11.9 [place] [address] [place] [address] [id number] [place] [address] 15178- 2486 Mar, Chronic kidney disease, stage 3 (moderate) N18.3 ; Anemia of chronic disease D63.8 and Type 2 diabetes mellitus without complication, without long-term current use of insulin E11.9 [place] [address] [place] [address] [id number] [place] [address] 03931- 6906 Mar, Type 2 diabetes mellitus without complication, without long- term current use of insulin E11.9 ; Iron deficiency anemia secondary to inadequate dietary iron intake D50.8 ; Arthritis M19.90 and Lumbago with sciatica, left side M54.42 [place] [address] [place] [id number] [place] [address] 75690- 7099 Feb, Arthritis M19.90 and Anxiety F41.9 [facility] [address] [address] Feb, Type 2 diabetes mellitus without complication, without long- term current use of insulin E11.9 and Essential hypertension I10 [facility] [address] [address] January, Anxiety F41.9 [facility] [address] [address]- [address] January, Monilial rash B37.2 [facility] [address] [address]- [address] January, [facility] [address] [address]- [address] January, [facility] [address] 35881- 7[address] January, [facility] [address] [place] [id number] [place] [address] 48165- 5628 January, Gastroesophageal reflux disease, esophagitis presence not specified K21.9 [facility] [id number] [place] [address] 79915- 0618 January, Arthritis M19.90 [facility] [address] [place] [address] [id number] [place] [address] 22973- 9334 January, Anxiety F41.9 ; Arthritis M19.90 and Essential hypertension I10 [facility] [address] [place] [address] [id number] [place] [address] 83415- 4082 January, Essential hypertension I10 and Anxiety F41.9 [facility] [address] [place] [address] [id number] [place] [address] 53238- 5112 Dec, [facility] [address] [place] [address] [id number] [place] [address] 70922- 8120 Dec, Arthritis M19.90 and Anxiety F41.9 [place] [id number] [place] [address] 91675- 4[address] 11 Dec, 2016 Type 2 diabetes mellitus without complication, without long- term current use of insulin E11.9 ; Cellulitis of right lower extremity L03.115 and Arthritis M19.90 [place] [address] [place] [address] [id number] [place] [address] 67650- [address]04 28 Nov, 2016 [place] [address] [address]- [address] 20 Nov, 2016 Type 2 diabetes mellitus without complication, without long- term current use of insulin E11.9 ; Bronchitis J40 and Arthritis M19.90 [place] [address] [place] [id number] [place] [address] 92371- 9950 16 Nov, 2016 [place] [address] [place] [address] [id number] [place] [address] 74267- 2412 24 Oct, 2016 Anxiety F41.9 [facility] [id number] [place] [address]3 Sep, Dysuria R30.0 ; Acute cystitis with hematuria N30.01 and Vaginal yeast infection B37.3 [place] [address] [place] [id number] [place] [address] 01698- 8878 Sep, Arthritis M19.90 [facility] [address] [place] [address] [id number] [place] [address] Sep, Strep pharyngitis J02.0 and Sore throat J02.9 [place] [address] [place] [id number] [place] [address] 51538- 2587 Sep, [place] [address] [place] [id number] [place] [address] 65560- 9482 Sep, Type 2 diabetes mellitus without complication, without long- term current use of insulin E11.9 [place] [address] [place] [address] 52836- 9252 Aug, [place] [address] [place] [id number] [place] [address] 55674- 4945 Aug, Seasonal allergic rhinitis due to pollen J30.1 [facility] [address] [address] Aug, Impacted cerumen of right ear H61.21 and Seasonal allergic rhinitis due to pollen J30.1 [facility] [address] [address]- [address] Aug, [facility] [address] [address]- [address] Aug, [facility] [address] [address]25[address]- [address]67 Jul, Type 2 diabetes mellitus without complication, without long- term current use of insulin E11.9 ; Anxiety F41.9 ; Essential hypertension I10 and Encounter for immunization Z23 [facility] [address] [address]- 5763 Jul, Essential hypertension I10 [facility] [address] [place] [id number] [place] [address] 86621- 7682 Jul, [place] [address] 82477- 6205 Jul, [facility] [address] [place] [address] [id number] [place] [address] 48260- 6459 Jul, Essential hypertension I10 [facility] [id number] [place] [address] 74958- 2482 Jul, [facility] [address] [place] [address] [id number] [place] [address] 81151- 4047 May, [facility] [address] [address]- 2073 May, [facility] [address] [place] [id number] [place] [address] 16465- 8485 Apr, [facility] [address] [place] [address] Apr, [facility] [address] [facility] [id number] [place] [address] Apr, [facility] [address] [facility] [id number] [address] Apr, Type 2 diabetes mellitus without complication, without long- term current use of insulin E11.9 ; Essential hypertension I10 ; Acute non- recurrent maxillary sinusitis J01.00 ; Arthritis M19.90 ; Lumbago with sciatica , left side M54.42 ; Other chronic pain G89.29 and Anxiety F41.9 IMMUNIZATIONS No Known Immunizations SOCIAL HISTORY Never Assessed REASON FOR VISIT anemia PLAN OF CARE VITAL SIGNS MEDICATIONS Medication Instructions Dosage Frequency Start Date End Date Duration Status Glimepiride 2 MG Orally Once a day 1 tablet with breakfast or the first main meal of the day 24h Mar, 30 day(s) Active RESULTS No Results PROCEDURES [...]
--- OUTSIDE RECORDS SUMMARY | 2018-11-02 12:39 | XMS REPORT ---
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 [facility] Address [address] [place] [address] Care Team Providers Care Transition Coach Name Role Phone AMBER CHILDERS Unavailable PROBLEMS Type Condition ICD9-CM Code AOD62-CU Code Onset Dates Condition Status SNOMED Code Problem Arthritis M19.90 Active 4146561 Problem Anxiety F41.9 Active 81493734 Problem Essential hypertension I10 Active 49842622 Problem Lumbago with sciatica, left side M54.42 Active 119350095 Problem Venous insufficiency I87.2 Active 05556029 Problem Anemia of chronic disease D63.8 Active 738462260 Problem Seasonal allergic rhinitis due to pollen J30.1 Active 10017141 Problem Type 2 diabetes mellitus without complication, without long-term current use of insulin E11.9 Active 540649481 Problem Chronic kidney disease, stage 3 (moderate) N18.3 Active 710391226 Problem Gastroesophageal reflux disease, esophagitis presence not specified K21.9 Active 567791967 ALLERGIES No Known Allergies SOCIAL HISTORY Never Assessed PLAN OF CARE Activity Details Follow Up Regular appt Reason: VITAL SIGNS Height 56 in 2017-01-27 Weight 175.4 lbs 2017-01-27 Temperature 97.4 degrees Fahrenheit 2017-01-27 Heart Rate 72 bpm 2017-01-27 Respiratory Rate 20 2017-01-27 BMI 39.32 kg/m2 2017-01-27 Blood pressure systolic 128 mmHg 2017-01-27 Blood pressure diastolic 58 mmHg 2017-01-27 MEDICATIONS Medication Instructions Dosage Frequency Start Date End Date Duration Status ProAir HFA 108 (90 Base) MCG/ACT Inhalation every 4-6 hours as needed 2 puffs as needed 30 days Active Metoprolol Tartrate 25 MG Orally Twice a day 1 tablet with food 12h Active Acetaminophen 500 MG Orally every 6 hrs 2 capsules as needed 6h Active Glimepiride 2 MG Orally Once a day 1 24h Dec, 30 days Active Aspir-81 81 MG Orally Once a day 1 tablet 24h Active Metformin HCl 500 Orally Twice a day 1 tablet with meals 12h 30 Active Lisinopril 5 mg Orally Once a [...] Result Body Site [facility] VISIT ESTABLISHED PATIENT January 27, 2017 IMMUNIZATIONS No Known Immunizations MEDICAL (GENERAL) HISTORY Type Description Date Medical History type II diabetes Medical History hypertension Medical History Arthritis Medical History skin cancer-scalp Surgical History hysterectomy Surgical History skin cancer removal-scalp Hospitalization History Surgery(s) only Hospitalization History dehydration november 2016 Hospitalization History bronchitis november 2106
--- OUTSIDE RECORDS SUMMARY | 2018-11-02 12:39 | XMS REPORT ---
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 [employer] Address Unknown Phone Unavailable Care Team Providers Care Paperhanger And Painter Name Role Phone AMBER CHILDERS Unavailable Allergies No Known Allergies Problems Problem Type Condition Code Onset Dates Condition Status Problem Essential hypertension I10 Active Problem Arthritis M19.90 Active Problem Type 2 diabetes mellitus without complication, without long-term current use of insulin E11.9 Active Problem Lumbago with sciatica, left side M54.42 Active Problem Anxiety F41.9 Active Medications Medication Code System Code Instructions Start Date End Date Status Dosage Metformin HCl [facility] [address]-58 500 MG Orally Twice a day 1 tablet with meals Results No Known Results Summary Purpose [employer] Submission
--- OUTSIDE RECORDS SUMMARY | 2018-11-02 12:39 | XMS REPORT ---
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 [facility] Address [address] [place] [address] Care Team Providers Care Deputy County Clerk Name Role Phone AMBER CHILDERS Unavailable PROBLEMS Type Condition ICD9-CM Code [id number]-[id number] Code Onset Dates Condition Status SNOMED Code Problem Essential hypertension I10 Active 06936549 Problem Type 2 diabetes mellitus without complication, without long-term current use of insulin E11.9 Active 091331183 Problem Anxiety F41.9 Active 43050799 Problem Lumbago with sciatica, left side M54.42 Active 153230734 Problem Arthritis M19.90 Active 3112371 Problem Iron deficiency anemia, unspecified iron deficiency anemia type D50.9 Active 61026087 Problem Venous insufficiency I87.2 Active 86738604 Problem Gastroesophageal reflux disease, esophagitis presence not specified K21.9 Active 032659588 Problem Seasonal allergic rhinitis due to pollen J30.1 Active 52762416 Problem Anemia of chronic disease D63.8 Active 746008512 Problem Chronic kidney disease, stage 3 (moderate) N18.3 Active 597416161 ALLERGIES No Information ENCOUNTERS Encounter Location Date Diagnosis [place] [id number] [place] [address] 27564- 8486 Apr, [place] [id number] [place] [address] 43820- 9208 Mar, Essential hypertension I10 [place] [id number] [place] [address] 48527- 9316 Feb, Type 2 diabetes mellitus without complication, without long- term current use of insulin E11.9 ; Essential hypertension I10 and Anemia of chronic disease D63.8 [place] [id number] [place] [address] 66276- 1011 Feb, Arthritis M19.90 and Essential hypertension I10 [place] [id number] [place] [address] 98862- 6150 January, [facility] [id number] [place] [address] 59979- 4431 January, [facility] [id number] [place] [address] 54536- 1090 January, Medicare annual wellness visit, initial Z00.00 ; Type 2 diabetes mellitus without complication, without long-term current use of insulin E11.9 ; Chronic kidney disease, stage 3 (moderate) N18.3 ; Essential hypertension I10 ; Gastroesophageal reflux disease, esophagitis presence not specified K21.9 ; Anxiety F41.9 ; Arthritis M19.90 and Encounter for immunization Z23 [place] [id number] [place] [address] 80837- 8831 January, Essential hypertension I10 [place] [id number] [place] [address] 57111- 1485 Dec, Arthritis M19.90 [facility] [id number] [place] [address] 58299- 1552 Dec, [facility] [id number] [place] [address] 37232- 6234 Dec, [facility] [id number] [place] [address] 82680- 8167 Dec, Essential hypertension I10 [facility] [id number] [place] [address] 40859 -5464 Nov, Dysuria R30.0 and Vaginal kai B37.3 [facility] [id number] [place] [address] 82905- 4077 Nov, Arthritis M19.90 [facility] [id number] [place] [address] 75458- 9171 Oct, [facility] [id number] [place] [address] 64410- 1272 Oct, Type 2 diabetes mellitus without complication, without long- term current use of insulin E11.9 ; Lumbago with sciatica, left side M54.42 ; Arthritis M19.90 ; Iron deficiency anemia, unspecified iron deficiency anemia type D50.9 and BMI 40.0-44.9, adult Z68.41 [place] [id number] [place] [address] 69294- 9380 Sep, [place] [address] 82788- 6119 Sep, [place] [address] 78291- 5513 Sep, Arthritis M19.90 and Anxiety F41.9 [place] [address] 72432- 7209 Sep, [place] [id number] [place] [address] 63861- 7399 Aug, Anxiety F41.9 [place] [id number] [place] [address] 90996- 3461 Jul, [place] [id number] [place] [address] 28044- 7349 Jul, [place] [id number] [place] [address] 68790- 2916 Jul, Vaginal yeast infection B37.3 [place] [id number] [place] [address] 25873- 1401 Jul, Anxiety F41.9 [place] [id number] [place] [address] 62697- 6330 Jul, Type 2 diabetes mellitus without complication, without long- term current use of insulin E11.9 [place] [id number] [place] [address] 17952- 9919 Jul, [place] [id number] [place] [address] 21828- 7599 Jul, [place] [id number] [place] [address] 53405- 5993 Jun, Arthritis M19.90 [place] [id number] [place] [address] 25146- 2648 Jun, [place] [id number] [place] [address] 18048- 9296 Jun, [place] [id number] [place] [address] 92609- 1598 May, [place] [id number] [place] [address] 80206- 2116 Apr, Venous insufficiency I87.2 and Venous stasis dermatitis of right lower extremity I87.2 [place] [id number] [place] [address] 27670- 8195 Apr, Essential hypertension I10 [place] [id number] [place] [address] 07011- 2941 Mar, [place] [id number] [place] [address] 20209- 7788 Mar, Type 2 diabetes mellitus without complication, without long- term current use of insulin E11.9 and Essential hypertension I10 [place] [id number] [place] [address] 12809- 0595 Mar, Essential hypertension I10 and Type 2 diabetes mellitus without complication, without long-term current use of insulin E11.9 [place] [id number] [place] [address] 34849- 4862 Mar, Chronic kidney disease, stage 3 (moderate) N18.3 ; Anemia of chronic disease D63.8 and Type 2 diabetes mellitus without complication, without long-term current use of insulin E11.9 [place] [address] [place] [address] 95466- 5968 Mar, Type 2 diabetes mellitus without complication, without long- term current use of insulin E11.9 ; Iron deficiency anemia secondary to inadequate dietary iron intake D50.8 ; Arthritis M19.90 and Lumbago with sciatica, left side M54.42 [facility] [id number] [place] [address] 12658- 5332 Feb, Arthritis M19.90 and Anxiety F41.9 [facility] [id number] [place] [address] 26229- 5701 Feb, Type 2 diabetes mellitus without complication, without long- term current use of insulin E11.9 and Essential hypertension I10 [facility] [address] 44935- 6807 January, Anxiety F41.9 [facility] [address] 08076- 3487 January, Monfatou rash B37.2 [facility] [address] 41839- 7122 January, [facility] [address] 15255- 0899 January, [facility] [address] 70069- 4247 January, [facility] [address] 07470- 5682 January, Gastroesophageal reflux disease, esophagitis presence not specified K21.9 [facility] [id number] [place] [address] 56494- 3378 January, Arthritis M19.90 [facility] [address] 43097- 9110 January, Anxiety F41.9 ; Arthritis M19.90 and Essential hypertension I10 [facility] [address] 81301- 5827 January, Essential hypertension I10 and Anxiety F41.9 [facility] [id number] [place] [address] 53239- 7217 Dec, [facility] [address] [place] [address]- 9614 Dec, Arthritis M19.90 and Anxiety F41.9 [place] [address] 17303- 4572 Dec, Type 2 diabetes mellitus without complication, without long- term current use of insulin E11.9 ; Cellulitis of right lower extremity L03.115 and Arthritis M19.90 [place] [address] 57489- 7816 Nov, [place] [address] 91415- 0066 Nov, Type 2 diabetes mellitus without complication, without long- term current use of insulin E11.9 ; Bronchitis J40 and Arthritis M19.90 [place] [address] 69860- 6787 16 Nov, 2016 [place] [address] 85901- 9534 Oct, Anxiety F41.9 [facility] [address] 37266 -1010 Sep, Dysuria R30.0 ; Acute cystitis with hematuria N30.01 and Vaginal yeast infection B37.3 [place] [id number] [place] [address] 65270- 1612 Sep, Arthritis M19.90 [facility] [id number] [place] [address] 44896 -5057 Sep, Strep pharyngitis J02.0 and Sore throat J02.9 [place] [address] 27075- 0131 Sep, [place] [address] 01443- 4456 Sep, Type 2 diabetes mellitus without complication, without long- term current use of insulin E11.9 [place] [address] 75195- 7030 14 Aug, 2016 [facility] [address] 63335- 7629 Aug, Seasonal allergic rhinitis due to pollen J30.1 [facility] [address] 90753 -1808 Aug, Impacted cerumen of right ear H61.21 and Seasonal allergic rhinitis due to pollen J30.1 [facility] [address] 28457- 5132 Aug, [facility] [address] 19001- 0340 Aug, [facility] [address] 11535- 6848 Jul, Type 2 diabetes mellitus without complication, without long- term current use of insulin E11.9 ; Anxiety F41.9 ; Essential hypertension I10 and Encounter for immunization Z23 [facility] [address] 15737- 2136 Jul, Essential hypertension I10 [place] [address] 75275- 7810 Jul, [place] [address] 31225- 6441 Jul, [facility] [address] 59180- 8900 Jul, Essential hypertension I10 [facility] [id number] [place] [address] 27426- 2060 Jul, [facility] [address] 17668- 6806 May, [facility] [address] 96499- 1892 May, [facility] [address] 96926- 1161 Apr, [facility] [address] [facility] [id number] [address]- 2089 Apr, [facility] [address] [facility] [id number] [address]- 5349 Apr, [facility] [address] [facility] [id number] [address]- 4920 Apr, Type 2 diabetes mellitus without complication, [...] Status Diflucan 150 MG 1 tablet January, 1 dose Active RESULTS No Results PROCEDURES No Known [...]
--- OUTSIDE RECORDS SUMMARY | 2018-11-02 12:39 | XMS REPORT ---
Author Author LAKESHIA MONIQUE [facility] Address [address] [place] [address] Care Team Providers Care Fender Mechanic Name Role Phone LAKESHIA MONIQUE Unavailable PROBLEMS Type Condition ICD9-CM Code [id number] Code Onset Dates Condition Status SNOMED Code Problem Arthritis M19.90 Active 5488681 Problem Anxiety F41.9 Active 52527561 Problem Essential hypertension I10 Active 16693115 Problem Lumbago with sciatica, left side M54.42 Active 519901806 Problem Venous insufficiency I87.2 Active 34254056 Problem Anemia of chronic disease D63.8 Active 619435800 Problem Seasonal allergic rhinitis due to pollen J30.1 Active 39054652 Problem Type 2 diabetes mellitus without complication, without long-term current use of insulin E11.9 Active 835584268 Problem Chronic kidney disease, stage 3 (moderate) N18.3 Active 719540402 Problem Gastroesophageal reflux disease, esophagitis presence not specified K21.9 Active 398350443 ALLERGIES Substance Reaction Event Type Date Status N.K.D.A. Unknown Non Drug Allergy Sep, Unknown SOCIAL HISTORY No smoking Hx information available PLAN OF CARE Activity Details Follow Up prn Reason: VITAL SIGNS Height 56 in 2016-10-06 Weight 178.6 lbs 2016-10-06 Temperature 97.2 degrees Fahrenheit 2016-10-06 Heart Rate 72 bpm 2016-10-06 Respiratory Rate 20 2016-10-06 BMI 40.04 kg/m2 2016-10-06 Blood pressure systolic 132 mmHg 2016-10-06 Blood pressure diastolic 58 mmHg 2016-10-06 MEDICATIONS Medication Instructions Dosage Frequency Start Date End Date Duration Status Amoxicillin 500 MG Orally every 12 hrs 1 capsule 12h Sep, Sep, 10 day(s) Active Tramadol-Acetaminophen 37.5-325 MG Orally every 4 hrs 2 tablets as needed 4h Active Timolol 0.5 % Ophthalmic Twice a day 1 drop into affected eye 12h Active ProAir HFA 108 (90 Base) MCG/ACT Inhalation every 4 hrs 2 puffs as needed 4h Active Acetaminophen 500 MG Orally every 6 hrs 2 capsules as needed 6h Active Metoprolol Tartrate 25 MG Orally Twice a day 1 tablet with food 12h Active Lisinopril 5 mg Orally Once a day 1 tablet 24h Active Alprazolam 0.5 MG Orally Three times a day 1 tablet 8h Active Xanax 0.5 TAKE ONE TABLET BY MOUTH THREE TIMES A DAY NEEDED FOR ANXIETY 30 Active Metformin HCl 500 MG Orally Twice a day 1 tablet with meals 12h Active Flonase Allergy Relief 50 MCG/ACT Nasally Once a day 1 spray in each nostril 24h 13 Aug, 2016 30 day(s) Active Hydrochlorothiazide 25 MG Orally Once a day 1 tablet 24h Active Aspir-81 81 MG Orally Once a day 1 tablet 24h Active Glimepiride 4 MG Orally Once a day 1 tablet with breakfast or the first main meal of the day 24h Active Metformin HCl 500 Orally Twice a day 1 tablet with meals 12h 30 Active RESULTS Name Result Date Reference Range STREP A (IN HOUSE) 2016-10-06 STREP A positive Control + Lot # [id number] Exp date april 11 PROCEDURES Procedure Date Ordered Related Diagnosis Body Site STREP A ASSAY W/OPTIC Oct 06, 2016 [facility] VISIT ESTABLISHED PATIENT Oct 06, 2016 Office Visit, Est Pt., Level 3 Oct 06, 2016 IMMUNIZATIONS No Known Immunizations
--- OUTSIDE RECORDS SUMMARY | 2018-11-02 12:39 | XMS REPORT ---
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 [facility] Address [address] [place] [address] Care Team Providers Care Pst Manager Name Role Phone AMBER CHILDERS Unavailable PROBLEMS Type Condition ICD9-CM Code ESN49-CM Code Onset Dates Condition Status SNOMED Code Problem Essential hypertension I10 Active 84997524 Problem Type 2 diabetes mellitus without complication, without long-term current use of insulin E11.9 Active 121942187 Problem Anxiety F41.9 Active 66404758 Problem Lumbago with sciatica, left side M54.42 Active 478052517 Problem Arthritis M19.90 Active 7752652 Problem Iron deficiency anemia, unspecified iron deficiency anemia type D50.9 Active 39520565 Problem Venous insufficiency I87.2 Active 66365754 Problem Gastroesophageal reflux disease, esophagitis presence not specified K21.9 Active 216139868 Problem Seasonal allergic rhinitis due to pollen J30.1 Active 98482077 Problem Anemia of chronic disease D63.8 Active 851708652 Problem Chronic kidney disease, stage 3 (moderate) N18.3 Active 587263016 ALLERGIES No Information ENCOUNTERS Encounter Location Date Diagnosis [place] [id number] [place] [address]1890- 0827 January, Medicare annual wellness visit, initial Z00.00 [facility] [place] [address] [place] [id number] [place] [address] 36035- 3227 January, Essential hypertension I10 [facility] [place] [id number] [place] [address] 41143- 5580 Dec, Arthritis M19.90 [facility] [place] [id number] [place] [address] 66551- 8205 Dec, [place] [address] [place] [id number] [place] [address] 17999- 0569 Dec, [facility] [place] [id number] [place] [address] 69451- 4856 Dec, Essential hypertension I10 [facility] [id number] [place] [address] 42518 -2509 Nov, Dysuria R30.0 and Vaginal kai B37.3 [place] [address] [address]84- 6538 Nov, Arthritis M19.90 [facility], [place] [address] 09772- 7235 Oct, [place] [address] 54288- 7891 Oct, Type 2 diabetes mellitus without complication, without long- term current use of insulin E11.9 ; Lumbago with sciatica, left side M54.42 ; Arthritis M19.90 ; Iron deficiency anemia, unspecified iron deficiency anemia type D50.9 and BMI 40.0-44.9, adult Z68.41 [place] [address] [id number] [place] [address] 93443- 1979 Sep, [place] [address] 97141- 1841 Sep, [place] [address] [place] [id number] [place] [address] 22145- 9493 Sep, Arthritis M19.90 and Anxiety F41.9 [place] [address] [place] [id number] [place] [address] 04497- 4144 Sep, [place] [address] [place] [id number] [place] [address] 10728- 2919 Aug, Anxiety F41.9 [place] [address] [id number] [place] [address] 59249- 7275 Jul, [place] [address] [place] [id number] [place] [address] 89756- 9146 Jul, [place] [address] [address]161 17 Jul, 2017 Vaginal yeast infection B37.3 [facility], [place] [address] [place] [id number] [place] [address] 53872- 4971 14 Jul, 2017 Anxiety F41.9 [facility], [place] [address] [place] [id number] [place] [address] 14186- 3823 Jul, Type 2 diabetes mellitus without complication, without long- term current use of insulin E11.9 [facility] [place] [address] [place] [id number] [place] [address] 67780- 8421 Jul, [facility] [place] [address] [place] [address] [id number] [place] [address] 82916- 8241 Jul, [facility] [place] [address] [place] [address] [id number] [place] [address] 30552- 6595 Jun, Arthritis M19.90 [facility] [place] [address] [place] [id number] [place] [address] 12792- 7629 Jun, [facility] [place] [address] [place] [address] [id number] [place] [address] 10769- 0083 Jun, [facility] [place] [address] [address] [id number] [place] [address] 95665- 0131 May, [facility] [place] [id number] [place] [address] 44566- 9506 Apr, Venous insufficiency I87.2 and Venous stasis dermatitis of right lower extremity I87.2 [facility] [place] [id number] [place] [address] 74006- 4346 Apr, Essential hypertension I10 [facility] [place] [id number] [place] [address] 84496- 6356 Mar, [facility] [place] [id number] [place] [address] 38994- 8741 Mar, Type 2 diabetes mellitus without complication, without long- term current use of insulin E11.9 and Essential hypertension I10 [facility] [place] [address] [address] [id number] [address] Mar, Essential hypertension I10 and Type 2 diabetes mellitus without complication, without long-term current use of insulin E11.9 [place] [address] [id number] [place] [address] 14152- 3535 Mar, Chronic kidney disease, stage 3 (moderate) N18.3 ; Anemia of chronic disease D63.8 and Type 2 diabetes mellitus without complication, without long-term current use of insulin E11.9 [place] [address] [place] [id number] [place] [address] 81789- 0294 14 Mar, 2017 Type 2 diabetes mellitus without complication, without long- term current use of insulin E11.9 ; Iron deficiency anemia secondary to inadequate dietary iron intake D50.8 ; Arthritis M19.90 and Lumbago with sciatica, left side M54.42 [place] [id number] [place] [address] 25915- 6463 Feb, Arthritis M19.90 and Anxiety F41.9 [place] [address] [place] [id number] [place] [address] 77124- 3651 Feb, Type 2 diabetes mellitus without complication, without long- term current use of insulin E11.9 and Essential hypertension I10 [address] [place] [address] 50445- 3244 January, Anxiety F41.9 [place] [address] [address] [id number] [address] 8[address] January, Monilial rash B37.2 [place] [address] [place] [address] 39003- 7208 January, [place] [address] [place] [id number] [place] [address] 60927- 2704 January, [place] [address] [place] [id number] [place] [address] 69980- 1728 January, [place] [address] [place] [id number] [place] [address] 78036- 2635 January, Gastroesophageal reflux disease, esophagitis presence not specified K21.9 [facility] [place] [id number] [place] [address] 14096- 0632 January, Arthritis M19.90 [facility], [place] [address] 55684- 6096 January, Anxiety F41.9 ; Arthritis M19.90 and Essential hypertension I10 [facility] [place] [address] 15784- 4776 January, Essential hypertension I10 and Anxiety F41.9 [facility] [place] [address] 72709- 7770 Dec, [place] [address] 61876- 9174 Dec, Arthritis M19.90 and Anxiety F41.9 [facility] [place] [address] 10595- 3394 Dec, Type 2 diabetes mellitus without complication, without long- term current use of insulin E11.9 ; Cellulitis of right lower extremity L03.115 and Arthritis M19.90 [facility] [place] [address] [place] [id number] [place] [address] 83761- 1013 Nov, [place] [address] [place] [id number] [place] [address] 03893- 3579 Nov, Type 2 diabetes mellitus without complication, without long- term current use of insulin E11.9 ; Bronchitis J40 and Arthritis M19.90 [facility], [place] [address] [place] [id number] [place] [address] 75434- 2629 Nov, [place] [address] 41228- 5343 Oct, Anxiety F41.9 [facility] [id number] [place] [address] 08548 -0865 Sep, Dysuria R30.0 ; Acute cystitis with hematuria N30.01 and Vaginal yeast infection B37.[address] 87450- 8359 Sep, Arthritis M19.90 [facility] [address] [address] -[address]129 Sep, Strep pharyngitis J02.0 and Sore throat J02.[address] 38665- 7145 Sep, [address] 57649- 3388 Sep, Type 2 diabetes mellitus without complication, without long- term current use of insulin E11.[address] 80670- 6217 Aug, [address] 96785- 6569 Aug, Seasonal allergic rhinitis due to pollen J30.1 [facility] [address] 9[address] -0944 Aug, Impacted cerumen of right ear H61.21 and Seasonal allergic rhinitis due to pollen J30.[address] 48[address]- 7108 Aug, [address] 80781- 1496 Aug, [address] 26057- 7227 Jul, Type 2 diabetes mellitus without complication, without long- term current use of insulin E11.9 ; Anxiety F41.9 ; Essential hypertension I10 and Encounter for immunization Z23 [address] 38140- 7885 Jul, Essential hypertension I10 [address] 11992- 0423 Jul, [facility], [place] [address] [id number] [address]- 6[address] Jul, [facility], [place] [address] [place] [address]- 7875 Jul, Essential hypertension I10 [facility] [place] [address] [place] [address]- 5094 Jul, [facility] [place] [id number] [address]- 0311 May, [facility] [place] [address] [place] [address]- 0338 May, [facility] [place] [address] [id number] [place] [address] 34030- 3569 Apr, [facility] [place] [address] [place] [address]- 1744 Apr, [facility], [place] [address] [place] [address]- 3218 Apr, [facility], [place] [address] [place] [address]- 7040 Apr, Type 2 diabetes mellitus without complication, [...]
--- OUTSIDE RECORDS SUMMARY | 2018-11-02 12:39 | XMS REPORT ---
Author Author DAMI LUX Organization [facility] Address [address] [place] [address] Care Team Providers Care Prenatal Genetic Counselor Name Role Phone DAMI LUX Unavailable PROBLEMS Type Condition ICD9-CM Code WGU70-PS Code Onset Dates Condition Status SNOMED Code Assessment Impacted cerumen of right ear H61.21 Aug, Active 65969353 Assessment Seasonal allergic rhinitis due to pollen J30.1 Aug, Active 14689052 Problem Seasonal allergic rhinitis due to pollen J30.1 Active 88057970 Problem Type 2 diabetes mellitus without complication, without long-term current use of insulin E11.9 Active 517284668 Problem Lumbago with sciatica, left side M54.42 Active 487924692 Problem Anxiety F41.9 Active 83432818 Problem Essential hypertension I10 Active 39012256 Problem Arthritis M19.90 Active 5602171 ALLERGIES Substance Reaction Event Type Date Status N.K.D.A. Unknown Non Drug Allergy Aug, Unknown SOCIAL HISTORY No smoking Hx information available PLAN OF CARE VITAL SIGNS Height 56 in 2016-09-02 Weight 178.6 lbs 2016-09-02 Heart Rate 74 bpm 2016-09-02 Respiratory Rate 22 2016-09-02 BMI 40.04 kg/m2 2016-09-02 Blood pressure systolic 134 mmHg 2016-09-02 Blood pressure diastolic 66 mmHg 2016-09-02 MEDICATIONS Medication Instructions Dosage Frequency Start Date End Date Duration Status Metformin HCl 500 Orally Twice a day 1 tablet with meals 12h 30 Active Aspir-81 81 MG Orally Once a day 1 tablet 24h Active Metoprolol Tartrate 25 MG Orally Twice a day 1 tablet with food 12h Active Lisinopril 5 mg Orally Once a day 1 tablet 24h Active Timolol 0.5 % Ophthalmic Twice a day 1 drop into affected eye 12h Active Tramadol-Acetaminophen 37.5-325 MG Orally every 4 hrs 2 tablets as needed 4h Active Cetirizine HCl 10 MG Orally Once a day 1 tablet 24h Aug, Sep, 30 day(s) Active Acetaminophen 500 MG Orally every 6 hrs 2 capsules as needed 6h Active ProAir HFA 108 (90 Base) MCG/ACT Inhalation every 4 hrs 2 puffs as needed 4h Active Glimepiride 4 MG Orally Once a day 1 tablet with breakfast or the first main meal of the day 24h Active Xanax 0.5 TAKE ONE TABLET BY MOUTH THREE TIMES A DAY NEEDED FOR ANXIETY 30 Active Hydrochlorothiazide 25 MG Orally Once a day 1 tablet 24h Active Metformin HCl 500 MG Orally Twice a day 1 tablet with meals 12h Active Alprazolam 0.5 MG Orally Three times a day 1 tablet 8h Active RESULTS No Results PROCEDURES Procedure Date Ordered Related Diagnosis Body Site EAR LAVAGE 2016-09-02 N/A EAR IRRIGATION Sep 02, 2016 Office Visit, Est Pt., Level 3 Sep 02, 2016 [facility] VISIT ESTABLISHED PATIENT Sep 02, 2016 IMMUNIZATIONS No Known Immunizations
--- OUTSIDE RECORDS SUMMARY | 2018-11-02 12:40 | XMS REPORT ---
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 [facility] Address [address] [place] [address] Care Team Providers Care Thoroughbred Horse Farm Manager Name Role Phone AMBER CHILDERS Unavailable PROBLEMS Type Condition ICD9-CM Code JNZ18-SW Code Onset Dates Condition Status SNOMED Code Problem Arthritis M19.90 Active 9049145 Problem Anxiety F41.9 Active 31745919 Problem Essential hypertension I10 Active 03287037 Problem Lumbago with sciatica, left side M54.42 Active 676033281 Problem Venous insufficiency I87.2 Active 13533004 Problem Anemia of chronic disease D63.8 Active 015716731 Problem Seasonal allergic rhinitis due to pollen J30.1 Active 72145096 Problem Type 2 diabetes mellitus without complication, without long-term current use of insulin E11.9 Active 163730065 Problem Chronic kidney disease, stage 3 (moderate) N18.3 Active 486050005 Problem Gastroesophageal reflux disease, esophagitis presence not specified K21.9 Active 386775673 ALLERGIES No Information SOCIAL HISTORY Never Assessed [...]
--- OUTSIDE RECORDS SUMMARY | 2018-11-02 12:40 | XMS REPORT ---
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 [employer] Address Unknown Phone Unavailable Care Team Providers Care Culinary Internship Name Role Phone AMBER CHILDERS CP Unavailable Allergies No Known Allergies Problems Problem Type Condition Code Onset Dates Condition Status Problem Essential hypertension I10 Active Problem Arthritis M19.90 Active Problem Type 2 diabetes mellitus without complication, without long-term current use of insulin E11.9 Active Problem Lumbago with sciatica, left side M54.42 Active Problem Anxiety F41.9 Active Medications No Known Medications Results No Known Results Summary Purpose [employer] Submission
--- OUTSIDE RECORDS SUMMARY | 2018-11-02 12:40 | XMS REPORT ---
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 [facility] Address [address] [place] [address] Care Team Providers Care Carport Erector Name Role Phone AMBER CHILDERS Unavailable PROBLEMS Type Condition ICD9-CM Code FMX17-XL Code Onset Dates Condition Status SNOMED Code Problem Essential hypertension I10 Active 40517862 Problem Type 2 diabetes mellitus without complication, without long-term current use of insulin E11.9 Active 486312759 Problem Anxiety F41.9 Active 41112478 Problem Lumbago with sciatica, left side M54.42 Active 692403031 Problem Arthritis M19.90 Active 4240985 Problem Iron deficiency anemia, unspecified iron deficiency anemia type D50.9 Active 45695662 Problem Venous insufficiency I87.2 Active 68908019 Problem Gastroesophageal reflux disease, esophagitis presence not specified K21.9 Active 917821984 Problem Seasonal allergic rhinitis due to pollen J30.1 Active 85629597 Problem Anemia of chronic disease D63.8 Active 448270894 Problem Chronic kidney disease, stage 3 (moderate) N18.3 Active 753945997 ALLERGIES No Information ENCOUNTERS Encounter Location Date Diagnosis [place] [id number] [place] [id number] [place] [address] 77231- 5742 Feb, [place] [address] [address] [id number] [place] [address] 14275- 0005 Feb, Arthritis M19.90 and Essential hypertension I10 [facility] [id number] [place] [address] 74317- 4585 January, [place] [address] [place] [id number] [place] [address] 29845- 4306 January, [place] [address] [id number] [place] [address] 12796- 8489 January, Medicare annual wellness visit, initial Z00.00 ; Type 2 diabetes mellitus without complication, without long-term current use of insulin E11.9 ; Chronic kidney disease, stage 3 (moderate) N18.3 ; Essential hypertension I10 ; Gastroesophageal reflux disease, esophagitis presence not specified K21.9 ; Anxiety F41.9 ; Arthritis M19.90 and Encounter for immunization Z23 [facility] [address] [address]- 2241 January, Essential hypertension I10 [place] [address] 24430- 5773 Dec, Arthritis M19.90 [place] [address] 26389- 2869 Dec, [place] [address] 85055- 3627 Dec, [place] [address] 22829- 2552 Dec, Essential hypertension I10 [facility] [address] 30[address] -[address] Nov, Dysuria R30.0 and Vaginal kai B37.3 [place] [address] 67444- 0358 Nov, Arthritis M19.90 [place] [address] 95982- 7787 Oct, [place] [address] 27849- 7955 Oct, Type 2 diabetes mellitus without complication, without long- term current use of insulin E11.9 ; Lumbago with sciatica, left side M54.42 ; Arthritis M19.90 ; Iron deficiency anemia, unspecified iron deficiency anemia type D50.9 and BMI 40.0-44.9, adult Z68.41 [place] [address] 15913- 2298 Sep, [id number] [place] [address] 50835- 2026 Sep, [facility] [id number] [place] [address] 27219- 5531 Sep, Arthritis M19.90 and Anxiety F41.9 [facility] [id number] [place] [address] 76564- 0285 Sep, [facility] [address] 38186- 3520 Aug, Anxiety F41.9 [facility] [id number] [place] [address] 55927- 5801 Jul, [facility] [address] [id number] [place] [address] 25791- 4225 Jul, [facility] [address] [id number] [place] [address] 14988- 3520 Jul, Vaginal yeast infection B37.3 [facility] [id number] [place] [address] 39714- 9337 Jul, Anxiety F41.9 [facility] [address] [id number] [place] [address] 33813- 9315 Jul, Type 2 diabetes mellitus without complication, without long- term current use of insulin E11.9 [facility] [address] [id number] [place] [address] 63373- 3781 Jul, [facility] [id number] [place] [address] 46560- 5655 Jul, [facility] [id number] [place] [address] 42993- 9304 Jun, Arthritis M19.90 [facility] [id number] [place] [address] 21585- 8783 Jun, [facility] [id number] [place] [address] 22477- 8154 Jun, [facility] [address] [id number] [place] [address] 02237- 5162 May, [place] [address] 91823- 6620 Apr, Venous insufficiency I87.2 and Venous stasis dermatitis of right lower extremity I87.2 [place] [address] [address] [id number] [place] [address] 07298- 5283 Apr, Essential hypertension I10 [place] [address] 35385- 6179 Mar, [address] 17554- 6627 Mar, Type 2 diabetes mellitus without complication, without long- term current use of insulin E11.9 and Essential hypertension I10 [place] [id number] [place] [address] 32826- 0513 Mar, Essential hypertension I10 and Type 2 diabetes mellitus without complication, without long-term current use of insulin E11.9 [place] [address] [address] [id number] [place] [address] 80378- 9697 Mar, Chronic kidney disease, stage 3 (moderate) N18.3 ; Anemia of chronic disease D63.8 and Type 2 diabetes mellitus without complication, without long-term current use of insulin E11.9 [place] [address] [address] [id number] [place] [address] 18477- 9122 Mar, Type 2 diabetes mellitus without complication, without long- term current use of insulin E11.9 ; Iron deficiency anemia secondary to inadequate dietary iron intake D50.8 ; Arthritis M19.90 and Lumbago with sciatica, left side M54.42 [place] [id number] [place] [address] 50325- 5227 Feb, Arthritis M19.90 and Anxiety F41.9 [place] [id number] [place] [address] 51998- 4509 Feb, Type 2 diabetes mellitus without complication, without long- term current use of insulin E11.9 and Essential hypertension I10 [facility] [id number] [place] [address] 13138- 4289 January, Anxiety F41.9 [place] [address] [address] [id number] [place] [address] 26030- 9951 January, Monilial rash B37.2 [place] [address] [address] [id number] [place] [address] 14479- 1356 January, [facility] [address] [address] [id number] [place] [address] 61571- 4031 January, [place] [address] 89240- 3532 January, [place] [address] [address] [id number] [place] [address] 95222- 0396 January, Gastroesophageal reflux disease, esophagitis presence not specified K21.9 [place] [address] [address] [id number] [place] [address] 07998- 2422 January, Arthritis M19.90 [place] [address] [address] [id number] [place] [address] 34284- 2431 January, Anxiety F41.9 ; Arthritis M19.90 and Essential hypertension I10 [place] [address] [address] [id number] [place] [address] 38516- 9156 January, Essential hypertension I10 and Anxiety F41.9 [place] [address] [id number] [place] [address] 23619- 7343 Dec, [place] [id number] [place] [address] 57755- 4669 Dec, Arthritis M19.90 and Anxiety F41.9 [place] [id number] [place] [address] 35189- 7607 Dec, Type 2 diabetes mellitus without complication, without long- term current use of insulin E11.9 ; Cellulitis of right lower extremity L03.115 and Arthritis M19.90 [place] [address] [address] [id number] [place] [address] 61210- 8612 28 Nov, 2016 [place] [address] 92897- 3438 Nov, Type 2 diabetes mellitus without complication, without long- term current use of insulin E11.9 ; Bronchitis J40 and Arthritis M19.90 [place] [address] 46897- 9005 16 Nov, 2016 [place] [address] 46800- 5325 Oct, Anxiety F41.9 [facility] [address] [address] -6762 Sep, Dysuria R30.0 ; Acute cystitis with hematuria N30.01 and Vaginal yeast infection B37.[address] 23530- 5460 Sep, Arthritis M19.90 [facility] [place] [address] 64708 -0665 Sep, Strep pharyngitis J02.0 and Sore throat J02.9 [place] [address] [address] [id number] [place] [address] 75777- 1528 Sep, [place] [address] [place] [address] [id number] [place] [address] 04308- 6664 Sep, Type 2 diabetes mellitus without complication, without long- term current use of insulin E11.9 [place] [address] [id number] [place] [address] 53885- 7436 Aug, [address] 34351- 8304 13 Aug, 2016 Seasonal allergic rhinitis due to pollen J30.1 [facility] [place] [id number] [place] [address] 24749 -9752 09 Aug, 2016 Impacted cerumen of right ear H61.21 and Seasonal allergic rhinitis due to pollen J30.1 [facility] [address] [id number] [place] [address] 69242- 2184 Aug, [facility] [address] [address] [id number] [place] [address] 66533- 0360 Aug, [facility] [address] [id number] [place] [address] 02353- 4642 Jul, Type 2 diabetes mellitus without complication, without long- term current use of insulin E11.9 ; Anxiety F41.9 ; Essential hypertension I10 and Encounter for immunization Z23 [facility] [address] [id number] [place] [address] 28089- 0518 Jul, Essential hypertension I10 [facility] [address] [id number] [place] [address] 36297- 3305 Jul, [facility] [address] [id number] [place] [address] 11376- 3418 Jul, [facility] [address] [id number] [place] [address] 17164- 0770 Jul, Essential hypertension I10 [facility] [address] [id number] [place] [address] 73942- 7299 Jul, [facility] [address] [id number] [place] [address] 74033- 7783 May, [facility] [id number] [place] [address] 97114- 8108 May, [facility] [address] [id number] [place] [address] 40098- 1010 Apr, [facility] [address] [id number] [place] [address] 70356- 0305 Apr, [facility] [address] [id number] [place] [address] 45267- 9763 Apr, [facility] [address] [id number] [place] [address] 40405- 1913 Apr, Type 2 diabetes mellitus without complication, [...]
--- OUTSIDE RECORDS SUMMARY | 2018-11-02 12:40 | XMS REPORT ---
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 [facility] Address [address] [place] [address] Care Team Providers Care Compensation Administrator Name Role Phone AMBER CHILDERS Unavailable PROBLEMS Type Condition ICD9-CM Code PPU49-CN Code Onset Dates Condition Status SNOMED Code Problem Arthritis M19.90 Active 6276720 Problem Anxiety F41.9 Active 25772416 Problem Essential hypertension I10 Active 50470548 Problem Lumbago with sciatica, left side M54.42 Active 157392026 Problem Venous insufficiency I87.2 Active 38457682 Problem Anemia of chronic disease D63.8 Active 968569141 Problem Seasonal allergic rhinitis due to pollen J30.1 Active 48232088 Problem Type 2 diabetes mellitus without complication, without long-term current use of insulin E11.9 Active 813253700 Problem Chronic kidney disease, stage 3 (moderate) N18.3 Active 098214635 Problem Gastroesophageal reflux disease, esophagitis presence not specified K21.9 Active 967031850 ALLERGIES No Information SOCIAL HISTORY Never Assessed [...]
--- OUTSIDE RECORDS SUMMARY | 2018-11-02 12:40 | XMS REPORT ---
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 [employer] Address Unknown Phone Unavailable Care Team Providers Care Wind Energy Engineer Name Role Phone AMBER CHILDERS Unavailable Allergies No Known Allergies Problems Problem Type Condition Code Onset Dates Condition Status Problem Essential hypertension I10 Active Problem Arthritis M19.90 Active Problem Type 2 diabetes mellitus without complication, without long-term current use of insulin E11.9 Active Assessment Essential hypertension I10 Active Problem Lumbago with sciatica, left side M54.42 Active Problem Anxiety F41.9 Active Medications Medication Code System Code Instructions Start Date End Date Status Dosage Lisinopril [facility] [address]-19 5 mg Orally Once a day 1 tablet Metoprolol Tartrate [facility] [address]-09 25 MG Orally Twice a day 1 tablet with food Results No Known Results Summary Purpose [employer] Submission
--- OUTSIDE RECORDS SUMMARY | 2018-11-02 12:40 | XMS REPORT ---
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 [facility] Address [address] [place] [address] Care Team Providers Care Rack Room Worker Name Role Phone AMBER CHILDERS Unavailable PROBLEMS Type Condition ICD9-CM Code [id number] Code Onset Dates Condition Status SNOMED Code Problem Essential hypertension I10 Active 01675511 Problem Type 2 diabetes mellitus without complication, without long-term current use of insulin E11.9 Active 216483237 Problem Anxiety F41.9 Active 91990448 Problem Lumbago with sciatica, left side M54.42 Active 447275804 Problem Arthritis M19.90 Active 6135458 Problem Iron deficiency anemia, unspecified iron deficiency anemia type D50.9 Active 82839828 Problem Venous insufficiency I87.2 Active 13400863 Problem Gastroesophageal reflux disease, esophagitis presence not specified K21.9 Active 919931416 Problem Seasonal allergic rhinitis due to pollen J30.1 Active 47788691 Problem Anemia of chronic disease D63.8 Active 930369334 Problem Chronic kidney disease, stage 3 (moderate) N18.3 Active 277242799 ALLERGIES No Information ENCOUNTERS Encounter Location Date Diagnosis [place] [address] [place] [id number] [place] [address] [phone]- 0221 Feb, [place] [address] [address] [id number] [place] [address] 32882- 4620 Feb, Arthritis M19.90 and Essential hypertension I10 [facility] [place] [id number] [place] [address] 52732- 6844 January, [place] [address] [place] [id number] [place] [address] 13559- 0428 January, [place] [address] [address] [id number] [place] [address] 18190- 1434 January, Medicare annual wellness visit, initial Z00.00 ; Type 2 diabetes mellitus without complication, without long-term current use of insulin E11.9 ; Chronic kidney disease, stage 3 (moderate) N18.3 ; Essential hypertension I10 ; Gastroesophageal reflux disease, esophagitis presence not specified K21.9 ; Anxiety F41.9 ; Arthritis M19.90 and Encounter for immunization Z23 [facility] [place] [address] 41283- 9930 January, Essential hypertension I10 [place] [address] 49593- 5707 Dec, Arthritis M19.90 [place] [address] 50545- 1995 Dec, [place] [address] 93908- 0015 Dec, [place] [address] 82732- 2317 Dec, Essential hypertension I10 [facility] [address] 8[address] -8077 Nov, Dysuria R30.0 and Vaginal kai B37.3 [place] [address] 27708- 4501 Nov, Arthritis M19.90 [place] [address] 35734- 2677 Oct, [place] [address] 34546- 0815 Oct, Type 2 diabetes mellitus without complication, without long- term current use of insulin E11.9 ; Lumbago with sciatica, left side M54.42 ; Arthritis M19.90 ; Iron deficiency anemia, unspecified iron deficiency anemia type D50.9 and BMI 40.0-44.9, adult Z68.41 [place] [address] 81058- 5755 Sep, [id number] [place] [address] 42013- 9123 Sep, [facility] [place] [id number] [place] [address] 31580- 3141 Sep, Arthritis M19.90 and Anxiety F41.9 [facility] [place] [id number] [place] [address] 90601- 3254 Sep, [facility] [place] [address] 24677- 3383 Aug, Anxiety F41.9 [facility] [place] [address] [id number] [place] [address] 05629- 3984 Jul, [facility] [place] [address] [id number] [place] [address] 38818- 2468 Jul, [facility] [place] [address] [id number] [place] [address] 65075- 4364 Jul, Vaginal yeast infection B37.3 [facility] [place] [address] [id number] [place] [address] 11792- 4620 Jul, Anxiety F41.9 [facility] [place] [address] [id number] [place] [address] 29192- 8628 Jul, Type 2 diabetes mellitus without complication, without long- term current use of insulin E11.9 [facility] [place] [address] [id number] [place] [address] 61523- 9197 Jul, [facility] [place] [id number] [place] [address] 15409- 4838 Jul, [facility] [place] [id number] [place] [address] 47853- 5375 Jun, Arthritis M19.90 [facility] [place] [id number] [place] [address] 49400- 4076 Jun, [facility] [place] [id number] [place] [address] 13303- 6855 Jun, [facility] [place] [address] [id number] [place] [address] 35904- 1802 May, [place] [address] 93081- 4250 Apr, Venous insufficiency I87.2 and Venous stasis dermatitis of right lower extremity I87.2 [place] [address] [address] [id number] [place] [address] 51574- 3267 Apr, Essential hypertension I10 [place] [address] 27149- 4530 Mar, [address] 35226- 3687 Mar, Type 2 diabetes mellitus without complication, without long- term current use of insulin E11.9 and Essential hypertension I10 [place] [id number] [place] [address] 72651- 0464 Mar, Essential hypertension I10 and Type 2 diabetes mellitus without complication, without long-term current use of insulin E11.9 [place] [address] [id number] [place] [address] 71976- 1194 Mar, Chronic kidney disease, stage 3 (moderate) N18.3 ; Anemia of chronic disease D63.8 and Type 2 diabetes mellitus without complication, without long-term current use of insulin E11.9 [place] [address] [address] [id number] [place] [address] 23478- 1865 Mar, Type 2 diabetes mellitus without complication, without long- term current use of insulin E11.9 ; Iron deficiency anemia secondary to inadequate dietary iron intake D50.8 ; Arthritis M19.90 and Lumbago with sciatica, left side M54.42 [place] [id number] [place] [address] 55630- 6103 Feb, Arthritis M19.90 and Anxiety F41.9 [place] [id number] [place] [address] 68801- 0675 Feb, Type 2 diabetes mellitus without complication, without long- term current use of insulin E11.9 and Essential hypertension I10 [facility] [place] [id number] [place] [address] 01881- 1567 January, Anxiety F41.9 [place] [address] [address] [id number] [place] [address] 91423- 6980 January, Monilial rash B37.2 [place] [address] [address] [id number] [place] [address] 66116- 0000 January, [facility] [place] [address] [id number] [place] [address] 70450- 0903 January, [place] [address] 64305- 6402 January, [place] [address] [address] [id number] [place] [address] 81468- 2184 January, Gastroesophageal reflux disease, esophagitis presence not specified K21.9 [place] [address] [address] [id number] [place] [address] 61297- 5450 January, Arthritis M19.90 [place] [address] [address] [id number] [place] [address] 84057- 3916 January, Anxiety F41.9 ; Arthritis M19.90 and Essential hypertension I10 [place] [address] [address] [id number] [place] [address] 94247- 2176 January, Essential hypertension I10 and Anxiety F41.9 [place] [address] [address] [id number] [place] [address] 52408- 8281 Dec, [place] [id number] [place] [address] 61727- 8636 Dec, Arthritis M19.90 and Anxiety F41.9 [place] [id number] [place] [address] 57040- 1797 Dec, Type 2 diabetes mellitus without complication, without long- term current use of insulin E11.9 ; Cellulitis of right lower extremity L03.115 and Arthritis M19.90 [place] [address] [address] [id number] [place] [address] 49013- 3814 28 Nov, 2016 [place] [address] 18450- 5510 Nov, Type 2 diabetes mellitus without complication, without long- term current use of insulin E11.9 ; Bronchitis J40 and Arthritis M19.90 [place] [address] 02374- 1365 16 Nov, 2016 [place] [address] 64636- 0621 Oct, Anxiety F41.9 [facility] [address] [address]698 -2894 Sep, Dysuria R30.0 ; Acute cystitis with hematuria N30.01 and Vaginal yeast infection B37.[address] 83360- 8773 Sep, Arthritis M19.90 [facility] [place] [address] 51598 -5377 Sep, Strep pharyngitis J02.0 and Sore throat J02.9 [place] [address] [address] [id number] [place] [address] 44628- 7457 Sep, [place] [address] [address] [id number] [place] [address] 66545- 6187 Sep, Type 2 diabetes mellitus without complication, without long- term current use of insulin E11.9 [place] [address] [address] [id number] [place] [address] 79318- 6391 Aug, [address] 30933- 4592 13 Aug, 2016 Seasonal allergic rhinitis due to pollen J30.1 [facility] [place] [id number] [place] [address] 21392 -6199 09 Aug, 2016 Impacted cerumen of right ear H61.21 and Seasonal allergic rhinitis due to pollen J30.1 [facility] [place] [id number] [place] [address] 05036- 1057 Aug, [facility] [place] [id number] [place] [address] 05614- 3607 Aug, [facility] [place] [id number] [place] [address] 47437- 1038 Jul, Type 2 diabetes mellitus without complication, without long- term current use of insulin E11.9 ; Anxiety F41.9 ; Essential hypertension I10 and Encounter for immunization Z23 [facility] [place] [id number] [place] [address] 14264- 0228 Jul, Essential hypertension I10 [facility] [place] [id number] [place] [address] 56693- 8870 Jul, [facility] [place] [id number] [place] [address] 64118- 7429 Jul, [facility] [place] [id number] [place] [address] 78688- 3736 Jul, Essential hypertension I10 [facility] [place] [id number] [place] [address] 69114- 5394 Jul, [facility] [place] [id number] [place] [address] 66604- 3145 May, [facility] [place] [id number] [place] [address] 43450- 1417 May, [facility] [place] [id number] [place] [address] 84115- 6076 Apr, [facility] [place] [address] [id number] [place] [address] 02001- 4867 Apr, [facility] [place] [id number] [place] [address] 76725- 1029 Apr, [facility] [place] [id number] [place] [address] 95055- 1374 Apr, Type 2 diabetes mellitus without complication, without long- term current use of insulin E11.9 ; Essential hypertension I10 ; Acute non- recurrent maxillary sinusitis J01.00 ; Arthritis M19.90 ; Lumbago with sciatica , left side M54.42 ; Other chronic pain G89.29 and Anxiety F41.9 IMMUNIZATIONS No Known Immunizations SOCIAL HISTORY Never Assessed REASON FOR VISIT Med changes PLAN OF CARE VITAL SIGNS MEDICATIONS Medication Instructions Dosage Frequency Start Date End Date Duration Status Omeprazole 20 MG Orally Once a day 1 capsule 24h Sep, 30 day(s ) Active RESULTS No Results PROCEDURES No Known [...]
--- OUTSIDE RECORDS SUMMARY | 2018-11-02 12:40 | XMS REPORT ---
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 [employer] Address Unknown Phone Unavailable Care Team Providers Care Triple Valve Tester Name Role Phone AMBER CHILDERS CP Unavailable [...] Start Date End Date Status Dosage Alprazolam [facility] [address]-31 0.5 MG Orally Three times a day 1 tablet Results No Known Results Summary Purpose [employer] Submission
--- OUTSIDE RECORDS SUMMARY | 2018-11-02 12:40 | XMS REPORT ---
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 [facility] Address [address] [place] [address] Care Team Providers Care Landscape Painter Name Role Phone AMBER CHILDERS Unavailable PROBLEMS Type Condition ICD9-CM Code [id number] Code Onset Dates Condition Status SNOMED Code Problem Arthritis M19.90 Active 2471009 Problem Anxiety F41.9 Active 72394862 Problem Essential hypertension I10 Active 92536980 Problem Lumbago with sciatica, left side M54.42 Active 220127038 Problem Venous insufficiency I87.2 Active 36035174 Problem Anemia of chronic disease D63.8 Active 975543835 Problem Seasonal allergic rhinitis due to pollen J30.1 Active 75496216 Problem Type 2 diabetes mellitus without complication, without long-term current use of insulin E11.9 Active 157924371 Problem Chronic kidney disease, stage 3 (moderate) N18.3 Active 593829933 Problem Gastroesophageal reflux disease, esophagitis presence not specified K21.9 Active 254558267 ALLERGIES No Known Allergies SOCIAL HISTORY No smoking Hx information available PLAN OF CARE VITAL SIGNS MEDICATIONS Medication Instructions Dosage Frequency Start Date End Date Duration Status Glimepiride 4 MG Orally Once a day 1 tablet with breakfast or the first main meal of the day 24h Active RESULTS No Results PROCEDURES No Known procedures IMMUNIZATIONS No Known Immunizations
--- OUTSIDE RECORDS SUMMARY | 2018-11-02 12:41 | XMS REPORT ---
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 [facility] Address [address] [place] [address] Care Team Providers Care Neurosurgery Spine Physician Name Role Phone AMBER CHILDERS Unavailable PROBLEMS Type Condition ICD9-CM Code WSD30-CO Code Onset Dates Condition Status SNOMED Code Problem Essential hypertension I10 Active 27660416 Problem Type 2 diabetes mellitus without complication, without long-term current use of insulin E11.9 Active 745017958 Problem Anxiety F41.9 Active 75879618 Problem Lumbago with sciatica, left side M54.42 Active 012514855 Problem Arthritis M19.90 Active 7848630 Problem Iron deficiency anemia, unspecified iron deficiency anemia type D50.9 Active 78387392 Problem Venous insufficiency I87.2 Active 91860865 Problem Gastroesophageal reflux disease, esophagitis presence not specified K21.9 Active 577889463 Problem Seasonal allergic rhinitis due to pollen J30.1 Active 73521807 Problem Anemia of chronic disease D63.8 Active 865545599 Problem Chronic kidney disease, stage 3 (moderate) N18.3 Active 319881199 ALLERGIES No Information ENCOUNTERS Encounter Location Date Diagnosis [place] [id number] [place] [id number] [place] [address] 09619- 3214 Feb, [place] [address] [address] [id number] [place] [address] 16293- 1248 Feb, Arthritis M19.90 and Essential hypertension I10 [facility] [id number] [place] [address] 03634- 2342 January, [place] [address] [place] [address] [id number] [place] [address] 88211- 7406 January, [place] [address] [address] [id number] [place] [address] 71676- 9992 January, Medicare annual wellness visit, initial Z00.00 ; Type 2 diabetes mellitus without complication, without long-term current use of insulin E11.9 ; Chronic kidney disease, stage 3 (moderate) N18.3 ; Essential hypertension I10 ; Gastroesophageal reflux disease, esophagitis presence not specified K21.9 ; Anxiety F41.9 ; Arthritis M19.90 and Encounter for immunization Z23 [facility] [address] 66153- 4777 January, Essential hypertension I10 [place] [address] 44994- 2386 Dec, Arthritis M19.90 [place] [address] 53235- 8076 Dec, [place] [address] 18294- 4241 Dec, [place] [address] 24998- 0113 Dec, Essential hypertension I10 [facility] [address] 90844 -2091 Nov, Dysuria R30.0 and Vaginal kai B37.3 [place] [address] 34974- 7138 Nov, Arthritis M19.90 [place] [address] 10778- 4478 Oct, [place] [address] 35782- 0066 Oct, Type 2 diabetes mellitus without complication, without long- term current use of insulin E11.9 ; Lumbago with sciatica, left side M54.42 ; Arthritis M19.90 ; Iron deficiency anemia, unspecified iron deficiency anemia type D50.9 and BMI 40.0-44.9, adult Z68.41 [place] [address] 85113- 3997 Sep, [id number] [place] [address] 72486- 1889 Sep, [facility] [address] [id number] [place] [address] 95784- 3330 Sep, Arthritis M19.90 and Anxiety F41.9 [facility] [address] [id number] [place] [address] 83206- 0633 Sep, [facility] [address] 15247- 9416 Aug, Anxiety F41.9 [facility] [address] [address] [id number] [place] [address] 07262- 1194 Jul, [facility] [address] [place] [address] [id number] [place] [address] 44021- 2928 Jul, [facility] [address] [address] [id number] [place] [address] 17478- 4647 Jul, Vaginal yeast infection B37.3 [facility] [address] [address] [id number] [place] [address] 23279- 2976 Jul, Anxiety F41.9 [facility] [address] [address] [id number] [place] [address] 19950- 7606 Jul, Type 2 diabetes mellitus without complication, without long- term current use of insulin E11.9 [facility] [address] [address] [id number] [place] [address] 26082- 6181 Jul, [facility] [address] [id number] [place] [address] 52936- 5229 Jul, [facility] [id number] [place] [address] 14373- 0034 Jun, Arthritis M19.90 [facility] [address] [id number] [place] [address] 37466- 5601 Jun, [facility] [address] [id number] [place] [address] 09602- 4569 Jun, [facility] [address] [address] [id number] [place] [address] 77632- 6252 May, [place] [address] 78446- 9206 Apr, Venous insufficiency I87.2 and Venous stasis dermatitis of right lower extremity I87.2 [place] [address] [address] [id number] [place] [address] 81426- 8821 Apr, Essential hypertension I10 [place] [address] 98227- 5835 Mar, [address] 63541- 5192 Mar, Type 2 diabetes mellitus without complication, without long- term current use of insulin E11.9 and Essential hypertension I10 [place] [id number] [place] [address] 83903- 3834 Mar, Essential hypertension I10 and Type 2 diabetes mellitus without complication, without long-term current use of insulin E11.9 [place] [address] [address] [id number] [place] [address] 45017- 1589 Mar, Chronic kidney disease, stage 3 (moderate) N18.3 ; Anemia of chronic disease D63.8 and Type 2 diabetes mellitus without complication, without long-term current use of insulin E11.9 [place] [address] [address] [id number] [place] [address] 45227- 2290 Mar, Type 2 diabetes mellitus without complication, without long- term current use of insulin E11.9 ; Iron deficiency anemia secondary to inadequate dietary iron intake D50.8 ; Arthritis M19.90 and Lumbago with sciatica, left side M54.42 [place] [id number] [place] [address] 80041- 7350 Feb, Arthritis M19.90 and Anxiety F41.9 [place] [id number] [place] [address] 58841- 1831 Feb, Type 2 diabetes mellitus without complication, without long- term current use of insulin E11.9 and Essential hypertension I10 [facility] [id number] [place] [address] 75445- 2086 January, Anxiety F41.9 [place] [address] [address] [id number] [place] [address] 88451- 6773 January, Monilial rash B37.2 [place] [address] [address] [id number] [place] [address] 97907- 5890 January, [facility] [address] [address] [id number] [place] [address] 98059- 0789 January, [place] [address] 61642- 9869 January, [place] [address] [place] [address] [id number] [place] [address] 85723- 8845 January, Gastroesophageal reflux disease, esophagitis presence not specified K21.9 [place] [address] [address] [id number] [place] [address] 50024- 0949 January, Arthritis M19.90 [place] [address] [address] [id number] [place] [address] 89533- 1974 January, Anxiety F41.9 ; Arthritis M19.90 and Essential hypertension I10 [place] [address] [address] [id number] [place] [address] 99883- 1194 January, Essential hypertension I10 and Anxiety F41.9 [place] [address] [place] [address] [id number] [place] [address] 54198- 6181 Dec, [place] [id number] [place] [address] 36163- 7687 Dec, Arthritis M19.90 and Anxiety F41.9 [place] [id number] [place] [address] 82613- 1649 Dec, Type 2 diabetes mellitus without complication, without long- term current use of insulin E11.9 ; Cellulitis of right lower extremity L03.115 and Arthritis M19.90 [place] [address] [address] [id number] [place] [address] 26055- 0253 28 Nov, 2016 [place] [address] 24842- 0100 Nov, Type 2 diabetes mellitus without complication, without long- term current use of insulin E11.9 ; Bronchitis J40 and Arthritis M19.90 [place] [address] 80854- 7076 16 Nov, 2016 [place] [address] 68417- 5253 Oct, Anxiety F41.9 [facility] [address] 64813 -2420 Sep, Dysuria R30.0 ; Acute cystitis with hematuria N30.01 and Vaginal yeast infection B37.[address] 23065- 2498 Sep, Arthritis M19.90 [facility] [place] [address] 95853 -3388 Sep, Strep pharyngitis J02.0 and Sore throat J02.9 [place] [address] [address] [id number] [place] [address] 50701- 1722 Sep, [place] [address] [place] [address] [id number] [place] [address] 14156- 1644 Sep, Type 2 diabetes mellitus without complication, without long- term current use of insulin E11.9 [place] [address] [place] [address] [id number] [place] [address] 85138- 5265 Aug, [address] 64219- 8392 13 Aug, 2016 Seasonal allergic rhinitis due to pollen J30.1 [facility] [place] [id number] [place] [address] 64809 -9925 09 Aug, 2016 Impacted cerumen of right ear H61.21 and Seasonal allergic rhinitis due to pollen J30.1 [facility] [address] [id number] [place] [address] 42937- 5142 Aug, [facility] [address] [id number] [place] [address] 88562- 2238 Aug, [facility] [address] [place] [address] [id number] [place] [address] 67219- 6893 Jul, Type 2 diabetes mellitus without complication, without long- term current use of insulin E11.9 ; Anxiety F41.9 ; Essential hypertension I10 and Encounter for immunization Z23 [facility] [address] [id number] [place] [address] 24114- 8681 Jul, Essential hypertension I10 [facility] [address] [address] [id number] [place] [address] 14262- 8742 Jul, [facility] [address] [id number] [place] [address] 63390- 8057 Jul, [facility] [address] [address] [id number] [place] [address] 84896- 7228 Jul, Essential hypertension I10 [facility] [address] [address] [id number] [place] [address] 91105- 1571 Jul, [facility] [address] [id number] [place] [address] 21590- 4065 May, [facility] [address] [place] [id number] [place] [address] 65410- 9508 May, [facility] [address] [place] [address] [id number] [place] [address] 75473- 1300 Apr, [facility] [address] [id number] [place] [address] 61405- 7882 Apr, [facility] [address] [id number] [place] [address] 39053- 7272 Apr, [facility] [address] [place] [address] [id number] [place] [address] 76666- 9455 Apr, Type 2 diabetes mellitus without complication, without long- term current use of insulin E11.9 ; Essential hypertension I10 ; Acute non- recurrent maxillary sinusitis J01.00 ; Arthritis M19.90 ; Lumbago with sciatica , left side M54.42 ; Other chronic pain G89.29 and Anxiety F41.9 IMMUNIZATIONS No Known Immunizations SOCIAL HISTORY Never Assessed REASON FOR VISIT Request order PLAN OF CARE VITAL SIGNS MEDICATIONS Unknown [...]
--- OUTSIDE RECORDS SUMMARY | 2018-11-02 12:41 | XMS REPORT ---
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 [facility] [address] Address [address] [place] [address] Care Team Providers Care Steam Bone Press Tender Name Role Phone AMBER CHILDERS Unavailable PROBLEMS Type Condition ICD9-CM Code RLF14-VM Code Onset Dates Condition Status SNOMED Code Problem Essential hypertension I10 Active 60685408 Problem Type 2 diabetes mellitus without complication, without long-term current use of insulin E11.9 Active 907544342 Problem Anxiety F41.9 Active 06239970 Problem Lumbago with sciatica, left side M54.42 Active 405543467 Problem Arthritis M19.90 Active 5718721 Problem Iron deficiency anemia, unspecified iron deficiency anemia type D50.9 Active 46331885 Problem Venous insufficiency I87.2 Active 26631141 Problem Gastroesophageal reflux disease, esophagitis presence not specified K21.9 Active 099473869 Problem Seasonal allergic rhinitis due to pollen J30.1 Active 30040112 Problem Anemia of chronic disease D63.8 Active 834360634 Problem Chronic kidney disease, stage 3 (moderate) N18.3 Active 363082712 ALLERGIES No Information ENCOUNTERS Encounter Location Date Diagnosis [place] [id number] [place] [id number] [place] [address] 10132- 9477 Feb, [place] [address] [place] [id number] [place] [address] 60819- 2162 Feb, Arthritis M19.90 and Essential hypertension I10 [facility] [address] [place] [address] [id number] [place] [address] 19040- 7741 January, [place] [address] [place] [id number] [place] [address] 42420- 5357 January, [place] [address] [place] [id number] [place] [address] 85411- 7358 January, Medicare annual wellness visit, initial Z00.00 ; Type 2 diabetes mellitus without complication, without long-term current use of insulin E11.9 ; Chronic kidney disease, stage 3 (moderate) N18.3 ; Essential hypertension I10 ; Gastroesophageal reflux disease, esophagitis presence not specified K21.9 ; Anxiety F41.9 ; Arthritis M19.90 and Encounter for immunization Z23 [facility] [address] 08595- 1890 January, Essential hypertension I10 [place] [address] 86246- 0323 Dec, Arthritis M19.90 [place] [address] 96052- 1760 Dec, [place] [address] 91918- 4918 Dec, [place] [address] 81394- 6748 Dec, Essential hypertension I10 [facility] [address] 97299 -7078 Nov, Dysuria R30.0 and Vaginal kai B37.3 [place] [address] 15523- 3288 Nov, Arthritis M19.90 [place] [address] 32572- 0803 Oct, [place] [address] 19365- 7572 Oct, Type 2 diabetes mellitus without complication, without long- term current use of insulin E11.9 ; Lumbago with sciatica, left side M54.42 ; Arthritis M19.90 ; Iron deficiency anemia, unspecified iron deficiency anemia type D50.9 and BMI 40.0-44.9, adult Z68.41 [place] [address] 00304- 0469 Sep, [id number] [place] [address] 75658- 5509 Sep, [facility] [address] [place] [address] [id number] [place] [address] 71428- 8055 Sep, Arthritis M19.90 and Anxiety F41.9 [facility] [address] [place] [address] [id number] [place] [address] 59154- 5798 Sep, [facility] [address] 46815- 1979 Aug, Anxiety F41.9 [facility] [address] [place] [id number] [place] [address] 27118- 2885 Jul, [facility] [address] [place] [id number] [place] [address] 90038- 2154 Jul, [facility] [address] [place] [id number] [place] [address] 45251- 5325 Jul, Vaginal yeast infection B37.3 [facility] [address] [place] [id number] [place] [address] 68021- 7099 Jul, Anxiety F41.9 [facility] [address] [place] [id number] [place] [address] 76560- 9941 Jul, Type 2 diabetes mellitus without complication, without long- term current use of insulin E11.9 [facility] [address] [place] [id number] [place] [address] 93443- 4849 Jul, [facility] [address] [place] [id number] [place] [address] 75721- 9789 Jul, [facility] [address] [place] [id number] [place] [address] 82778- 5501 Jun, Arthritis M19.90 [facility] [address] [place] [id number] [place] [address] 43847- 0928 Jun, [facility] [address] [place] [id number] [place] [address] 36055- 2474 Jun, [facility] [address] [place] [id number] [place] [address] 17782- 7281 May, [place] [address] 27913- 8271 Apr, Venous insufficiency I87.2 and Venous stasis dermatitis of right lower extremity I87.2 [place] [address] [place] [id number] [place] [address] 74719- 8387 Apr, Essential hypertension I10 [place] [address] 62941- 2541 Mar, [address] 23054- 0122 Mar, Type 2 diabetes mellitus without complication, without long- term current use of insulin E11.9 and Essential hypertension I10 [place] [id number] [place] [address] 77722- 6102 Mar, Essential hypertension I10 and Type 2 diabetes mellitus without complication, without long-term current use of insulin E11.9 [place] [address] [place] [id number] [place] [address] 57634- 7844 Mar, Chronic kidney disease, stage 3 (moderate) N18.3 ; Anemia of chronic disease D63.8 and Type 2 diabetes mellitus without complication, without long-term current use of insulin E11.9 [place] [address] [place] [id number] [place] [address] 10026- 3883 Mar, Type 2 diabetes mellitus without complication, without long- term current use of insulin E11.9 ; Iron deficiency anemia secondary to inadequate dietary iron intake D50.8 ; Arthritis M19.90 and Lumbago with sciatica, left side M54.42 [place] [id number] [place] [address] 80805- 5602 Feb, Arthritis M19.90 and Anxiety F41.9 [place] [id number] [place] [address] 86410- 0397 Feb, Type 2 diabetes mellitus without complication, without long- term current use of insulin E11.9 and Essential hypertension I10 [facility] [address] [place] [address] 70938- 1995 January, Anxiety F41.9 [place] [address] [place] [id number] [place] [address] 70265- 4658 January, Monilial rash B37.2 [place] [address] [place] [id number] [place] [address] 96295- 5434 January, [facility] [address] [place] [id number] [place] [address] 20849- 6326 January, [place] [address] 85986- 2851 January, [place] [address] [place] [id number] [place] [address] 65021- 1666 January, Gastroesophageal reflux disease, esophagitis presence not specified K21.9 [place] [address] [place] [id number] [place] [address] 90799- 4139 January, Arthritis M19.90 [place] [address] [place] [id number] [place] [address] 75236- 6788 January, Anxiety F41.9 ; Arthritis M19.90 and Essential hypertension I10 [place] [address] [place] [id number] [place] [address] 88757- 0751 January, Essential hypertension I10 and Anxiety F41.9 [place] [address] [place] [id number] [place] [address] 45721- 2399 Dec, [place] [address] [place] [address] 21962- 9418 Dec, Arthritis M19.90 and Anxiety F41.9 [place] [address] [place] [address] 04663- 3868 Dec, Type 2 diabetes mellitus without complication, without long- term current use of insulin E11.9 ; Cellulitis of right lower extremity L03.115 and Arthritis M19.90 [place] [address] [place] [id number] [place] [address] 39196- 8980 28 Nov, 2016 [place] [address] 14391- 0751 Nov, Type 2 diabetes mellitus without complication, without long- term current use of insulin E11.9 ; Bronchitis J40 and Arthritis M19.90 [place] [address] 71330- 5041 16 Nov, 2016 [place] [address] 76707- 1572 Oct, Anxiety F41.9 [facility] [address] 49344 -4583 Sep, Dysuria R30.0 ; Acute cystitis with hematuria N30.01 and Vaginal yeast infection B37.[address] 23235- 6558 Sep, Arthritis M19.90 [facility] [place] [address] 24427 -8343 Sep, Strep pharyngitis J02.0 and Sore throat J02.9 [place] [address] [place] [id number] [place] [address] 39132- 1621 Sep, [place] [address] [place] [id number] [place] [address] 67805- 0362 Sep, Type 2 diabetes mellitus without complication, without long- term current use of insulin E11.9 [place] [address] [place] [id number] [place] [address] 69068- 2831 Aug, [address] 52418- 4228 13 Aug, 2016 Seasonal allergic rhinitis due to pollen J30.1 [facility] [place] [id number] [place] [address] 90207 -2403 09 Aug, 2016 Impacted cerumen of right ear H61.21 and Seasonal allergic rhinitis due to pollen J30.1 [facility] [address] [place] [id number] [place] [address] 81279- 5137 Aug, [facility] [address] [place] [id number] [place] [address] 29144- 9690 Aug, [facility] [address] [place] [id number] [place] [address] 25924- 4722 Jul, Type 2 diabetes mellitus without complication, without long- term current use of insulin E11.9 ; Anxiety F41.9 ; Essential hypertension I10 and Encounter for immunization Z23 [facility] [address] [place] [id number] [place] [address] 94353- 2705 Jul, Essential hypertension I10 [facility] [address] [place] [id number] [place] [address] 01067- 9457 Jul, [facility] [address] [place] [id number] [place] [address] 24122- 5640 Jul, [facility] [address] [place] [id number] [place] [address] 38786- 9463 Jul, Essential hypertension I10 [facility] [address] [place] [id number] [place] [address] 15310- 5703 Jul, [facility] [address] [place] [id number] [place] [address] 96942- 7742 May, [facility] [address] [place] [id number] [place] [address] 14007- 0530 May, [facility] [address] [place] [id number] [place] [address] 49479- 4344 Apr, [facility] [address] [place] [id number] [place] [address] 68969- 5505 Apr, [facility] [address] [place] [id number] [place] [address] 74186- 9691 Apr, [facility] [address] [id number] [place] [address] [phone] Apr, Type 2 diabetes mellitus without complication, without long- term current use of insulin E11.9 ; Essential hypertension I10 ; Acute non- recurrent maxillary sinusitis J01.00 ; Arthritis M19.90 ; Lumbago with sciatica , left side M54.42 ; Other chronic pain G89.29 and Anxiety F41.9 IMMUNIZATIONS No Known Immunizations SOCIAL HISTORY Never Assessed REASON FOR VISIT cal Leonard- 10/16 PLAN OF CARE VITAL SIGNS MEDICATIONS Medication Instructions Dosage Frequency Start Date End Date Duration Status Alprazolam 0.5 mg Orally Three times a day 1 tablet 8h Active Tramadol-Acetaminophen 37.5-325 MG Orally every 4 [...]
--- OUTSIDE RECORDS SUMMARY | 2018-11-02 12:41 | XMS REPORT ---
Author Author ABMER CHILDERS [facility] Address [address] [place] [address] Care Team Providers Care Head Of English Name Role Phone AMBER CHILDERS Unavailable PROBLEMS Type Condition ICD9-CM Code [id number] Code Onset Dates Condition Status SNOMED Code Problem Arthritis M19.90 Active 5518288 Problem Anxiety F41.9 Active 98754487 Problem Essential hypertension I10 Active 58706475 Problem Lumbago with sciatica, left side M54.42 Active 337972842 Problem Venous insufficiency I87.2 Active 94282067 Problem Anemia of chronic disease D63.8 Active 317561839 Problem Seasonal allergic rhinitis due to pollen J30.1 Active 99355583 Problem Type 2 diabetes mellitus without complication, without long-term current use of insulin E11.9 Active 932316635 Problem Chronic kidney disease, stage 3 (moderate) N18.3 Active 943254672 Problem Gastroesophageal reflux disease, esophagitis presence not specified K21.9 Active 200516676 ALLERGIES No Information SOCIAL HISTORY Never Assessed PLAN OF CARE VITAL SIGNS MEDICATIONS Medication Instructions Dosage Frequency Start Date End Date Duration Status Lotrisone 1-0.05 % Externally Twice a day 1 application to affected area 12h 15 Jan, 2017 Active RESULTS No Results PROCEDURES No Known procedures IMMUNIZATIONS No Known Immunizations MEDICAL (GENERAL) HISTORY Type Description Date Medical History type II diabetes Medical History hypertension Medical History Arthritis Medical History skin cancer-scalp Surgical History hysterectomy Surgical History skin cancer removal-scalp Hospitalization History Surgery(s) only Hospitalization History dehydration november 2016 Hospitalization History bronchitis november 2106
--- OUTSIDE RECORDS SUMMARY | 2018-11-02 12:41 | XMS REPORT ---
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 [employer] Address Unknown Phone Unavailable Care Team Providers Care Fleet Service Clerk Name Role Phone AMBER CHILDERS CP Unavailable [...]
--- OUTSIDE RECORDS SUMMARY | 2018-11-02 12:41 | XMS REPORT ---
Author Author LAKESHIA MONIQUE Organization [facility] Address [address] [place] [address] Care Team Providers Care Janitorial Tech Name Role Phone LAKESHIA MONIQUE Unavailable PROBLEMS Type Condition ICD9-CM Code [id number] Code Onset Dates Condition Status SNOMED Code Problem Arthritis M19.90 Active 5223137 Problem Anxiety F41.9 Active 92144504 Problem Essential hypertension I10 Active 65826626 Problem Lumbago with sciatica, left side M54.42 Active 405619860 Problem Venous insufficiency I87.2 Active 74662605 Problem Anemia of chronic disease D63.8 Active 046247089 Problem Seasonal allergic rhinitis due to pollen J30.1 Active 93506376 Problem Type 2 diabetes mellitus without complication, without long-term current use of insulin E11.9 Active 128098990 Problem Chronic kidney disease, stage 3 (moderate) N18.3 Active 313949058 Problem Gastroesophageal reflux disease, esophagitis presence not specified K21.9 Active 661306967 ALLERGIES Substance Reaction Event Type Date Status N.K.D.A. Unknown Non Drug Allergy Sep, Unknown SOCIAL HISTORY No smoking Hx information available PLAN OF CARE Activity Details Follow Up prn Reason: VITAL SIGNS Height 56 in 2016-10-21 Weight 179 lbs 2016-10-21 Temperature 97.2 degrees Fahrenheit 2016-10-21 Heart Rate 76 bpm 2016-10-21 Respiratory Rate 20 2016-10-21 BMI 40.13 kg/m2 2016-10-21 Blood pressure systolic 120 mmHg 2016-10-21 Blood pressure diastolic 54 mmHg 2016-10-21 MEDICATIONS Medication Instructions Dosage Frequency Start Date End Date Duration Status Metformin HCl 500 Orally Twice a day 1 tablet with meals 12h 30 Active Tramadol-Acetaminophen 37.5-325 MG Orally every 4 hrs 2 tablets as needed 4h Active Metoprolol Tartrate 25 MG Orally Twice a day 1 tablet with food 12h Active Diflucan 150 MG Orally Take one tablet today then repeat in 72 hours 1 tablet Sep, Sep, 4 days Active Glimepiride 4 MG Orally Once a day 1 tablet with breakfast or the first main meal of the day 24h Active ProAir HFA 108 (90 Base) MCG/ACT Inhalation every 4 hrs 2 puffs as needed 4h Active Aspir-81 81 MG Orally Once a day 1 tablet 24h Active Macrobid 100 MG Orally every 12 hrs 1 capsule with food 12h Sep, 3 Oct, 2016 7 day(s) Active Flonase Allergy Relief 50 MCG/ACT Nasally Once a day 1 spray in each nostril 24h Aug, 30 day(s) Active Xanax 0.5 TAKE ONE TABLET BY MOUTH THREE TIMES A DAY NEEDED FOR ANXIETY 30 Active Acetaminophen 500 MG Orally every 6 hrs 2 capsules as needed 6h Active Lisinopril 5 mg Orally Once a day 1 tablet 24h Active Metformin HCl 500 MG Orally Twice a day 1 tablet with meals 12h Active Timolol 0.5 % Ophthalmic Twice a day 1 drop into affected eye 12h Active Alprazolam 0.5 MG Orally Three times a day 1 tablet 8h Active Hydrochlorothiazide 25 MG Orally Once a day 1 tablet 24h Active RESULTS Name Result Date Reference Range UA LONG DIP (IN HOUSE) 2016-10-21 Lot # [id number] Exp date 2017-10-25 Clarity clear Color yellow Odor none GLU negative EFRAIN negative KET negative SG 1.025 BLO trace-intact pH 6.0 Protein 1+ URO 0.2 NIT negative JOHNATHON 1+ Lot # [id number] Exp date 2017-10 CULTURE, URINE 2016-10-21 Urine Culture, Routine Final report Result 1 No growth PROCEDURES Procedure Date Ordered Related Diagnosis Body Site URINALYSIS, AUTO, W/O SCOPE Oct 21, 2016 LAB [facility] Oct 21, 2016 Office Visit, Est Pt., Level 3 Oct 21, 2016 [facility] VISIT ESTABLISHED PATIENT Oct 21, 2016 IMMUNIZATIONS No Known Immunizations
--- OUTSIDE RECORDS SUMMARY | 2018-11-02 12:41 | XMS REPORT ---
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 [facility] Address [address] [place] [address] Care Team Providers Care Manager Recovery Name Role Phone AMBER CHILDERS Unavailable PROBLEMS Type Condition ICD9-CM Code [id number] Code Onset Dates Condition Status SNOMED Code Problem Essential hypertension I10 Active 89235433 Problem Type 2 diabetes mellitus without complication, without long-term current use of insulin E11.9 Active 778498455 Problem Anxiety F41.9 Active 09677651 Problem Lumbago with sciatica, left side M54.42 Active 055097146 Problem Arthritis M19.90 Active 8034862 Problem Iron deficiency anemia, unspecified iron deficiency anemia type D50.9 Active 29832797 Problem Venous insufficiency I87.2 Active 36198408 Problem Gastroesophageal reflux disease, esophagitis presence not specified K21.9 Active 226787167 Problem Seasonal allergic rhinitis due to pollen J30.1 Active 30770543 Problem Anemia of chronic disease D63.8 Active 954889490 Problem Chronic kidney disease, stage 3 (moderate) N18.3 Active 288320874 ALLERGIES No Information ENCOUNTERS Encounter Location Date Diagnosis [facility] [address] [address] Nov, Dysuria R30.0 and Vaginal kai B37.3 [facility] [id number] [place] [address] Nov, Arthritis M19.90 [facility] [address] [place] [id number] [place] [address] 4474 Oct, [facility] [id number] [place] [address] 11842- 8663 Oct, Type 2 diabetes mellitus without complication, without long- term current use of insulin E11.9 ; Lumbago with sciatica, left side M54.42 ; Arthritis M19.90 ; Iron deficiency anemia, unspecified iron deficiency anemia type D50.9 and BMI 40.0-44.9, adult Z68.41 [place] [address] [address] Sep, [place] [address] [place] [id number] [place] [address] Sep, [place] [address] [address] Sep, Arthritis M19.90 and Anxiety F41.9 [place] [address] [address] Sep, [place] [address] [address] Aug, Anxiety F41.9 [place] [address] [address] Jul, [place] [address] [address] Jul, [place] [address] [address] Jul, Vaginal yeast infection B37.3 [place] [address] [place] [id number] [place] [address] 70206- 9990 Jul, Anxiety F41.9 [place] [address] [place] [id number] [place] [address] 26329- 9581 Jul, Type 2 diabetes mellitus without complication, without long- term current use of insulin E11.9 [place] [address] [address] Jul, [place] [address] [place] [id number] [place] [address]6597[address] 8483 Jul, [place] [address] [place] [id number] [place] [address] 45974- 9258 Jun, Arthritis M19.90 [place] [address] [address] Jun, [place] [address] [place] [id number] [place] [address] 16959[address] 0047 Jun, [place] [address] [place] [id number] [place] [address] 66295- 8195 May, [place] [address] [place] [id number] [place] [address] 89434- 9310 Apr, Venous insufficiency I87.2 and Venous stasis dermatitis of right lower extremity I87.2 [place] [address] [place] [id number] [place] [address]18- 7826 Apr, Essential hypertension I10 [place] [address] [address] [id number] [place] [address] 16018- 5847 Mar, [place] [address] [place] [address] [id number] [place] [address] 94872- 4573 Mar, Type 2 diabetes mellitus without complication, without long- term current use of insulin E11.9 and Essential hypertension I10 [place] [address] [address] [id number] [place] [address] 72765- 9201 Mar, Essential hypertension I10 and Type 2 diabetes mellitus without complication, without long-term current use of insulin E11.9 [place] [address] [place] [address] [id number] [place] [address] 16803[address] 2704 Mar, Chronic kidney disease, stage 3 (moderate) N18.3 ; Anemia of chronic disease D63.8 and Type 2 diabetes mellitus without complication, without long-term current use of insulin E11.9 [place] [address] [place] [address] [id number] [place] [address] 15877- 3122 Mar, Type 2 diabetes mellitus without complication, without long- term current use of insulin E11.9 ; Iron deficiency anemia secondary to inadequate dietary iron intake D50.8 ; Arthritis M19.90 and Lumbago with sciatica, left side M54.42 [place] [address] [id number] [place] [address] 37171- 4292 Feb, Arthritis M19.90 and Anxiety F41.9 [facility] [address] [address] Feb, Type 2 diabetes mellitus without complication, without long- term current use of insulin E11.9 and Essential hypertension I10 [facility] [address] [address] January, Anxiety F41.9 [facility] [address] [address] January, Monilial rash B37.2 [facility] [address] 19[address] January, [facility] [address] 24457- 9142 January, [facility] [address] 41815- 3[address] January, [facility] [address] [place] [id number] [place] [address] 44613- 3507 January, Gastroesophageal reflux disease, esophagitis presence not specified K21.9 [facility] [address] [id number] [place] [address] 47243- 9631 January, Arthritis M19.90 [facility] [address] [place] [address] [id number] [place] [address] 08034- 5770 January, Anxiety F41.9 ; Arthritis M19.90 and Essential hypertension I10 [facility] [address] [place] [address] [id number] [place] [address] 06296- 8066 January, Essential hypertension I10 and Anxiety F41.9 [facility] [address] [place] [address] [id number] [place] [address] 52043- 3175 Dec, [facility] [address] [place] [id number] [place] [address] 99765- 2442 Dec, Arthritis M19.90 and Anxiety F41.9 [place] [id number] [place] [address] 28222- 7835 11 Dec, 2016 Type 2 diabetes mellitus without complication, without long- term current use of insulin E11.9 ; Cellulitis of right lower extremity L03.115 and Arthritis M19.90 [place] [address] [place] [address] [id number] [place] [address] 85304- 7261 28 Nov, 2016 [place] [address] [address]- [address] 20 Nov, 2016 Type 2 diabetes mellitus without complication, without long- term current use of insulin E11.9 ; Bronchitis J40 and Arthritis M19.90 [place] [address] [place] [id number] [place] [address] 31362- 3899 16 Nov, 2016 [place] [address] [place] [id number] [place] [address] 99252- 2873 24 Oct, 2016 Anxiety F41.9 [facility] [id number] [place] [address]139 [address]59 Sep, Dysuria R30.0 ; Acute cystitis with hematuria N30.01 and Vaginal yeast infection B37.3 [place] [address] [place] [address] [id number] [place] [address] 07233- 7379 Sep, Arthritis M19.90 [facility] [address] [place] [id number] [place] [address] 24291 [address]6203 Sep, Strep pharyngitis J02.0 and Sore throat J02.9 [place] [address] [place] [id number] [place] [address] 43698- 4793 Sep, [place] [address] [place] [address] [id number] [place] [address] 98614- 8899 Sep, Type 2 diabetes mellitus without complication, without long- term current use of insulin E11.9 [place] [address] [place] [address] 96304- 9234 Aug, [place] [address] [place] [id number] [place] [address] 72813- 7998 Aug, Seasonal allergic rhinitis due to pollen J30.1 [facility] [address] [address] Aug, Impacted cerumen of right ear H61.21 and Seasonal allergic rhinitis due to pollen J30.1 [facility] [address] 265[address]- [address] Aug, [facility] [address] [address]- [address] Aug, [facility] [address] [address]- 6234 Jul, Type 2 diabetes mellitus without complication, without long- term current use of insulin E11.9 ; Anxiety F41.9 ; Essential hypertension I10 and Encounter for immunization Z23 [facility] [address] [address]- 8281 Jul, Essential hypertension I10 [facility] [address] [place] [id number] [place] [address] 10894- 7630 Jul, [place] [address] 48611- 0728 Jul, [facility] [address] [place] [id number] [place] [address] 69554- 0039 Jul, Essential hypertension I10 [facility] [id number] [place] [address] 94893- 3440 Jul, [facility] [address] [place] [id number] [place] [address] 82924- 6525 May, [facility] [address] [address]- 74[address] May, [facility] [address] [place] [id number] [place] [address] 21794- 2986 Apr, [facility] [address] [place] [address] Apr, [facility] [address] [facility] [id number] [place] [address] Apr, [facility] [address] [facility] [id number] [address] Apr, Type 2 diabetes mellitus without complication, without long- term current use of insulin E11.9 ; Essential hypertension I10 ; Acute non- recurrent maxillary sinusitis J01.00 ; Arthritis M19.90 ; Lumbago with sciatica , left side M54.42 ; Other chronic pain G89.29 and Anxiety F41.9 IMMUNIZATIONS No Known Immunizations SOCIAL HISTORY Never Assessed REASON FOR VISIT discontinue medication PLAN OF CARE VITAL SIGNS MEDICATIONS Medication Instructions Dosage Frequency Start Date End Date Duration Status Metoprolol Tartrate 25 MG Orally Twice a day 1 tablet with food 12h Active RESULTS No Results PROCEDURES No Known [...]
--- OUTSIDE RECORDS SUMMARY | 2018-11-02 12:42 | XMS REPORT ---
Author Author ARVIND CAMACHO Organization [facility] Address [address] [place] [address] Care Team Providers Care Child And Family Counselor Name Role Phone DOUG ARVIND Unavailable PROBLEMS Type Condition ICD9-CM Code [id number] Code Onset Dates Condition Status SNOMED Code Problem Arthritis M19.90 Active 7236231 Problem Anxiety F41.9 Active 80780876 Problem Essential hypertension I10 Active 45230776 Problem Lumbago with sciatica, left side M54.42 Active 267529411 Problem Venous insufficiency I87.2 Active 59739781 Problem Anemia of chronic disease D63.8 Active 691999130 Problem Seasonal allergic rhinitis due to pollen J30.1 Active 35915972 Problem Type 2 diabetes mellitus without complication, without long-term current use of insulin E11.9 Active 565279552 Problem Chronic kidney disease, stage 3 (moderate) N18.3 Active 437237289 Problem Gastroesophageal reflux disease, esophagitis presence not specified K21.9 Active 210110517 ALLERGIES No Known Allergies SOCIAL HISTORY No smoking Hx information available PLAN OF CARE VITAL SIGNS MEDICATIONS Medication Instructions Dosage Frequency Start Date End Date Duration Status Tramadol-Acetaminophen 37.5-325 MG Orally every 4 hrs 2 tablets as needed 4h Active RESULTS No Results PROCEDURES No Known procedures IMMUNIZATIONS No Known Immunizations
--- OUTSIDE RECORDS SUMMARY | 2018-11-02 12:42 | XMS REPORT ---
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 [facility] Address [address] [place] [address] Care Team Providers Care Warm In Worker Name Role Phone AMBER CHILDERS Unavailable PROBLEMS Type Condition ICD9-CM Code [id number] Code Onset Dates Condition Status SNOMED Code Problem Essential hypertension I10 Active 38160799 Problem Type 2 diabetes mellitus without complication, without long-term current use of insulin E11.9 Active 231501159 Problem Anxiety F41.9 Active 38650085 Problem Lumbago with sciatica, left side M54.42 Active 552262711 Problem Arthritis M19.90 Active 1092336 Problem Iron deficiency anemia, unspecified iron deficiency anemia type D50.9 Active 26722227 Problem Venous insufficiency I87.2 Active 60200444 Problem Gastroesophageal reflux disease, esophagitis presence not specified K21.9 Active 266926737 Problem Seasonal allergic rhinitis due to pollen J30.1 Active 10748667 Problem Anemia of chronic disease D63.8 Active 190943872 Problem Chronic kidney disease, stage 3 (moderate) N18.3 Active 777003942 ALLERGIES No Information ENCOUNTERS Encounter Location Date Diagnosis [place] [address] [address], [place] [address] Nov, Arthritis M19.90 [address] [place] [address] 18625- 8887 Oct, [address] [place] [address] 62053- 1345 Oct, Type 2 diabetes mellitus without complication, without long- term current use of insulin E11.9 ; Lumbago with sciatica, left side M54.42 ; Arthritis M19.90 ; Iron deficiency anemia, unspecified iron deficiency anemia type D50.9 and BMI 40.0-44.9, adult Z68.41 [place] [id number] [place] [address] 27781- 3600 Sep, [facility] [address] [place] [id number] [place] [address] 88066- 0357 Sep, [facility] [address] [place] [id number] [place] [address] 43146- 9445 Sep, Arthritis M19.90 and Anxiety F41.9 [facility] [address] 83631- 8048 Sep, [facility] [address] [place] [id number] [place] [address] 02392- 9456 Aug, Anxiety F41.9 [facility] [address] [place] [id number] [place] [address] 43265- 2482 Jul, [facility] [address] [place] [id number] [place] [address] 20123- 2763 Jul, [facility] [address] [place] [id number] [place] [address] 74954- 5319 Jul, Vaginal yeast infection B37.3 [facility] [address] [place] [id number] [place] [address] 06076- 5279 Jul, Anxiety F41.9 [facility] [address] [place] [id number] [place] [address] 35038- 0825 Jul, Type 2 diabetes mellitus without complication, without long- term current use of insulin E11.9 [facility] [address] [place] [address] 47892- 5810 08 Jul, 2017 [facility] [address] [place] [id number] [place] [address] 08179- 9850 Jul, [facility] [address] [place] [id number] [place] [address] 61055- 6066 Jun, Arthritis M19.90 [facility] [address] [place] [id number] [place] [address] 11636- 9502 Jun, [facility] [address] [place] [id number] [place] [address] 75460- 4376 Jun, [place] [address] [place] [id number] [place] [address] 53019- 5522 May, [place] [address] [place] [id number] [place] [address] 87032- 4959 Apr, Venous insufficiency I87.2 and Venous stasis dermatitis of right lower extremity I87.2 [place] [address] [place] [id number] [place] [address] 39924- 4659 Apr, Essential hypertension I10 [address] 09346- 3348 Mar, [place] [address] 71171- 5361 Mar, Type 2 diabetes mellitus without complication, without long- term current use of insulin E11.9 and Essential hypertension I10 [place] [address] [place] [id number] [place] [address] 07963- 2663 Mar, Essential hypertension I10 and Type 2 diabetes mellitus without complication, without long-term current use of insulin E11.9 [place] [id number] [place] [address] 29732- 5900 Mar, Chronic kidney disease, stage 3 (moderate) N18.3 ; Anemia of chronic disease D63.8 and Type 2 diabetes mellitus without complication, without long-term current use of insulin E11.9 [place] [address] [place] [id number] [place] [address] 43822- 3913 Mar, Type 2 diabetes mellitus without complication, without long- term current use of insulin E11.9 ; Iron deficiency anemia secondary to inadequate dietary iron intake D50.8 ; Arthritis M19.90 and Lumbago with sciatica, left side M54.42 [place] [id number] [place] [address] 96861- 3053 Feb, Arthritis M19.90 and Anxiety F41.9 [place] [id number] [place] [address] 79265- 3251 Feb, Type 2 diabetes mellitus without complication, without long- term current use of insulin E11.9 and Essential hypertension I10 [place] [address] [place] [id number] [place] [address] 80085- 0985 January, Anxiety F41.9 [place] [address] [place] [id number] [place] [address] 46521- 9584 January, Monilial rash B37.2 [facility] [address] [place] [id number] [place] [address] 16328- 8193 January, [place] [address] 00116- 7045 January, [place] [address] [place] [id number] [place] [address] 60484- 8721 January, [place] [address] 19635- 4022 January, Gastroesophageal reflux disease, esophagitis presence not specified K21.9 [place] [address] [place] [id number] [place] [address] 60075- 5893 January, Arthritis M19.90 [place] [address] [place] [id number] [place] [address] 44866- 3828 January, Anxiety F41.9 ; Arthritis M19.90 and Essential hypertension I10 [place] [address] [place] [id number] [place] [address] 99772- 5232 January, Essential hypertension I10 and Anxiety F41.9 [place] [address] [place] [id number] [place] [address] 81073- 5305 Dec, [place] [address] [place] [id number] [place] [address] 33422- 4923 Dec, Arthritis M19.90 and Anxiety F41.9 [place] [address] [place] [id number] [place] [address] 64530- 9734 Dec, Type 2 diabetes mellitus without complication, without long- term current use of insulin E11.9 ; Cellulitis of right lower extremity L03.115 and Arthritis M19.90 [place] [address] [place] [id number] [place] [address] 48934- 1291 28 Nov, 2016 [place] [address] [place] [id number] [place] [address] 77429- 9275 Nov, Type 2 diabetes mellitus without complication, without long- term current use of insulin E11.9 ; Bronchitis J40 and Arthritis M19.90 [place] [address] [place] [id number] [place] [address] 69039- 0732 16 Nov, 2016 [place] [address] 27236- 2399 24 Oct, 2016 Anxiety F41.9 [facility] [place] [address] [place] [id number] [place] [address] 00029 -7037 Sep, Dysuria R30.0 ; Acute cystitis with hematuria N30.01 and Vaginal yeast infection B37.3 [place] [address] [place] [id number] [place] [address] 43201- 8554 Sep, Arthritis M19.90 [facility] [place] [address] [address] [place] [id number] [place] [address] 63660 -2518 Sep, Strep pharyngitis J02.0 and Sore throat J02.9 [place] [address] [place] [id number] [place] [address] 98668- 4756 Sep, [place] [address] [place] [id number] [place] [address] 06719- 1200 Sep, Type 2 diabetes mellitus without complication, without long- term current use of insulin E11.9 [place] [address] [place] [id number] [place] [address] 77462- 0745 14 Aug, 2016 [place] [address] [place] [id number] [place] [address] 56767- 9246 13 Aug, 2016 Seasonal allergic rhinitis due to pollen J30.1 [facility] [address] [place] [id number] [place] [address] 88614 -7200 Aug, Impacted cerumen of right ear H61.21 and Seasonal allergic rhinitis due to pollen J30.1 [facility] [address] [place] [id number] [place] [address] 92458- 2405 Aug, [facility] [address] [place] [id number] [place] [address] 31447- 9026 Aug, [facility] [address] [place] [id number] [place] [address] 80777- 0918 Jul, Type 2 diabetes mellitus without complication, without long- term current use of insulin E11.9 ; Anxiety F41.9 ; Essential hypertension I10 and Encounter for immunization Z23 [facility] [address] [place] [id number] [place] [address] 98707- 3961 Jul, Essential hypertension I10 [place] [address] 92942- 7393 Jul, [facility] [address] [place] [id number] [place] [address] 97990- 9259 Jul, [facility] [address] [place] [id number] [place] [address] 18506- 2445 Jul, Essential hypertension I10 [facility] [address] [place] [id number] [place] [address] 35311- 1296 Jul, [facility] [address] [place] [id number] [place] [address] 35974- 2841 May, [facility] [address] [place] [id number] [place] [address] 44057- 3170 May, [facility] [address] [place] [id number] [place] [address] 43382- 2097 Apr, [facility] [address] [place] [id number] [place] [address] 42803- 9080 Apr, [facility] [address] [place] [id number] [place] [address] 09492- 0086 Apr, [facility] [address] [facility] [id number] [place] [address]- 1154 Apr, Type 2 diabetes mellitus without complication, without long- term current use of insulin E11.9 ; Essential hypertension I10 ; Acute non- recurrent maxillary sinusitis J01.00 ; Arthritis M19.90 ; Lumbago with sciatica , left side M54.42 ; Other chronic pain G89.29 and Anxiety F41.9 IMMUNIZATIONS No Known Immunizations SOCIAL HISTORY Never Assessed REASON FOR VISIT Ultracet and Alprazolam PLAN OF CARE VITAL SIGNS MEDICATIONS [...]
--- OUTSIDE RECORDS SUMMARY | 2018-11-02 12:42 | XMS REPORT ---
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 [employer] Address Unknown Phone Unavailable Care Team Providers Care Petroleum Transport Driver Name Role Phone AMBER CHILDERS CP Unavailable [...]
--- OUTSIDE RECORDS SUMMARY | 2018-11-02 12:42 | XMS REPORT ---
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 [facility] Address [address] [place] [address] Care Team Providers Care Mixing Place Supervisor Name Role Phone AMBER CHILDERS Unavailable PROBLEMS Type Condition ICD9-CM Code [id number] Code Onset Dates Condition Status SNOMED Code Problem Essential hypertension I10 Active 05381470 Problem Type 2 diabetes mellitus without complication, without long-term current use of insulin E11.9 Active 023952739 Problem Anxiety F41.9 Active 48131891 Problem Lumbago with sciatica, left side M54.42 Active 205686038 Problem Arthritis M19.90 Active 2355111 Problem Iron deficiency anemia, unspecified iron deficiency anemia type D50.9 Active 32925894 Problem Venous insufficiency I87.2 Active 73113666 Problem Gastroesophageal reflux disease, esophagitis presence not specified K21.9 Active 492220926 Problem Seasonal allergic rhinitis due to pollen J30.1 Active 33380988 Problem Anemia of chronic disease D63.8 Active 835567323 Problem Chronic kidney disease, stage 3 (moderate) N18.3 Active 075696123 ALLERGIES No Information ENCOUNTERS Encounter Location Date Diagnosis [facility] [address] [place] [id number] [place] [address] 48004- 1943 January, Medicare annual wellness visit, initial Z00.00 [facility] [address] [place] [id number] [place] [address] 42431- 2614 16 Dec, 2017 [facility] [address] 75548- 1207 Dec, [facility] [address] [place] [id number] [place] [address] 04797- 4816 Dec, Essential hypertension I10 [facility] [address] [place] [id number] [place] [address] 25668 -5785 Nov, Dysuria R30.0 and Vaginal kai B37.3 [facility] [address] [place] [id number] [place] [address] 52918- 1226 Nov, Arthritis M19.90 [facility] [address] [place] [id number] [place] [address] 99374- 2044 Oct, [place] [address] [place] [id number] [place] [address] 35976- 8581 Oct, Type 2 diabetes mellitus without complication, without long- term current use of insulin E11.9 ; Lumbago with sciatica, left side M54.42 ; Arthritis M19.90 ; Iron deficiency anemia, unspecified iron deficiency anemia type D50.9 and BMI 40.0-44.9, adult Z68.41 [place] [address] [place] [id number] [place] [address] 86419- 4087 Sep, [place] [address] 00079- 2356 Sep, [place] [address] 86719- 3735 Sep, Arthritis M19.90 and Anxiety F41.9 [place] [address] 08634- 1686 Sep, [place] [address] [place] [id number] [place] [address] 34510- 7330 Aug, Anxiety F41.9 [place] [address] [place] [id number] [place] [address] 38718- 2031 Jul, [facility] [address] [place] [id number] [place] [address] 13350- 0634 Jul, [place] [address] 87259- 2536 Jul, Vaginal yeast infection B37.3 [place] [address] [place] [id number] [place] [address] 57933- 8928 Jul, Anxiety F41.9 [place] [address] [address]- 3706 Jul, Type 2 diabetes mellitus without complication, without long- term current use of insulin E11.9 [facility] [address] [address]- 0022 Jul, [facility] [address] [place] [id number] [place] [address] 93419- 2033 Jul, [facility] [address] [place] [id number] [place] [address] 75367- 9781 Jun, Arthritis M19.90 [facility] [address] [place] [id number] [place] [address] 33335- 8121 Jun, [facility] [address] [place] [id number] [place] [address] 55790- 6285 Jun, [place] [address] [place] [id number] [place] [address] 09269- 5949 May, [facility] [address] [place] [id number] [place] [address] 28638- 6756 Apr, Venous insufficiency I87.2 and Venous stasis dermatitis of right lower extremity I87.2 [place] [address] [place] [address] 17799- 9949 Apr, Essential hypertension I10 [place] [address] [address]- 5079 Mar, [facility] [address] [place] [id number] [place] [address] 37418- 1403 Mar, Type 2 diabetes mellitus without complication, without long- term current use of insulin E11.9 and Essential hypertension I10 [place] [address] [place] [id number] [place] [address] 67647- 9520 Mar, Essential hypertension I10 and Type 2 diabetes mellitus without complication, without long-term current use of insulin E11.9 [place] [address] [address]- 8568 Mar, Chronic kidney disease, stage 3 (moderate) N18.3 ; Anemia of chronic disease D63.8 and Type 2 diabetes mellitus without complication, without long-term current use of insulin E11.9 [place] [address] [place] [id number] [place] [address] 60850- 0060 14 Mar, 2017 Type 2 diabetes mellitus without complication, without long- term current use of insulin E11.9 ; Iron deficiency anemia secondary to inadequate dietary iron intake D50.8 ; Arthritis M19.90 and Lumbago with sciatica, left side M54.42 [place] [address] 60261- 7605 Feb, Arthritis M19.90 and Anxiety F41.9 [place] [address] 61509- 3564 Feb, Type 2 diabetes mellitus without complication, without long- term current use of insulin E11.9 and Essential hypertension I10 [place] [address] 40922- 1973 January, Anxiety F41.9 [place] [address] 15509- 6236 January, Monilial rash B37.2 [place] [address] [place] [id number] [place] [address] 27356- 6543 January, [place] [address] [place] [id number] [place] [address] 98244- 8944 January, [place] [address] [place] [id number] [place] [address] 98379- 8031 January, [place] [address] 68347- 7891 January, Gastroesophageal reflux disease, esophagitis presence not specified K21.9 [place] [address] [place] [id number] [place] [address] 68974- 2663 January, Arthritis M19.90 [place] [address] 43628- 9411 January, Anxiety F41.9 ; Arthritis M19.90 and Essential hypertension I10 [place] [address] [place] [id number] [place] [address] 41255- 7373 January, Essential hypertension I10 and Anxiety F41.9 [place] [address] [place] [id number] [place] [address] 43741- 6147 Dec, [place] [address] 02323- 6488 Dec, Arthritis M19.90 and Anxiety F41.9 [place] [address] [place] [id number] [place] [address] 96012- 4360 Dec, Type 2 diabetes mellitus without complication, without long- term current use of insulin E11.9 ; Cellulitis of right lower extremity L03.115 and Arthritis M19.90 [place] [address] [place] [id number] [place] [address] 91250- 9042 Nov, [place] [address] [place] [id number] [place] [address] 15225- 9768 Nov, Type 2 diabetes mellitus without complication, without long- term current use of insulin E11.9 ; Bronchitis J40 and Arthritis M19.90 [place] [address] [place] [address] 72634- 8430 Nov, [place] [address] [place] [id number] [place] [address] 33129- 3998 Oct, Anxiety F41.9 [facility] [address] [place] [address] [place] [address] 10672 -4181 Sep, Dysuria R30.0 ; Acute cystitis with hematuria N30.01 and Vaginal yeast infection B37.3 [place] [address] [place] [id number] [place] [address] 62990- 7507 Sep, Arthritis M19.90 [facility] [address] [place] [id number] [place] [address] 79103 -7680 Sep, Strep pharyngitis J02.0 and Sore throat J02.9 [facility] [address] [place] [id number] [place] [address] 88922- 5486 Sep, [facility] [address] 54591- 3466 Sep, Type 2 diabetes mellitus without complication, without long- term current use of insulin E11.9 [place] [address] 78250- 0876 Aug, [facility] [address] 44727- 6632 Aug, Seasonal allergic rhinitis due to pollen J30.1 [facility] [address] 97726 -5092 Aug, Impacted cerumen of right ear H61.21 and Seasonal allergic rhinitis due to pollen J30.1 [place] [address] 47650- 8368 Aug, [place] [address] 82502- 7067 Aug, [place] [address] 48528- 5863 Jul, Type 2 diabetes mellitus without complication, without long- term current use of insulin E11.9 ; Anxiety F41.9 ; Essential hypertension I10 and Encounter for immunization Z23 [place] [address] [place] [id number] [place] [address] 48257- 7453 Jul, Essential hypertension I10 [place] [address] 98585- 7121 Jul, [place] [address] 15228- 1725 Jul, [place] [address] 60844- 6465 Jul, Essential hypertension I10 [facility] [address] [place] [id number] [address]- 6010 Jul, [facility] [address] [place] [id number] [address]- 4212 May, [facility] [address] 0742 May, [facility] [address] [address]- 3372 Apr, [facility] [address] [address]- 9964 Apr, [facility] [address] [address]- 6354 Apr, [facility] [address] [address]- 4048 Apr, Type 2 diabetes mellitus without complication, without long- term current use of insulin E11.9 ; Essential hypertension I10 ; Acute non- recurrent maxillary sinusitis J01.00 ; Arthritis M19.90 ; Lumbago with sciatica , left side M54.42 ; Other chronic pain G89.29 and Anxiety F41.9 IMMUNIZATIONS No Known Immunizations SOCIAL HISTORY Never Assessed REASON FOR VISIT Note PLAN OF CARE VITAL SIGNS MEDICATIONS Unknown [...]
--- OUTSIDE RECORDS SUMMARY | 2018-11-02 12:43 | XMS REPORT ---
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 [facility] Address [address] [place] [address] Care Team Providers Care Dental Aide Name Role Phone AMBER CHILDERS Unavailable PROBLEMS Type Condition ICD9-CM Code ZJO17-TR Code Onset Dates Condition Status SNOMED Code Problem Arthritis M19.90 Active 8412971 Problem Anxiety F41.9 Active 49567045 Problem Essential hypertension I10 Active 18504306 Problem Lumbago with sciatica, left side M54.42 Active 428301770 Problem Venous insufficiency I87.2 Active 32790439 Problem Anemia of chronic disease D63.8 Active 915009152 Problem Seasonal allergic rhinitis due to pollen J30.1 Active 47010622 Problem Type 2 diabetes mellitus without complication, without long-term current use of insulin E11.9 Active 112160495 Problem Chronic kidney disease, stage 3 (moderate) N18.3 Active 616723115 Problem Gastroesophageal reflux disease, esophagitis presence not specified K21.9 Active 485279016 ALLERGIES No Information SOCIAL HISTORY Never Assessed [...]
--- OUTSIDE RECORDS SUMMARY | 2018-11-02 12:43 | XMS REPORT ---
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 [facility] Address [address] [place] [address] Care Team Providers Care Breaker Operator Name Role Phone AMBER CHILDERS Unavailable PROBLEMS Type Condition ICD9-CM Code HKM57-SF Code Onset Dates Condition Status SNOMED Code Problem Essential hypertension I10 Active 07229662 Problem Type 2 diabetes mellitus without complication, without long-term current use of insulin E11.9 Active 182199372 Problem Anxiety F41.9 Active 65238961 Problem Lumbago with sciatica, left side M54.42 Active 258382968 Problem Arthritis M19.90 Active 8471047 Problem Iron deficiency anemia, unspecified iron deficiency anemia type D50.9 Active 25833013 Problem Venous insufficiency I87.2 Active 89793608 Problem Gastroesophageal reflux disease, esophagitis presence not specified K21.9 Active 960569801 Problem Seasonal allergic rhinitis due to pollen J30.1 Active 02962363 Problem Anemia of chronic disease D63.8 Active 034078839 Problem Chronic kidney disease, stage 3 (moderate) N18.3 Active 148792392 ALLERGIES No Information ENCOUNTERS Encounter Location Date Diagnosis [place] [id number] [place] [address] 00714- 3786 January, Medicare annual wellness visit, initial Z00.00 [facility] [id number] [place] [address] 04108- 6682 January, Essential hypertension I10 [facility] [id number] [place] [address] 86073- 9717 Dec, Arthritis M19.90 [facility] [id number] [place] [address] 25391- 1137 Dec, [place] [id number] [place] [address] 62667- 0938 Dec, [facility] [id number] [place] [address] 62578- 2266 Dec, Essential hypertension I10 [facility] [id number] [place] [address] 34518 -2064 Nov, Dysuria R30.0 and Vaginal kai B37.3 [place] [address] 08736- 7479 Nov, Arthritis M19.90 [facility] [address] 84348- 9982 Oct, [place] [address] 38485- 2790 Oct, Type 2 diabetes mellitus without complication, without long- term current use of insulin E11.9 ; Lumbago with sciatica, left side M54.42 ; Arthritis M19.90 ; Iron deficiency anemia, unspecified iron deficiency anemia type D50.9 and BMI 40.0-44.9, adult Z68.41 [place] [id number] [place] [address] 58055- 4271 Sep, [place] [address] 54767- 9856 Sep, [place] [id number] [place] [address] 80759- 3183 Sep, Arthritis M19.90 and Anxiety F41.9 [place] [id number] [place] [address] 31319- 4654 Sep, [place] [id number] [place] [address] 14878- 9458 Aug, Anxiety F41.9 [place] [id number] [place] [address] 72414- 3780 Jul, [place] [id number] [place] [address] 06683- 0971 Jul, [place] [address], [place] [address] 7490 17 Jul, 2017 Vaginal yeast infection B37.3 [facility] [id number] [place] [address] 14231- 5507 14 Jul, 2017 Anxiety F41.9 [facility] [id number] [place] [address] 54176- 3327 Jul, Type 2 diabetes mellitus without complication, without long- term current use of insulin E11.9 [facility] [id number] [place] [address] 77257- 0485 Jul, [facility] [id number] [place] [address] 02257- 5439 Jul, [facility] [id number] [place] [address] 02210- 7038 Jun, Arthritis M19.90 [facility] [id number] [place] [address] 97677- 4373 Jun, [facility] [id number] [place] [address] 92081- 4265 Jun, [facility] [id number] [place] [address] 68166- 3221 May, [facility] [address] [place] [address] 82051- 7830 Apr, Venous insufficiency I87.2 and Venous stasis dermatitis of right lower extremity I87.2 [facility] [address] [place] [address] 60005- 9256 Apr, Essential hypertension I10 [facility] [address] [place] [address] 90803- 1966 Mar, [facility] [address] [place] [address] 56836- 8008 Mar, Type 2 diabetes mellitus without complication, without long- term current use of insulin E11.9 and Essential hypertension I10 [facility] [id number] [address]- 2227 Mar, Essential hypertension I10 and Type 2 diabetes mellitus without complication, without long-term current use of insulin E11.9 [place] [id number] [place] [address] 94339- 3646 Mar, Chronic kidney disease, stage 3 (moderate) N18.3 ; Anemia of chronic disease D63.8 and Type 2 diabetes mellitus without complication, without long-term current use of insulin E11.9 [place] [id number] [place] [address] 00044- 7317 14 Mar, 2017 Type 2 diabetes mellitus without complication, without long- term current use of insulin E11.9 ; Iron deficiency anemia secondary to inadequate dietary iron intake D50.8 ; Arthritis M19.90 and Lumbago with sciatica, left side M54.42 [place] [id number] [place] [address] 78938- 1469 Feb, Arthritis M19.90 and Anxiety F41.9 [place] [id number] [place] [address] 00560- 1007 Feb, Type 2 diabetes mellitus without complication, without long- term current use of insulin E11.9 and Essential hypertension I10 [address] [place] [address] 00076- 8444 January, Anxiety F41.9 [place] [id number] [address]- 2709 January, Monilial rash B37.2 [place] [address] [place] [address] 26030- 6840 January, [place] [id number] [place] [address] 91225- 9847 January, [place] [id number] [place] [address] 13944- 1733 January, [place] [id number] [place] [address] 22336- 7528 January, Gastroesophageal reflux disease, esophagitis presence not specified K21.9 [facility] [id number] [place] [address] 42436- 4757 January, Arthritis M19.90 [facility] [address] 38994- 2584 January, Anxiety F41.9 ; Arthritis M19.90 and Essential hypertension I10 [facility] [address] 26154- 9474 January, Essential hypertension I10 and Anxiety F41.9 [facility] [address] 23964- 2754 Dec, [place] [address] 93585- 2207 Dec, Arthritis M19.90 and Anxiety F41.9 [facility] [address] 90951- 4776 Dec, Type 2 diabetes mellitus without complication, without long- term current use of insulin E11.9 ; Cellulitis of right lower extremity L03.115 and Arthritis M19.90 [facility] [id number] [place] [address] 10520- 9128 Nov, [place] [id number] [place] [address] 47764- 1902 Nov, Type 2 diabetes mellitus without complication, without long- term current use of insulin E11.9 ; Bronchitis J40 and Arthritis M19.90 [facility] [id number] [place] [address] 65401- 0069 Nov, [place] [address] 88027- 5516 Oct, Anxiety F41.9 [facility] [id number] [place] [address] 38158 -3337 Sep, Dysuria R30.0 ; Acute cystitis with hematuria N30.01 and Vaginal yeast infection B37.[address] 78083- 5609 Sep, Arthritis M19.90 [facility] [address] 82474 -1451 Sep, Strep pharyngitis J02.0 and Sore throat J02.[address] 37283- 9588 Sep, [address] 46744- 0855 Sep, Type 2 diabetes mellitus without complication, without long- term current use of insulin E11.[address] 51087- 9651 Aug, [address] 85289- 9909 Aug, Seasonal allergic rhinitis due to pollen J30.1 [facility] [address] 22049 -7775 Aug, Impacted cerumen of right ear H61.21 and Seasonal allergic rhinitis due to pollen J30.[address] 12030- 0778 Aug, [address] 74934- 7152 Aug, [address] 29965- 9654 Jul, Type 2 diabetes mellitus without complication, without long- term current use of insulin E11.9 ; Anxiety F41.9 ; Essential hypertension I10 and Encounter for immunization Z23 [address] 53609- 3852 Jul, Essential hypertension I10 [address] 60864- 4035 Jul, [facility] [address], [place] [address]- 2246 Jul, [facility] [address], [place] [address]- 2508 Jul, Essential hypertension I10 [facility] [address], [place] [address]- 4803 Jul, [facility] [id number] [place] [address] 40281- 4278 May, [facility] [address], [place] [address]- 7808 May, [facility] [id number] [place] [address] 60277- 3784 Apr, [facility] [address], [place] [address]- 9320 Apr, [facility] [address], [place] [address]- 4982 Apr, [facility] [address], [place] [address]- 2851 Apr, Type 2 diabetes mellitus without complication, [...]
--- OUTSIDE RECORDS SUMMARY | 2018-11-02 12:43 | XMS REPORT ---
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 [facility] Address [address] [place] [address] Care Team Providers Care Technical Producer Name Role Phone AMBER CHILDERS Unavailable PROBLEMS Type Condition ICD9-CM Code [id number] Code Onset Dates Condition Status SNOMED Code Problem Essential hypertension I10 Active 75772986 Problem Type 2 diabetes mellitus without complication, without long-term current use of insulin E11.9 Active 578978675 Problem Anxiety F41.9 Active 06400565 Problem Lumbago with sciatica, left side M54.42 Active 219493331 Problem Arthritis M19.90 Active 2396574 Problem Iron deficiency anemia, unspecified iron deficiency anemia type D50.9 Active 14429662 Problem Venous insufficiency I87.2 Active 93840092 Problem Gastroesophageal reflux disease, esophagitis presence not specified K21.9 Active 231940012 Problem Seasonal allergic rhinitis due to pollen J30.1 Active 45249666 Problem Anemia of chronic disease D63.8 Active 280277592 Problem Chronic kidney disease, stage 3 (moderate) N18.3 Active 409631085 ALLERGIES No Information ENCOUNTERS Encounter Location Date Diagnosis [place] [address], [place] [address]- 5758 Nov, Arthritis M19.90 [address] [place] [address] 19491- 1971 Oct, [address] [place] [address] 56958- 0438 Oct, Type 2 diabetes mellitus without complication, without long- term current use of insulin E11.9 ; Lumbago with sciatica, left side M54.42 ; Arthritis M19.90 ; Iron deficiency anemia, unspecified iron deficiency anemia type D50.9 and BMI 40.0-44.9, adult Z68.41 [place] [id number] [place] [address] 09051- 1312 Sep, [facility] [id number] [place] [address] 32692- 2673 Sep, [facility] [id number] [place] [address] 39271- 5875 Sep, Arthritis M19.90 and Anxiety F41.9 [facility] [address] 66966- 7967 Sep, [facility] [id number] [place] [address] 29268- 3664 Aug, Anxiety F41.9 [facility] [address] [id number] [place] [address] 51798- 6287 Jul, [facility] [address] [id number] [place] [address] 86803- 0683 Jul, [facility] [id number] [place] [address] 32299- 9219 Jul, Vaginal yeast infection B37.3 [facility] [id number] [place] [address] 95144- 8192 Jul, Anxiety F41.9 [facility] [address] [id number] [place] [address] 40900- 9698 Jul, Type 2 diabetes mellitus without complication, without long- term current use of insulin E11.9 [facility] [address] [place] [address] 48950- 5330 08 Jul, 2017 [facility] [id number] [place] [address] 78388- 3238 Jul, [facility] [address] [id number] [place] [address] 53453- 5513 Jun, Arthritis M19.90 [facility] [id number] [place] [address] 54333- 7397 Jun, [facility] [address] [id number] [place] [address] 25662- 9024 Jun, [place] [id number] [place] [address] 96102- 8170 May, [place] [id number] [place] [address] 22766- 7089 Apr, Venous insufficiency I87.2 and Venous stasis dermatitis of right lower extremity I87.2 [place] [id number] [place] [address] 71983- 1845 Apr, Essential hypertension I10 [address] 10138- 1603 Mar, [place] [address] 79056- 2742 Mar, Type 2 diabetes mellitus without complication, without long- term current use of insulin E11.9 and Essential hypertension I10 [place] [id number] [place] [address] 49037- 4502 Mar, Essential hypertension I10 and Type 2 diabetes mellitus without complication, without long-term current use of insulin E11.9 [place] [id number] [place] [address] 99198- 6648 Mar, Chronic kidney disease, stage 3 (moderate) N18.3 ; Anemia of chronic disease D63.8 and Type 2 diabetes mellitus without complication, without long-term current use of insulin E11.9 [place] [id number] [place] [address] 82022- 2063 Mar, Type 2 diabetes mellitus without complication, without long- term current use of insulin E11.9 ; Iron deficiency anemia secondary to inadequate dietary iron intake D50.8 ; Arthritis M19.90 and Lumbago with sciatica, left side M54.42 [place] [address] [place] [address] 07906- 6150 Feb, Arthritis M19.90 and Anxiety F41.9 [place] [address] [place] [address] 89235- 9016 Feb, Type 2 diabetes mellitus without complication, without long- term current use of insulin E11.9 and Essential hypertension I10 [place] [id number] [place] [address] 45908- 6667 January, Anxiety F41.9 [place] [id number] [place] [address] 23600- 9824 January, Monilial rash B37.2 [facility] [id number] [place] [address] 25068- 1356 January, [place] [address] 22746- 3458 January, [place] [id number] [place] [address] 03032- 9029 January, [place] [address] 68637- 1163 January, Gastroesophageal reflux disease, esophagitis presence not specified K21.9 [place] [id number] [place] [address] 66365- 2133 January, Arthritis M19.90 [place] [id number] [place] [address] 45140- 2740 January, Anxiety F41.9 ; Arthritis M19.90 and Essential hypertension I10 [place] [id number] [place] [address] 38287- 9230 January, Essential hypertension I10 and Anxiety F41.9 [place] [id number] [place] [address] 04110- 8473 Dec, [place] [id number] [place] [address] 42049- 8747 Dec, Arthritis M19.90 and Anxiety F41.9 [place] [id number] [place] [address] 55753- 5182 Dec, Type 2 diabetes mellitus without complication, without long- term current use of insulin E11.9 ; Cellulitis of right lower extremity L03.115 and Arthritis M19.90 [place] [id number] [place] [address] 92868- 3465 28 Nov, 2016 [place] [id number] [place] [address] 72388- 6751 Nov, Type 2 diabetes mellitus without complication, without long- term current use of insulin E11.9 ; Bronchitis J40 and Arthritis M19.90 [place] [id number] [place] [address] 51350- 1553 16 Nov, 2016 [place] [address] 10586- 0518 24 Oct, 2016 Anxiety F41.9 [facility] [place] [id number] [place] [address] 68543 -1214 Sep, Dysuria R30.0 ; Acute cystitis with hematuria N30.01 and Vaginal yeast infection B37.3 [place] [id number] [place] [address] 88136- 2978 Sep, Arthritis M19.90 [facility] [place] [id number] [place] [address] 43731 -8988 Sep, Strep pharyngitis J02.0 and Sore throat J02.9 [place] [id number] [place] [address] 58962- 0878 Sep, [place] [id number] [place] [address] 61089- 9132 Sep, Type 2 diabetes mellitus without complication, without long- term current use of insulin E11.9 [place] [id number] [place] [address] 16068- 8842 14 Aug, 2016 [place] [id number] [place] [address] 58548- 7228 13 Aug, 2016 Seasonal allergic rhinitis due to pollen J30.1 [facility] [address] [place] [address] 46640 -4731 Aug, Impacted cerumen of right ear H61.21 and Seasonal allergic rhinitis due to pollen J30.1 [facility] [id number] [place] [address] 66807- 4465 Aug, [facility] [id number] [place] [address] 73330- 7522 Aug, [facility] [address] [place] [id number] [place] [address] 68259- 4353 Jul, Type 2 diabetes mellitus without complication, without long- term current use of insulin E11.9 ; Anxiety F41.9 ; Essential hypertension I10 and Encounter for immunization Z23 [facility] [address] [id number] [place] [address] 11088- 4820 Jul, Essential hypertension I10 [place] [address] 19232- 5077 Jul, [facility] [id number] [place] [address] 15904- 6496 Jul, [facility] [id number] [place] [address] 85670- 2614 Jul, Essential hypertension I10 [facility] [address] [id number] [place] [address] 47890- 4625 Jul, [facility] [id number] [place] [address] 99112- 9383 May, [facility] [id number] [place] [address] 18072- 2423 May, [facility] [id number] [place] [address] 99719- 4422 Apr, [facility] [id number] [place] [address] 71410- 5377 Apr, [facility] [id number] [place] [address] 57990- 1166 Apr, [facility] [address] [facility] [id number] [place] [address]- 0365 Apr, Type 2 diabetes mellitus without complication, without long- term current use of insulin E11.9 ; Essential hypertension I10 ; Acute non- recurrent maxillary sinusitis J01.00 ; Arthritis M19.90 ; Lumbago with sciatica , left side M54.42 ; Other chronic pain G89.29 and Anxiety F41.9 IMMUNIZATIONS No Known Immunizations SOCIAL HISTORY Never Assessed REASON FOR VISIT 90 day supply PLAN OF CARE VITAL SIGNS MEDICATIONS Medication Instructions Dosage Frequency Start Date End Date Duration Status Metformin HCl 500 mg Orally 2 times a day 1 tablet 12h 90 days Active Lisinopril 5 mg Orally Once a day 1 tablet 24h Active RESULTS No Results PROCEDURES No [...]
--- OUTSIDE RECORDS SUMMARY | 2018-11-02 12:43 | XMS REPORT ---
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 [employer] Address Unknown Phone Unavailable Care Team Providers Care Public Aid Eligibility Assistant Name Role Phone AMBER CHILDERS Unavailable Allergies [...] Instructions Start Date End Date Status Dosage Metoprolol Tartrate [facility] [address]-36 25 MG Orally Twice a day 1 tablet with food Results No Known Results Summary Purpose [employer] Submission
--- OUTSIDE RECORDS SUMMARY | 2018-11-02 12:45 | XMS REPORT | Continuity of Care Document ---
Author Author [facility] Organization [facility] Address Unknown Phone Unavailable Allergies Active Description Code Type Severity Reaction Onset Reported/Identified Relationship to Patient Clinical Status Yes diazepam [id number] Drug Allergy Moderate RASH 08/13/2010 Medications There is no data. Problems Date Dx Coded Attending Type Code Diagnosis Diagnosed By 08/13/2010 Ot 729.5 09/13/2010 Ot 490 09/13/2010 Ot 786.2 09/14/2012 Ot 785.1 01/03/2015 CASSANDRA ROBERTSON RELISH MAKER Ot 250.80 DIAB W OTH SPEC MANIFEST, TYPE II OR UNS 01/03/2015 CASSANDRA ROBERTSON RELISH MAKER Ot 403.90 HYPTNSV CHR KID DIS, UNSPEC, W CHR KD ST 01/03/2015 CASSANDRA ROBERTSON RELISH MAKER Ot 490 BRONCHITIS NOS 01/03/2015 CASSANDRA ROBERTSON RELISH MAKER Ot 585.9 CHRONIC KIDNEY DISEASE, UNSPECIFIED 01/03/2015 CASSANDRA ROBERTSON RELISH MAKER Ot 780.79 OTH MALAISE FATIGUE 01/03/2015 CASSANDRA ROBERTSON RELISH MAKER Ot 786.2 COUGH 01/03/2015 CASSANDRA ROBERTSON RELISH MAKER Ot V58.69 OTH MED,LT,CURRENT USE 01/04/2015 Ot V76.12 01/04/2015 Ot V76.12 01/04/2015 CASSANDRA ROBERTSON RELISH MAKER Ot 466.0 ACUTE BRONCHITIS 01/04/2015 CASSANDRA ROBERTSON RELISH MAKER Ot 786.2 COUGH 12/15/2016 NEVAEH MECTALF MD Ot E11.9 TYPE 2 DIABETES MELLITUS WITHOUT COMPLIC 12/15/2016 NEVAEH METCALF MD Ot E86.0 DEHYDRATION 12/15/2016 NEVAEH METCALF MD Ot I10 ESSENTIAL (PRIMARY) HYPERTENSION 12/15/2016 NEVAEH METCALF MD Ot J21.9 ACUTE BRONCHIOLITIS, UNSPECIFIED 12/15/2016 NEVAEH METCALF MD Ot J45.909 UNSPECIFIED ASTHMA, UNCOMPLICATED 12/15/2016 NEVAEH METCALF MD Ot K21.9 GASTRO-ESOPHAGEAL REFLUX DISEASE WITHOUT 12/15/2016 NEVAEH METCALF MD Ot R19.7 DIARRHEA, UNSPECIFIED 12/15/2016 NEVAEH METCALF MD Ot E11.9 TYPE 2 DIABETES MELLITUS WITHOUT COMPLIC 12/15/2016 NEVAEH METCALF MD Ot E86.0 DEHYDRATION 12/15/2016 NEVAEH METCALF MD Ot I10 ESSENTIAL (PRIMARY) HYPERTENSION 12/15/2016 NEVAEH METCALF MD Ot J21.9 ACUTE BRONCHIOLITIS, UNSPECIFIED 12/15/2016 NEVAEH METCALF MD Ot J45.909 UNSPECIFIED ASTHMA, UNCOMPLICATED 12/15/2016 NEVAEH METCALF MD Ot K21.9 GASTRO-ESOPHAGEAL REFLUX DISEASE WITHOUT 12/15/2016 NEVAEH METCALF MD Ot R19.7 DIARRHEA, UNSPECIFIED 10/24/2018 RODRIGUEZ BRUNO MD Ot E11.9 TYPE 2 DIABETES MELLITUS WITHOUT COMPLIC 10/24/2018 RODRIGUEZ BRUNO MD Ot I10 ESSENTIAL (PRIMARY) HYPERTENSION 10/24/2018 RODRIGUEZ BRUNO MD Ot K21.9 GASTRO-ESOPHAGEAL REFLUX DISEASE WITHOUT 10/24/2018 RODRIGUEZ BRUNO MD Ot M25.561 PAIN IN RIGHT KNEE 10/24/2018 RODRIGUEZ BRUNO MD Ot M25.562 PAIN IN LEFT KNEE 10/24/2018 RODRIGUEZ BRUNO MD Ot R40.2142 COMA SCALE, EYES OPEN, SPONTANEOUS, EMR 10/24/2018 RODRIGUEZ BRUNO MD Ot R40.2252 COMA SCALE, BEST VERBAL RESPONSE, ORIENT 10/24/2018 RODRIGUEZ BRUNO MD Ot R40.2362 COMA SCALE, BEST MOTOR RESPONSE, OBEYS C 10/24/2018 RODRIGUEZ BRUNO MD Ot W05.0XXA FALL FROM NON-MOVING WHEELCHAIR, INITIAL 10/24/2018 RODRIGUEZ BRUNO MD Ot W22.09XA STRIKING AGAINST OTHER STATIONARY OBJECT 10/24/2018 RODRIGUEZ BRUNO MD Ot Z79.82 ASSISTED (CURRENT) USE OF ASPIRIN 10/24/2018 RODRIGUEZ BRUNO MD Ot Z79.84 RECORD PRODUCER (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) USE OF ORAL HYPOGLYC 10/24/2018 RODRIGUEZ BRUNO MD Ot Z85.828 PERSONAL HISTORY OF OTHER MALIGNANT NEOP 10/24/2018 RODRIGUEZ BRUNO MD, Ot Z88.8 ALLERGY STATUS TO OT DRUG/MEDS/BIOL SUB 10/24/2018 RODRIGUEZ BRUNO MD, Ot Z90.710 ACQUIRED ABSENCE OF BOTH CERVIX AND UTER 10/28/2018 RODRIGUEZ BRUNO MD Ot E11.9 TYPE 2 DIABETES MELLITUS WITHOUT COMPLIC 10/28/2018 RODRIGUEZ BRUNO MD Ot I10 ESSENTIAL (PRIMARY) HYPERTENSION 10/28/2018 RODRIGUEZ BRUNO MD, Ot K21.9 GASTRO-ESOPHAGEAL REFLUX DISEASE WITHOUT 10/28/2018 RODRIGUEZ BRUNO MD, Ot M25.561 PAIN IN RIGHT KNEE 10/28/2018 RODRIGUEZ BRUNO MD, Ot M25.562 PAIN IN LEFT KNEE 10/28/2018 RODRIGUEZ BRUNO MD, Ot R40.2142 COMA SCALE, EYES OPEN, SPONTANEOUS, EMR 10/28/2018 RODRIGUEZ BRUNO MD, Ot R40.2252 COMA SCALE, BEST VERBAL RESPONSE, ORIENT 10/28/2018 RODRIGUEZ BRUNO MD, Ot R40.2362 COMA SCALE, BEST MOTOR RESPONSE, OBEYS C 10/28/2018 RODRIGUEZ BRUNO MD Ot W05.0XXA FALL FROM NON-MOVING WHEELCHAIR, INITIAL 10/28/2018 RODRIGUEZ BRUNO MD, Ot W22.09XA STRIKING AGAINST OTHER STATIONARY OBJECT 10/28/2018 RODRIGUEZ BRUNO MD, Ot Z79.82 RECORD PRODUCER (CURRENT) USE OF ASPIRIN 10/28/2018 RODRIGUEZ BRUNO MD, Ot Z79.84 ASSISTED (CURRENT) USE OF ORAL HYPOGLYC 10/28/2018 RODRIGUEZ BRUNO MD, Ot Z85.828 PERSONAL HISTORY OF OTHER MALIGNANT NEOP 10/28/2018 RODRIGUEZ BRUNO MD, Ot Z88.8 ALLERGY STATUS TO OT DRUG/MEDS/BIOL SUB 10/28/2018 RODRIGUEZ BRUNO MD, Ot Z90.710 ACQUIRED ABSENCE OF BOTH CERVIX AND UTER Procedures There is no data. Results Test Result Range Urine Culture, Routine - 10/21/16 15:27 Urine Culture, Routine Note Bacterial blood culture - 12/13/16 03:35 Bacterial blood culture NG NRG Complete blood count (CBC) with automated white blood cell (WBC) differential - 12/13/16 03:44 Blood leukocytes automated count (number/volume) 11.4 10*3/uL 4.3-11.0 Blood erythrocytes automated count (number/volume) 3.58 10*6/uL 4.35-5.85 Venous blood hemoglobin measurement (mass/volume) 10.3 g/dL 11.5-16.0 Blood hematocrit (volume fraction) 33 % 35-52 Automated erythrocyte mean corpuscular volume 93 [foz_us] 80-99 Automated erythrocyte mean corpuscular hemoglobin (mass per erythrocyte) 29 pg 25-34 Automated erythrocyte mean corpuscular hemoglobin concentration measurement ( mass/volume) 31 g/dL 32-36 Automated erythrocyte distribution width ratio 15.6 % 10.0-14.5 Automated blood platelet count (count/volume) 277 10*3/uL 130-400 Automated blood platelet mean volume measurement 10.2 [foz_us] 7.4-10.4 Automated blood neutrophils/100 leukocytes 83 % 42-75 Automated blood lymphocytes/100 leukocytes 9 % 12-44 Blood monocytes/100 leukocytes 8 % 0-12 Automated blood eosinophils/100 leukocytes 1 % 0-10 Automated blood basophils/100 leukocytes 0 % 0-10 Blood neutrophils automated count (number/volume) 9.5 10*3 1.8-7.8 Blood lymphocytes automated count (number/volume) 1.0 10*3 1.0-4.0 Blood monocytes automated count (number/volume) 0.9 10*3 0.0-1.0 Automated eosinophil count 0.1 10*3/uL 0.0-0.3 Automated blood basophil count (count/volume) 0.0 10*3/uL 0.0-0.1 Blood lactic acid measurement (moles/volume) - 12/13/16 03:44 Blood lactic acid measurement (moles/volume) 2.48 mmol/L 0.50-2.00 Comprehensive metabolic panel - 12/13/16 03:44 Serum or plasma sodium measurement (moles/volume) 137 mmol/L 135-145 Serum or plasma potassium measurement (moles/volume) 5.2 mmol/L 3.6-5.0 Serum or plasma chloride measurement (moles/volume) 109 mmol/L 98-107 Carbon dioxide 12 mmol/L 21-32 Serum or plasma anion gap determination (moles/volume) 16 mmol/L 5-14 Serum or plasma urea nitrogen measurement (mass/volume) 40 mg/dL 7-18 Serum or plasma creatinine measurement (mass/volume) 1.98 mg/dL 0.60-1.30 Serum or plasma urea nitrogen/creatinine mass ratio 20 NRG Serum or plasma creatinine measurement with calculation of estimated glomerular filtration rate 24 NRG Serum or plasma glucose measurement (mass/volume) 162 mg/dL 70-105 Serum or plasma calcium measurement (mass/volume) 9.4 mg/dL 8.5-10.1 Serum or plasma total bilirubin measurement (mass/volume) 0.1 mg/dL 0.1-1.0 Serum or plasma alkaline phosphatase measurement (enzymatic activity/volume) 48 U/L 40-136 Serum or plasma aspartate aminotransferase measurement (enzymatic activity/ volume) 17 U/L 5-34 Serum or plasma alanine aminotransferase measurement (enzymatic activity/volume ) 14 U/L 0-55 Serum or plasma protein measurement (mass/volume) 8.1 g/dL 6.4-8.2 Serum or plasma albumin measurement (mass/volume) 4.2 g/dL 3.2-4.5 Magnesium - 12/13/16 03:44 Magnesium 2.2 mg/dL 1.8-2.4 Bacterial blood culture - 12/13/16 03:44 Bacterial blood culture NG NRG Complete urinalysis with reflex to culture - 12/13/16 04:26 Urine color determination YELLOW NRG Urine clarity determination CLEAR NRG Urine pH measurement by test strip 5 5-9 Specific gravity of urine by test strip 1.020 1.016- 1.022 Urine protein assay by test strip, semi-quantitative 2+ NEGATIVE Urine glucose detection by automated test strip NEGATIVE NEGATIVE Erythrocytes detection in urine sediment by light microscopy 1+ NEGATIVE Urine ketones detection by automated test strip NEGATIVE NEGATIVE Urine nitrite detection by test strip NEGATIVE NEGATIVE Urine total bilirubin detection by test strip NEGATIVE NEGATIVE Urine urobilinogen measurement by automated test strip (mass/volume) NORMAL NORMAL Urine leukocyte esterase detection by dipstick 1+ NEGATIVE Automated urine sediment erythrocyte count by microscopy (number/high power field) [HPF] NRG Automated urine sediment leukocyte count by microscopy (number/high power field ) RARE NRG Bacteria detection in urine sediment by light microscopy TRACE NRG Squamous epithelial cells detection in urine sediment by light microscopy 0-2 NRG Crystals detection in urine sediment by light microscopy NONE NRG Casts detection in urine sediment by light microscopy PRESENT NRG Mucus detection in urine sediment by light microscopy MODERATE NRG Complete urinalysis with reflex to culture NO NRG Hyaline casts detection in urine sediment by light microscopy 5-10 NRG Serum or plasma lactate measurement (moles/volume) - 12/13/16 06:27 Serum or plasma lactate measurement (moles/volume) 2.28 mmol/L 0.50-2.00 Capillary blood glucose measurement by glucometer (mass/volume) - 12/13/16 21: 32 Capillary blood glucose measurement by glucometer (mass/volume) 126 mg/dL 70-110 Capillary blood glucose measurement by glucometer (mass/volume) - 12/14/16 05: 19 Capillary blood glucose measurement by glucometer (mass/volume) 130 mg/dL 70-110 Complete blood count (CBC) with automated white blood cell (WBC) differential - 12/14/16 07:31 Blood leukocytes automated count (number/volume) 8.7 10*3/uL 4.3-11.0 Blood erythrocytes automated count (number/volume) 2.91 10*6/uL 4.35-5.85 Venous blood hemoglobin measurement (mass/volume) 8.5 g/dL 11.5-16.0 Blood hematocrit (volume fraction) 27 % 35-52 Automated erythrocyte mean corpuscular volume 93 [foz_us] 80-99 Automated erythrocyte mean corpuscular hemoglobin (mass per erythrocyte) 29 pg 25-34 Automated erythrocyte mean corpuscular hemoglobin concentration measurement ( mass/volume) 32 g/dL 32-36 Automated erythrocyte distribution width ratio 15.7 % 10.0-14.5 Automated blood platelet count (count/volume) 223 10*3/uL 130-400 Automated blood platelet mean volume measurement 9.7 [foz_us] 7.4-10.4 Automated blood neutrophils/100 leukocytes 69 % 42-75 Automated blood lymphocytes/100 leukocytes 23 % 12-44 Blood monocytes/100 leukocytes 7 % 0-12 Automated blood eosinophils/100 leukocytes 1 % 0-10 Automated blood basophils/100 leukocytes 0 % 0-10 Blood neutrophils automated count (number/volume) 6.0 10*3 1.8-7.8 Blood lymphocytes automated count (number/volume) 2.0 10*3 1.0-4.0 Blood monocytes automated count (number/volume) 0.6 10*3 0.0-1.0 Automated eosinophil count 0.1 10*3/uL 0.0-0.3 Automated blood basophil count (count/volume) 0.0 10*3/uL 0.0-0.1 Whole blood basic metabolic panel - 12/14/16 07:31 Serum or plasma sodium measurement (moles/volume) 141 mmol/L 135-145 Serum or plasma potassium measurement (moles/volume) 4.2 mmol/L 3.6-5.0 Serum or plasma chloride measurement (moles/volume) 116 mmol/L 98-107 Carbon dioxide 18 mmol/L 21-32 Serum or plasma anion gap determination (moles/volume) 7 mmol/L 5-14 Serum or plasma urea nitrogen measurement (mass/volume) 26 mg/dL 7-18 Serum or plasma creatinine measurement (mass/volume) 1.34 mg/dL 0.60-1.30 Serum or plasma urea nitrogen/creatinine mass ratio 19 NRG Serum or plasma creatinine measurement with calculation of estimated glomerular filtration rate 38 NRG Serum or plasma glucose measurement (mass/volume) 159 mg/dL 70-105 Serum or plasma calcium measurement (mass/volume) 7.7 mg/dL 8.5-10.1 Capillary blood glucose measurement by glucometer (mass/volume) - 12/14/16 10: 55 Capillary blood glucose measurement by glucometer (mass/volume) 150 mg/dL 70-110 Capillary blood glucose measurement by glucometer (mass/volume) - 12/14/16 16: 19 Capillary blood glucose measurement by glucometer (mass/volume) 102 mg/dL 70-110 Capillary blood glucose measurement by glucometer (mass/volume) - 12/14/16 20: 21 Capillary blood glucose measurement by glucometer (mass/volume) 182 mg/dL 70-110 Capillary blood glucose measurement by glucometer (mass/volume) - 12/15/16 05: 12 Capillary blood glucose measurement by glucometer (mass/volume) 141 mg/dL 70-110 Capillary blood glucose measurement by glucometer (mass/volume) - 12/15/16 10: 43 Capillary blood glucose measurement by glucometer (mass/volume) 171 mg/dL 70-110 Capillary blood glucose measurement by glucometer (mass/volume) - 12/15/16 15: 58 Capillary blood glucose measurement by glucometer (mass/volume) 132 mg/dL 70-110 CBC With Differential/Platelet - 04/07/17 09:38 WBC 8.0 x10E3/uL 3.4-10.8 RBC 3.31 x10E6/uL 3.77-5.28 Hemoglobin 9.0 g/dL 11.1-15.9 Hematocrit 28.5 % 34.0-46.6 MCV 86 fL 79-97 MCH 27.2 pg 26.6-33.0 MCHC 31.6 g/dL 31.5-35.7 RDW 15.7 % 12.3-15.4 Platelets 320 x10E3/uL 150-379 Neutrophils 52 % Lymphs 32 % Monocytes 8 % Eos 7 % Basos 1 % Neutrophils (Absolute) 4.3 x10E3/uL 1.4-7.0 Lymphs (Absolute) 2.5 x10E3/uL 0.7-3.1 Monocytes(Absolute) 0.6 x10E3/uL 0.1-0.9 Eos (Absolute) 0.6 x10E3/uL 0.0-0.4 Baso (Absolute) 0.0 x10E3/uL 0.0-0.2 Immature Granulocytes 0 % Immature Grans (Abs) 0.0 x10E3/uL 0.0-0.1 ANEMIA PANEL - 11/14/17 10:36 IRON, TOTAL 109 mcg/dL 45-160 FERRITIN 13 ng/mL 20-288 IRON BINDING CAPACITY 457 mcg/dL (calc) 250-450 % SATURATION 24 % (calc) 11-50 CMP - 11/14/17 10:36 GLUCOSE 137 mg/dL 65-99 UREA NITROGEN (BUN) 30 mg/dL 7-25 CREATININE 1.38 mg/dL 0.60-0.88 eGFR NON-AFR. WALLISIAN 35 mL/min/1.73m2 > OR=60 eGFR 41 mL/min/1.73m2 > OR=60 BUN/CREATININE RATIO 22 (calc) 6-22 SODIUM 138 mmol/L 135-146 POTASSIUM 4.3 mmol/L 3.5-5.3 CHLORIDE 107 mmol/L 98-110 CARBON DIOXIDE 18 mmol/L 20-31 CALCIUM 9.5 mg/dL 8.6-10.4 PROTEIN, TOTAL 8.0 g/dL 6.1-8.1 ALBUMIN 4.3 g/dL 3.6-5.1 GLOBULIN 3.7 g/dL (calc) 1.9-3.7 ALBUMIN/GLOBULIN RATIO 1.2 (calc) 1.0-2.5 BILIRUBIN, TOTAL 0.3 mg/dL 0.2-1.2 ALKALINE PHOSPHATASE 56 U/L 33-130 AST 14 U/L 10-35 ALT 10 U/L 03-23 CMP - 03/20/18 10:41 GLUCOSE 143 mg/dL 65-99 UREA NITROGEN (BUN) 34 mg/dL 7-25 CREATININE 1.48 mg/dL 0.60-0.88 eGFR NON-AFR. WALLISIAN 32 mL/min/1.73m2 > OR=60 eGFR 37 mL/min/1.73m2 > OR=60 BUN/CREATININE RATIO 23 (calc) 6-22 SODIUM 137 mmol/L 135-146 POTASSIUM 4.3 mmol/L 3.5-5.3 CHLORIDE 106 mmol/L 98-110 CARBON DIOXIDE 21 mmol/L 20-31 CALCIUM 9.6 mg/dL 8.6-10.4 PROTEIN, TOTAL 7.8 g/dL 6.1-8.1 ALBUMIN 4.3 g/dL 3.6-5.1 GLOBULIN 3.5 g/dL (calc) 1.9-3.7 ALBUMIN/GLOBULIN RATIO 1.2 (calc) 1.0-2.5 BILIRUBIN, TOTAL 0.3 mg/dL 0.2-1.2 ALKALINE PHOSPHATASE 50 U/L 33-130 AST 12 U/L 10-35 ALT 8 U/L 03-23 CBC - 03/20/18 10:41 WHITE BLOOD CELL COUNT 6.2 Thousand/uL 3.8-10.8 RED BLOOD CELL COUNT 3.73 Million/uL 3.80-5.10 HEMOGLOBIN 11.5 g/dL 11.7-15.5 HEMATOCRIT 33.9 % 35.0-45.0 MCV 90.9 fL 80.0-100.0 MCH 30.8 pg 27.0-33.0 MCHC 33.9 g/dL 32.0-36.0 RDW 13.8 % 11.0-15.0 PLATELET COUNT 249 Thousand/uL 140-400 MPV 10.7 fL 7.5-12.5 ABSOLUTE NEUTROPHILS 3633 cells/uL 6399-5715 ABSOLUTE LYMPHOCYTES 1854 cells/uL 850-3900 ABSOLUTE MONOCYTES 403 cells/uL 200-950 ABSOLUTE EOSINOPHILS 260 cells/uL 15-500 ABSOLUTE BASOPHILS 50 cells/uL 0-200 NEUTROPHILS 58.6 % NRG LYMPHOCYTES 29.9 % NRG MONOCYTES 6.5 % NRG EOSINOPHILS 4.2 % NRG BASOPHILS 0.8 % NRG Encounters ACCT No. Visit Date/Time Discharge Status Pt. Type Provider Facility Loc./Unit Complaint [id number] 11/02/2018 08:58:00 11/02/2018 11:39:00 DIS Emergency KATHY ZARAGOZA, YARIEL [place] [facility] ER LT LEG INJURY [id number] 10/22/2018 06:35:00 10/22/2018 08:00:00 DIS Outpatient KIANA ZARAGOZA, RODRIGUZE [place] [facility] ER FELL OUT OF WHEELCHAIR [id number] 12/13/2016 07:00:00 12/15/2016 17:15:00 DIS Inpatient TEA ZARAGOZA, NEVAEH Lujan [facility] 4TH DIARRHEA,VOLUME DELPETION [id number] 01/04/2015 19:37:00 01/04/2015 20:35:00 DIS Emergency CASSANDRA ROBERTSON APRN [facility] ER COUGH/CONGESTION [id number] 01/03/2015 17:29:00 01/03/2015 19:34:00 DIS Emergency CASSANDRA ROBERTSON APRN [facility] ER VOMITING,WEAKNESS [id number] 01/04/2015 19:37:00 Document Registration [id number] 01/04/2015 19:37:00 Document Registration [id number] 09/14/2012 13:03:00 Document Registration [id number] 08/13/2010 15:21:00 Document Registration [id number] 12/02/2009 12:33:00 Document Registration [id number] 10/23/2016 00:05:00 Document Registration [id number] 03/20/2018 12:20:00 03/20/2018 23:59:59 CLS Outpatient ALVARADO ZARAGOZA, [facility] [id number] 03/20/2018 09:00:00 Document Registration [id number] 11/14/2017 10:00:00 Document Registration [id number] 04/08/2017 08:06:00 Document Registration
== END 2018-11-02 11:39 | disposition home or self-care (01) ==
LOC: EDUNIT# 08:55 → ER 08:58
DX: L03.116 Cellulitis of left lower limb (principal); I10 Essential (primary) hypertension; K21.9 Gastro-esophageal reflux disease without esophagitis; E11.9 Type 2 diabetes mellitus without complications; Z88.8 Allergy status to other drugs, medicaments and biological substances; Z79.82 Long term (current) use of aspirin; Z79.84 Long term (current) use of oral hypoglycemic drugs; Z85.828 Personal history of other malignant neoplasm of skin; Z90.710 Acquired absence of both cervix and uterus
CPT/HCPCS: 36415; 80053; 85007; 85027

== ENCOUNTER 2018-11-09 10:02 | Inpatient (IN) | payer MEDICARE, MEDICAID ==
[2018-11-09] VITALS (13 sets, daily range): BP systolic 126–151; BP diastolic 34–88
[~2018-11-09] VITALS: Ht 165.1 cm; Wt 71.7 kg
--- OUTSIDE RECORDS SUMMARY | 2018-11-09 10:49 | XMS REPORT | Continuity of Care Document ---
Author Author [facility] Organization [facility] Address Unknown Phone Unavailable Allergies Active Description Code Type Severity Reaction Onset Reported/Identified Relationship to Patient Clinical Status Yes diazepam [id number] Drug Allergy Moderate RASH 08/13/2010 Medications There is no data. Problems Date Dx Coded Attending Type Code Diagnosis Diagnosed By 08/13/2010 Ot 729.5 09/13/2010 Ot 490 09/13/2010 Ot 786.2 09/14/2012 Ot 785.1 01/03/2015 CASSANDRA ROBERTSON HEARING SPECIALIST Ot 250.80 DIAB W OTH SPEC MANIFEST, TYPE II OR UNS 01/03/2015 CASSANDRA ROBERTSON HEARING SPECIALIST Ot 403.90 HYPTNSV CHR KID DIS, UNSPEC, W CHR KD ST 01/03/2015 CASSANDRA ROBERTSON HEARING SPECIALIST Ot 490 BRONCHITIS NOS 01/03/2015 CASSANDRA ROBERTSON HEARING SPECIALIST Ot 585.9 CHRONIC KIDNEY DISEASE, UNSPECIFIED 01/03/2015 CASSANDRA ROBERTSON HEARING SPECIALIST Ot 780.79 OTH MALAISE FATIGUE 01/03/2015 CASSANDRA ROBERTSON HEARING SPECIALIST Ot 786.2 COUGH 01/03/2015 CASSANDRA ROBERTSON HEARING SPECIALIST Ot V58.69 OTH MED,LT,CURRENT USE 01/04/2015 Ot V76.12 01/04/2015 Ot V76.12 01/04/2015 CASSANDRA ROBERTSON HEARING SPECIALIST Ot 466.0 ACUTE BRONCHITIS 01/04/2015 CASSANDRA ROBERTSON HEARING SPECIALIST Ot 786.2 COUGH 12/15/2016 NEVAEH METCALF MD Ot E11.9 TYPE [...] OBJECT 10/24/2018 RODRIGUEZ BRUNO MD Ot Z79.82 [facility] (CURRENT) USE OF ASPIRIN 10/24/2018 RODRIGUEZ BRUNO MD Ot 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 10/24/2018 RODRIGUEZ BRUNO MD Ot Z85.828 PERSONAL HISTORY OF OTHER MALIGNANT NEOP 10/24/2018 RODRIGUEZ BRUNO MD Ot Z88.8 ALLERGY STATUS TO OTH DRUG/MEDS/BIOL SUB 10/24/2018 RODRIGUEZ BRUNO MD Ot Z90.710 ACQUIRED ABSENCE OF BOTH CERVIX AND UTER 10/28/2018 RODRIGUEZ BRUNO MD Ot E11.9 TYPE 2 DIABETES MELLITUS WITHOUT COMPLIC 10/28/2018 RODRIGUEZ BRUNO MD Ot I10 ESSENTIAL (PRIMARY) HYPERTENSION 10/28/2018 RODRIGUEZ BRUNO MD, Ot K21.9 GASTRO-ESOPHAGEAL REFLUX DISEASE WITHOUT 10/28/2018 RODRIGUEZ BRUNO MD Ot M25.561 PAIN IN RIGHT KNEE 10/28/2018 RODRIGUEZ BRUNO MD Ot M25.562 PAIN IN LEFT KNEE 10/28/2018 RODRIGUEZ BRUNO MD Ot R40.2142 COMA SCALE, EYES OPEN, SPONTANEOUS, EMR 10/28/2018 RODRIGUEZ BRUNO MD Ot R40.2252 COMA SCALE, BEST VERBAL RESPONSE, ORIENT 10/28/2018 RODRIGUEZ BRUNO MD Ot R40.2362 COMA SCALE, BEST MOTOR RESPONSE, OBEYS C 10/28/2018 RODRIGUEZ BRUNO MD Ot W05.0XXA FALL FROM NON-MOVING WHEELCHAIR, INITIAL 10/28/2018 RODRIGUEZ BRUNO MD Ot W22.09XA STRIKING AGAINST OTHER STATIONARY OBJECT 10/28/2018 RODRIGUEZ BRUNO MD Ot 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 10/28/2018 RODRIGUEZ BRUNO MD Ot Z79.84 [facility] (CURRENT) USE OF ORAL HYPOGLYC 10/28/2018 RODRIGUEZ BRUNO MD Ot Z85.828 PERSONAL HISTORY OF OTHER MALIGNANT NEOP 10/28/2018 RODRIGUEZ BRUNO MD, Ot Z88.8 ALLERGY STATUS TO OT DRUG/MEDS/BIOL SUB 10/28/2018 RODRIGUEZ BRUNO MD, Ot Z90.710 ACQUIRED ABSENCE OF BOTH CERVIX AND UTER 11/05/2018 YARIEL CHAVEZ MD Ot E11.9 TYPE 2 DIABETES MELLITUS WITHOUT COMPLIC 11/05/2018 YARIEL CHAVEZ MD Ot I10 ESSENTIAL (PRIMARY) HYPERTENSION 11/05/2018 YARIEL CHAVEZ MD Ot K21.9 GASTRO-ESOPHAGEAL REFLUX DISEASE WITHOUT 11/05/2018 YARIEL CHAVEZ MD Ot L03.116 CELLULITIS OF LEFT LOWER LIMB 11/05/2018 YARIEL CHAVEZ MD Ot M79.89 OTHER SPECIFIED SOFT TISSUE DISORDERS 11/05/2018 YARIEL CHAVEZ MD Ot 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 Results Test Result Range Urine Culture, Routine - 10/21/16 15:27 Urine Culture, Routine Note Bacterial blood culture - 12/13/16 03:35 Bacterial blood culture NG NR Complete blood count (CBC) with automated white [...] 7-25 CREATININE 1.38 mg/dL 0.60-0.88 eGFR NON-AFR. PALAUAN 35 mL/min/1.73m2 > OR=60 eGFR 41 mL/min/1.73m2 [...] AST 14 U/L 10-35 ALT 10 U/L 6-29 CMP - 03/20/18 10:41 GLUCOSE 143 mg/dL 65-99 UREA NITROGEN (BUN) 34 mg/dL 7-25 CREATININE 1.48 mg/dL 0.60-0.88 eGFR NON-AFR. PALAUAN 32 mL/min/1.73m2 > OR=60 eGFR 37 mL/min/1.73m2 [...] AST 12 U/L 10-35 ALT 8 U/L 6-29 CBC - 03/20/18 10:41 WHITE BLOOD CELL COUNT 6.2 Thousand/uL 3.8-10.8 RED BLOOD CELL COUNT 3.73 Million/uL 3.80-5.10 HEMOGLOBIN 11.5 g/dL 11.7-15.5 HEMATOCRIT 33.9 % 35.0-45.0 MCV 90.9 fL 80.0-100.0 MCH 30.8 pg 27.0-33.0 MCHC 33.9 g/dL 32.0-36.0 RDW 13.8 % 11.0-15.0 PLATELET COUNT 249 Thousand/uL 140-400 MPV 10.7 fL 7.5-12.5 ABSOLUTE NEUTROPHILS 3633 cells/uL 2406-0506 ABSOLUTE LYMPHOCYTES 1854 cells/uL 850-3900 ABSOLUTE MONOCYTES 403 cells/uL 200-950 ABSOLUTE EOSINOPHILS 260 cells/uL 15-500 ABSOLUTE BASOPHILS 50 cells/uL 0-200 NEUTROPHILS 58.6 % NRG LYMPHOCYTES 29.9 % NRG MONOCYTES 6.5 % NRG EOSINOPHILS 4.2 % NRG BASOPHILS 0.8 % NRG Complete blood count (CBC) with automated white blood cell (WBC) differential - 11/02/18 10:55 Blood leukocytes automated count (number/volume) 17.6 10*3/uL 4.3-11.0 Blood erythrocytes automated count (number/volume) 3.46 10*6/uL 4.35-5.85 Venous blood hemoglobin measurement (mass/volume) 10.5 g/dL 11.5-16.0 Blood hematocrit (volume fraction) 33 % 35-52 Automated erythrocyte mean corpuscular volume 96 [foz_us] 80-99 Automated erythrocyte mean corpuscular hemoglobin (mass per erythrocyte) 30 pg 25-34 Automated erythrocyte mean corpuscular hemoglobin concentration measurement ( mass/volume) 32 g/dL 32-36 Automated erythrocyte distribution width ratio 14.5 % 10.0-14.5 Automated blood platelet count (count/volume) 204 10*3/uL 130-400 Automated blood platelet mean volume measurement 11.0 [foz_us] 7.4-10.4 Automated blood neutrophils/100 leukocytes 84 % 42-75 Automated blood lymphocytes/100 leukocytes 9 % 12-44 Blood monocytes/100 leukocytes 7 % 0-12 Automated blood eosinophils/100 leukocytes 0 % 0-10 Automated blood basophils/100 leukocytes 0 % 0-10 Blood neutrophils automated count (number/volume) 14.7 10*3 1.8-7.8 Blood lymphocytes automated count (number/volume) 1.6 10*3 1.0-4.0 Blood monocytes automated count (number/volume) 1.3 10*3 0.0-1.0 Automated eosinophil count 0.0 10*3/uL 0.0-0.3 Automated blood basophil count (count/volume) 0.0 10*3/uL 0.0-0.1 Blood manual differential performed detection - 11/02/18 10:55 Blood monocytes/100 leukocytes 4 % NRG Manual blood segmented neutrophils/100 leukocytes 89 % NRG Blood band neutrophils/100 leukocytes 0 % NRG Manual blood lymphocytes/100 leukocytes 7 % NRG Manual eosinophils/100 leukocytes in nose 0 % NRG Manual blood basophils/100 leukocytes 0 % NRG Blood erythrocyte morphology finding identification NORMAL NR Comprehensive metabolic panel - 11/02/18 10:55 Serum or plasma sodium measurement (moles/volume) 138 mmol/L 135-145 Serum or plasma potassium measurement (moles/volume) 4.4 mmol/L 3.6-5.0 Serum or plasma chloride measurement (moles/volume) 110 mmol/L 98-107 Carbon dioxide 16 mmol/L 21-32 Serum or plasma anion gap determination (moles/volume) 12 mmol/L 5-14 Serum or plasma urea nitrogen measurement (mass/volume) 31 mg/dL 7-18 Serum or plasma creatinine measurement (mass/volume) 1.56 mg/dL 0.60-1.30 Serum or plasma urea nitrogen/creatinine mass ratio 20 NRG Serum or plasma creatinine measurement with calculation of estimated glomerular filtration rate 32 NRG Serum or plasma glucose measurement (mass/volume) 167 mg/dL 70-105 Serum or plasma calcium measurement (mass/volume) 9.5 mg/dL 8.5-10.1 Serum or plasma total bilirubin measurement (mass/volume) 0.4 mg/dL 0.1-1.0 Serum or plasma alkaline phosphatase measurement (enzymatic activity/volume) 50 U/L 40-136 Serum or plasma aspartate aminotransferase measurement (enzymatic activity/ volume) 11 U/L 5-34 Serum or plasma alanine aminotransferase measurement (enzymatic activity/volume ) 9 U/L 0-55 Serum or plasma protein measurement (mass/volume) 7.7 g/dL 6.4-8.2 Serum or plasma albumin measurement (mass/volume) 3.9 g/dL 3.2-4.5 CALCIUM CORRECTED 9.6 mg/dL 8.5-10.1 Encounters ACCT No. Visit Date/Time Discharge Status Pt. Type Provider Facility Loc./Unit Complaint [id number] 11/02/2018 08:58:00 11/02/2018 11:39:00 DIS Outpatient KATHY ZARAGOZA, YARIEL [place] [facility] ER LT LEG INJURY [id number] 10/22/2018 06:35:00 10/22/2018 08:00:00 DIS Outpatient KIANA ZARAGOZA, RODRIGUEZ [place] [facility] ER FELL OUT OF WHEELCHAIR [id number] 12/13/2016 07:00:00 12/15/2016 17:15:00 DIS Inpatient TEA ZARAGOZA, NEVAEH Lujan [facility] 4TH DIARRHEA,VOLUME DELPETION [id number] 01/04/2015 19:37:00 01/04/2015 20:35:00 DIS Emergency CASSANDRA ROBERTSON APRN [facility] ER COUGH/CONGESTION [id number] 01/03/2015 17:29:00 01/03/2015 19:34:00 DIS Emergency CASSANDRA ROBERTSON APRN [facility] ER VOMITING,WEAKNESS [id number] 01/04/2015 19:37:00 Document Registration [id number] 01/04/2015 19:37:00 Document Registration [id number] 09/14/2012 13:03:00 Document Registration [id number] 08/13/2010 15:21:00 Document Registration [id number] 12/02/2009 12:33:00 Document Registration [id number] 10/23/2016 00:05:00 Document Registration [id number] 03/20/2018 12:20:00 03/20/2018 23:59:59 CLS Outpatient ALVARADO [facility]AG[facility]ZA[facility] [id number] 03/20/2018 09:00:00 Document Registration [id number] 11/14/2017 10:00:00 Document Registration [id number] 04/08/2017 08:06:00 Document Registration
--- NOTE | 2018-11-09 10:59 | ED Lower Extremity ---
General Chief Complaint: Lower Extremity Stated Complaint: LT LEG WOUND CHECK; NAUSEA Nursing Triage Note: SEEN HERE ON MONDAY FOR REDNESS AND PAIN IN LEFT LEG. PUT ON ABX AND SENT HOME. PT STATES HER LEG IS NOT WORSE BUT NOT GETTING BETTER. ALSO COMPLAINS OF NAUSEA. Nursing Sepsis Screen: No Definite Risk Source: patient Exam Limitations: no limitations History of Present Illness Date Seen by Provider: Nov 09, 2018 Time Seen by Provider: 10:56 Initial Comments To ER With reports of left lower extremity redness and pain. She was seen here on Monday, had labs drawn, negative venous ultrasound. Started on Bactrim and sent home. Comes back today with minimal improvement in the redness and pain, reports persistent chills. Onset: other (5 days ago) Severity: moderate Pain/Injury Location: left leg Method of Injury: fell Modifying Factors: Worse With Movement Allergies and Home Medications Allergies Coded Allergies: diazepam (Unverified Allergy, Intermediate, RASH, 08/13/10) Home Medications Alprazolam 0.5 Mg Tablet, 0.5 MG PO TID, (Reported) Aspirin 81 Mg Tablet.dr, 81 MG PO DAILY, (Reported) Esomeprazole Magnesium 40 Mg Cap, 40 MG PO DAILY, (Reported) Lisinopril 5 Mg Tablet, 5 MG PO DAILY, (Reported) Metformin HCl 500 Mg Tablet, 500 MG PO BID WITH MEALS, (Reported) Metoprolol Tartrate 25 Mg Tablet, 25 MG PO BID, (Reported) Tramadol HCl/Acetaminophen 1 Each Tablet, 1 TAB PO QID, (Reported) Patient Home Medication List Home Medication List Reviewed: Yes Review of Systems Constitutional: see HPI EENTM: see HPI Respiratory: no symptoms reported Cardiovascular: no symptoms reported Genitourinary: no symptoms reported Musculoskeletal: see HPI Skin: see HPI Psychiatric/Neurological: No Symptoms Reported Past Ekvzxoa-Pcfwch-Mqjkov Hx Patient Social History Alcohol Use: Denies Use Recreational Drug Use: No Smoking Status: Never a Smoker 2nd Hand Smoke Exposure: No Recent Foreign Travel: No Contact w/Someone Who Travel: No Recent Infectious Disease Expo: No Recent Hopitalizations: No Immunizations Up To Date Tetanus Booster (TDap): Unknown Date of Pneumonia Vaccine: Jul 16, 2017 Seasonal Allergies Seasonal Allergies: No Past Medical History Surgeries: Yes (SKIN CA REMOVAL) Eye Surgery, Hysterectomy Respiratory: No Cardiac: Yes Hypertension Neurological: No DRESS MARKER History: Hysterectomy Genitourinary: No Gastrointestinal: Yes Gastroesophageal Reflux Musculoskeletal: No Endocrine: Yes Diabetes, Non-Insulin dep Cataract, Glaucoma Cancer: Yes Skin Psychosocial: No Integumentary: No Blood Disorders: No Adverse Reaction/Blood Tranf: No Family Medical History Patient reports no known family medical history. No Pertinent Family Hx Physical Exam Vital Signs Vital Signs - First Documented 11/09/18 10:05 Temp 97.5 Pulse 81 Resp 16 B/P (MAP) 137/46 (76) Pulse Ox 97 O2 Delivery Room Air Capillary Refill : Less Than 3 Seconds Height, Weight, BMI Height: 5'5.00" Weight: 160lbs. 0oz. 72.199303tm; 28.8 BMI Method:Stated General Appearance: WD/WN, no apparent distress HEENT: PERRL/EOMI, normal ENT inspection Respiratory: no respiratory distress, no accessory muscle use Hips: bilateral hip non-tender, bilateral hip normal inspection, bilateral hip normal range of motion Legs: left leg other (left lower extremity is red. There is a palpable fluctuant or at least very soft nodule to the medial lower leg half-dollar sized. We will obtain soft tissue ultrasound to ensure this is not a fluid collection such as abscess. She states this nodule just popped up on Monday. There is no draining wound.) Knees: bilateral knee non-tender, bilateral knee normal inspection, bilateral knee normal range of motion Ankles: bilateral ankle non-tender, bilateral ankle normal inspection, bilateral ankle normal range of motion Feet: left foot other (she does have diabetic ulcer to the plantar surface of the left great toe.) Neurologic/Psychiatric: alert, normal mood/affect, oriented x 3 Skin: normal color, warm/dry Procedures/Interventions I&D : Blade Size: 11 Progress Ultrasound did reveal evidence of a fluid collection in the lower extremity. We anesthetized this with 1 mL of 2% lidocaine without epinephrine. An 18-gauge needle was inserted into this cavity and purulent material was aspirated. We then took an 11 blade scalpel made a one centimeters incision over the most fluctuant portion of this abscess and open this and bluntly dissected with curved hemostats. Large amount of purulent material was expressed. Culture collected and sent to lab. Wound was then irrigated with chlorhexidine/saline solution and packed with 1/4 inch iodoform gauze. Progress/Results/Core Measures Results/Orders Lab Results Laboratory Tests Test 11/09/18 11:00 11/09/18 12:05 Range/Units White Blood Count 10.8 4.3-11.0 10^3/uL Red Blood Count 3.54 L 4.35-5.85 10^6/uL Hemoglobin 10.8 L 11.5-16.0 G/DL Hematocrit 34 L 35-52 % Mean Corpuscular Volume 97 80-99 FL Mean Corpuscular Hemoglobin 31 25-34 PG Mean Corpuscular Hemoglobin Concent 32 32-36 G/DL Red Cell Distribution Width 14.0 10.0-14.5 % Platelet Count 341 130-400 10^3/uL Mean Platelet Volume 10.1 7.4-10.4 FL Neutrophils (%) (Auto) 83 H 42-75 % Lymphocytes (%) (Auto) 12 12-44 % Monocytes (%) (Auto) 4 0-12 % Eosinophils (%) (Auto) 1 0-10 % Basophils (%) (Auto) 0 0-10 % Neutrophils # (Auto) 9.0 H 1.8-7.8 X 10^3 Lymphocytes # (Auto) 1.3 1.0-4.0 X 10^3 Monocytes # (Auto) 0.5 0.0-1.0 X 10^3 Eosinophils # (Auto) 0.1 0.0-0.3 10^3/uL Basophils # (Auto) 0.0 0.0-0.1 10^3/uL Sodium Level 135 135-145 MMOL/L Potassium Level 6.8 *H 7.0 *H 3.6-5.0 MMOL/L Chloride Level 111 H 98-107 MMOL/L Carbon Dioxide Level 12 L 21-32 MMOL/L Anion Gap 12 5-14 MMOL/L Blood Urea Nitrogen 41 H 7-18 MG/DL Creatinine 1.83 H 0.60-1.30 MG/DL Estimat Glomerular Filtration Rate 26 BUN/Creatinine Ratio 22 Glucose Level 152 H 70-105 MG/DL Lactic Acid Level 1.37 0.50-2.00 MMOL/L Calcium Level 10.0 8.5-10.1 MG/DL Corrected Calcium 9.8 8.5-10.1 MG/DL Total Bilirubin 0.2 0.1-1.0 MG/DL Aspartate Amino Transf (AST/SGOT) 20 5-34 U/L Alanine Aminotransferase (ALT/SGPT) 24 0-55 U/L Alkaline Phosphatase 82 40-136 U/L Total Protein 8.9 H 6.4-8.2 GM/DL Albumin 4.2 3.2-4.5 GM/DL My Orders Orders - CASSANDRA ROBERTSON APRN Cbc With Automated Diff (11/09/18 10:40) Comprehensive Metabolic Panel (11/09/18 10:40) Iv Heplock-Insert (Order) (11/09/18 10:51) Us Soft Tissue Unlisted [id number] (11/09/18 10:51) Blood Culture (11/09/18 10:51) Lactic Acid Analyzer (11/09/18 10:51) Ceftriaxone For Iv Use (Rocephin For I (11/09/18 11:15) Potassium (11/09/18 11:49) Insulin (Regular) Human (Humulin R (Per (11/09/18 16:00) D50w (Emergency) Syringe (Dextrose 50% 5 (11/09/18 12:45) Ns Iv 1000 Ml (Sodium Chloride 0.9%) (11/09/18 12:45) Sodium Polystyrene Sulfonate (Kayexalate (11/09/18 12:45) Ekg Tracing (11/09/18 12:39) Continuous Ekg Monitoring (11/09/18 12:39) Insulin (Regular) Human (Humulin R (Per (11/09/18 13:00) Medications Given in ED Current Medications Medications Dose Ordered Sig/Mary Ann Route Start Time Stop Time Status Last Admin Dose Admin Ceftriaxone Sodium 1000 mg/ Sterile Water 10 ml @ 200 mls/hr ONCE ONCE IV 11/09/18 11:15 11/09/18 11:17 DC 11/09/18 12:11 200 MLS/HR Dextrose 25 ml ONCE ONCE IV 11/09/18 12:45 11/09/18 12:46 DC 11/09/18 13:07 25 ML Insulin Human Regular 10 unit ONCE ONCE IV 11/09/18 13:00 11/09/18 13:01 DC 11/09/18 13:04 10 UNIT Vital Signs/I&O 11/09/18 10:05 Temp 97.5 Pulse 81 Resp 16 B/P (MAP) 137/46 (76) Pulse Ox 97 O2 Delivery Room Air Blood Pressure Mean: 76 Progress Progress Note : Progress Note NAME: [facility] REC#: [id number] PT STATUS: REG ER : 1935 PHYSICIAN: CASSANDRA ROBERTSON APRN ADMIT DATE: 11/09/18/ER Draft Date of Exam:11/09/18 US SOFT TISSUE UNLISTED [id number] INDICATION: Left leg wound. This study is performed to evaluate for an abscess. TECHNIQUE: Sonographic interrogation of the area of wound was performed in the medial lower calf region. FINDINGS: There is an ill-defined region of heterogeneous hypoechogenicity deep to the skin surface measuring 4.6 x 1.5 x 3.0 cm. No internal vascularity is seen. This is suggestive of an ill-defined region of infection or early abscess formation. No other abnormalities are seen. IMPRESSION: Ill-defined complex fluid at the area of palpable abnormality in the medial calf is suggestive of early abscess formation. Dictated on workstation # [id number] Dict: 11/09/18 1203 Trans: 11/09/18 1207 [id number] Interpreted by: MY ELDRIDGE MD Electronically signed by: Diagnostic Imaging Diagonstic Imaging: Ultrasound Departure Communication (Admissions) Time/Spoke to Admitting Phy: 12:[address] Vallejo, we will admit, consult surgery, Zosyn and vancomycin for antibiotics. Time/Spoke to Consulting Phy: 12:20 I relayed the message for Dr. Sam to consult via [facility] in OR. Given her history of diabetes, failure to improve with 1 week of outpatient Bactrim, abscess finding on ultrasound with evidence of associated cellulitis, she warrants inpatient admission for IV antibiotics. She does have a social issue at hand as her is demented and requires medications and PEG tube feedings. She only has a 24-gauge IV in the volar left wrist. She refuses to allow an external jugular IV to be placed. Impression Primary Impression: Cellulitis, leg Qualified Codes: L03.116 - Cellulitis of left lower limb Additional Impressions: Chronic renal disease Qualified Codes: N18.9 - Chronic kidney disease, unspecified Hyperkalemia Disposition: ADMITTED INPATIENT Condition: Stable Admissions Decision to Admit Reason: Admit from ER (General) Decision to Admit/Date: Nov 09, 2018 Time/Decision to Admit Time: 12:04 Departure-Patient Inst. Referrals: [facility] (PCP/Family) Primary Care Physician CASSANDRA ROBERTSON APRN Nov 09, 2018 10:59
--- NOTE | 2018-11-09 11:05 | NUR ---
LAB IN ROOM WITH PT AT THIS TIME.
[2018-11-09 11:15] LABS: BASOPHILS % (AUTO) 0 % (0-10); EOSINOPHILS # (AUTO) 0.1 10^3/uL (0.0-0.3); EOSINOPHILS % (AUTO) 1 % (0-10); HEMATOCRIT 34 % (35-52); HEMOGLOBIN 10.8 G/DL (11.5-16.0); LYMPHOCYTES # (AUTO) 1.3 X 10^3 (1.0-4.0); LYMPHOCYTES % (AUTO) 12 % (12-44); MEAN CORPUSCULAR HEMOGLOBIN 31 PG (25-34); MEAN CORPUSCULAR HGB CONC 32 G/DL (32-36); MEAN CORPUSCULAR VOLUME 97 FL (80-99); MEAN PLATELET VOLUME 10.1 FL (7.4-10.4); MONOCYTES # (AUTO) 0.5 X 10^3 (0.0-1.0); MONOCYTES % (AUTO) 4 % (0-12); NEUTROPHILS % (AUTO) 83 % (42-75); PLATELET COUNT 341 10^3/uL (130-400); WHITE BLOOD COUNT 10.8 10^3/uL (4.3-11.0)
[2018-11-09] MEDS ORDERED: cefTRIAXone FOR IV USE 1,000 MG in WATER (STERILE) FOR INJECTION 10 ML IV ONE (11:15)
[2018-11-09 11:37] LABS: ALBUMIN 4.2 GM/DL (3.2-4.5); BILIRUBIN,TOTAL 0.2 MG/DL (0.1-1.0); CREATININE SERUM 1.83 MG/DL (0.60-1.30); TOTAL PROTEIN 8.9 GM/DL (6.4-8.2)
[2018-11-09 11:49] LABS: POTASSIUM 6.8 MMOL/L (3.6-5.0)
--- NOTE | 2018-11-09 12:08 | Diagnostic Imaging Report ---
INDICATION: Left leg wound. This study is performed to evaluate for an abscess. TECHNIQUE: Sonographic interrogation of the area of wound was performed in the medial lower calf region. FINDINGS: There is an ill-defined region of heterogeneous hypoechogenicity deep to the skin surface measuring 4.6 x 1.5 x 3.0 cm. No internal vascularity is seen. This is suggestive of an ill-defined region of infection or early abscess formation. No other abnormalities are seen. IMPRESSION: Ill-defined complex fluid at the area of palpable abnormality in the medial calf is suggestive of early abscess formation. Dictated by: Dictated on workstation # [id number]
--- NOTE | 2018-11-09 12:30 | NUR ---
CASSANDRA NOTIFIED DAUGHTER WOULD LIKE TO TALK TO SOCIAL SERVICE DUT TO PLACEMENT OF PTS'S WHILE SHE IS ADMITTED.
[2018-11-09] MEDS ORDERED: SOD POLYSTERENE 15 GM/60 ML (KAYEXALATE) UNIT DOSE PO ONE (12:45)
[2018-11-09] MEDS ORDERED: NS IV 1000 ML 1,000 ML IV SCH (12:45)
[2018-11-09] MEDS ORDERED: DEXTROSE 50% 50 ML (IMS) SYR IV ONE (12:45)
[2018-11-09] MEDS ORDERED: inSUlin (REGULAR) HUMAN 1 UNIT/0.01 ML (CHARGE PER UNIT) IV ONE (13:00)
--- NOTE | 2018-11-09 13:53 | NUR ---
CASSANDRA REMOVED 24G IV FROM LEFT WRIST AFTER STARTING NEW IV.
--- NOTE | 2018-11-09 13:54 | NUR ---
PICC LINE NURSES HERE.
--- NOTE | 2018-11-09 14:21 | NUR ---
CASSANDRA NOTIFIED OF DAUGHTER WANTING TO TALK TO HER AND HE WENT TO TALK TO THE PT AND THE DAUGHTER.
--- NOTE | 2018-11-09 15:10 | NUR ---
PICC LINE TEAM ET UNABLE TO ESTABLISH A PICC LINE. PT HAD LARGE LOOSE BM
[2018-11-09] MEDS ORDERED: VANCOMYCIN 1500 MG/NS 500 ML IVPB IV NR ×2 (15:30)
--- NOTE | 2018-11-09 15:30 | NUR ---
AFTER TALKING WITH DIRECTORS IN ICU AT STAFFING THEY STATE [facility]PIT CARE IS NOT AVAILABLE AT THIS TIME. DAUGHTER NOTIFIED WHO WAS TALKING TO NACOGDOCHES FROM [facility].
--- NOTE | 2018-11-09 15:32 | NUR ---
MESSAGE LEFT WITH MED REC.
--- NOTE | 2018-11-09 15:48 | NUR ---
CR 1.83; CR CL ~20; WT 72 KG; VANCO 1500 MG IV BOLUS THEN 1000 MG IV Q24H; TROUGH AFTER 2ND DOSE
--- NOTE | 2018-11-09 15:55 | NUR ---
Dr. Sam placing central line at this time.
--- NOTE | 2018-11-09 15:58 | CONSULTATION REPORT ---
DATE OF SERVICE: 11/09/2018 ATTENDING PRIMARY CARE PHYSICIAN: [facility]. HISTORY OF PRESENT ILLNESS: The patient is an 83-year-old female who presented to the Emergency Department with a persistent and slightly worsening pain and swelling in the left lower extremity. She states that this started approximately five days ago and was seen at the time and was started on Bactrim; however, returns and states that the lesion and pain has persisted with redness and erythema. An ultrasound was performed which showed a small area of fluid collection, which may have been consistent with an early abscess and was incised and drained in the emergency room by Emergency Department staff. She does not report any systemic symptoms, fever or chills. PAST MEDICAL HISTORY: Diabetes, glaucoma, and gastroesophageal reflux disease. PAST SURGICAL HISTORY: Hysterectomy, eye surgery. ALLERGIES: DIAZEPAM. MEDICATIONS: Alprazolam 0.5 mg t.i.d., aspirin 81 mg daily, Nexium 40 mg daily, lisinopril 5 mg daily, metformin 500 mg b.i.d., metoprolol 25 mg b.i.d., and tramadol q.i.d. SOCIAL HISTORY: Negative smoke, negative alcohol. FAMILY HISTORY: Noncontributory. REVIEW OF SYSTEMS: Well-nourished female, currently in no acute distress. She does report pain and persistent redness and swelling of the left lower extremity. She does also report some mild nausea; however, no vomiting. No diarrhea, no constipation. No fever or chills, no recent inadvertent weight loss. All other review of systems is negative. PHYSICAL EXAMINATION: VITAL SIGNS: Temperature is 97.5, blood pressure 137/46, pulse 81, respirations 16, and pulse ox 97% on room air. CHEST: Few scattered rales bilaterally. HEART: Regular, no murmurs. EXTREMITIES: Redness and erythema of left lower extremity with a recent incision and drainage, palpable distal pulses bilaterally. HEENT: No scleral icterus. NECK: No cervical lymphadenopathy. ABDOMEN: Soft, nontender, and nondistended. SKIN: Warm, dry. LABORATORY DATA: WBC is 10.8, hemoglobin 10.8, hematocrit 34, and platelets 341. Potassium is 7.0, BUN 41, and creatinine 1.83. ASSESSMENT AND PLAN: An 83-year-old female with cellulitis and early abscess status post incision and drainage of the left lower extremity. We will continue to monitor her progress and proceed with wound care and pack on a b.i.d. basis and await the culture results to tailor our antibiotic regimen. She will also require central venous catheter due to very poor peripheral venous circulation which we will proceed with as well. Job ID: [id number] DocumentID: [id number] Dictated Date: 11/09/2018 15:19:55 Environmental Protection Economist Date: 11/09/2018 15:57:55 Dictated By: NACHO MARIANO MD
[2018-11-09] MEDS ORDERED: HYDROcodone/APAP 5 MG/325 MG (LORTAB) TAB PO PRN ×2 (16:00→19:15)
[2018-11-09] MEDS ORDERED: inSUlin (REGULAR) HUMAN 1 UNIT/0.01 ML (CHARGE PER UNIT) SC SCH (16:00)
[2018-11-09] MEDS ORDERED: PIPERACILLIN/TAZO 4.5 GM/NS 100 ML IV NR ×2 (16:00)
--- NOTE | 2018-11-09 16:00 | NUR ---
Accompanied pt's , Damian and woman (caregiver) who referred to the pt and Damian as "mom and dad". The caregiver raised her voice, stating she wanted clarification about how severe the pt's condition was. She also said a psychosocial rehabilitation counselor was going to follow up with them about Damian staying with the pt in her hospital room, but that Damian had Alzheimer's and needed care also. During this visit, staff confirmed Damian could not stay with the pt. This was accepted graciously. As we spoke further, the caregiver shared "I'm not actually their daughter", but became close to the couple and now helps care for them. During this encounter, she was concerned that her boyfriend was going to leave her for opting to stay with the pt and Damian. She said the boyfriend's texts indicated he was angry. Offered active listening and compassionate presence. Caregiver said she was safe, just upset.
--- NOTE | 2018-11-09 16:08 | NUR ---
Pastoral care request for pt visit, I contacted pt and offered support and prayer, she was not aware of visit request by he family but appreciated it. [facility] Advance Directive paperwork. I turned this over to Refractory Bricklayerhailey Abreu who completed A.D.
--- NOTE | 2018-11-09 16:12 | NUR ---
PJ MORALES admitted to room CU11-1, with an admitting diagnosis of CELLULITIS, on 11/09/18 from [place] via WHEELCHAIR, accompanied by STAFF.PJ MORALES introduced to surroundings, call light, bed controls, phone, TV, temperature control, lights, meal times, smoking policy, visitor policy, side rail policy, bathrooms and showers. Patient Rights given to patient in the handbook. PJ MORALES verbalizes understanding that [facility] is not responsible for the loss or damage to any personal effects or valuables that are kept in the patients posession during their hospitalization. The following Patient Care Plans were discussed with the PT: Discharge Planning. PJ MORALES verbalizes understanding of Interdisciplinary Patient Education. Patient and/or family were informed about the Rapid Response Team and its purpose.
[2018-11-09] MEDS ORDERED: CATHETER FLUSH 10 ML SYR IV PRN (16:15)
--- NOTE | 2018-11-09 16:17 | NUR ---
Dr. Sam done with Central line, xray in room, Dr. Sam looked at xray in room and stated that the central line was good to use.
--- NOTE | 2018-11-09 16:56 | Diagnostic Imaging Report ---
INDICATION: Central line placement. COMPARISON: 12/13/2016. FINDINGS: Single frontal radiographic view of the chest was obtained and demonstrates left-sided subclavian central venous catheter, tip of which terminates in the SVC. Cardiac silhouette and pulmonary vasculature are within normal limits. Lungs are clear. There is no focal consolidation, large effusion, or pneumothorax. Bony structures show no gross acute abnormalities. IMPRESSION: 1. Left-sided subclavian central venous catheter with tip in the SVC. 2. No acute cardiopulmonary process. Dictated by: Dictated on workstation # [id number]
[2018-11-09] MEDS: NS IV 1000 ML 1,000 ML IV SCH (17:26)
[2018-11-09 18:21] LABS: CREATININE SERUM 1.63 MG/DL (0.60-1.30); POTASSIUM 4.9 MMOL/L (3.6-5.0)
--- NOTE | 2018-11-09 18:30 | NUR ---
Dr. Cabrera notified of pt BMP results from latest draw.
[2018-11-09] MEDS ORDERED: DOCUSATE SODIUM 100 MG (COLACE) CAP PO PRN (19:15)
[2018-11-09] MEDS ORDERED: diphenhydrAMINE 25 MG TAB (BENADRYL) PO PRN (19:15)
[2018-11-09] MEDS ORDERED: guaiFENesin/CODEINE (ROBITUSSIN AC) 10ML UDC PO PRN (19:15)
[2018-11-09] MEDS ORDERED: ONDANSETRON 4 MG/2 ML (SDV) Z0FRAN IVP PRN (19:15)
[2018-11-09] MEDS ORDERED: LOPERAMIDE 2 MG (IMODIUM) CAP PO PRN (19:15)
[2018-11-09] MEDS ORDERED: fentaNYL INJECTION 100 MCG/2 ML AMP IVP PRN (19:15)
[2018-11-09] MEDS ORDERED: inSUlin ASPART (NovoLOG) 1 UNIT/0.01 ML (CHARGE PER UNIT) SC SCH (19:30)
[2018-11-09] MEDS: SODIUM BICARBONATE 8.4% VIAL 100 MEQ in D5 1/2 NS 1000 ML IV SOLUTION 1,000 ML IV SCH (19:50)
[2018-11-09] MEDS: POLYETHYLENE GLYCOL 17 GM (MIRALAX) PACK PO SCH (21:31)
[2018-11-09] MEDS: inSUlin ASPART (NovoLOG) 1 UNIT/0.01 ML (CHARGE PER UNIT) SC SCH (21:31)
[2018-11-09] MEDS: PIPERACILLIN/TAZO 4.5 GM/NS 100 ML IV SCH ×2 (21:33)
[2018-11-09] MEDS: ACETAMINOPHEN 500 MG TAB (TYLENOL) PO PRN (23:50)
[2018-11-10] VITALS (16 sets, daily range): BP systolic 99–149; BP diastolic 37–72
[2018-11-10] MEDS: NS IV 1000 ML 1,000 ML IV SCH (01:23)
--- NOTE | 2018-11-10 03:48 | OPERATIVE REPORT ---
DATE OF SERVICE: 11/09/2018 ATTENDING PRIMARY CARE PHYSICIAN: [facility]. PREOPERATIVE DIAGNOSES: Right lower extremity cellulitis with abscess with poor peripheral venous circulation. POSTOPERATIVE DIAGNOSIS: Right lower extremity cellulitis with abscess with poor peripheral venous circulation. PROCEDURE: Placement of left subclavian central venous catheter. SURGEON: Nacho Mariano MD ANESTHESIA: Local. ESTIMATED BLOOD LOSS: Minimal. DISPOSITION: The patient tolerated the procedure well. INDICATIONS: The patient is an 83-year-old female who was seen approximately 5 days ago with pain and swelling in the right anterolateral martins. She reported that she had fell one week previous; however, did not notice any breach in her skin. The redness developed as well as pain and only cellulitis was identified and she was started on Bactrim. She returns today with increasing pain, swelling. An ultrasound also confirmed an early abscess. This was drained by the Emergency Department staff. Multiple attempts were made at a peripheral as well as a PICC line; however, unsuccessful. We will proceed with placement of a central venous catheter. DESCRIPTION OF PROCEDURE: The neck and chest were prepped and draped in standard surgical fashion. A 0.5% Marcaine with epinephrine was used to anesthetize the overlying skin in the left subclavian region. The left subclavian vein was then cannulated with drawing of venous blood. A guidewire was then inserted without any resistance. A skin incision was made using an 11 blade and a venous dilator was used to create a tract. A triple lumen central venous catheter was then placed over the guidewire using the Seldinger technique. The guidewire was removed and all three ports brandon venous blood and saline pushed in without any resistance. The catheter was then sutured to the skin using 3-0 silk sutures. Catheter was then cleaned and covered with Op-Site. The patient tolerated the procedure well. We will get a post-procedure chest x-ray once confirmation placed. The catheter may be used at any time. Job ID: [id number] DocumentID: [id number] Dictated Date: 11/09/2018 16:20:41 Smokehouse Worker Date: 11/10/2018 03:47:35 Dictated By: NACHO MARIANO MD [facility]
[2018-11-10 03:58] LABS: BASOPHILS % (AUTO) 0 % (0-10); EOSINOPHILS # (AUTO) 0.1 10^3/uL (0.0-0.3); EOSINOPHILS % (AUTO) 1 % (0-10); HEMATOCRIT 27 % (35-52); HEMOGLOBIN 8.9 G/DL (11.5-16.0); LYMPHOCYTES # (AUTO) 1.9 X 10^3 (1.0-4.0); LYMPHOCYTES % (AUTO) 23 % (12-44); MEAN CORPUSCULAR HEMOGLOBIN 32 PG (25-34); MEAN CORPUSCULAR HGB CONC 33 G/DL (32-36); MEAN CORPUSCULAR VOLUME 96 FL (80-99); MEAN PLATELET VOLUME 9.9 FL (7.4-10.4); MONOCYTES # (AUTO) 0.7 X 10^3 (0.0-1.0); MONOCYTES % (AUTO) 8 % (0-12); NEUTROPHILS # (AUTO) 5.7 X 10^3 (1.8-7.8); NEUTROPHILS % (AUTO) 68 % (42-75); PLATELET COUNT 322 10^3/uL (130-400); RED CELL DISTRIBUTION WIDTH 13.9 % (10.0-14.5); WHITE BLOOD COUNT 8.4 10^3/uL (4.3-11.0)
[2018-11-10 04:16] LABS: CALCIUM 8.5 MG/DL (8.5-10.1); CREATININE SERUM 1.42 MG/DL (0.60-1.30); MAGNESIUM 1.5 MG/DL (1.8-2.4); PHOSPHORUS 3.4 MG/DL (2.3-4.7); POTASSIUM 4.5 MMOL/L (3.6-5.0)
[2018-11-10] MEDS: SODIUM BICARBONATE 8.4% VIAL 100 MEQ in D5 1/2 NS 1000 ML IV SOLUTION 1,000 ML IV SCH ×3 (04:22→21:21)
[2018-11-10] MEDS: MAGNESIUM 1 GM/100 ML IVPB 100 ML IV SCH ×2 (04:35→05:23)
[2018-11-10] MEDS: inSUlin ASPART (NovoLOG) 1 UNIT/0.01 ML (CHARGE PER UNIT) SC SCH ×4 (05:13→21:16)
[2018-11-10] MEDS: PIPERACILLIN/TAZO 4.5 GM/NS 100 ML IV SCH ×6 (05:24→21:18)
[2018-11-10] MEDS ORDERED: KCL 20 MEQ TAB (K-DUR) PO SCH (06:00)
[2018-11-10] MEDS ORDERED: MAGNESIUM 1 GM/100 ML IVPB 100 ML IV SCH (06:00)
[2018-11-10] MEDS ORDERED: POTASSIUM CL 10MEQ/50ML IVPB 50 ML IV SCH (06:00)
--- NOTE | 2018-11-10 06:31 | Diagnostic Imaging Report ---
INDICATION: Hyperkalemia. Followup. COMPARISON: 11/09/2018 FINDINGS: Single frontal view of the chest demonstrates normal heart size and pulmonary vascularity. The lungs are well aerated and clear. No large pleural effusion or pneumothorax is seen. The visualized osseous structures show no acute abnormalities. Left-sided subclavian central venous catheter is noted with tip in the SVC. IMPRESSION: 1. No acute cardiopulmonary process. Dictated by: Dictated on workstation # [id number]
--- NOTE | 2018-11-10 06:33 | Pulmonary Consultation ---
History of Present Illness History of Present Illness Date of Consultation 11/10/18 06:14 Time Seen by Provider: 06:27 Date of Admission History of Present Illness 83yo presented to ED secondary to worsening pain and swelling in the LLE. Onset was 5days prior. Pt was started on BCTM for cellulitis however failed out patient treatment, PT had I&D in the ED after US showed a small fluid collection. While in the ED K+ was noted to be at 7. Pt was treated x2 and it is now improved. I am consulted for ICU management. Allergies and Home Medications Allergies Coded Allergies: diazepam (Unverified Allergy, Intermediate, RASH, 08/13/10) Home Medications Alprazolam 0.5 Mg Tablet, 0.5 MG PO TID, (Reported) Aspirin 81 Mg Tablet.dr, 81 MG PO DAILY, (Reported) Esomeprazole Magnesium 40 Mg Cap, 40 MG PO DAILY, (Reported) Lisinopril 5 Mg Tablet, 5 MG PO DAILY, (Reported) Metformin HCl 500 Mg Tablet, 500 MG PO BID WITH MEALS, (Reported) Metoprolol Tartrate 25 Mg Tablet, 25 MG PO BID, (Reported) Tramadol HCl/Acetaminophen 1 Each Tablet, 1 TAB PO QID, (Reported) Past Bhccxou-Dwzrto-Ucakjx Hx Patient Social History Alcohol Use: Denies Use Recreational Drug Use: No Smoking Status: Never a Smoker 2nd Hand Smoke Exposure: No Recent Foreign Travel: No Contact w/Someone Who Travel: No Recent Infectious Disease Expo: No Recent Hopitalizations: No Immunizations Up To Date Tetanus Booster (TDap): Unknown Date of Pneumonia Vaccine: Jul 16, 2017 Date of Influenza Vaccine: Jul 11, 2018 Seasonal Allergies Seasonal Allergies: No Past Medical History Surgeries: Yes (SKIN CA REMOVAL) Eye Surgery, Hysterectomy Respiratory: No Cardiac: Yes Hypertension 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 No Pertinent Family Hx Review of Systems Time Seen by Provider: 06:35 Constitutional: Sweats, Weakness, Malaise; No: Fever, Chills, Other Eyes: No: Pain, Vision change, Conjunctivae inflammation, Eyelid inflammation, Other, Redness ENT: No: Ear pain, Ear discharge, Nose pain, Nose discharge, Nose congestion, Mouth pain, Mouth swelling, Throat pain, Throat swelling, Other Respiratory: Cough, Shortness of breath, SOB with excertion; No: Dry, Wheezing , Hemoptysis, Pleuritic Pain, Sputum, Wheezing, Other Gastrointestinal: No: Nausea, Vomiting, Abdominal Pain, Diarrhea Skin: Other (cellulitis ) Sepsis Event Evaluation Height, Weight, BMI Height: 5'5.00" Weight: 157lbs. 9.0oz. 71.495636ns; 26.6 BMI Method:Stated Exam Exam Vital Signs Date Time Temp Pulse Resp B/P (MAP) Pulse Ox O2 Delivery O2 Flow Rate FiO2 11/10/18 06:00 95 12 100/57 (71) 98 Room Air 11/10/18 05:00 95 12 124/49 (74) 98 Room Air 11/10/18 04:00 98 19 119/43 (68) 98 Room Air 11/10/18 03:35 98.6 Room Air 11/10/18 03:35 100 Room Air 11/10/18 03:00 93 17 127/48 (74) 95 Room Air 11/10/18 02:05 Room Air 11/10/18 02:00 104 19 126/37 (66) 99 Nasal Cannula 2.00 11/10/18 01:00 89 11/10/18 01:00 86 16 99/37 (57) 98 Nasal Cannula 2.00 11/10/18 00:50 Nasal Cannula 2.00 11/10/18 00:00 96 12 120/57 (78) 99 Room Air 11/09/18 23:50 98.1 11/09/18 23:40 96 Room Air 11/09/18 23:00 100 14 131/53 (79) 100 Room Air 11/09/18 22:00 101 16 137/60 (85) 95 Room Air 11/09/18 21:00 112 15 140/43 (75) 95 Room Air 11/09/18 20:00 105 19 126/45 (72) 96 Room Air 11/09/18 19:45 99.2 106 20 137/49 (78) 97 Room Air 11/09/18 19:30 97 Room Air 11/09/18 19:00 113 11/09/18 19:00 112 17 136/45 (75) 95 Room Air 11/09/18 18:00 111 26 143/52 (82) 99 Room Air 11/09/18 17:00 115 13 151/53 (85) 100 Room Air 11/09/18 16:45 111 15 145/51 (82) 100 Room Air 11/09/18 16:30 112 15 145/57 (86) 100 Room Air 11/09/18 16:15 109 19 149/55 (86) 100 Room Air 11/09/18 16:15 109 19 149/55 (86) 100 Room Air 11/09/18 16:00 110 13 131/88 (102) 99 Room Air 11/09/18 16:00 110 13 131/88 (102) 99 Room Air 11/09/18 15:59 111 11/09/18 15:45 97.4 107 18 131/34 (66) 100 Room Air 11/09/18 15:45 97.4 107 18 131/66 (87) 100 Room Air 11/09/18 15:15 80 16 156/75 (102) 96 Room Air 11/09/18 10:05 97.5 81 16 137/46 (76) 97 Room Air I & O 11/10/18 07:00 Intake Total 3330 ml Output Total 1750 ml Balance 1580 ml Height & Weight Height: 5'5.00" Weight: 157lbs. 9.0oz. 71.747828qx; 26.6 BMI Method:Stated Capillary Refill: Less Than 3 Seconds Results Lab Laboratory Tests 11/09/18 11:00 11/09/18 12:05 11/09/18 17:49 11/10/18 03:30 Assessment/Plan Assessment/Plan Cellulitis with abscess s/p I&D -Salazar cultures pending -continue Abx Hyperkalemia -improved -S/p insulin, bicarb, kayexelate MUSTAPHA with Metabolic acidosis nonanion gapped -Monitor close -Bicarb gtt -Check ABG -IVF and monitor Hypomag -replace Anemia -Monitor PAT PHELPS DO Nov 10, 2018 06:32
--- NOTE | 2018-11-10 07:32 | NUR ---
Patient refused ABG at this time. Dr Cabrera did speak to the patient and explained procedure and reason for test. Patient continued to refuse test.
[2018-11-10] MEDS: POLYETHYLENE GLYCOL 17 GM (MIRALAX) PACK PO SCH ×2 (09:20→21:16)
--- NOTE | 2018-11-10 11:07 | Progress Note (SOAP) ---
Subjective Date Seen by a Provider: Nov 10, 2018 Time Seen by a Provider: 10:55 Subjective/Events-last exam Patient seen with Dr. Sam. Patient reports doing well. Does report continued pain/discomfort of the left lower extremity wound. Denies any sweats/chills. No N/V. Tolerating diet. Focused Exam Lactate Level 11/09/18 11:00: Lactic Acid Level 1.37 Objective Exam Vital Signs Date Time Temp Pulse Resp B/P (MAP) Pulse Ox O2 Delivery O2 Flow Rate FiO2 11/10/18 10:26 96 12 125/63 (83) 99 Room Air 11/10/18 09:00 105 18 124/62 (82) 97 Room Air 11/10/18 08:02 93 23 134/58 (83) 100 Room Air 11/10/18 08:01 100 Room Air 11/10/18 08:00 82 19 134/58 (83) 100 Room Air 11/10/18 07:44 82 11/10/18 07:00 98.5 89 19 149/72 (97) 99 11/10/18 06:00 95 12 100/57 (71) 98 Room Air 11/10/18 05:00 95 12 124/49 (74) 98 Room Air 11/10/18 04:00 98 19 119/43 (68) 98 Room Air 11/10/18 03:35 98.6 Room Air 11/10/18 03:35 100 Room Air 11/10/18 03:00 93 17 127/48 (74) 95 Room Air 11/10/18 02:05 Room Air 11/10/18 02:00 104 19 126/37 (66) 99 Nasal Cannula 2.00 11/10/18 01:00 89 11/10/18 01:00 86 16 99/37 (57) 98 Nasal Cannula 2.00 11/10/18 00:50 Nasal Cannula 2.00 11/10/18 00:00 96 12 120/57 (78) 99 Room Air 11/09/18 23:50 98.1 11/09/18 23:40 96 Room Air 11/09/18 23:00 100 14 131/53 (79) 100 Room Air 11/09/18 22:00 101 16 137/60 (85) 95 Room Air 11/09/18 21:00 112 15 140/43 (75) 95 Room Air 11/09/18 20:00 105 19 126/45 (72) 96 Room Air 11/09/18 19:45 99.2 106 20 137/49 (78) 97 Room Air 11/09/18 19:30 97 Room Air 11/09/18 19:00 113 11/09/18 19:00 112 17 136/45 (75) 95 Room Air 11/09/18 18:00 111 26 143/52 (82) 99 Room Air 11/09/18 17:00 115 13 151/53 (85) 100 Room Air 11/09/18 16:45 111 15 145/51 (82) 100 Room Air 11/09/18 16:30 112 15 145/57 (86) 100 Room Air 11/09/18 16:15 109 19 149/55 (86) 100 Room Air 11/09/18 16:15 109 19 149/55 (86) 100 Room Air 11/09/18 16:00 110 13 131/88 (102) 99 Room Air 11/09/18 16:00 110 13 131/88 (102) 99 Room Air 11/09/18 15:59 111 11/09/18 15:45 97.4 107 18 131/34 (66) 100 Room Air 11/09/18 15:45 97.4 107 18 131/66 (87) 100 Room Air 11/09/18 15:15 80 16 156/75 (102) 96 Room Air I & O 11/10/18 07:00 Intake Total 3430 ml Output Total 1750 ml Balance 1680 ml Capillary Refill : Less Than 3 Seconds General Appearance: No Apparent Distress, WD/WN Neck: Normal Inspection, Non Tender, Supple Respiratory: Lungs Clear, Normal Breath Sounds, No Accessory Muscle Use, No Respiratory Distress Cardiovascular: Regular Rate, Rhythm, No Edema Gastrointestinal: normal bowel sounds, non tender, soft Extremity: Normal Range of Motion, No Pedal Edema, Other (Left lower extremity wound with packing in place. Mild redness/erythema of the left lower extremity mostly on the medial half the lower extremity. Pain with palpation.) Neurologic/Psychiatric: Alert, Oriented x3 Skin: Normal Color, Warm/Dry Results Lab Laboratory Tests 11/09/18 12:05: Potassium Level 7.0*H 11/09/18 14:46: Glucometer 77 11/09/18 17:49: Potassium Level 4.9, Sodium Level 138, Chloride Level 117H, Carbon Dioxide Level 11L, Anion Gap 10, Blood Urea Nitrogen 38H, Creatinine 1.63H, Estimat Glomerular Filtration Rate 30, BUN/Creatinine Ratio 23, Glucose Level 177H, Calcium Level 9.0 11/09/18 21:31: Glucometer 180H 11/10/18 03:30: White Blood Count 8.4, Red Blood Count 2.82L, Hemoglobin 8.9L, Hematocrit 27L, Mean Corpuscular Volume 96, Mean Corpuscular Hemoglobin 32, Mean Corpuscular Hemoglobin Concent 33, Red Cell Distribution Width 13.9, Platelet Count 322, Mean Platelet Volume 9.9, Neutrophils (%) (Auto) 68, Lymphocytes (%) (Auto) 23, Monocytes (%) (Auto) 8, Eosinophils (%) (Auto) 1, Basophils (%) (Auto) 0, Neutrophils # (Auto) 5.7, Lymphocytes # (Auto) 1.9, Monocytes # (Auto) 0.7, Eosinophils # (Auto) 0.1, Basophils # (Auto) 0.0, Sodium Level 141, Potassium Level 4.5, Chloride Level 115H, Carbon Dioxide Level 15L, Anion Gap 11, Blood Urea Nitrogen 31H, Creatinine 1.42H, Estimat Glomerular Filtration Rate 35, BUN/ Creatinine Ratio 22, Glucose Level 167H, Calcium Level 8.5, Phosphorus Level 3.4 , Magnesium Level 1.5L Microbiology 11/09/18 Blood Culture - Preliminary, Resulted No growth 11/09/18 Gram Stain - Final, Resulted 11/09/18 Wound Culture, Resulted Pending Assessment/Plan Assessment/Plan Assess & Plan/Chief Complaint An 83-year-old female with cellulitis and early abscess status post incision and drainage of the left lower extremity. Continue with medical management with IV abx, pain and nausea medication. Dressing changes BID. Wound cultures pending. Will continue to monitor progress. Clinical Quality Measures DVT/VTE Risk/Contraindication: Risk Factor Score Per Nursin RFS Level Per Nursing on Admit: 4+=Very High GHISLAINE CARLTON COTTON TIPPER Nov 10, 2018 11:07
--- NOTE | 2018-11-10 11:11 | History & Physical-Hospitalist ---
History of Present Illness HPI/Chief Complaint CC: Left lower leg cellulitis with abscess s/p I&D in ER HPI: This is a very complex and frail 83yoWF of [facility] who presented to the ER w/ worsened left lower cellulitis after completing Bactrim last week after she was seen in ER for cellulitis and was found in the ER to have abscess so that was I& D and cultures obtained and then potassium was found to be 7.0 so patient was treated for that condition and given IVF and placed in ICU for observation. Patient is doing very well. She likes to sleep upright in her chair due to severe kyphosis. Source: patient Date Seen 11/10/18 Time Seen by a Provider: 11:30 Attending Physician Amanda Vallejo DO [facility] Referring Physician Date of Admission Nov 09, 2018 at 13:01 Home Medications & Allergies Home Medications Reviewed patient Home Medication Reconciliation performed by pharmacy medication reconciliations mechanical system technician and/or nursing. Patients Allergies have been reviewed. Allergies Allergies Coded Allergies diazepam (Unverified Allergy, Intermediate, RASH, 08/13/10) Past Yfwzegg-Gvygrr-Fnbgbx Hx Past Med/Social Hx: Reviewed Nursing Past Med/Soc Hx, Reviewed and Corrections made Patient Social History Marrital Status: Employed/Student: retired Alcohol Use: Denies Use Recreational Drug Use: No Smoking Status: Never a Smoker 2nd Hand Smoke Exposure: No Physical Abuse Screen: No Sexual Abuse: No Recent Foreign Travel: No Contact w/other who traveled: No Recent Hopitalizations: No Recent Infectious Disease Expo: No Immunizations Up To Date Tetanus Booster (TDap): Unknown Date of Pneumonia Vaccine: Jul 16, 2017 Date of Influenza Vaccine: Jul 11, 2018 Seasonal Allergies Seasonal Allergies: No Past Medical History Surgeries: Eye Surgery, Hysterectomy Cardiac: Hypertension : No Hysterectomy Genitourinary: Bladder Infection, Renal Failure Gastrointestinal: Gastroesophageal Reflux Endocrine: Diabetes, Non-Insulin dep HEENT: Cataract, Glaucoma Cancer: Skin History of Blood Disorders: No Adverse Reaction to Blood Olvera: No Family History Patient reports no known family medical history. No Pertinent Family Hx Review of Systems Constitutional: see HPI, weakness EENTM: no symptoms reported Respiratory: no symptoms reported Cardiovascular: no symptoms reported Gastrointestinal: no symptoms reported Genitourinary: no symptoms reported Musculoskeletal: no symptoms reported Skin: see HPI Psychiatric/Neurological: No Symptoms Reported All Other Systems Reviewed Negative Unless Noted: Yes Physical Exam Physical Exam Vital Signs Vital Signs - First Documented 11/09/18 11/10/18 10:05 00:50 Temp 97.5 Pulse 81 Resp 16 B/P (MAP) 137/46 (76) Pulse Ox 97 O2 Delivery Room Air O2 Flow Rate 2.00 Capillary Refill : Less Than 3 Seconds Height, Weight, BMI Height: 5'5.00" Weight: 157lbs. 9.0oz. 71.121453cu; 26.6 BMI Method:Stated General Appearance: No Apparent Distress, WD/WN, Chronically ill HEENT: PERRL/EOMI, Normal ENT Inspection, Pharynx Normal Neck: Full Range of Motion, Normal Inspection, Non Tender, Supple Respiratory: Chest Non Tender, Lungs Clear, Normal Breath Sounds, No Accessory Muscle Use, No Respiratory Distress Cardiovascular: Regular Rate, Rhythm, No Edema Extremity: Normal Capillary Refill, Swelling (left leg) Neurologic/Psychiatric: Alert, Oriented x3, No Motor/Sensory Deficits, Normal Mood/Affect Results Results/Procedures Labs Laboratory Tests 11/09/18 11:00 11/09/18 12:05 11/09/18 17:49 11/10/18 03:30 Patient resulted labs reviewed. Assessment/Plan Admission Diagnosis Assessment: Left lower leg abscess s/p I&D Hyperkalemia ARF CRI DM Chronic kyphosis Plan: Await Cx Home meds Monitor closely Admission Status: Inpatient Order (span 2 midnights) Reason for Inpatient Admission: Abscess and failed PO abx left leg Diagnosis/Problems Diagnosis/Problems (1) Abscess of leg Status: Acute (2) Kyphosis Status: Chronic Qualifiers: Kyphosis type: unspecified Spinal region: thoracolumbar Qualified Codes: M40.205 - Unspecified kyphosis, thoracolumbar region (3) Anemia Status: Chronic Qualifiers: Anemia type: unspecified type Qualified Codes: D64.9 - Anemia, unspecified (4) Cellulitis, leg Status: Acute Qualifiers: Laterality: left Qualified Codes: L03.116 - Cellulitis of left lower limb (5) Hyperkalemia Status: Acute (6) Chronic renal disease Status: Chronic Qualifiers: Chronic kidney disease stage: unspecified stage Qualified Codes: N18.9 - Chronic kidney disease, unspecified Clinical Quality Measures DVT/VTE Risk/Contraindication: Risk Factor Score Per Nursin RFS Level Per Nursing on Admit: 4+=Very High AMANDA VALLEJO DO Nov 10, 2018 11:11
[2018-11-10] MEDS: CALCIUM CARBONATE 500 MG (TUMS) TAB.CHEW PO PRN ×2 (18:59→21:18)
[2018-11-10] MEDS: VANCOMYCIN 1 GM/NS 250 ML IVPB IV SCH ×2 (19:21)
[2018-11-10] MEDS: ACETAMINOPHEN 500 MG TAB (TYLENOL) PO PRN (22:44)
[2018-11-10] MEDS: ALPRAZolam 0.25 MG (XANAX) TAB PO PRN (22:44)
[2018-11-11 03:03] VITALS: BP 139/65
[2018-11-11 03:15] LABS: BASOPHILS % (AUTO) 0 % (0-10); EOSINOPHILS # (AUTO) 0.2 10^3/uL (0.0-0.3); EOSINOPHILS % (AUTO) 2 % (0-10); HEMATOCRIT 26 % (35-52); HEMOGLOBIN 8.3 G/DL (11.5-16.0); LYMPHOCYTES # (AUTO) 2.8 X 10^3 (1.0-4.0); LYMPHOCYTES % (AUTO) 36 % (12-44); MEAN CORPUSCULAR HEMOGLOBIN 31 PG (25-34); MEAN CORPUSCULAR HGB CONC 32 G/DL (32-36); MEAN CORPUSCULAR VOLUME 96 FL (80-99); MEAN PLATELET VOLUME 9.2 FL (7.4-10.4); MONOCYTES # (AUTO) 0.5 X 10^3 (0.0-1.0); MONOCYTES % (AUTO) 6 % (0-12); NEUTROPHILS # (AUTO) 4.4 X 10^3 (1.8-7.8); NEUTROPHILS % (AUTO) 55 % (42-75); PLATELET COUNT 315 10^3/uL (130-400); RED CELL DISTRIBUTION WIDTH 13.5 % (10.0-14.5); WHITE BLOOD COUNT 7.9 10^3/uL (4.3-11.0)
--- NOTE | 2018-11-11 03:20 | NUR ---
Patient to room 407 at this time per recliner without incident. Patient report given to Carmen GRIMES per telephone. Patient personal belongings sent with her at time of transfer.
--- NOTE | 2018-11-11 03:25 | NUR ---
REPORT RECEIVED FROM SYDNEY MCINTOSH. ASSUME CARE OF PT AT THIS PT. PT INTRUDED TO ROOM, PERSONAL BELONGINGS WITH PT. PT VOICES NO COMPLAINTS AT THIS TIME.
[2018-11-11 03:35] LABS: CALCIUM 8.4 MG/DL (8.5-10.1); CREATININE SERUM 1.06 MG/DL (0.60-1.30); MAGNESIUM 1.7 MG/DL (1.8-2.4); POTASSIUM 3.7 MMOL/L (3.6-5.0)
[2018-11-11] MEDS: PIPERACILLIN/TAZO 4.5 GM/NS 100 ML IV SCH ×2 (05:29)
[2018-11-11] MEDS: inSUlin ASPART (NovoLOG) 1 UNIT/0.01 ML (CHARGE PER UNIT) SC SCH ×4 (06:09→22:13)
--- NOTE | 2018-11-11 06:32 | Pulmonary Progress Note ---
Subjective Time Seen by a Provider: 06:32 Subjective/Events-last exam No complications noted. Sepsis Event Evaluation Height, Weight, BMI Height: 5'5.00" Weight: 157lbs. 15.7oz. [id number]; 26.6 BMI Method:Stated Focused Exam Lactate Level 11/09/18 11:00: Lactic Acid Level 1.37 Exam Exam Vital Signs Date Time Temp Pulse Resp B/P (MAP) Pulse Ox O2 Delivery O2 Flow Rate FiO2 11/11/18 03:03 98.0 71 20 139/65 (89) 98 Room Air 11/10/18 23:10 98.7 68 18 136/57 (83) 98 Room Air 11/10/18 21:00 100 Room Air 11/10/18 19:15 98.1 84 20 133/64 (87) 100 Room Air 11/10/18 17:00 86 14 134/59 (84) 98 Room Air 11/10/18 16:00 100 Room Air 11/10/18 12:58 94 11/10/18 12:00 100 Room Air 11/10/18 12:00 81 12 118/46 (70) 99 Room Air 11/10/18 10:26 96 12 125/63 (83) 99 Room Air 11/10/18 09:00 105 18 124/62 (82) 97 Room Air 11/10/18 08:02 93 23 134/58 (83) 100 Room Air 11/10/18 08:01 100 Room Air 11/10/18 08:00 82 19 134/58 (83) 100 Room Air 11/10/18 07:44 82 11/10/18 07:00 98.5 89 19 149/72 (97) 99 I & O 11/11/18 07:00 Intake Total 2415 ml Output Total 1400 ml Balance 1015 ml Height & Weight Height: 5'5.00" Weight: 157lbs. 15.7oz. [id number]; 26.6 BMI Method:Stated General Appearance: No Apparent Distress, WD/WN, Chronically ill HEENT: PERRL/EOMI, Normal ENT Inspection, Pharynx Normal Neck: Full Range of Motion, Normal Inspection, Non Tender, Supple Respiratory: Chest Non Tender, Lungs Clear, Normal Breath Sounds, No Accessory Muscle Use, No Respiratory Distress Cardiovascular: Regular Rate, Rhythm, No Edema Capillary Refill: Less Than 3 Seconds Gastrointestinal: normal bowel sounds, non tender, soft Extremity: Normal Capillary Refill, Swelling (left leg) Neurologic/Psychiatric: Alert, Oriented x3, No Motor/Sensory Deficits, Normal Mood/Affect Skin: Normal Color, Warm/Dry Results Lab Laboratory Tests 11/09/18 11:00 11/09/18 12:05 11/09/18 17:49 11/10/18 03:30 11/11/18 03:09 Assessment/Plan Assessment/Plan Cellulitis with abscess s/p I&D -Salazar cultures pending -continue Abx Hyperkalemia -resolved -S/p insulin, D/C bicarb gtt, kayexelate MUSTAPHA with Metabolic acidosis nonanion gapped - resolved -Monitor close -Bicarb gtt -Check ABG -IVF and monitor Anemia -Monitor I am going to sign off. Please call with any questions or concerns. Pt is on RA and CXR shows no acute cardiopulmonary process. PAT PHELPS DO Nov 11, 2018 06:32
[2018-11-11 08:00] VITALS: BP 149/71
[2018-11-11] MEDS: POLYETHYLENE GLYCOL 17 GM (MIRALAX) PACK PO SCH ×2 (09:59→22:14)
--- NOTE | 2018-11-11 11:22 | Progress Note (SOAP) ---
Subjective Date Seen by a Provider: Nov 11, 2018 Time Seen by a Provider: 10:10 Subjective/Events-last exam Patient seen with Dr. Sam. Patient reports doing well. No N/V. No Fever/ chills. Tolerating diet. still complains of pain of the left lower extremity. Focused Exam Lactate Level 11/09/18 11:00: Lactic Acid Level 1.37 Objective Exam Vital Signs Date Time Temp Pulse Resp B/P (MAP) Pulse Ox O2 Delivery O2 Flow Rate FiO2 11/11/18 08:00 98.3 70 18 149/71 (97) 97 Room Air 11/11/18 03:03 98.0 71 20 139/65 (89) 98 Room Air 11/10/18 23:10 98.7 68 18 136/57 (83) 98 Room Air 11/10/18 21:00 100 Room Air 11/10/18 19:15 98.1 84 20 133/64 (87) 100 Room Air 11/10/18 17:00 86 14 134/59 (84) 98 Room Air 11/10/18 16:00 100 Room Air 11/10/18 12:58 94 11/10/18 12:00 100 Room Air 11/10/18 12:00 81 12 118/46 (70) 99 Room Air I & O 11/11/18 06:59 Intake Total 3515 ml Output Total 1400 ml Balance 2115 ml Capillary Refill : Less Than 3 Seconds General Appearance: No Apparent Distress, WD/WN Neck: Full Range of Motion, Normal Inspection, Non Tender, Supple Respiratory: Lungs Clear, Normal Breath Sounds, No Accessory Muscle Use, No Respiratory Distress Cardiovascular: Regular Rate, Rhythm, No Murmur Gastrointestinal: normal bowel sounds, non tender, soft Extremity: Normal Capillary Refill, Normal Range of Motion, Other (left lower extremity wound with packing. There is still some mild redness/erythema of the left lower extremity but does appear to be improving. Tender to palpation.) Neurologic/Psychiatric: Alert, Oriented x3 Skin: Normal Color, Warm/Dry, Other (See extremity exam) Results Lab Laboratory Tests 11/10/18 13:33: Glucometer 272H 11/10/18 17:08: Glucometer 114H 11/10/18 21:16: Glucometer 157H 11/11/18 03:09: White Blood Count 7.9, Red Blood Count 2.71L, Hemoglobin 8.3L, Hematocrit 26L, Mean Corpuscular Volume 96, Mean Corpuscular Hemoglobin 31, Mean Corpuscular Hemoglobin Concent 32, Red Cell Distribution Width 13.5, Platelet Count 315, Mean Platelet Volume 9.2, Neutrophils (%) (Auto) 55, Lymphocytes (%) (Auto) 36, Monocytes (%) (Auto) 6, Eosinophils (%) (Auto) 2, Basophils (%) (Auto) 0, Neutrophils # (Auto) 4.4, Lymphocytes # (Auto) 2.8, Monocytes # (Auto) 0.5, Eosinophils # (Auto) 0.2, Basophils # (Auto) 0.0, Sodium Level 144, Potassium Level 3.7, Chloride Level 110H, Carbon Dioxide Level 25, Anion Gap 9, Blood Urea Nitrogen 17, Creatinine 1.06, Estimat Glomerular Filtration Rate 49, BUN/ Creatinine Ratio 16, Glucose Level 150H, Calcium Level 8.4L, Magnesium Level 1.7L 11/11/18 05:09: Glucometer 175H Microbiology 11/09/18 Blood Culture - Preliminary, Resulted No growth 11/09/18 Gram Stain - Final, Resulted 11/09/18 Wound Culture - Preliminary, Resulted Staphylococcus species Assessment/Plan Assessment/Plan Assess & Plan/Chief Complaint An 83-year-old female with cellulitis and early abscess status post incision and drainage of the left lower extremity. Continue with medical management with IV abx, pain and nausea medication. Dressing changes BID. Wound culture staph on vancomycin and zosyn. Will continue to monitor progress. Clinical Quality Measures DVT/VTE Risk/Contraindication: Risk Factor Score Per Nursin RFS Level Per Nursing on Admit: 4+=Very High GHISLAINE CARLTON QUILT MAKER Nov 11, 2018 11:22
--- NOTE | 2018-11-11 11:30 | NUR ---
PATRICE COLINDRES ON FLOOR AND GAVE VERBAL ORDER FOR BID DRESSING CHANGES. CLEANSE NS, PACK WITH IODOFORM, GUAZE, TAPE. THIS RN CHANGED DRESSING AT THIS TIME.
[2018-11-11] MEDS: ENOXAPARIN 40 MG/0.4 ML (LOVENOX) SYR SC SCH (11:49)
--- NOTE | 2018-11-11 11:50 | NUR ---
DR. BENNETT ON FLOOR AND INFORMED OF POSITIVE WOUND CULTURE FOR MRSA. GAVE VERBAL ORDER TO DISCONTINUE ZOSYN AND CONTACT PRECAUTIONS. DYNAMICS AX DEVELOPER NOTIFIED BY LM PECK/ADOLFO.
--- NOTE | 2018-11-11 11:53 | Progress Note-Hospitalist ---
Subjective HPI/CC On Admission Date Seen by Provider: Nov 11, 2018 Time Seen by Provider: 10:30 CC: Left lower leg cellulitis with abscess s/p I&D in ER HPI: This is a very complex and frail 83yoWF of [facility] who presented to the ER w/ worsened left lower cellulitis after completing Bactrim last week after she was seen in ER for cellulitis and was found in the ER to have abscess so that was I& D and cultures obtained and then potassium was found to be 7.0 so patient was treated for that condition and given IVF and placed in ICU for observation. Patient is doing very well. She likes to sleep upright in her chair due to severe kyphosis. Subjective/Events-last exam Home meds will be reconciled and restarted Pain is improved MRSA from I&D left lower leg Cellulitis improved DC Zosyn since ID back Lovenox 40mg SQ initiated for DVT Px Review of Systems General: Fatigue Musculoskeletal: leg pain Focused Exam Lactate Level 11/09/18 11:00: Lactic Acid Level 1.37 Objective Exam Vital Signs Vital Signs Date Time Temp Pulse Resp B/P (MAP) Pulse Ox O2 Delivery O2 Flow Rate FiO2 11/11/18 09:00 100 Room Air 11/11/18 08:00 98.3 70 18 149/71 (97) 11/10/18 02:00 2.00 Capillary Refill : Less Than 3 Seconds General Appearance: No Apparent Distress, WD/WN HEENT: PERRL/EOMI, Normal ENT Inspection, Pharynx Normal Neck: Full Range of Motion, Normal Inspection, Non Tender, Supple Respiratory: Lungs Clear, Normal Breath Sounds, No Accessory Muscle Use, No Respiratory Distress Cardiovascular: Regular Rate, Rhythm, No Murmur Extremity: Normal Capillary Refill, Normal Range of Motion, Other (left lower extremity wound with packing. There is still some mild redness/erythema of the left lower extremity but does appear to be improving. Tender to palpation.) Neurologic/Psychiatric: Alert, Oriented x3 Skin: Normal Color, Warm/Dry, Other (See extremity exam) Results/Procedures Lab Laboratory Tests 11/11/18 03:09 Patient resulted labs reviewed. Assessment/Plan Assessment and Plan Assess & Plan/Chief Complaint Assessment: Left lower leg abscess s/p I&D now with MRSA on Cx so DC Zosyn and maintained on Vanc which was started on admit Hyperkalemia resolved ARF back to baseline CRI DM Chronic kyphosis Plan: Adalberto Curry Maintain Vanc Home meds Monitor closely Lovenox Diagnosis/Problems Diagnosis/Problems (1) Abscess of leg Status: Acute (2) MRSA infection Status: Acute (3) Kyphosis Status: Chronic Qualifiers: Kyphosis type: unspecified Spinal region: thoracolumbar Qualified Codes: M40.205 - Unspecified kyphosis, thoracolumbar region (4) Anemia Status: Chronic Qualifiers: Anemia type: unspecified type Qualified Codes: D64.9 - Anemia, unspecified (5) Cellulitis, leg Status: Acute Qualifiers: Laterality: left Qualified Codes: L03.116 - Cellulitis of left lower limb (6) Hyperkalemia Status: Acute (7) Chronic renal disease Status: Chronic Qualifiers: Chronic kidney disease stage: unspecified stage Qualified Codes: N18.9 - Chronic kidney disease, unspecified Clinical Quality Measures DVT/VTE Risk/Contraindication: Risk Factor Score Per Nursin RFS Level Per Nursing on Admit: 4+=Very High JENSEN BENNETT DO Nov 11, 2018 11:53
[2018-11-11 12:00] VITALS: BP 128/60
--- NOTE | 2018-11-11 13:14 | NUR ---
PHONED [facility] TO CLARIFY HOME MEDICATIONS. DR. BENNETT INFORMED HOME MEDS ARE READY TO REVIEW.
[2018-11-11] MEDS ORDERED: RT-ALBUTEROL SULF 2.5 MG/3 ML PRE-MIX VIAL INH SCH (13:30)
[2018-11-11] MEDS ORDERED: RT-ALBUTEROL SULF 2.5 MG/3 ML PRE-MIX VIAL INH PRN (13:45)
[2018-11-11] MEDS ORDERED: TROUGH ORDER-PHARMACY XX NR (14:30)
[2018-11-11 15:40] VITALS: BP 132/57
--- NOTE | 2018-11-11 16:30 | NUR ---
PHONED PHARMACY, HAVE NOT BEEN ABLE TO LOCATE [facility]
[2018-11-11] MEDS: VANCOMYCIN 1 GM/NS 250 ML IVPB IV SCH ×2 (17:12)
[2018-11-11 20:15] VITALS: BP 151/54
[2018-11-11] MEDS: ALPRAZolam 0.25 MG (XANAX) TAB PO PRN (22:12)
[2018-11-11] MEDS: meTOprolol TARTRATE 25 MG (LOPRESSOR) TABLET PO SCH (22:12)
[2018-11-11] MEDS: ALPRAZolam 0.5 MG (XANAX) TAB PO SCH (22:19)
[2018-11-12] VITALS (7 sets, daily range): BP systolic 110–146; BP diastolic 54–71
[2018-11-12] MEDS: ACETAMINOPHEN 500 MG TAB (TYLENOL) PO PRN (00:27)
[2018-11-12 04:45] LABS: BASOPHILS % (AUTO) 0 % (0-10); EOSINOPHILS # (AUTO) 0.2 10^3/uL (0.0-0.3); EOSINOPHILS % (AUTO) 3 % (0-10); HEMATOCRIT 27 % (35-52); HEMOGLOBIN 8.4 G/DL (11.5-16.0); LYMPHOCYTES # (AUTO) 2.7 X 10^3 (1.0-4.0); LYMPHOCYTES % (AUTO) 32 % (12-44); MEAN CORPUSCULAR HEMOGLOBIN 31 PG (25-34); MEAN CORPUSCULAR HGB CONC 32 G/DL (32-36); MEAN CORPUSCULAR VOLUME 97 FL (80-99); MEAN PLATELET VOLUME 9.1 FL (7.4-10.4); MONOCYTES # (AUTO) 0.6 X 10^3 (0.0-1.0); MONOCYTES % (AUTO) 7 % (0-12); NEUTROPHILS % (AUTO) 59 % (42-75); PLATELET COUNT 293 10^3/uL (130-400); RED CELL DISTRIBUTION WIDTH 13.3 % (10.0-14.5); WHITE BLOOD COUNT 8.5 10^3/uL (4.3-11.0)
[2018-11-12 05:19] LABS: CALCIUM 8.4 MG/DL (8.5-10.1); CREATININE SERUM 0.95 MG/DL (0.60-1.30); MAGNESIUM 1.6 MG/DL (1.8-2.4); POTASSIUM 3.8 MMOL/L (3.6-5.0)
[2018-11-12] MEDS: inSUlin ASPART (NovoLOG) 1 UNIT/0.01 ML (CHARGE PER UNIT) SC SCH ×4 (06:12→21:30)
[2018-11-12] MEDS: meTOprolol TARTRATE 25 MG (LOPRESSOR) TABLET PO SCH ×2 (08:56→21:52)
[2018-11-12] MEDS: ALPRAZolam 0.5 MG (XANAX) TAB PO SCH ×3 (08:56→21:52)
[2018-11-12] MEDS: PANTOPRAZOLE 40 MG (PROTONIX) TAB PO SCH (08:56)
[2018-11-12] MEDS: lisINopril 5 MG (PRINIVIL) TABLET PO SCH (08:56)
[2018-11-12] MEDS: POLYETHYLENE GLYCOL 17 GM (MIRALAX) PACK PO SCH ×2 (08:57→21:30)
[2018-11-12] MEDS: ENOXAPARIN 40 MG/0.4 ML (LOVENOX) SYR SC SCH (11:15)
[2018-11-12] MEDS: VANCOMYCIN 1 GM/NS 250 ML IVPB IV SCH ×2 (16:38)
--- NOTE | 2018-11-12 19:08 | Progress Note (SOAP) ---
Subjective Subjective/Events-last exam 83 yo F with abscess and associated cellulitis to LLE. Improving today. Wound packed and continues to drain purulent material. Tolerating PO diet. Denies any fever or chills. Review of Systems Date Seen by Provider: Nov 12, 2018 Time Seen by Provider: 10:25 General: No Chills; Fatigue Pulmonary: No Dyspnea, No Cough Cardiovascular: Edema; No: Chest Pain, Palpitations Musculoskeletal: leg pain Neurological: Weakness Objective Exam Last Set of Vital Signs Vital Signs Date Time Temp Pulse Resp B/P (MAP) Pulse Ox O2 Delivery O2 Flow Rate FiO2 11/12/18 16:03 97.1 65 20 128/63 (84) 98 Room Air 11/10/18 02:00 2.00 Capillary Refill : Less Than 3 Seconds I&O Intake and Output 11/12/18 00:00 Intake Total 2730 ml Output Total 950 ml Balance 1780 ml Intake Oral 1390 ml IV Total 1340 ml Output Urine Total 950 ml # Voids 5 # Bowel Movements 3 General: Alert, Oriented X3, Cooperative, No Acute Distress HEENT: Mucous Memb Moist/[place] Lungs: Clear to Auscultation, Normal Air Movement Heart: Regular Rate, No Murmurs Abdomen: Normal Bowel Sounds, Soft, No Tenderness Extremities: Other (2+ pitting edema bilaterally, LLE wound with packing and purulent drainage, Increase warmth and redness to LLE) Neuro: Cranial Nerves 3-12 NL Psych/Mental Status: Mental Status NL, Mood NL Results/Procedures Lab Laboratory Tests 11/11/18 20:46: Glucometer 189H 11/12/18 04:40: White Blood Count 8.5, Red Blood Count 2.74L, Hemoglobin 8.4L, Hematocrit 27L, Mean Corpuscular Volume 97, Mean Corpuscular Hemoglobin 31, Mean Corpuscular Hemoglobin Concent 32, Red Cell Distribution Width 13.3, Platelet Count 293, Mean Platelet Volume 9.1, Neutrophils (%) (Auto) 59, Lymphocytes (%) (Auto) 32, Monocytes (%) (Auto) 7, Eosinophils (%) (Auto) 3, Basophils (%) (Auto) 0, Neutrophils # (Auto) 5.0, Lymphocytes # (Auto) 2.7, Monocytes # (Auto) 0.6, Eosinophils # (Auto) 0.2, Basophils # (Auto) 0.0, Sodium Level 141, Potassium Level 3.8, Chloride Level 108H, Carbon Dioxide Level 25, Anion Gap 8, Blood Urea Nitrogen 14, Creatinine 0.95, Estimat Glomerular Filtration Rate 56, BUN/ Creatinine Ratio 15, Glucose Level 97, Calcium Level 8.4L, Magnesium Level 1.6L 11/12/18 11:42: Glucometer 109 11/12/18 16:06: Glucometer 167H Microbiology 11/09/18 Blood Culture - Preliminary, Resulted No growth 11/09/18 Gram Stain - Final, Complete 11/09/18 Wound Culture - Final, Complete Staphylococcus aureus Assessment/Plan Assessment/Plan (1) Abscess of left lower extremity Status: Acute Assessment & Plan: - Growing MRSA, will d/c on antibiotics (2) MRSA infection Status: Acute (3) Normocytic anemia Status: Chronic Assessment & Plan: - Will need workup as outpatient (4) Discharge planning issues Assessment & Plan: - Plan to d/c home tomorrow Clinical Quality Measures DVT/VTE Risk/Contraindication: Risk Factor Score Per Nursin RFS Level Per Nursing on Admit: 4+=Very High SONIA MTZ MD Nov 12, 2018 19:08
[2018-11-13 05:51] LABS: CALCIUM 8.4 MG/DL (8.5-10.1); CREATININE SERUM 0.99 MG/DL (0.60-1.30); MAGNESIUM 1.6 MG/DL (1.8-2.4); POTASSIUM 3.7 MMOL/L (3.6-5.0)
[2018-11-13] MEDS: inSUlin ASPART (NovoLOG) 1 UNIT/0.01 ML (CHARGE PER UNIT) SC SCH ×2 (06:39→11:20)
[2018-11-13 08:00] VITALS: BP 161/70
[2018-11-13] MEDS: PANTOPRAZOLE 40 MG (PROTONIX) TAB PO SCH (08:37)
[2018-11-13] MEDS: POLYETHYLENE GLYCOL 17 GM (MIRALAX) PACK PO SCH (08:37)
[2018-11-13] MEDS: lisINopril 5 MG (PRINIVIL) TABLET PO SCH (08:37)
[2018-11-13] MEDS: ALPRAZolam 0.5 MG (XANAX) TAB PO SCH (08:37)
[2018-11-13] MEDS: meTOprolol TARTRATE 25 MG (LOPRESSOR) TABLET PO SCH (08:37)
--- NOTE | 2018-11-13 10:37 | Discharge Summary ---
Diagnosis/Chief Complaint Date of Admission Nov 09, 2018 at 13:01 Date of Discharge Discharge Diagnosis Problems/Diagnosis: (1) Abscess of left lower extremity Assessment & Plan: - Growing MRSA, will d/c on antibiotics Status: Acute (2) MRSA infection Status: Acute (3) Normocytic anemia Assessment & Plan: - Will need workup as outpatient Status: Chronic (4) Discharge planning issues Assessment & Plan: - Plan to d/c home tomorrow Discharge Summary-Simple/Stand Consultations Discharge Physical Examination Allergies: Coded Allergies: diazepam (Unverified Allergy, Intermediate, RASH, 08/13/10) Vitals & I&Os Vital Sign - Last 12Hours Date Time Temp Pulse Resp B/P (MAP) Pulse Ox O2 Delivery O2 Flow Rate FiO2 11/13/18 09:00 Room Air 11/13/18 08:00 98.5 73 18 161/70 (100) 96 11/10/18 02:00 2.00 Intake and Output 11/13/18 00:00 Intake Total 1350 ml Output Total 900 ml Balance 450 ml Hospital Course See final discharge diagnosis. Discharge Instructions to patient/family Please see electronic discharge instructions given to patient. Discharge Medications Reviewed and agree with Discharge Medication list on patient's Discharge Instruction sheet Clinical Quality Measures DVT/VTE Risk/Contraindication: Risk Factor Score Per Nursin RFS Level Per Nursing on Admit: 4+=Very High SONIA MTZ MD Nov 13, 2018 10:37
--- NOTE | 2018-11-13 10:44 | Discharge Instructions ---
Discharge [facility] Discharge Medications New, Converted or Re-Newed RX: Transmitted to Pharmacy New Medications: Doxycycline Hyclate (Doxycycline Hyclate) 100 Mg Capsule 100 MG PO BID, #14 CAP Continued Medications: Albuterol Sulfate (Ventolin Hfa) 1 Puff Puff 2 PUFF INH Q4H PRN for SHORTNESS OF BREATH, PUFF 1 PUFF = 90 MCG Alprazolam (Alprazolam) 0.5 Mg Tablet 0.5 MG PO TID Glimepiride (Glimepiride) 4 Mg Tablet 4 MG PO DAILY Lisinopril (Lisinopril) 5 Mg Tablet 5 MG PO DAILY Metoprolol Tartrate (Metoprolol Tartrate) 25 Mg Tablet 25 MG PO BID Omeprazole (Omeprazole) 40 Mg Capsule.dr 40 MG PO DAILY, CAP Discontinued Medications: Esomeprazole Magnesium (Nexium) 40 Mg Cap 40 MG PO DAILY Sulfamethoxazole/Trimethoprim (Sulfamethoxazole-Tmp Ds Tablet) 1 Each Tablet 1 TAB PO BID for 10 Days, TAB 10 DAY SUPPLY FILLED 11-02-18 Patient Instructions Goal/Follow Up Appt: You have an appt with Dr Childers on Monday 11/20 @ 0940 AM for hospital followup Patient Instructions: - Make sure to complete your antibiotics Activity & Diet Discharge Diet: ADA Diet Activity as Tolerated: Yes Copy Copies To 1: AMBER CHILDERS MD, HOLLY R MD Nov 13, 2018 10:44
[2018-11-13] MEDS: ENOXAPARIN 40 MG/0.4 ML (LOVENOX) SYR SC SCH (11:33)
[2018-11-13 12:40] VITALS: BP 161/70
--- NOTE | 2018-11-13 12:40 | NUR ---
DISCHARGE INSTRUCTIONS GIVEN TO PATIENT WITH TIME ALLOWED FOR QUESTIONS. PATIENT HAS NO COMPLAINTS OF PAIN AT THIS TIME. CENTRAL LINE REMOVED WITH CATHETER INTACT. PRESSURE AND DRESSING APPLIED. PATIENT LEFT ROOM VIA WHEELCHAIR ACCOMPANIED BY STAFF, CAREGIVER, AND . LEFT IN PRIVATE VEHICLE.
== END 2018-11-13 12:40 | disposition home or self-care (01) | DRG 603 ==
LOC: EDUNIT# 10:02 → ER 10:03 → ICU 13:01 → 4TH 11-11 03:15
PROVIDERS: ADMIT Internal Medicine; ATTEND Internal Medicine
PROC: 0H9LXZZ Drainage of Left Lower Leg Skin, External Approach (ICD-10-PCS; principal; 2018-11-09)
DX: L03.116 Cellulitis of left lower limb (principal); L02.416 Cutaneous abscess of left lower limb; N17.9 Acute kidney failure, unspecified; E87.2 Acidosis; E11.621 Type 2 diabetes mellitus with foot ulcer; L97.529 Non-pressure chronic ulcer of other part of left foot with unspecified severity; E87.5 Hyperkalemia; I12.9 Hypertensive chronic kidney disease with stage 1 through stage 4 chronic kidney disease, or unspecified chronic kidney disease; N18.9 Chronic kidney disease, unspecified; K21.9 Gastro-esophageal reflux disease without esophagitis; I87.2 Venous insufficiency (chronic) (peripheral); E83.42 Hypomagnesemia; D64.9 Anemia, unspecified; M40.205 Unspecified kyphosis, thoracolumbar region; B95.62 Methicillin resistant Staphylococcus aureus infection as the cause of diseases classified elsewhere
CPT/HCPCS: 10061; 36415; 71045; 76999; 80048; 80053; 80202; 82962; 83605; 83735; 84100; 84132; 85025; 87040; 87070; 87077; 87186; 87205; 93005; 94760; 96361; 96365; 96375